=== PATIENT | female | born 1940 | race Caucasian/White ===

== ENCOUNTER 2024-10-26 11:05 | Inpatient (IN) | payer OTHER, MEDICAID ==
[~2024-10-26] VITALS: Ht 165.1 cm; Wt 63.5 kg
[~2024-10-26 11:05] MED LIST: ANAS1TAB7 PO; DEXA0.5E4 PO; HYDR500T13 PO; LETR2.5T PO; MORP1TAB14 PO; OMEP20CA74 PO
[2024-10-26 11:35] VITALS: PULSE 92; RESP 16; O2SAT 94
--- NOTE | 2024-10-26 11:37 | ED.PDOC ---
History of Present Illness HPI Comments 83 year old female presents to the ED via EMS with a chief complaint of generalized weakness onset 2 weeks. Patient states she has been experiencing generalized weakness for the past 2 weeks. She usually is ambulate on her own, lives on her own, states she does not have a plaster lather. Yesterday, patient went to the restroom, lost her balance, fell, landed on her back/LT side, hit towel rack. Patient states she is currently experiencing LT chest wall, LT sided back pain. She states she was on the floor all day yesterday, was not able to get up due to weakness. PMHx metastatic breast cancer. Denies LOC, head injury, neck pain, shortness of breath, dizziness. No other symptoms or modifying factors present at this time. Chief Complaint: General Weakness Time Seen by MD: 11:25 Primary Care Provider: UNKNOWN Reviewed Notes: Medications, Allergies Allergies: Coded Allergies: Penicillins (Unverified Allergy, Unknown, 05/02/14) Home Meds Reported Medications Hydrocodone-Acetaminophen (Acetaminophen/Hydrocodone) 1 Tab Tab, 10 MG PO Q4HPRN PRN for BREAKTHROUGH PAIN, TAB 05/02/14 Letrozole (Femara) 2.5 Mg Tab, 2.5 MG PO DAILY, TAB 05/02/14 Omeprazole (PRILOSEC) 20 Mg Cap, 20 MG PO DAILY, CAP 05/02/14 Dexamethasone (Dexamethasone) 0.5 Mg/5 Ml Elx, 4 MG PO Q8HR, ELX 05/02/14 Anastrozole (Anastrozole) 1 Mg Tab, 1 MG PO DAILY, TAB 05/02/14 Morphine Sulfate (Morphine Sulfate Er) 60 Mg Tab, 30 MG PO Q8HR PRN for BREAKTHROUGH PAIN, TAB 05/02/14 Information Source: Patient, Emergency Med Personnel Mode of Arrival: EMS Severity: Moderate Timing: Days Duration: Since onset Prehospital treatment: None Past Medical History PAST MEDICAL HISTORY: Cancer Surgical History: Hysterectomy Surgical History (Other): RT mastectomy PULPWOOD DEALER 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 History Family History Family History: No family hx of Cancer Family History (Other): mother bladder, father prostate, sister breast, cousins breasts cancers Social History Smoker: Non-Smoker, Other Alcohol: Denies ETOH Use Drugs: Denies Drug Use Lives In: Home Constitutional: reports: weakness; denies: chills, diaphoresis, fatigue, fever, malaise, sweats, others EENTM: denies: blurred vision, double vision, ear bleeding, ear discharge, ear drainage, ear pain, ear ringing, eye pain, eye redness, hearing loss, mouth pain, mouth swelling, nasal discharge, nose bleeding, nose congestion, nose pain, photophobia, tearing, throat pain, throat swelling, voice changes, others Respiratory: denies: cough, hemoptysis, orthopnea, SOB at rest, shortness of breath, SOB with excertion, stridor, wheezing, others Cardiovascular: denies: chest pain, dizzy spells, diaphoresis, Dyspnea on exertion, edema, irregular heart beat, left arm pain, lightheadedness, palpitations, PND, syncope, others Gastrointestinal: denies: abdomen distended, abdominal pain, blood streaked bowels, constipated, diarrhea, dysphagia, difficulty swallowing, hematemesis, melena, nausea, poor appetite, poor fluid intake, rectal bleeding, rectal pain, vomiting, others Genitourinary: denies: abnormal vagina bleeding, burning, dyspareunia, dysuria, flank pain, frequency, hematuria, incontinence, pain, , vagina discharge, urgency, others Neurological: reports: weakness; denies: dizziness, fainting, headache, left sided numbness, left sided weakness, numbness, paresthesia, pre-existing deficit, right sided numbness, right sided weakness, seizure, speech problems, tingling, tremors, others Musculoskeletal: reports: others (LT chest wall, LT back pain); denies: back pain, gout, joint pain, joint swelling, muscle pain, muscle stiffness, neck pain Integumetry: denies: bruises, change in color, change in hair/nails, dryness, laceration, lesions, lumps, rash, wounds, others Allergic/Immunocompromised: denies: Difficulty Healing, Frequent Infections, Hives, Itching, others Hematologic/Lymphatic: denies: anemia, blood clots, easy bleeding, easy bruising, swollen glands, others Endocrine: denies: excessive hunger, excessive sweating, excessive thirst, excessive urination, flushing, intolerance to cold, intolerance to heat, unexplained weight gain, unexplained weight loss, others Psychiatric: denies: anxiety, bipolar disorder, depression, hopeless, panic disorder, schizophrenia, sleepless, suicidal, others All Other Systems: Reviewed and Negative Physical Exam General Appearance: No Apparent Distress, Normal HEENT: Normal ENT Inspection, Pharynx Normal, TMs Normal Neck: Full Range of Motion, Non-Tender, Normal, Normal Inspection Respiratory: Chest Non-Tender, Lungs Clear, No Accessory Muscle Use, No Respiratory Distress, Normal Breath Sounds Cardiovascular: No Edema, No JVD, No Murmur, No Gallop, Normal Peripheral Pulses, Regular Rate/Rhythm Breast Exam: Deferred Gastrointestinal: No Organomegaly, Non Tender, No Pulsatile Mass, Normal Bowel Sounds, Soft Genitalia: Deferred Pelvic: Deferred Rectal: Deferred Extremities: No calf tenderness, Normal capillary refill, Normal inspection, Normal range of motion, Non-tender, No pedal edema Musculoskeletal : Location: Left Extremity Location: Chest (LT chest wall tenderness) Apperance: Normal Neurologic: Alert, six pack loader operator II-XII nml as Tested, No Motor Deficits, Normal Affect, Normal Mood, No Sensory Deficits Cerebellar Function: Normal Reflexes: Normal Skin: Dry, Normal Color, Warm Lymphatic: No Adenopathy Was a procedure done? Was a procedure done?: No Differential Dx Considerations may include: hypoglycemia, dehydration, electrolyte disorders, metastatic disease, failure to thrive. pneumonia, uti X-Ray, Labs, Meds, VS Vital Signs Date Time Temp Pulse Resp B/P (MAP) Pulse Ox O2 Delivery O2 Flow Rate FiO2 10/26/24 14:00 90 16 106/72 (83) 94 10/26/24 12:18 110/74 10/26/24 12:00 91 10/26/24 11:35 98.0 98 16 111/70 (84) 94 98.0 10/26/24 11:35 92 16 94 Nasal Cannula* 3 32 10/26/24 11:19 91 10/26/24 11:09 96 10/26/24 11:05 97.2 74 18 124/78 (93) 95 97.2 Lab Test 10/26/24 11:43 10/26/24 11:35 Range/Units White Blood Count 9.4 4.4-10.8 10^3/uL Red Blood Count 5.29 H 4.0-5.20 10^6/uL Hemoglobin 17.2 H 12.2-16.2 g/dL Hematocrit 51.2 H 36.0-46.0 % Mean Corpuscular Volume 96.8 80.0-100.0 fL Mean Corpuscular Hemoglobin 32.5 H 28.0-32.0 pg Mean Corpuscular Hemoglobin Concent 33.6 32.0-36.0 g/dL Red Cell Distribution Width 18.9 H 11.8-14.3 % Platelet Count 171 140-450 10^3/uL Mean Platelet Volume 10.3 6.9-10.8 fL Neutrophils (%) (Auto) 77.9 37.0-80.0 % Lymphocytes (%) (Auto) 9.1 L 10.0-50.0 % Monocytes (%) (Auto) 12.0 0.0-12.0 % Eosinophils (%) (Auto) 0.4 0.0-7.0 % Basophils (%) (Auto) 0.6 0.0-2.0 % Neutrophils # (Auto) 7.4 1.6-8.6 10 ^3/uL Lymphocytes # (Auto) 0.9 0.4-5.4 10 ^3/uL Monocytes # (Auto) 1.1 0-1.3 10 ^3/uL Eosinophils # (Auto) 0 0-0.8 10 ^3/uL Basophils # (Auto) 0.1 0-0.2 10 ^3/uL Nucleated Red Blood Cells 0.1 % Sodium Level 137 136-145 mmol/L Potassium Level 4.2 3.5-5.1 mmol/L Chloride Level 105 98-107 mmol/L Carbon Dioxide Level 22 20-31 mmol/L Anion Gap 10 5-15 Blood Urea Nitrogen 12 9-23 mg/dL Creatinine 0.74 0.550-1.02 mg/dL Glomerular Filtration Rate Calc 80 >90 mL/min BUN/Creatinine Ratio 16.2 10.0-20.0 Serum Glucose 70 L 74-106 mg/dL Calcium Level 12.6 H 8.7-10.4 mg/dL Creatine Kinase 167 H 34-145 U/L Vitamin B12 Level Pending Parathyroid Hormone (Intact) Pending Urine Color Pending Urine Clarity Pending Urine pH Pending Urine Specific [place] Pending Urine Protein Pending Urine Ketones Pending Urine Blood Pending Urine Nitrite Pending Urine Bilirubin Pending Urine Urobilinogen Pending Urine Leukocyte Esterase Pending Urine RBC Pending Urine Microscopic WBC Pending Urine Squamous Epithelial Cells Pending Urine Bacteria Pending Urine Glucose Pending Current Medications Medications (Trade) Dose Ordered Sig/Shellie Route Start Time Stop Time Status Last Admin Fentanyl Citrate 12.5 mcg ONCE ONCE IV 10/26/24 11:30 10/26/24 12:07 DC 10/26/24 12:18 Sodium Chloride 1,000 ml @ 125 mls/hr Q8H ONCE IV 10/26/24 11:30 10/26/24 19:29 10/26/24 12:18 Ceftriaxone Sodium 50 ml @ 100 mls/hr ONCE ONCE IV 10/26/24 15:00 10/26/24 15:29 DC 10/26/24 15:22 [place] [address] Ph: [phone] DIAGNOSTIC IMAGING Diagnostic Imaging Report : [id number] Signed PATIENT: DARWIN MARTINEZ ACCT: [id number] UNIT: [id number] : 1940 LOC: ER ROOM / BED: / AGE / SEX: 83 / F ADM STATUS: REG ER SERVICE 1127 ORDERING PHYSICIAN: ANJU SANTAMARIA MD PROCEDURE(s): ABPL - CT AB PEL WO CON-NO ORAL OR IV REASON: pain ORDER NUMBER(s): [id number], ACCESSION NUMBER(s): [id number] Indication: pain Technique: CT axial images of the abdomen and pelvis are obtained without contrast. Coronal and sagittal reformats were obtained. Radiation Dose Information: CTDI volume is 19.21 mGy. Dose-length product is 1121.19 mGy*cm Comparison: None FINDINGS: There is limited interpretation of the abdomen and pelvis without administration of intravenous contrast. Lung bases demonstrate atelectasis. Cardiomegaly. Aortic atherosclerotic disease. Left adrenal nodule measuring 2.1 cm. Pancreas unremarkable in shape. Liver capsule nodular morphology. Innumerable hepatic hypodense lesions throughout the hepatic parenchyma replacing more than 50% of the hepatic parenchyma. No CT evidence for cholelithiasis. Pericholecystic edema. Small amount of perihepatic, perisplenic ascites fluid. The bilateral kidneys demonstrate no hydronephrosis / nephrolithiasis. Nonobst ructing left renal calculus measuring 2 mm. Stomach is partially distended. Small bowel loops are normal in caliber. Colonic diverticular disease. Moderate volume stool in the colon. No secondary signs for appendicitis. Abdominal aortic atherosclerotic disease. Mesenteric edema. Small amount of free pelvic fluid. Bladder distended. No inguinal lymphadenopathy. Diffuse axial, appendicular skeleton osteoblastic metastatic disease with involvement of the thoracic, lumbar spine, sacrum, bilateral iliac bones. There is also a left iliac lytic destructive lesion measuring 3.1 cm.. Vertebroplasty changes at L2, L3, T8. T10 compression deformity with 50% loss height. T11 compression deformity with 25% loss height. L1 compression deformity with 30% loss height. Omental caking most pronounced in the upper abdomen. IMPRESSION: 1. Innumerable hepatic hypodense lesions replacing more than 50% of the hepatic parenchyma consistent with primary malignancy/ metastatic disease. Correlate with oncology history. 2. Diffuse axial, appendicular skeleton osteoblastic metastatic disease 3. Left iliac lytic / destructive lesion measuring 3.1 cm. 4. Small amount of ascites fluid extending to the pelvis. 5. Omental caking most pronounced within the upper abdomen.Left adrenal 6. Nodule measuring 2.1 cm, likely metastatic lesion. 7. Atherosclerotic disease. 8. Colonic diverticular disease. 9. Liver capsule nodular morphology which can be secondary to underlying cirrhosis, hepatic metastatic disease. ATED BY: GAL KNIGHT MD DICTATED DATE/TIME: 10/26/24 1231 SIGNED BY: GAL KNIGHT MD SIGNED DATE/TIME: 10/26/24 1231 CC: [place] [address] Ph: [phone] DIAGNOSTIC IMAGING Diagnostic Imaging Report : [id number] Signed PATIENT: DARWIN MARTINEZ ACCT: [id number] UNIT: [id number] : 1940 LOC: ER ROOM / BED: / AGE / SEX: 83 / F ADM STATUS: REG ER SERVICE 112 ORDERING PHYSICIAN: ANJU SANTAMARIA MD PROCEDURE(s): CXRP - CHEST PORTABLE REASON: falling ORDER NUMBER(s): [id number], ACCESSION NUMBER(s): [id number] CHEST RADIOGRAPH Indication: falling Technique: Single frontal view of the chest was obtained Comparison: FINDINGS: The cardiac silhouette is unremarkable. The lungs demonstrate right perihilar, right lower lobe airspace opacities. Elevation right hemidiaphragm.. The pulmonary vasculature is unremarkable. There is no pleural effusion.. There is no pneumothorax. Postsurgical changes of the right lateral chest wall / axillary region. IMPRESSION: 1. As above << >> ATED BY: GAL KNIGHT MD DICTATED DATE/TIME: 10/26/24 1237 SIGNED BY: GAL KNIGHT MD SIGNED DATE/TIME: 10/26/24 1237 CC: Time of 1ST Reevaluation: 11:55 Reevaluation 1ST: Unchanged Time of 2ND Reevaluation: 14:56 Reevaluation 2ND: Unchanged Patient Education/Counseling: Diagnosis, Treatment, Prognosis, Need For Follow Up Family Education/Counseling: No Family Present Additional Information The following tests were ordered, and results were reviewed by me: CBC, BMP, CREATINE KINASE, UA, XY CHEST, CT AB PEL WO CON Additional Information was gathered from interviewing the following independent historians: EMS I reviewed and agreed with the following test results read by other providers: XY CHEST, CT AB PEL WO CON I discussed treatment and results with medical personnel and: patient Comprehensive systems review obtained and negative except for what is stated in the HPI. pt has metastatic disease. she is on hospice, palliative care, and would like to return home to continue the comfort care. however, she lives alone and is at a weakened state that she is no longer safe to return home alone. she has agreed to be admitted or placed until a safe option can be found to go home. there is a right lung infiltrate. wether this is metastatic related is unknown. i will cover her with antibiotic for now Departure 1 Departure Time of Disposition: 16:10 Impression: Primary Impression: Failure to thrive Qualified Codes: R62.7 - Adult failure to thrive Additional Impressions: Generalized weakness Metastatic cancer Qualified Codes: C79.9 - Secondary malignant neoplasm of unspecified site Hospice care patient Pneumonia Disposition: 09 ADMITTED INPATIENT Admit to: Med Surg Condition: Serious Discharged With: Self Critical Care Note Critical Care Time?: Yes (55 min-critical care time only) Critical care comment: due to concerns for patient's condition deteriorating, the care required my highest level of attention and readiness to intervene. i assessed the patient's condition, ordered the proper tests and treatments, reassessed for response and reviewed the results. i communicated with medical personnel and formulated a plan of care. total critical care time does not include any procedures Stability Stability form required: No I personally scribed for ANJU SANTAMARIA MD ([facility] on 10/26/24 at 11:37. Electronically submitted by Sully Pfeiffer ([email or web address]). I personally scribed for ANJU SANTAMARIA MD ([email or web address]) on 10/26/24 at 11:41. Electronically submitted by Sully Pfeiffer ([email or web address]). I personally scribed for ANJU SANTAMARIA MD ([email or web address]) on 10/26/24 at 12:46. Electronically submitted by Sully Pfeiffer ([email or web address]). ANJU SANTAMARIA MD October 26, 2024 11:37
[2024-10-26 12:00] LABS: Basophils # (auto) 0.1 10 ^3/uL (0-0.2); Basophils % (auto) 0.6 % (0.0-2.0); Eosinophils # (auto) 0 10 ^3/uL (0-0.8); Eosinophils % (auto) 0.4 % (0.0-7.0); Hematocrit 51.2 % (36.0-46.0); Hemoglobin 17.2 g/dL (12.2-16.2); Lymphocytes # (auto) 0.9 10 ^3/uL (0.4-5.4); Lymphocytes % (auto) 9.1 % (10.0-50.0); Mean Corpuscular Hemoglobin 32.5 pg (28.0-32.0); Mean Corpuscular Hgb Conc. 33.6 g/dL (32.0-36.0); Mean Corpuscular Volume 96.8 fL (80.0-100.0); Monocytes # (auto) 1.1 10 ^3/uL (0-1.3); Neutrophils # (auto) 7.4 10 ^3/uL (1.6-8.6); Neutrophils % (auto) 77.9 % (37.0-80.0); Nucleated Red Blood Cells % 0.1 %; Platelet Count (auto) 171 10^3/uL (140-450); Red Blood Cells 5.29 10^6/uL (4.0-5.20); Red Cell Distribution Width 18.9 % (11.8-14.3); White Blood Cell 9.4 10^3/uL (4.4-10.8)
[2024-10-26 12:05] LABS: Chloride 105 mmol/L (98-107); Potassium 4.2 mmol/L (3.5-5.1); Sodium 137 mmol/L (136-145)
[2024-10-26 12:06] LABS: Anion Gap 10 (5-15); Carbon Dioxide 22 mmol/L (20-31)
[2024-10-26 12:11] LABS: BUN/Creatinine Ratio 16.2 (10.0-20.0); Blood Urea Nitrogen 12 mg/dL (9-23)
[2024-10-26 12:12] LABS: Calcium 12.6 mg/dL (8.7-10.4); Glucose 70 mg/dL (74-106)
[2024-10-26 12:13] LABS: Creatine Kinase IFCC 167 U/L (34-145)
[2024-10-26] MEDS: fentaNYL CITRATE 100 MCG/2 ML VL IV ONE (12:18)
[2024-10-26] MEDS: SODIUM CHLORIDE 0.9% 1,000 ML IV ONE (12:18)
--- NOTE | 2024-10-26 12:34 | DVH ---
Indication: pain Technique: CT axial images of the abdomen and pelvis are obtained without contrast. Coronal and sagit bassem reformats were obtained. Radiation Dose Information: CTDI volume is 19.21 mGy. Dose-length product is 1121.19 mGy*cm Comparison: None FINDINGS: There is limited interpretation of the abdomen and pelvis without administration of intravenous contr ast. Lung bases demonstrate atelectasis. Cardiomegaly. Aortic atherosclerotic disease. Left adrenal nodule measuring 2.1 cm. Pancreas unremarkable in shape. Liver capsule nodular morphology. Innumerable hepatic hypodense lesions throughout the hepatic paren chyma replacing more than 50% of the hepatic parenchyma. No CT evidence for cholelithiasis. Pericholecystic edema. Small amount of perihepatic, perisplenic ascites fluid. The bilateral kidneys demonstrate no hydronephrosis / nephrolithiasis. Nonobstructing left renal calc ulus measuring 2 mm. Stomach is partially distended. Small bowel loops are normal in caliber. Colonic diverticular disease. Moderate volume stool in the colon. No secondary signs for appendicitis . Abdominal aortic atherosclerotic disease. Mesenteric edema. Small amount of free pelvic fluid. Blad jade distended. No inguinal lymphadenopathy. Diffuse axial, appendicular skeleton osteoblastic metastatic disease with involvement of the thoracic , lumbar spine, sacrum, bilateral iliac bones. There is also a left iliac lytic destructive lesion me asuring 3.1 cm.. Vertebroplasty changes at L2, L3, T8. T10 compression deformity with 50% loss height . T11 compression deformity with 25% loss height. L1 compression deformity with 30% loss height. Omental caking most pronounced in the upper abdomen. IMPRESSION: 1. Innumerable hepatic hypodense lesions replacing more than 50% of the hepatic parenchyma consistent with primary malignancy/ metastatic disease. Correlate with oncology history. 2. Diffuse axial, appendicular skeleton osteoblastic metastatic disease 3. Left iliac lytic / destructive lesion measuring 3.1 cm. 4. Small amount of ascites fluid extending to the pelvis. 5. Omental caking most pronounced within the upper abdomen.Left adrenal 6. Nodule measuring 2.1 cm, likely metastatic lesion. 7. Atherosclerotic disease. 8. Colonic diverticular disease. 9. Liver capsule nodular morphology which can be secondary to underlying cirrhosis, hepatic metastati c disease.
--- NOTE | 2024-10-26 12:40 | DVH ---
CHEST RADIOGRAPH Indication: falling Technique: Single frontal view of the chest was obtained Comparison: FINDINGS: The cardiac silhouette is unremarkable. The lungs demonstrate right perihilar, right lower lobe airsp edson opacities. Elevation right hemidiaphragm.. The pulmonary vasculature is unremarkable. There is n o pleural effusion.. There is no pneumothorax. Postsurgical changes of the right lateral chest wall / axillary region. IMPRESSION: 1. As above << >>
--- NOTE | 2024-10-26 12:54 | ECG ---
[facility] Test Date: 2024-10-26 Test Time: 11:09:29 Pat Name: DARWIN MARTINEZ Department: ED Room: Gender: F Delivery Driver Assistant: YOSSI : 1940 Requested By: ANJU SANTAMARIA Order Number: [id number] Reading MD: Earl Harmon Measurements Intervals [place] Rate: 96 P: 49 OR: 143 QRS: -77 QRSD: 76 T: 21 QT: 352 QTc: 445 Interpretive Statements Sinus rhythm Abnormal R-wave progression, late transition Inferior infarct, old Baseline wander in lead(s) V3,V4,V5 Electronically Signed On 10-26-2024 13:58:20 PDT by Earl Harmon Please click the below link to view image of tracing.
[2024-10-26] MEDS: cefTRIAXone 1GM/50ML D5W 50 ML IV ONE (15:22)
[2024-10-26] MEDS ORDERED: ONDANSETRON HCL 4 MG/2 ML VIAL IV PRN (16:00)
[2024-10-26] MEDS ORDERED: ACETAMINOPHEN 500 MG TAB or CAP PO PRN (16:00)
[2024-10-26] MEDS ORDERED: MORPHINE SULFATE INJ 2 MG/ml SYRG IV PRN (16:00)
--- NOTE | 2024-10-26 16:02 | DVHHP2 ---
History of Present Illness Reason for Visit: Generalized weakness, mechanical fall History of Present Illness The patient is an 83-year-old female transport to the emergency room by EMS after having mechanical fall as well as noticeable generalized weakness. The patient has a significant history of metastatic breast cancer, with mastectomy, radiation therapy, as well as chemotherapy. The patient had a mechanical fall yesterday for which she spent a prolonged time lying on the ground. At the time of assessment, the patient is unable to tell me who called the ambulance for transportation to the hospital given that it appears she lives by herself per emergency room physician notes. Heme/Onc: Cancer Past Surgical History: Mastectomy Smoke: No ALCOHOL: none Drugs: None Lives: Alone Review of Systems Constitutional: Yes: Weakness Eyes: No: Pain, Vision change, Conjunctivae inflammation, Eyelid inflammation, Other, Redness ENT: No: Ear pain, Ear discharge, Nose pain, Nose discharge, Nose congestion, Mouth pain, Mouth swelling, Throat pain, Throat swelling, Other Respiratory: Pleuritic Pain Gastrointestinal: No: Nausea, Vomiting, Abdominal Pain, Diarrhea, Constipation, Melena, Hematochezia, Other Genitourinary: No Dysuria, No Frequency, No Incontinence, No Hematuria, No Retention, No Other Musculoskeletal: No: other, neck pain, shoulder pain, arm pain, back pain, hand pain, leg pain, foot pain Skin: No: Rash, Lesions, Jaundice, Bruising, Other Neurological: Weakness Allergies: Coded Allergies: Penicillins (Unverified Allergy, Unknown, 05/02/14) Exam Vital Signs Vital Signs Date Time Temp Pulse Resp B/P (MAP) Pulse Ox O2 Delivery O2 Flow Rate FiO2 10/26/24 14:00 90 16 106/72 (83) 94 10/26/24 11:35 98.0 98.0 10/26/24 11:35 Nasal Cannula* 3 32 General Appearance: Alert, Oriented X3, Cooperative, mild distress HEENT: Atraumatic, PERRLA Respiratory: Clear to auscultation, Normal air movement Cardiovascular: Normal S1, Normal S2, Other (Sinus tachycardia) Abdominal: Normal bowel sounds, Soft, No tenderness Extremities: No clubbing, No cyanosis, No edema, Normal pulses Psych/Mental Status: Mental status NL, Mood NL Labs/Xrays Labs Test 10/26/24 11:43 10/26/24 11:35 Range/Units White Blood Count 9.4 4.4-10.8 10^3/uL Red Blood Count 5.29 H 4.0-5.20 10^6/uL Hemoglobin 17.2 H 12.2-16.2 g/dL Hematocrit 51.2 H 36.0-46.0 % Mean Corpuscular Volume 96.8 80.0-100.0 fL Mean Corpuscular Hemoglobin 32.5 H 28.0-32.0 pg Mean Corpuscular Hemoglobin Concent 33.6 32.0-36.0 g/dL Red Cell Distribution Width 18.9 H 11.8-14.3 % Platelet Count 171 140-450 10^3/uL Mean Platelet Volume 10.3 6.9-10.8 fL Neutrophils (%) (Auto) 77.9 37.0-80.0 % Lymphocytes (%) (Auto) 9.1 L 10.0-50.0 % Monocytes (%) (Auto) 12.0 0.0-12.0 % Eosinophils (%) (Auto) 0.4 0.0-7.0 % Basophils (%) (Auto) 0.6 0.0-2.0 % Neutrophils # (Auto) 7.4 1.6-8.6 10 ^3/uL Lymphocytes # (Auto) 0.9 0.4-5.4 10 ^3/uL Monocytes # (Auto) 1.1 0-1.3 10 ^3/uL Eosinophils # (Auto) 0 0-0.8 10 ^3/uL Basophils # (Auto) 0.1 0-0.2 10 ^3/uL Nucleated Red Blood Cells 0.1 % Sodium Level 137 136-145 mmol/L Potassium Level 4.2 3.5-5.1 mmol/L Chloride Level 105 98-107 mmol/L Carbon Dioxide Level 22 20-31 mmol/L Anion Gap 10 5-15 Blood Urea Nitrogen 12 9-23 mg/dL Creatinine 0.74 0.550-1.02 mg/dL Glomerular Filtration Rate Calc 80 >90 mL/min BUN/Creatinine Ratio 16.2 10.0-20.0 Serum Glucose 70 L 74-106 mg/dL Calcium Level 12.6 H 8.7-10.4 mg/dL Creatine Kinase 167 H 34-145 U/L Assessment/Plan Assessment/Plan Impression: -mechanical fall -acute hypoxic respiratory failure -rhabdomyolysis -metastatic breast cancer -hypercalcemia Plan: -admit to Medical/Surgical unit -IV hydration -check vitamin-D, B1, B12, PTH intact -pain management -physical therapy consultation -repeat labs in a.m. Total time spent with patient discussing and formulating plan of care: 35 minutes. This medical document was created using an electronic medical record system with [employer] dictation system. Although this document has been carefully reviewed, there may still be some phonetic and typographical errors. These areas are purely typographical due to imperfections of the software programs, and do not reflect any compromise in the patient's medical care. Plan discussed with: Patient, Other (RN) My Orders Orders - KINGSTON GARCIA NP Procedure Category Date Status Time Admit ADMIT 10/26/24 Verified 15:47 Oxygen By Nasal RT 10/26/24 Verified Cannula 15:47 D5w/Sod Chlo 0.9% Ns PHA 10/26/24 Verified 16:00 Parathyroid Hormone LAB 10/26/24 Verified Intact 15:47 Morphine Sulfate PHA 10/26/24 Verified Injection 16:00 Hydrocodone-Acet PHA 10/26/24 Verified 5/325mg Tab ([place] 16:00 Acetaminophen Tab Or PHA 10/26/24 Verified Cap (Tylenol Tablet 16:00 Ondansetron Hcl PHA 10/26/24 Verified (Zofran) 16:00 Regular Diet DIET 10/26/24 Verified Dinner Comprehensive LAB 10/27/24 Verified Metabolic Panel 04:00 Complete Blood Count LAB 10/27/24 Verified 04:00 Vitamin B1 (Thiamine) LAB 10/26/24 Verified 15:47 Vitamin B12 LAB 10/26/24 Verified 15:47 Vitamin D 25-Hydroxy LAB 10/26/24 Verified D2 + D3 15:47 Lactate Dehydrogenase LAB 10/27/24 Verified 04:00 Creatine Kinase LAB 10/27/24 Verified 04:00 Date of Service: October 26, 2024 Billing Provider: KINGSTON GARCIA NP Common Visit Codes: [id number] INP/OBS CARE (HIGH) KINGSTON GARCIA NP October 26, 2024 16:02
[2024-10-26] MEDS: D5W/SOD CHLO 0.9% 1,000 ML IV ONE (16:27)
[2024-10-26 21:27] VITALS: PULSE 91; RESP 16; O2SAT 97
[2024-10-26 22:22] LABS: Urine Blood Negative /uL (Negative); Urine Clarity Clear (Clear); Urine Color Dark-Yellow (Yellow); Urine Hyaline Cast FEW /lpf (0 - 2); Urine Mucus FEW (None Seen); Urine Protein, UAD Negative (Negative); Urine Squamous Epithelial Cell FEW /hpf (<5); Urine Urobilinogen 3 mg/dL (Negative); Urine WBC 6 /HPF (0-5)
[2024-10-26 22:51] LABS: Urine Bacteria FEW /hpf (None Seen)
[2024-10-26] MEDS ORDERED: MULT-1018 PO (23:42)
[2024-10-26] MEDS ORDERED: CALC1TAB92 PO (23:42)
[2024-10-27 01:00] VITALS: BP 117/60; PULSE 96; RESP 16; TEMP 97.9; O2SAT 93
[2024-10-27 05:00] VITALS: BP 121/73; PULSE 105; RESP 18; TEMP 97.8; O2SAT 96
[2024-10-27 07:11] LABS: Basophils # (auto) 0.1 10 ^3/uL (0-0.2); Eosinophils # (auto) 0 10 ^3/uL (0-0.8); Eosinophils % (auto) 0.5 % (0.0-7.0); Hematocrit 47.8 % (36.0-46.0); Hemoglobin 16.4 g/dL (12.2-16.2); Lymphocytes # (auto) 0.9 10 ^3/uL (0.4-5.4); Lymphocytes % (auto) 11.4 % (10.0-50.0); Mean Corpuscular Hemoglobin 33.2 pg (28.0-32.0); Mean Corpuscular Hgb Conc. 34.2 g/dL (32.0-36.0); Mean Corpuscular Volume 97.2 fL (80.0-100.0); Monocytes # (auto) 1.4 10 ^3/uL (0-1.3); Monocytes % (auto) 16.6 % (0.0-12.0); Neutrophils # (auto) 5.8 10 ^3/uL (1.6-8.6); Neutrophils % (auto) 70.5 % (37.0-80.0); Nucleated Red Blood Cells % 0.2 %; Platelet Count (auto) 149 10^3/uL (140-450); Red Blood Cells 4.92 10^6/uL (4.0-5.20); Red Cell Distribution Width 19.1 % (11.8-14.3); White Blood Cell 8.2 10^3/uL (4.4-10.8)
[2024-10-27 07:21] LABS: Anion Gap 8 (5-15); BUN/Creatinine Ratio 19.7 (10.0-20.0); Blood Urea Nitrogen 14 mg/dL (9-23); Carbon Dioxide 25 mmol/L (20-31); Chloride 105 mmol/L (98-107); Creatine Kinase IFCC 92 U/L (34-145); Sodium 138 mmol/L (136-145); Total Protein 5.9 g/dL (5.7-8.2)
[2024-10-27 07:23] LABS: Alanine Aminotransferase 105 U/L (7-40); Albumin 3.2 g/dL (3.2-4.8); Alkaline Phosphatase 590 U/L (46-116); Aspartate Aminotransferase 352 U/L (13-40); Bilirubin, Total 6.5 mg/dL (0.2-1.0); Calcium 10.7 mg/dL (8.7-10.4); Glucose 151 mg/dL (74-106)
[2024-10-27 13:00] VITALS: BP 115/64; PULSE 69; RESP 16; TEMP 98.3; O2SAT 96
--- NOTE | 2024-10-27 15:08 | DVHPN2 ---
Subjective Patient denies any symptoms. Reviewed: Care Plan, H&P, Labs, Medications Changes from previous H/P or p: No Changes General: Per HPI Eyes: No Pain, No Vision change, No Conjunctivae inflammation, No Eyelid inflammation, No Other, No Redness ENT: No Ear pain, No Ear discharge, No Nose pain, No Nose discharge, No Nose congestion, No Mouth pain, No Mouth swelling, No Throat pain, No Throat swelling, No Other Respiratory: Pleuritic Pain Gastrointestinal: No Nausea, No Vomiting, No Abdominal Pain, No Diarrhea, No Constipation, No Melena, No Hematochezia, No Other Genitourinary: No Dysuria, No Frequency, No Incontinence, No Hematuria, No Retention, No Other Musculoskeletal: No other, No neck pain, No shoulder pain, No arm pain, No back pain, No hand pain, No leg pain, No foot pain Skin: No Rash, No Lesions, No Jaundice, No Bruising, No Other Objective Vitals Vital Signs Date Time Temp Pulse Resp B/P (MAP) Pulse Ox O2 Delivery O2 Flow Rate FiO2 10/27/24 08:00 Nasal Cannula* 2 28 10/27/24 05:00 97.8 105 18 121/73 (89) 96 97.8 Intake/Output Intake and Output 10/27/24 07:00 Intake Total 955 ml Balance 955 ml Intake Oral 180 ml IV Total 775 ml # Voids 1 General Appearance: Alert, Oriented X3, Cooperative, No acute distress HEENT: Atraumatic, PERRLA Lungs: Clear to auscultation, Normal air movement Cardiovascular: Normal S1, Normal S2 Abdomen: Normal bowel sounds, Soft, No tenderness Musculoskeletal: Normal sensory function, Normal motor function Neuro: Normal speech Skin: Dry, Intact Psych/Mental Status: Mental status NL, Mood NL Medications Current Medications Medications Dose Ordered Sig/Shellie Route Start Time Stop Time Status Last Admin Dose Admin Morphine Sulfate 1 mg Q4HPRN PRN IV 10/26/24 16:00 Acetaminophen/ Hydrocodone Bitart 1 tab Q6HPRN PRN PO 10/26/24 16:00 Acetaminophen 500 mg Q8HP PRN PO 10/26/24 16:00 Ondansetron HCl 4 mg Q6HP PRN IV 10/26/24 16:00 Laboratory Results Laboratory Tests 10/27/24 05:54 Chemistry Test 10/27/24 05:54 Albumin 3.2 g/dL (3.2-4.8) Calcium Level 10.7 mg/dL (8.7-10.4) H Total Protein 5.9 g/dL (5.7-8.2) LFT Test 10/27/24 05:54 Alanine Aminotransferase (ALT) 105 U/L (7-40) H Alkaline Phosphatase 590 U/L (46-116) H Aspartate Amino Transferase (AST) 352 U/L (13-40) H Total Bilirubin 6.5 mg/dL (0.2-1.0) H Urinalysis Test 10/26/24 21:50 Urine Color Dark-yellow (Yellow) Urine Clarity Clear (Clear) Urine pH 6.0 (5.0-9.0) Urine Specific [place] 1.020 (1.001-1.035) Urine Protein Negative (Negative) Urine Ketones 1+ (Negative) H Urine Blood Negative /uL (Negative) Urine Nitrite Negative (Negative) Urine Bilirubin 1+ (Negative) H Urine Urobilinogen 3 mg/dL (Negative) H Urine Leukocyte Esterase Negative /uL (Negative) Urine RBC 1 /hpf (0 - 4) Urine Microscopic WBC 6 /HPF (0-5) H Urine Squamous Epithelial Cells Few /hpf (<5) Urine Bacteria Few /hpf (None Seen) H Urine Hyaline Casts Few /lpf (0 - 2) Urine Mucus Few (None Seen) Urine Glucose Normal mg/dL (Normal) Labs and/or images reviewed: Labs reviewed by me, Image(s) reviewed by me Assessment/Plan Assessment/Plan Impression: -mechanical fall -acute hypoxic respiratory failure -rhabdomyolysis -metastatic breast cancer -hypercalcemia Plan: -admit to Medical/Surgical unit -IV hydration -check vitamin-D, B1, B12, PTH intact -pain management -physical therapy consultation -repeat labs in a.m. Total time spent with patient discussing and formulating plan of care: 35 minutes. This medical document was created using an electronic medical record system with [employer] dictation system. Although this document has been carefully reviewed, there may still be some phonetic and typographical errors. These areas are purely typographical due to imperfections of the software programs, and do not reflect any compromise in the patient's medical care. Plan discussed with: Patient, Other (RN) My Orders Orders - SALBINO,ONOFRE SAMPLER FIRST Procedure Category Date Status Time Admit ADMIT 10/26/24 Transmitted 15:47 Oxygen By Nasal RT 10/26/24 Transmitted Cannula 15:47 Morphine Sulfate PHA 10/26/24 In Process Injection 16:00 Hydrocodone-Acet PHA 10/26/24 In Process 5/325mg Tab (Linneus 16:00 Acetaminophen Tab Or PHA 10/26/24 In Process Cap (Tylenol Tablet 16:00 Ondansetron Hcl PHA 10/26/24 In Process (Zofran) 16:00 Regular Diet DIET 10/26/24 Transmitted Dinner Pt Request For Service PT 10/26/24 Logged 15:55 * Personnel Scheduler CONS 10/26/24 Transmitted Consult 23:34 Pt Request For Service PT 10/27/24 Logged 14:20 * Personnel Scheduler CONS 10/27/24 Verified Consult Date of Service: October 27, 2024 Billing Provider: KINGSTON GARCIA NP Common Visit Codes: [id number] INP/OBS CARE(HIGH) KINGSTON GARCIA NP October 27, 2024 15:08
[2024-10-27 17:00] VITALS: BP 123/65; PULSE 91; RESP 16; TEMP 97.8; O2SAT 96
[2024-10-27 20:00] VITALS: PULSE 87; RESP 16; O2SAT 94
[2024-10-27 20:46] VITALS: BP 118/71; PULSE 87; RESP 16; TEMP 97.7; O2SAT 94
[2024-10-28] VITALS (7 sets, daily range): BP systolic 101–136; BP diastolic 62–80; PULSE 83–108; RESP 16–20; TEMP 97–98.7; O2SAT 92–96
[2024-10-28] MEDS: ACETAMINOPHEN 500 MG TAB or CAP PO PRN (01:38)
--- NOTE | 2024-10-28 12:24 | DVHPN2 ---
Subjective Patient denies any symptoms. Reviewed: Care Plan, H&P, Labs, Medications Changes from previous H/P or p: No Changes General: Per HPI Eyes: No Pain, No Vision change, No Conjunctivae inflammation, No Eyelid inflammation, No Other, No Redness ENT: No Ear pain, No Ear discharge, No Nose pain, No Nose discharge, No Nose congestion, No Mouth pain, No Mouth swelling, No Throat pain, No Throat swelling, No Other Respiratory: Pleuritic Pain Gastrointestinal: No Nausea, No Vomiting, No Abdominal Pain, No Diarrhea, No Constipation, No Melena, No Hematochezia, No Other Genitourinary: No Dysuria, No Frequency, No Incontinence, No Hematuria, No Retention, No Other Musculoskeletal: No other, No neck pain, No shoulder pain, No arm pain, No back pain, No hand pain, No leg pain, No foot pain Skin: No Rash, No Lesions, No Jaundice, No Bruising, No Other Objective Vitals Vital Signs Date Time Temp Pulse Resp B/P (MAP) Pulse Ox O2 Delivery O2 Flow Rate FiO2 10/28/24 09:00 98.7 91 16 121/73 (89) 95 98.7 10/28/24 08:00 Nasal Cannula* 2 28 Intake/Output Intake and Output 10/28/24 07:00 Intake Total 1775 ml Output Total 2 ml Balance 1773 ml Intake Oral 1775 ml Output Urine/Stool Mix 2 ml # Voids 3 General Appearance: Alert, Oriented X3, Cooperative, No acute distress HEENT: Atraumatic, PERRLA Lungs: Clear to auscultation, Normal air movement Cardiovascular: Normal S1, Normal S2 Abdomen: Normal bowel sounds, Soft, No tenderness Musculoskeletal: Normal sensory function, Normal motor function Neuro: Normal speech, Cranial nerves 3-12 NL Skin: Dry, Intact Psych/Mental Status: Mental status NL, Mood NL Medications Current Medications Medications Dose Ordered Sig/Shellie Route Start Time Stop Time Status Last Admin Dose Admin Morphine Sulfate 1 mg Q4HPRN PRN IV 10/26/24 16:00 Acetaminophen/ Hydrocodone Bitart 1 tab Q6HPRN PRN PO 10/26/24 16:00 Ondansetron HCl 4 mg Q6HP PRN IV 10/26/24 16:00 Acetaminophen 500 mg Q8HP PRN PO 10/28/24 01:45 10/28/24 01:38 500 MG Laboratory Results Laboratory Tests 10/27/24 05:54 Urinalysis Test 10/26/24 21:50 Urine Color Dark-yellow (Yellow) Urine Clarity Clear (Clear) Urine pH 6.0 (5.0-9.0) Urine Specific [place] 1.020 (1.001-1.035) Urine Protein Negative (Negative) Urine Ketones 1+ (Negative) H Urine Blood Negative /uL (Negative) Urine Nitrite Negative (Negative) Urine Bilirubin 1+ (Negative) H Urine Urobilinogen 3 mg/dL (Negative) H Urine Leukocyte Esterase Negative /uL (Negative) Urine RBC 1 /hpf (0 - 4) Urine Microscopic WBC 6 /HPF (0-5) H Urine Squamous Epithelial Cells Few /hpf (<5) Urine Bacteria Few /hpf (None Seen) H Urine Hyaline Casts Few /lpf (0 - 2) Urine Mucus Few (None Seen) Urine Glucose Normal mg/dL (Normal) Labs and/or images reviewed: Labs reviewed by me, Image(s) reviewed by me Assessment/Plan Assessment/Plan Impression: -mechanical fall -acute hypoxic respiratory failure -rhabdomyolysis -metastatic breast cancer -hypercalcemia Plan: -no events overnight. -social service consultation for discharge planning. Patient lives alone. Currently on hospice. Long discussion made with patient's neighbor who was listed on contacts. Apparently she has the patient's phone and purse, is willing to speak with the patient's daughter if we can obtain patient's daughter's name. Patient reports that her daughter's name this Jackie Hanson. -PUD, DVT prophylaxis -pain management -physical therapy consultation Total time spent with patient discussing and formulating plan of care: 35 minutes. This medical document was created using an electronic medical record system with [employer] dictation system. Although this document has been carefully reviewed, there may still be some phonetic and typographical errors. These areas are purely typographical due to imperfections of the software programs, and do not reflect any compromise in the patient's medical care. Plan discussed with: Patient, Other (RN) My Orders Orders - KINGSTON GARCIA CHAUFFEUR Procedure Category Date Status Time Pt Request For Service PT 10/27/24 Logged 14:20 * [employer] CONS 10/27/24 Transmitted Consult Acetaminophen Tab Or PHA 10/28/24 In Process Cap (Tylenol Tablet 01:45 Date of Service: October 28, 2024 Billing Provider: KINGSTON GARCIA NP Common Visit Codes: [id number] INP/OBS CARE(HIGH) KINGSTON GARCIA NP October 28, 2024 12:24
[2024-10-28] MEDS: PANTOPRAZOLE 40 MG TAB PO SCH (15:15)
[2024-10-28] MEDS: ENOXAPARIN SOD 40 MG/0.4 ML SYRINGE SC SCH (15:16)
[2024-10-29] VITALS (7 sets, daily range): BP systolic 105–119; BP diastolic 60–81; PULSE 95–108; RESP 16–20; TEMP 96.5–97.7; O2SAT 93–95
[2024-10-29 06:08] LABS: Basophils # (auto) 0.1 10 ^3/uL (0-0.2); Basophils % (auto) 0.8 % (0.0-2.0); Eosinophils # (auto) 0.1 10 ^3/uL (0-0.8); Eosinophils % (auto) 1.1 % (0.0-7.0); Hematocrit 45.5 % (36.0-46.0); Hemoglobin 15.7 g/dL (12.2-16.2); Lymphocytes # (auto) 1.1 10 ^3/uL (0.4-5.4); Lymphocytes % (auto) 13.3 % (10.0-50.0); Mean Corpuscular Hemoglobin 32.5 pg (28.0-32.0); Mean Corpuscular Hgb Conc. 34.5 g/dL (32.0-36.0); Mean Corpuscular Volume 94.1 fL (80.0-100.0); Monocytes # (auto) 1.2 10 ^3/uL (0-1.3); Monocytes % (auto) 14.9 % (0.0-12.0); Neutrophils # (auto) 5.8 10 ^3/uL (1.6-8.6); Neutrophils % (auto) 69.9 % (37.0-80.0); Nucleated Red Blood Cells % 0.1 %; Platelet Count (auto) 172 10^3/uL (140-450); Red Blood Cells 4.84 10^6/uL (4.0-5.20); Red Cell Distribution Width 18.9 % (11.8-14.3); White Blood Cell 8.3 10^3/uL (4.4-10.8)
[2024-10-29 07:32] LABS: Albumin 2.8 g/dL (3.2-4.8); Alkaline Phosphatase 607 U/L (46-116); Anion Gap 8 (5-15); BUN/Creatinine Ratio 21.9 (10.0-20.0); Blood Urea Nitrogen 16 mg/dL (9-23); Calcium 10.2 mg/dL (8.7-10.4); Carbon Dioxide 25 mmol/L (20-31); Chloride 104 mmol/L (98-107); Glucose 81 mg/dL (74-106); Potassium 4.6 mmol/L (3.5-5.1); Sodium 137 mmol/L (136-145); Total Protein 5.2 g/dL (5.7-8.2)
[2024-10-29 07:33] LABS: Bilirubin, Total 7.6 mg/dL (0.2-1.0)
[2024-10-29 10:27] LABS: Alanine Aminotransferase 110 U/L (7-40); Aspartate Aminotransferase 401 U/L (13-40)
--- NOTE | 2024-10-29 11:05 | DVHPN2 ---
Subjective Patient denies any symptoms. Reviewed: Care Plan, H&P, Labs, Medications Changes from previous H/P or p: No Changes General: Per HPI Eyes: No Pain, No Vision change, No Conjunctivae inflammation, No Eyelid inflammation, No Other, No Redness ENT: No Ear pain, No Ear discharge, No Nose pain, No Nose discharge, No Nose congestion, No Mouth pain, No Mouth swelling, No Throat pain, No Throat swelling, No Other Respiratory: Pleuritic Pain Gastrointestinal: No Nausea, No Vomiting, No Abdominal Pain, No Diarrhea, No Constipation, No Melena, No Hematochezia, No Other Genitourinary: No Dysuria, No Frequency, No Incontinence, No Hematuria, No Retention, No Other Musculoskeletal: No other, No neck pain, No shoulder pain, No arm pain, No back pain, No hand pain, No leg pain, No foot pain Skin: No Rash, No Lesions, No Jaundice, No Bruising, No Other Objective Vitals Vital Signs Date Time Temp Pulse Resp B/P (MAP) Pulse Ox O2 Delivery O2 Flow Rate FiO2 10/29/24 09:30 97.3 100 16 115/69 (84) 95 97.3 10/29/24 08:00 Nasal Cannula* 2 28 Intake/Output Intake and Output 10/29/24 07:00 Intake Total 740 ml Output Total 1 ml Balance 739 ml Intake Oral 740 ml Output Stool Total 1 ml # Voids 6 General Appearance: Alert, Oriented X3, Cooperative, No acute distress HEENT: Atraumatic, PERRLA Lungs: Clear to auscultation, Normal air movement Cardiovascular: Normal S1, Normal S2 Abdomen: Normal bowel sounds, Soft, No tenderness Musculoskeletal: Normal sensory function, Normal motor function Neuro: Normal speech, Cranial nerves 3-12 NL Skin: Dry, Intact Psych/Mental Status: Mental status NL, Mood NL Medications Current Medications Medications Dose Ordered Sig/Shellie Route Start Time Stop Time Status Last Admin Dose Admin Morphine Sulfate 1 mg Q4HPRN PRN IV 10/26/24 16:00 Acetaminophen/ Hydrocodone Bitart 1 tab Q6HPRN PRN PO 10/26/24 16:00 Ondansetron HCl 4 mg Q6HP PRN IV 10/26/24 16:00 Acetaminophen 500 mg Q8HP PRN PO 10/28/24 01:45 10/28/24 01:38 500 MG Enoxaparin Sodium 40 mg DAILY SC 10/28/24 12:30 10/29/24 10:11 40 MG Pantoprazole Sodium 40 mg DAILY@0600 PO 10/28/24 12:30 10/29/24 06:20 40 MG Laboratory Results Laboratory Tests 10/29/24 05:02 Chemistry Test 10/29/24 05:02 Albumin 2.8 g/dL (3.2-4.8) L Calcium Level 10.2 mg/dL (8.7-10.4) Total Protein 5.2 g/dL (5.7-8.2) L LFT Test 10/29/24 05:02 Alanine Aminotransferase (ALT) 110 U/L (7-40) H Alkaline Phosphatase 607 U/L (46-116) H Aspartate Amino Transferase (AST) 401 U/L (13-40) H Total Bilirubin 7.6 mg/dL (0.2-1.0) H Urinalysis Test 10/26/24 21:50 Urine Color Dark-yellow (Yellow) Urine Clarity Clear (Clear) Urine pH 6.0 (5.0-9.0) Urine Specific [place] 1.020 (1.001-1.035) Urine Protein Negative (Negative) Urine Ketones 1+ (Negative) H Urine Blood Negative /uL (Negative) Urine Nitrite Negative (Negative) Urine Bilirubin 1+ (Negative) H Urine Urobilinogen 3 mg/dL (Negative) H Urine Leukocyte Esterase Negative /uL (Negative) Urine RBC 1 /hpf (0 - 4) Urine Microscopic WBC 6 /HPF (0-5) H Urine Squamous Epithelial Cells Few /hpf (<5) Urine Bacteria Few /hpf (None Seen) H Urine Hyaline Casts Few /lpf (0 - 2) Urine Mucus Few (None Seen) Urine Glucose Normal mg/dL (Normal) Labs and/or images reviewed: Labs reviewed by me, Image(s) reviewed by me Assessment/Plan Assessment/Plan Impression: -mechanical fall -acute hypoxic respiratory failure -rhabdomyolysis -metastatic breast cancer -hypercalcemia Plan: -no events overnight. -discharge once a plan has been established for patient given that she lives alone, with severe debilitation and unable to perform all ADLs by herself. -PUD, DVT prophylaxis -pain management -physical therapy consultation Total time spent with patient discussing and formulating plan of care: 35 minutes. This medical document was created using an electronic medical record system with [employer] dictation system. Although this document has been carefully reviewed, there may still be some phonetic and typographical errors. These areas are purely typographical due to imperfections of the software programs, and do not reflect any compromise in the patient's medical care. Plan discussed with: Patient, Other (RN) My Orders Orders - KINGSTON GARCIA NP Procedure Category Date Status Time Enoxaparin Sodium PHA 10/28/24 In Process (Lovenox) 12:30 Pantoprazole Tablet PHA 10/28/24 In Process (Protonix Tablet) 12:30 Date of Service: October 29, 2024 Billing Provider: KINGSTON GARCIA NP Common Visit Codes: [id number] INP/OBS CARE(HIGH) KINGSTON GARCIA NP October 29, 2024 11:05
[2024-10-30 01:00] VITALS: BP 104/65; PULSE 94; RESP 18; TEMP 97.5; O2SAT 95
[2024-10-30 05:00] VITALS: BP 110/52; PULSE 104; RESP 18; TEMP 97.8; O2SAT 96
[2024-10-30 08:00] VITALS: PULSE 92; RESP 15; O2SAT 98
[2024-10-30 08:40] VITALS: BP 118/74; PULSE 92; RESP 15; TEMP 97.8; O2SAT 98
[2024-10-30] MEDS: HYDROcodone-ACET 5/325MG TAB PO PRN (09:41)
--- NOTE | 2024-10-30 12:21 | DVHDS2 ---
Discharge Summary Date of Admission October 26, 2024 at 15:47 Date of Discharge: October 30, 2024 Admitting Diagnosis Mechanical fall, rhabdomyolysis Labs/Diagnostic Data: Laboratory Results Test 10/29/24 05:02 10/27/24 05:54 10/26/24 21:50 10/26/24 11:43 White Blood Count 8.3 10^3/uL (4.4-10.8) Red Blood Count 4.84 10^6/uL (4.0-5.20) Hemoglobin 15.7 g/dL (12.2-16.2) Hematocrit 45.5 % (36.0-46.0) Mean Corpuscular Volume 94.1 fL (80.0-100.0) Mean Corpuscular Hemoglobin 32.5 pg (28.0-32.0) Mean Corpuscular Hemoglobin Concent 34.5 g/dL (32.0-36.0) Red Cell Distribution Width 18.9 % (11.8-14.3) Platelet Count 172 10^3/uL (140-450) Mean Platelet Volume 10.5 fL (6.9-10.8) Neutrophils (%) (Auto) 69.9 % (37.0-80.0) Lymphocytes (%) (Auto) 13.3 % (10.0-50.0) Monocytes (%) (Auto) 14.9 % (0.0-12.0) Eosinophils (%) (Auto) 1.1 % (0.0-7.0) Basophils (%) (Auto) 0.8 % (0.0-2.0) Neutrophils # (Auto) 5.8 10 ^3/uL (1.6-8.6) Lymphocytes # (Auto) 1.1 10 ^3/uL (0.4-5.4) Monocytes # (Auto) 1.2 10 ^3/uL (0-1.3) Eosinophils # (Auto) 0.1 10 ^3/uL (0-0.8) Basophils # (Auto) 0.1 10 ^3/uL (0-0.2) Nucleated Red Blood Cells 0.1 % Sodium Level 137 mmol/L (136-145) Potassium Level 4.6 mmol/L (3.5-5.1) Chloride Level 104 mmol/L (98-107) Carbon Dioxide Level 25 mmol/L (20-31) Anion Gap 8 (5-15) Blood Urea Nitrogen 16 mg/dL (9-23) Creatinine 0.73 mg/dL (0.550-1.02) Glomerular Filtration Rate Calc 82 mL/min (>90) BUN/Creatinine Ratio 21.9 (10.0-20.0) Serum Glucose 81 mg/dL (74-106) Calcium Level 10.2 mg/dL (8.7-10.4) Total Bilirubin 7.6 mg/dL (0.2-1.0) Aspartate Amino Transferase (AST) 401 U/L (13-40) Alanine Aminotransferase (ALT) 110 U/L (7-40) Alkaline Phosphatase 607 U/L (46-116) Total Protein 5.2 g/dL (5.7-8.2) Albumin 2.8 g/dL (3.2-4.8) Lactate Dehydrogenase 367 U/L (120-246) Creatine Kinase 92 U/L (34-145) Urine Color Dark-yellow (Yellow) Urine Clarity Clear (Clear) Urine pH 6.0 (5.0-9.0) Urine Specific [place] 1.020 (1.001-1.035) Urine Protein Negative (Negative) Urine Ketones 1+ (Negative) Urine Blood Negative /uL (Negative) Urine Nitrite Negative (Negative) Urine Bilirubin 1+ (Negative) Urine Urobilinogen 3 mg/dL (Negative) Urine Leukocyte Esterase Negative /uL (Negative) Urine RBC 1 /hpf (0 - 4) Urine Microscopic WBC 6 /HPF (0-5) Urine Squamous Epithelial Cells Few /hpf (<5) Urine Bacteria Few /hpf (None Seen) Urine Hyaline Casts Few /lpf (0 - 2) Urine Mucus Few (None Seen) Urine Glucose Normal mg/dL (Normal) Vitamin B12 Level 3199 pg/mL (211-911) Vitamin D 25-Hydroxy 137.2 ng/mL (30.0-100) Parathyroid Hormone (Intact) 4.7 pg/mL (18.4-80.1) Other Laboratory Tests 10/29/24 05:02 Brief Hx & Hospital Course: History of Present Illness The patient is an 83-year-old female transport to the emergency room by EMS after having mechanical fall as well as noticeable generalized weakness. The patient has a significant history of metastatic breast cancer, with mastectomy, radiation therapy, as well as chemotherapy. The patient had a mechanical fall yesterday for which she spent a prolonged time lying on the ground. At the time of assessment, the patient is unable to tell me who called the ambulance for transportation to the hospital given that it appears she lives by herself per emergency room physician notes. Course of hospitalization: Patient was given IV hydration, empiric antibiotic therapy, as well as pain management. Long discussion was made with the patient regarding her plan of care. Apparently, the patient was on hospice, in his currently estranged from her three children. Patient has advanced cancer with metastasis, noted a liver with significant elevation LFTs. Findings of the CT scan were discussed with the patient. At this time hospice is an appropriate discharge plan, but with long discussion with physical therapy and social workers, the patient should have closer monitoring if not 24 hour care by a caregiver. Patient will be discharged back to hospice with these recommendations. This was discussed with the patient. Family will be contacted by social workers if they are able to be contacted given the current relationship with the patient. Physical examination General: Alert and Oriented x3. No acute distress. Well-nourished. Eyes: EOMI. Anicteric. HENT: Moist mucous membranes. Lungs: Clear to auscultation bilaterally. No accessory muscle use. Cardiovascular: Regular rate and rhythm. No murmur. No JVD. Abdomen: Soft, non-tender and non-distended. No palpable masses. Extremities: No edema. Non-tender. Skin: No rashes or lesions. Warm. Neurologic: No focal neurological deficits. CN II-XII grossly intact, but not individually tested. Psychiatric: Cooperative. Appropriate mood and affect. Total time spent with patient discussing and formulating plan of care: 35 minutes. This medical document was created using an electronic medical record system with [employer] dictation system. Although this document has been carefully reviewed, there may still be some phonetic and typographical errors. These areas are purely typographical due to imperfections of the software programs, and do not reflect any compromise in the patient's medical care. Condition at Discharge: Poor Final Diagnosis/Problems List Metastic Cancer Secondary diagnosis: -mechanical fall -acute hypoxic respiratory failure -rhabdomyolysis -metastatic breast cancer -hypercalcemia Discharge Disposition: Hospice - Home Discharge Instruct/Medications Diet: Regular Activity: No Restrictions, As Tolerated Follow Up/Referral: Per hospice provider Medications: Per hospice provider 36 Discharge Statement: "Patient was advised to return to the ER or call 911 if any headaches, dizziness, shortness of breath, chest pain, abdominal pain, bleeding, fevers, or worsening of medical condition. Patient was counseled about treatment plan, medications, possible side effects, patientverbalized understanding. All questions were answered to the best of my ability. This discharge took greater then 30 minutes in planning, reviewing documentation, counseling the patient, and discussing with other team members." ASSESSMENT ASSESSMENT Assessment Metastic Cancer Date of Service: October 30, 2024 Billing Provider: KINGSTON GARCIA NP Common Visit Codes: [id number] DISCH DAY >30min KINGSTON GARCIA NP October 30, 2024 12:21
[2024-10-30 12:40] VITALS: BP 104/73; PULSE 94; RESP 15; TEMP 97.6; O2SAT 97
[2024-10-31] MEDS ORDERED: LINA145C OR (16:37)
[2024-10-31] MEDS ORDERED: LETR2.5T6 PO (17:28)
== END 2024-10-30 16:48 | disposition hospice, home (50) | DRG 435 ==
LOC: ER 11:05 → EDBD 11:05 → OVERFLOW 15:47 → ER 15:55 → EAST 21:25
PROVIDERS: ADMIT Nurse Practitioner Acute Care; ATTEND Nurse Practitioner Acute Care
DX: C78.7 Secondary malignant neoplasm of liver and intrahepatic bile duct (principal); J96.01 Acute respiratory failure with hypoxia; M62.82 Rhabdomyolysis; E83.52 Hypercalcemia; R62.7 Adult failure to thrive; Z85.3 Personal history of malignant neoplasm of breast; Z88.0 Allergy status to penicillin; Z51.5 Encounter for palliative care; Z79.899 Other long term (current) drug therapy; Z90.710 Acquired absence of both cervix and uterus; Z90.11 Acquired absence of right breast and nipple; Z68.22 Body mass index [BMI] 22.0-22.9, adult
CPT/HCPCS: 36415; 71045; 74176; 80048; 80053; 81001; 82306; 82550; 82607; 83615; 83970; 85025; 93005; 96361; 96374; 97110; 97116; 97163; 97530; 99291; G0378; J7042

== ENCOUNTER 2024-10-31 08:26 | Inpatient (IN) | payer OTHER, MEDICAID ==
[~2024-10-31] VITALS: Ht 165.1 cm; Wt 76.3 kg
[~2024-10-31 08:26] MED LIST changes: -ANAS1TAB7 PO; +CALC1TAB92 PO; -DEXA0.5E4 PO; -HYDR500T13 PO; -LETR2.5T PO; -MORP1TAB14 PO; +MULT-1018 PO; -OMEP20CA74 PO
--- NOTE | 2024-10-31 08:34 | ED.PDOC ---
History of Present Illness HPI Comments 83 year old female presents to the ED for the c/c of a Mechanical fall. Per EMS, pt was on her way to the restroom where she had an unwitnessed mechanical fall. Per EMS, pt did not experience any LOC, or head trauma. Pt states she is not experiencing any pain at this period in time. Pt Denies fever, chills, coughing, N/V/D, SOB, Chest pain, or other associated symptoms, modifiers, or recent injuries or sick contact that this time. Time Seen by MD: 08:29 Primary Care Provider: UNKNOWN Reviewed Notes: Nurses Notes, Circuit Breaker Supervisor Notes, Medications, Allergies Allergies: Coded Allergies: Penicillins (Unverified Allergy, Unknown, 05/02/14) Home Meds Reported Medications Multiple Vitamin (Multivitamins) Tab, 1 TAB PO DAILY, #90 TAB 3 Refills 10/26/24 Calcium Carbonate (Calcium) 600 Mg Tab, 600 MG PO, TAB 10/26/24 Information Source: Patient, Emergency Med Personnel Mode of Arrival: EMS Severity: Moderate Timing: Hours Duration: Since onset, Hours Prehospital treatment: None Past Medical History PAST MEDICAL HISTORY: Cancer Surgical History: Hysterectomy 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 History Family History Family History: No family hx of Cancer Family History (Other): mother bladder, father prostate, sister breast, cousins breasts cancers Social History Smoker: Non-Smoker, Other Alcohol: Denies ETOH Use Drugs: Denies Drug Use Lives In: Home Constitutional: denies: chills, diaphoresis, fatigue, fever, malaise, sweats, weakness, others EENTM: denies: blurred vision, double vision, ear bleeding, ear discharge, ear drainage, ear pain, ear ringing, eye pain, eye redness, hearing loss, mouth pain, mouth swelling, nasal discharge, nose bleeding, nose congestion, nose pain, photophobia, tearing, throat pain, throat swelling, voice changes, others Respiratory: denies: cough, hemoptysis, orthopnea, SOB at rest, shortness of breath, SOB with excertion, stridor, wheezing, others Cardiovascular: denies: chest pain, dizzy spells, diaphoresis, Dyspnea on exertion, edema, irregular heart beat, left arm pain, lightheadedness, palpitations, PND, syncope, others Gastrointestinal: denies: abdomen distended, abdominal pain, blood streaked bowels, constipated, diarrhea, dysphagia, difficulty swallowing, hematemesis, melena, nausea, poor appetite, poor fluid intake, rectal bleeding, rectal pain, vomiting, others Genitourinary: denies: abnormal vagina bleeding, burning, dyspareunia, dysuria, flank pain, frequency, hematuria, incontinence, pain, , vagina discharge, urgency, others Neurological: reports: others (mechanical fall); denies: dizziness, fainting, headache, left sided numbness, left sided weakness, numbness, paresthesia, pre- existing deficit, right sided numbness, right sided weakness, seizure, speech problems, tingling, tremors, weakness Musculoskeletal: denies: back pain, gout, joint pain, joint swelling, muscle pain, muscle stiffness, neck pain, others Integumetry: denies: bruises, change in color, change in hair/nails, dryness, laceration, lesions, lumps, rash, wounds, others Allergic/Immunocompromised: denies: Difficulty Healing, Frequent Infections, Hives, Itching, others Hematologic/Lymphatic: denies: anemia, blood clots, easy bleeding, easy bruising, swollen glands, others Endocrine: denies: excessive hunger, excessive sweating, excessive thirst, excessive urination, flushing, intolerance to cold, intolerance to heat, unexplained weight gain, unexplained weight loss, others Psychiatric: denies: anxiety, bipolar disorder, depression, hopeless, panic disorder, schizophrenia, sleepless, suicidal, others All Other Systems: Reviewed and Negative Physical Exam General Appearance: Mild Distress HEENT: Pharynx Normal Neck: Normal Inspection Respiratory: No Respiratory Distress Cardiovascular: No Edema Breast Exam: Deferred Gastrointestinal: Non Tender Genitalia: Deferred Pelvic: Deferred Rectal: Deferred Extremities: Normal range of motion Neurologic: No Motor Deficits Cerebellar Function: NOT DONE Reflexes: NOT DONE Skin: Normal Color Lymphatic: NOT DONE Was a procedure done? Was a procedure done?: No Differential Dx Considerations may include: ACS, CVA, cardiac arrhythmia, infectious etiology X-Ray, Labs, Meds, VS Vital Signs Date Time Temp Pulse Resp B/P (MAP) Pulse Ox O2 Delivery O2 Flow Rate FiO2 10/31/24 10:00 85 12 106/47 (66) 96 10/31/24 09:35 82 10/31/24 09:13 79 17 96 Nasal Cannula* 4 36 10/31/24 08:38 97.8 82 18 100/67 (78) 99 97.8 10/31/24 08:31 97.8 82 18 100/67 (78) 99 97.8 Lab Test 10/31/24 10:00 10/31/24 08:48 Range/Units Troponin I High Sensitivity Pending 13 </=34 ng/L White Blood Count 8.4 4.4-10.8 10^3/uL Red Blood Count 5.07 4.0-5.20 10^6/uL Hemoglobin 16.8 H 12.2-16.2 g/dL Hematocrit 48.5 H 36.0-46.0 % Mean Corpuscular Volume 95.7 80.0-100.0 fL Mean Corpuscular Hemoglobin 33.1 H 28.0-32.0 pg Mean Corpuscular Hemoglobin Concent 34.6 32.0-36.0 g/dL Red Cell Distribution Width 19.3 H 11.8-14.3 % Platelet Count 176 140-450 10^3/uL Mean Platelet Volume 9.7 6.9-10.8 fL Neutrophils (%) (Auto) 81.4 H 37.0-80.0 % Lymphocytes (%) (Auto) 8.1 L 10.0-50.0 % Monocytes (%) (Auto) 9.3 0.0-12.0 % Eosinophils (%) (Auto) 0.6 0.0-7.0 % Basophils (%) (Auto) 0.6 0.0-2.0 % Neutrophils # (Auto) 6.8 1.6-8.6 10 ^3/uL Lymphocytes # (Auto) 0.7 0.4-5.4 10 ^3/uL Monocytes # (Auto) 0.8 0-1.3 10 ^3/uL Eosinophils # (Auto) 0.1 0-0.8 10 ^3/uL Basophils # (Auto) 0.1 0-0.2 10 ^3/uL Nucleated Red Blood Cells 0.1 % Sodium Level 134 L 136-145 mmol/L Potassium Level 4.7 3.5-5.1 mmol/L Chloride Level 101 98-107 mmol/L Carbon Dioxide Level 27 20-31 mmol/L Anion Gap 6 5-15 Blood Urea Nitrogen 19 9-23 mg/dL Creatinine 0.74 0.550-1.02 mg/dL Glomerular Filtration Rate Calc 80 >90 mL/min BUN/Creatinine Ratio 25.7 H 10.0-20.0 Serum Glucose 69 L 74-106 mg/dL Calcium Level 11.3 H 8.7-10.4 mg/dL PATIENT: DARWIN MARTINEZ ACCT: [id number] UNIT: [id number] : 1940 LOC: ER ROOM / BED: / AGE / SEX: 83 / F ADM STATUS: REG ER SERVICE 8 ORDERING PHYSICIAN: ENEDINA ALVARADO MD PROCEDURE(s): HWOCT - HEAD WITHOUT CONTRAST REASON: fall ORDER NUMBER(s): [id number], ACCESSION NUMBER(s): [id number] EXAM: CT HEAD WITHOUT CONTRAST INDICATION: fall, trauma, pain TECHNIQUE: CT of the head without intravenous contrast. Radiation Dose : 1. Head: CT Dose: CTDI volume is 54.65 mGy. Dose-length product is 967.46 mGy*cm The dose indicators for CT are the volume Computed Tomography (CT) Dose Index (CTDIvol) and the Dose Length Product (DLP), and are measured in units of mGy and mGy-cm, respectively. These indicators are not patient dose, but values generated from the CT scanner acquisition factors. The report includes radiation exposure data for exposures received during this examination. COMPARISON: None FINDINGS: There is no evidence of acute intracranial hemorrhage, extra-axial collection, m ass effect, midline shift, herniation or hydrocephalus. The ventricles, sulci and cisterns are age appropriate. The dudley-white differentiation is intact. Patchy periventricular and subcortical white matter hypoattenuation is nonspecific but may be related to small vessel ischemic disease. The visualized paranasal sinuses and mastoid air cells are clear. The surrounding soft tissues and osseous structures are unremarkable. IMPRESSION: No acute intracranial abnormality. PATIENT: DARWIN MARTINEZ ACCT: [id number] UNIT: [id number] : 1940 LOC: ER ROOM / BED: / AGE / SEX: 83 / F ADM STATUS: REG ER SERVICE 8 ORDERING PHYSICIAN: ENEDINA ALVARADO MD PROCEDURE(s): CXRP - CHEST PORTABLE REASON: fall ORDER NUMBER(s): [id number], ACCESSION NUMBER(s): [id number] EXAM: XY CHEST PORTABLE Indication: Trauma Technique: Single frontal view of the chest was obtained Comparison: XY CHEST PORTABLE on DOS: 10/26/24 FINDINGS: Lines and Tubes: None Lungs: Linear atelectasis at the left lung base. Pleura: No effusion. No pneumothorax. Cardiomediastinal contours: Unremarkable Atherosclerotic vascular calcifications of the thoracic aorta are noted. Bones: No acute osseous abnormality. Surgical clips project over the right axill a. Status post kyphoplasty changes. IMPRESSION: No acute cardiopulmonary disease. Time of 1ST Reevaluation: 09:00 Reevaluation 1ST: Unchanged Patient Education/Counseling: Diagnosis, Treatment Family Education/Counseling: No Family Present Departure 1 Departure Time of Disposition: 10:33 (Patient presented with syncope today and should be admitted. Data: 1. I ordered and reviewed the result of at least 3 labs including a CBC, BMP, and troponin. 2. I independently interpreted the following tests: EKG which shows a normal sinus rhythm and a chest x-ray which shows benign chest and a CT head which shows benign brain.Risk:This patient has a high risk of morbidity due to further diagnostic testing or treatment and may suffer from an acute cardiac, neurologic, or infectious disorder. Rationale: Patient should be admitted to the hospital for further management.) Impression: Primary Impression: Syncope and collapse Additional Impression: Unable to ambulate Disposition: ADMITTED INPATIENT Admit to: Med Surg Condition: Serious Critical Care Note Critical Care Time?: Yes Critical care comment: Syncope and collapse Authorized and Performed by: Enedina Alvarado MD Total critical care time: Approximately 38 minutes Due to a high probability of clinically significant, life threatening deterioration, the patient required my highest level of preparedness to intervene emergently and I personally spent this critical care time directly and personally managing the patient. This critical care time included obtaining a history; examining the patient; pulse oximetry; ordering and review of studies; arranging urgent treatment with development of a management plan; evaluation of patient's response to treatment; frequent reassessment; and, discussions with other providers. This critical care time was performed to assess and manage the high probability of imminent, life-threatening deterioration that could result in multi-organ failure. It was exclusive of separately billable procedures and treating other patients and teaching time. Please see my other sections and the rest of the note for further information on patient assessment and treatment. Stability Stability form required: No I personally scribed for ENEDINA ALVARADO MD ([email or web address]) on 10/31/24 at 08:34. Electronically submitted by Rahat Ugalde ([email or web address]). I personally scribed for ENEDINA ALVARADO MD ([email or web address]) on 10/31/24 at 09:34. Electronically submitted by Rahat Ugalde ([email or web address]). I personally scribed for ENEDINA ALVARADO MD ([email or web address]) on 10/31/24 at 10:21. Electronically submitted by Owen Bang ([email or web address]). ENEDINA ALVARADO MD October 31, 2024 08:34
[2024-10-31 08:56] LABS: Basophils # (auto) 0.1 10 ^3/uL (0-0.2); Basophils % (auto) 0.6 % (0.0-2.0); Eosinophils # (auto) 0.1 10 ^3/uL (0-0.8); Eosinophils % (auto) 0.6 % (0.0-7.0); Hematocrit 48.5 % (36.0-46.0); Hemoglobin 16.8 g/dL (12.2-16.2); Lymphocytes # (auto) 0.7 10 ^3/uL (0.4-5.4); Lymphocytes % (auto) 8.1 % (10.0-50.0); Mean Corpuscular Hemoglobin 33.1 pg (28.0-32.0); Mean Corpuscular Hgb Conc. 34.6 g/dL (32.0-36.0); Mean Corpuscular Volume 95.7 fL (80.0-100.0); Monocytes # (auto) 0.8 10 ^3/uL (0-1.3); Monocytes % (auto) 9.3 % (0.0-12.0); Neutrophils # (auto) 6.8 10 ^3/uL (1.6-8.6); Neutrophils % (auto) 81.4 % (37.0-80.0); Nucleated Red Blood Cells % 0.1 %; Platelet Count (auto) 176 10^3/uL (140-450); Red Blood Cells 5.07 10^6/uL (4.0-5.20); Red Cell Distribution Width 19.3 % (11.8-14.3); White Blood Cell 8.4 10^3/uL (4.4-10.8)
[2024-10-31 09:02] LABS: Chloride 101 mmol/L (98-107); Potassium 4.7 mmol/L (3.5-5.1)
[2024-10-31 09:03] LABS: Anion Gap 6 (5-15); Carbon Dioxide 27 mmol/L (20-31)
[2024-10-31 09:05] LABS: Calcium 11.3 mg/dL (8.7-10.4); Sodium 134 mmol/L (136-145)
[2024-10-31 09:08] LABS: BUN/Creatinine Ratio 25.7 (10.0-20.0); Blood Urea Nitrogen 19 mg/dL (9-23)
--- NOTE | 2024-10-31 09:11 | DVH ---
EXAM: XY CHEST PORTABLE Indication: Trauma Technique: Single frontal view of the chest was obtained Comparison: XY CHEST PORTABLE on DOS: 10/26/24 FINDINGS: Lines and Tubes: None Lungs: Linear atelectasis at the left lung base. Pleura: No effusion. No pneumothorax. Cardiomediastinal contours: Unremarkable Atherosclerotic vascular calcifications of the thoracic aort a are noted. Bones: No acute osseous abnormality. Surgical clips project over the right axilla. Status post kypho plasty changes. IMPRESSION: No acute cardiopulmonary disease.
[2024-10-31 09:12] LABS: Glucose 69 mg/dL (74-106)
[2024-10-31 09:13] VITALS: PULSE 79; RESP 17; O2SAT 96
--- NOTE | 2024-10-31 09:17 | DVH ---
EXAM: CT HEAD WITHOUT CONTRAST INDICATION: fall, trauma, pain TECHNIQUE: CT of the head without intravenous contrast. Radiation Dose : 1. Head: CT Dose: CTDI volume is 54.65 mGy. Dose-length product is 967.46 mGy*cm The dose indicators for CT are the volume Computed Tomography (CT) Dose Index (CTDIvol) and the Dose Length Product (DLP), and are measured in units of mGy and mGy-cm, respectively. These indicators are not patient dose, but values generated from the CT scanner acquisition factors. The report includes radiation exposure data for exposures received during this examination. COMPARISON: None FINDINGS: There is no evidence of acute intracranial hemorrhage, extra-axial collection, mass effect, midline s hift, herniation or hydrocephalus. The ventricles, sulci and cisterns are age appropriate. The dudley-white differentiation is intact. Patchy periventricular and subcortical white matter hypoattenuation is nonspecific but may be related to small vessel ischemic disease. The visualized paranasal sinuses and mastoid air cells are clear. The surrounding soft tissues and osseous structures are unremarkable. IMPRESSION: No acute intracranial abnormality. Radiation optimization: All CT scans at this facility use at least one of these dose optimization sunni hniques: automated exposure control mA and/or kV adjustment per patient size (includes targeted exam s where dose is matched to clinical indication) or iterative reconstruction.
[2024-10-31] MEDS ORDERED: ONDANSETRON HCL 4 MG/2 ML VIAL IV PRN (11:45)
[2024-10-31] MEDS ORDERED: DOCUSATE SOD 100 MG CAP PO PRN (11:45)
--- NOTE | 2024-10-31 11:56 | DVHHP2 ---
History of Present Illness Reason for Visit: Fall History of Present Illness Jaylin Ellington is an 83-year-old female with past medical history of cancer, who came in S/P fall. Patient lives alone, is on hospice. Patient states she was trying to walk to the bathroom when she felt dizzy and fell. She states this happened around 1700 last night. EMS was called this morning by a neighbor who was concerned about the patient and called for a well check. Patient was found on the ground in her room. Patient was recently admitted to the hospital for a similar event. Heme/Onc: Cancer Past Surgical History: Hysterectomy, Other (Mastectomy) Smoke: No ALCOHOL: none Drugs: None Lives: Alone Domestic Violence: Neg Review of Systems Constitutional: No: Fever, Chills, Sweats, Weakness, Malaise, Other Eyes: No: Pain, Vision change, Conjunctivae inflammation, Eyelid inflammation, Other, Redness ENT: No: Ear pain, Ear discharge, Nose pain, Nose discharge, Nose congestion, Mouth pain, Mouth swelling, Throat pain, Throat swelling, Other Respiratory: No: Cough, Dry, Shortness of breath, SOB with excertion, Wheezing, Hemoptysis, Pleuritic Pain, Sputum, Wheezing, Other Cardiovascular: No: Chest Pain, Palpitations, Orthopnea, Paroxysmal Noc. Dyspnea, Edema, Lt Headedness, Other Gastrointestinal: No: Nausea, Vomiting, Abdominal Pain, Diarrhea, Constipation, Melena, Hematochezia, Other Genitourinary: No Dysuria, No Frequency, No Incontinence, No Hematuria, No Retention, No Other Musculoskeletal: No: other, neck pain, shoulder pain, arm pain, back pain, hand pain, leg pain, foot pain Skin: No: Rash, Lesions, Jaundice, Bruising, Other Neurological: Weakness, Incoordination, Confusion, Other (S/P fall); No: Numbness, Change in speech, Seizures Allergies: Coded Allergies: Penicillins (Unverified Allergy, Unknown, 05/02/14) Exam Vital Signs Vital Signs Date Time Temp Pulse Resp B/P (MAP) Pulse Ox O2 Delivery O2 Flow Rate FiO2 10/31/24 10:00 85 12 106/47 (66) 96 10/31/24 09:13 Nasal Cannula* 4 36 10/31/24 08:38 97.8 97.8 General Appearance: Alert, Oriented X3, Cooperative, mild distress HEENT: Atraumatic, PERRLA Respiratory: Clear to auscultation, Normal air movement Cardiovascular: Regular rate, Normal S1, Normal S2 Abdominal: Normal bowel sounds, Soft, No tenderness Extremities: No clubbing, No cyanosis, No edema, Normal pulses, No tenderness/swelling Skin: No rashes, No breakdown, No significant lesion Neuro: Normal speech Psych/Mental Status: Mental status NL, Mood NL Labs/Xrays Labs Test 10/31/24 10:00 10/31/24 08:48 Range/Units Troponin I High Sensitivity 11 </=34 ng/L White Blood Count 8.4 4.4-10.8 10^3/uL Red Blood Count 5.07 4.0-5.20 10^6/uL Hemoglobin 16.8 H 12.2-16.2 g/dL Hematocrit 48.5 H 36.0-46.0 % Mean Corpuscular Volume 95.7 80.0-100.0 fL Mean Corpuscular Hemoglobin 33.1 H 28.0-32.0 pg Mean Corpuscular Hemoglobin Concent 34.6 32.0-36.0 g/dL Red Cell Distribution Width 19.3 H 11.8-14.3 % Platelet Count 176 140-450 10^3/uL Mean Platelet Volume 9.7 6.9-10.8 fL Neutrophils (%) (Auto) 81.4 H 37.0-80.0 % Lymphocytes (%) (Auto) 8.1 L 10.0-50.0 % Monocytes (%) (Auto) 9.3 0.0-12.0 % Eosinophils (%) (Auto) 0.6 0.0-7.0 % Basophils (%) (Auto) 0.6 0.0-2.0 % Neutrophils # (Auto) 6.8 1.6-8.6 10 ^3/uL Lymphocytes # (Auto) 0.7 0.4-5.4 10 ^3/uL Monocytes # (Auto) 0.8 0-1.3 10 ^3/uL Eosinophils # (Auto) 0.1 0-0.8 10 ^3/uL Basophils # (Auto) 0.1 0-0.2 10 ^3/uL Nucleated Red Blood Cells 0.1 % Sodium Level 134 L 136-145 mmol/L Potassium Level 4.7 3.5-5.1 mmol/L Chloride Level 101 98-107 mmol/L Carbon Dioxide Level 27 20-31 mmol/L Anion Gap 6 5-15 Blood Urea Nitrogen 19 9-23 mg/dL Creatinine 0.74 0.550-1.02 mg/dL Glomerular Filtration Rate Calc 80 >90 mL/min BUN/Creatinine Ratio 25.7 H 10.0-20.0 Serum Glucose 69 L 74-106 mg/dL Calcium Level 11.3 H 8.7-10.4 mg/dL EXAM: XY CHEST PORTABLE Indication: Trauma Technique: Single frontal view of the chest was obtained Comparison: XY CHEST PORTABLE on DOS: 10/26/24 FINDINGS: Lines and Tubes: None Lungs: Linear atelectasis at the left lung base. Pleura: No effusion. No pneumothorax. Cardiomediastinal contours: Unremarkable Atherosclerotic vascular calcifications of the thoracic aorta are noted. Bones: No acute osseous abnormality. Surgical clips project over the right axilla. Status post kyphoplasty changes. IMPRESSION: No acute cardiopulmonary disease. Assessment/Plan Assessment/Plan Assessment: Syncope and collapse, Metastatic breast cancer, Possible rhabdomyolysis, Plan: Admit to Med-Surg, CPK, Physical therapy evaluation, Social service consult, IV hydration, Home medications reconciled, Plan discussed with: Patient My Orders Orders - LUIS VARGAS Procedure Category Date Status Time Admit ADMIT 10/31/24 Verified 11:43 Code Status CODE 10/31/24 Verified 11:43 2 Gm Sodium Diet DIET 10/31/24 Verified Lunch Hydrocodone-Acet PHA 10/31/24 Verified 5/325mg Tab ([place] 11:45 Ondansetron Hcl PHA 10/31/24 Verified (Zofran) 11:45 Docusate Sodium PHA 10/31/24 Verified Capsule ([place] 11:45 Date of Service: October 31, 2024 Billing Provider: LUIS VARGAS Common Visit Codes: [id number] INP/OBS CARE (MOD) LUIS VARGAS October 31, 2024 11:56
[2024-10-31 12:45] VITALS: BP 96/54; PULSE 90; RESP 20; TEMP 97.4; O2SAT 95
[2024-10-31 13:15] VITALS: BP 96/54; PULSE 90; RESP 20; TEMP 97.4; O2SAT 95
[2024-10-31] MEDS ORDERED: LINA145C OR (16:37)
[2024-10-31 17:00] VITALS: BP 114/65; PULSE 98; RESP 16; TEMP 98; O2SAT 95
[2024-10-31 17:17] LABS: Urine Bacteria FEW /hpf (None Seen); Urine Blood TRACE /uL (Negative); Urine Clarity Turbid (Clear); Urine Color Dark-Yellow (Yellow); Urine Hyaline Cast FEW /lpf (0 - 2); Urine Mucus FEW (None Seen); Urine Protein, UAD Negative (Negative); Urine Squamous Epithelial Cell FEW /hpf (<5); Urine Urobilinogen 4 mg/dL (Negative); Urine WBC 16 /HPF (0-5); Urine pH 5.5 (5.0-9.0)
[2024-10-31] MEDS ORDERED: LETR2.5T6 PO (17:28)
[2024-10-31] MEDS: SODIUM CHLORIDE 0.9% 1,000 ML IV SCH (17:45)
[2024-10-31] MEDS: SODIUM CHLORIDE 0.9% 1,000 ML IV ONE (17:45)
--- NOTE | 2024-10-31 19:02 | ECG ---
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
[2024-10-31 20:00] VITALS: PULSE 87; RESP 18
[2024-10-31 21:00] VITALS: BP 119/62; PULSE 87; RESP 18; TEMP 97.5; O2SAT 96
[2024-11-01] VITALS (8 sets, daily range): BP systolic 100–126; BP diastolic 52–61; PULSE 62–102; RESP 17–19; TEMP 97.5–98.3; O2SAT 93–98
[2024-11-01 07:34] LABS: Basophils # (auto) 0 10 ^3/uL (0-0.2); Basophils % (auto) 0.4 % (0.0-2.0); Eosinophils # (auto) 0 10 ^3/uL (0-0.8); Eosinophils % (auto) 0.5 % (0.0-7.0); Hematocrit 44.6 % (36.0-46.0); Hemoglobin 15.2 g/dL (12.2-16.2); Lymphocytes # (auto) 0.9 10 ^3/uL (0.4-5.4); Lymphocytes % (auto) 10.6 % (10.0-50.0); Mean Corpuscular Hemoglobin 32.6 pg (28.0-32.0); Mean Corpuscular Hgb Conc. 34.2 g/dL (32.0-36.0); Mean Corpuscular Volume 95.3 fL (80.0-100.0); Monocytes # (auto) 1.2 10 ^3/uL (0-1.3); Neutrophils # (auto) 6.8 10 ^3/uL (1.6-8.6); Neutrophils % (auto) 75.5 % (37.0-80.0); Nucleated Red Blood Cells % 0.2 %; Platelet Count (auto) 165 10^3/uL (140-450); Red Blood Cells 4.68 10^6/uL (4.0-5.20); Red Cell Distribution Width 19.6 % (11.8-14.3); White Blood Cell 8.9 10^3/uL (4.4-10.8)
[2024-11-01 07:37] LABS: Anion Gap 9 (5-15); BUN/Creatinine Ratio 30.8 (10.0-20.0); Blood Urea Nitrogen 20 mg/dL (9-23); Carbon Dioxide 24 mmol/L (20-31); Chloride 103 mmol/L (98-107)
[2024-11-01 07:40] LABS: Alanine Aminotransferase 96 U/L (7-40); Albumin 2.7 g/dL (3.2-4.8); Alkaline Phosphatase 500 U/L (46-116); Aspartate Aminotransferase 347 U/L (13-40); Bilirubin, Total 8.3 mg/dL (0.2-1.0); Calcium 10.5 mg/dL (8.7-10.4); Sodium 136 mmol/L (136-145); Total Protein 5.2 g/dL (5.7-8.2)
[2024-11-01 07:43] LABS: Glucose 46 mg/dL (74-106)
[2024-11-01] MEDS: DEXTROSE (50%) 50ML SYRG IV PRN (08:16)
[2024-11-01] MEDS: MULTIPLE VITAMIN TAB PO SCH (09:24)
[2024-11-01] MEDS: LETROZOLE 2.5 MG PO SCH (09:25)
[2024-11-01] MEDS: ACCU-CHEK COMFORT CURVE STRIP VI SCH (11:56)
[2024-11-01] MEDS ORDERED: ONDANSETRON HCL 4 MG/2 ML VIAL IV PRN (14:15)
--- NOTE | 2024-11-01 19:06 | DVHPN2 ---
Subjective Feels better Reviewed: Care Plan, H&P, Labs, Medications, Previous Orders, Radiology Changes from previous H/P or p: No Changes Objective Vitals Vital Signs Date Time Temp Pulse Resp B/P (MAP) Pulse Ox O2 Delivery O2 Flow Rate FiO2 11/01/24 17:24 98.2 69 17 103/56 (72) 96 98.2 11/01/24 08:00 Nasal Cannula* 3 32 Intake/Output Intake and Output 11/01/24 07:00 Intake Total 1250 ml Output Total 175 ml Balance 1075 ml Intake Oral 250 ml IV Total 1000 ml Output Urine Total 175 ml # Voids 1 General Appearance: Alert, Oriented X3, Cooperative, No acute distress HEENT: Atraumatic Lungs: Clear to auscultation Cardiovascular: Regular rate Abdomen: Normal bowel sounds, Soft, No tenderness Medications Current Medications Medications Dose Ordered Sig/Shellie Route Start Time Stop Time Status Last Admin Dose Admin Acetaminophen/ Hydrocodone Bitart 1 tab Q4HP PRN PO 10/31/24 11:45 Ondansetron HCl 4 mg Q4HP PRN IV 10/31/24 11:45 Docusate Sodium 100 mg BIDPRN PRN PO 10/31/24 11:45 Acetaminophen 650 mg Q6HP PRN PO 10/31/24 11:45 Multivitamins 1 tab DAILY PO 11/01/24 10:00 11/01/24 09:24 1 TAB Patient Own Medication 1 tab DAILY PO 11/01/24 10:00 Sodium Chloride 1,000 ml @ 100 mls/hr Q10H IV 10/31/24 17:45 11/01/24 12:43 100 MLS/HR Dextrose 50 ml PRN PRN IV 11/01/24 08:15 11/01/24 08:16 50 ML Diagnostic Test (Pha) 1 strip Q4HR 11/01/24 12:00 11/01/24 17:29 1 STRIP Ciprofloxacin 250 mg BID PO 11/01/24 22:00 Ondansetron HCl 4 mg Q4HPRN PRN IV 11/01/24 14:15 UNV Laboratory Results Laboratory Tests 11/01/24 06:17 Chemistry Test 11/01/24 06:17 Albumin 2.7 g/dL (3.2-4.8) L Calcium Level 10.5 mg/dL (8.7-10.4) H Total Protein 5.2 g/dL (5.7-8.2) L LFT Test 11/01/24 06:17 Alanine Aminotransferase (ALT) 96 U/L (7-40) H Alkaline Phosphatase 500 U/L (46-116) H Aspartate Amino Transferase (AST) 347 U/L (13-40) H Total Bilirubin 8.3 mg/dL (0.2-1.0) H Urinalysis Test 10/31/24 16:09 Urine Color Dark-yellow (Yellow) Urine Clarity Turbid (Clear) H Urine pH 5.5 (5.0-9.0) Urine Specific [place] 1.020 (1.001-1.035) Urine Protein Negative (Negative) Urine Ketones 1+ (Negative) H Urine Blood Trace /uL (Negative) H Urine Nitrite Negative (Negative) Urine Bilirubin 1+ (Negative) H Urine Urobilinogen 4 mg/dL (Negative) H Urine Leukocyte Esterase 1+ /uL (Negative) Urine RBC 2 /hpf (0 - 4) Urine Microscopic WBC 16 /HPF (0-5) H Urine Squamous Epithelial Cells Few /hpf (<5) Urine Calcium Oxalate Crystals Few (None Seen) Urine Bacteria Few /hpf (None Seen) H Urine Hyaline Casts Few /lpf (0 - 2) Urine Mucus Few (None Seen) Urine Glucose Normal mg/dL (Normal) Assessment/Plan Assessment/Plan Status post fall/questionable syncope Breast cancer with liver metastasis and bone metastasis Diverticulosis UTI Elevated liver function tests Plan: IV fluids. Antibiotics. Further plan per orders Plan discussed with: Patient, Other (Nursing) My Orders Orders - VANI FALK MD Procedure Category Date Status Time Ciprofloxacin Tablet PHA 11/01/24 In Process (Cipro Tablet) 22:00 Date of Service: November 01, 2024 Billing Provider: VANI FALK MD Common Visit Codes: [id number] INP/OBS CARE(HIGH) VANI FALK MD November 01, 2024 19:06
[2024-11-02] VITALS (40 sets, daily range): BP systolic 78–130; BP diastolic 46–81; PULSE 11–100; RESP 12–19; TEMP 97.7–98.3; O2SAT 90–100
[2024-11-02] MEDS: CIPROFLOXACIN HYDROCHLORIDE 250 MG TAB PO SCH (00:04)
[2024-11-02] MEDS: ACETAMINOPHEN 325 MG TAB PO PRN (03:46)
[2024-11-02] MEDS: HYDROcodone-ACET 5/325MG TAB PO PRN (04:40)
[2024-11-02 07:43] LABS: Anion Gap 8 (5-15); BUN/Creatinine Ratio 28.1 (10.0-20.0); Blood Urea Nitrogen 18 mg/dL (9-23); Calcium 9.6 mg/dL (8.7-10.4); Carbon Dioxide 23 mmol/L (20-31); Chloride 103 mmol/L (98-107); Glucose 100 mg/dL (74-106); Potassium 5.1 mmol/L (3.5-5.1)
[2024-11-02 07:48] LABS: Alanine Aminotransferase 101 U/L (7-40); Albumin 2.6 g/dL (3.2-4.8); Alkaline Phosphatase 451 U/L (46-116); Aspartate Aminotransferase 453 U/L (13-40); Bilirubin, Total 8.6 mg/dL (0.2-1.0); Sodium 134 mmol/L (136-145); Total Protein 5.1 g/dL (5.7-8.2)
[2024-11-02] MEDS: MORPHINE SULFATE INJ 2 MG/ml SYRG IV PRN (08:35)
--- NOTE | 2024-11-02 09:43 | DVH ---
CT CT AB PEL WO CON-NO ORAL OR IV INDICATION: Abdominal pain EXAM DATE: 11/02/2024 08:41 AM COMPARISON: CT CT AB PEL WO CON-NO ORAL OR IV on DOS: 10/26/24 RADIATION DOSE: CTDIvol: 14.17 mGy, DLP: 804.19 mGy*cm PROCEDURE: Helical CT images were obtained of the abdomen and pelvis without IV contrast Sagittal an d coronal reconstructions are provided. ORAL CONTRAST: None. ADDITIONAL IMAGES / REFORMATS: None All CT scans at this medical facility are performed using dose modulation techniques as appropriate to a performed exam including the following: Automated exposure control was utilized; adjustment of the MA and/or KV according to patient size; and use of iterative reconstruction technique. FINDINGS: LUNG BASE: There is bibasilar atelactasis. LIVER: Similar liver Cirrhosis with numerous liver masses which could be seen with metastatic disease . GALLBLADDER AND BILIARY TREE: No calcified gallstones. Normal caliber wall. No intra- or extrahepatic biliary ductal dilation. PANCREAS: Normal. SPLEEN: Normal. BOWEL: Moderate colonic diverticulosis. The appendix is not visualized. ADRENALS: There is a 1.6 cm left adrenal nodule, stable Compared to prior. KIDNEYS AND URETER: Normal. BLADDER: Normal. REPRODUCTIVE ORGANS: Absent. LYMPH NODES:No lymphadenopathy. PERITONEUM: Interval development of pneumoperitoneum, which could be secondary to bowel perforation. Possible omentum caking vs omental edema. VESSELS: Scattered atherosclerotic calcifications are noted. RETROPERITONEUM: Normal. ABDOMINAL WALL: There is trace ascites. The abdominal wall is edematous. BONES: Scattered osseous degenerative changes are noted. Similar lytic lesions are seen in the pelvic bone and vertebral bodies. Cement material is visualized from prior vertebroplasty. Similar compress ion deformities of multiple thoracic vertebral bodies. IMPRESSION: Interval development of pneumoperitoneum which is new compared to 10/26/24, which could be secondary t o bowel perforation. Trace ascites. Similar liver Cirrhosis with numerous liver masses which could be seen with metastatic disease. Similar lytic lesions are seen in the pelvic bone and vertebral bodies could be metastatic disease. Critical Result: Pneumoperitoneum (free air) Findings discussed with pb sanchez at 11/02/2024 09:29 AM and acknowledged receipt and understand ing of the findings.
[2024-11-02] MEDS: levoFLOXacin 500MG 100 ML IV ONE (10:53)
[2024-11-02] MEDS: metroNIDAZOLE 500MG/100ML 100 ML IV ONE (12:00)
[2024-11-02 12:44] LABS: INR 1.8 (0.9-1.15)
[2024-11-02] MEDS: ACETAMINOPHEN IV 1000 MG/100ML (10MG/ML) IV ONE (13:30)
[2024-11-02] MEDS: CELECOXIB 100 MG CAP ONE (13:30)
[2024-11-02] MEDS: CELECOXIB 100 MG CAP PO ONE (13:30)
[2024-11-02] MEDS: ACETAMINOPHEN IV 100 ML IV ONE (13:30)
[2024-11-02] MEDS: GABAPENTIN 100 MG CAP ONE (13:30)
[2024-11-02] MEDS: GABAPENTIN 100 MG CAP PO ONE (13:30)
[2024-11-02] MEDS ORDERED: fentaNYL CITRATE 100 MCG/2 ML VL ONE (13:36)
[2024-11-02] MEDS ORDERED: PROPOFOL 10 MG/ML 20 ML IV ONE (13:36)
[2024-11-02] MEDS ORDERED: ONDANSETRON HCL 4 MG/2 ML VIAL ONE (13:36)
[2024-11-02] MEDS ORDERED: KETOROLAC TROMETH 30 MG/ML 1ML VIAL ONE (13:36)
[2024-11-02] MEDS ORDERED: ROCURONIUM 10MG/ML 10ML VIAL IV ONE (13:36)
[2024-11-02] MEDS ORDERED: GLYCOPYRROLATE 0.2 MG/ML 1ML VIAL ONE (13:36)
[2024-11-02] MEDS ORDERED: LIDOCAINE 2% (LOCAL ANESTH.) PF 5ml SDV ONE (13:36)
[2024-11-02] MEDS ORDERED: KETAMINE 50mg/ML 1ml syringe ONE (13:36)
[2024-11-02] MEDS ORDERED: SUGAMMADEX 200mg/2ml Vial (100MG/ML) IV ONE (13:36)
[2024-11-02] MEDS ORDERED: DexAMETHasone SOD PHOS 10MG/1ML VIAL INJ ONE (13:36)
[2024-11-02] MEDS: PROPOFOL 100 ML IV ONE (13:52)
--- NOTE | 2024-11-02 13:53 | DVHINCON2 ---
Date of service: November 02, [address] Murcia Reason for Consultation abd pain History of Present Illness History Source: Patient, RN Notes, MD Notes, Old Records Exam Limitations: Clinical condition HPI 83F w multiple comorbidities currently metastatic breast cancer with liver and bone mets, cirrhosis, age related fragility on out-pt hospice with pre-existing DNR/DNI code status who was admitted after a syncopal fall. Earlier this morning she developed severe abd pain and abd distention. CT was completed demonstrating pneumoperitoneum. Home Meds Reported Medications Letrozole (LETROZOLE) 2.5 Mg Tab, 1 TAB PO DAILY 10/31/24 Linaclotide Base (LINZESS) 145 Mcg Cap, 145 MCG OR, CAP 10/31/24 Multiple Vitamin (Multivitamins) Tab, 1 TAB PO DAILY, #90 TAB 3 Refills 10/26/24 Calcium Carbonate (Calcium) 600 Mg Tab, 600 MG PO, TAB 10/26/24 Past Medical History Cardiac: No pertinent Hx Pulmonary: No pertinent Hx Central Nervous System: No pertinent Hx Hemotology/Oncology: Cancer, Hypercoagulable state Hepatobiliary: Cirrhosis Psychiatric: No pertinent Hx Musculoskeletal: No pertinent Hx Rheumotologic: No pertinent Hx Infectious Disease: No peritnent Hx ENT: No pertinent Hx Renal/: No pertinent Hx Endocrine: No pertinent Hx Dermatology: No pertinent Hx Patient Family History: Alcoholism FATHER Cancer FATHER MOTHETR Family history: Arthritis FATHER Prostate cancer FATHER Review of Systems Constitutional: Chills Ears, Nose, & Throat: No symptom reported Eyes: No symptom reported Pulmonary/Respiratory: No symptom reported Cardiovascular: No symptom reported Gastrointestinal: Nausea, Abdominal Pain, Abnormal Appetite Genitourinary: No symptom reported Musculoskeletal: No symptom reported Skin: No symptom reported Psychiatric: No symptom reported Endocrine: No symptom reported Hemotologic/Lymphatic: No symptom reported H&P Exam Vital Signs Vital Signs Date Time Temp Pulse Resp B/P (MAP) Pulse Ox O2 Delivery O2 Flow Rate FiO2 11/02/24 12:44 98.1 100 19 99/62 (74) 90 98.1 11/02/24 08:00 Nasal Cannula* 3 32 General Appeara: Well developed, Well nourished, Normal Appearance, Mild distress, Thin Head Exam: Normal inspection Neck Exam: Normal inspection Eye Exam: bilateral eye Normal inspection, bilateral eye PERRL, bilateral eye EOMI Pulmonary/Respiratory: Normal inspection, Normal breath sounds, Chest non- tender Cardiovascular/Chest: Tachycardia Abdominal Exam: Other (distended, typmanic, +rebound, +guarding) Abdominal Pain Onset Location: RUQ, LUQ, RLQ, LLQ Rectal Exam: Deferred Appearance: Appropriate appearance, Appropriate insight, Memory impairment Skin Exam: Normal inspection, Normal color Labs/Xrays Labs Test 11/02/24 12:17 11/02/24 10:18 11/02/24 06:23 11/01/24 06:17 Range/Units Prothrombin Time 18.0 H 9.3-11.8 sec Prothrombin Time INR 1.80 H 0.9-1.15 POC Glucose 90 70-106 mg/dl Sodium Level 134 L 136-145 mmol/L Potassium Level 5.1 3.5-5.1 mmol/L Chloride Level 103 98-107 mmol/L Carbon Dioxide Level 23 20-31 mmol/L Anion Gap 8 5-15 Blood Urea Nitrogen 18 9-23 mg/dL Creatinine 0.64 0.550-1.02 mg/dL Glomerular Filtration Rate Calc 88 >90 mL/min BUN/Creatinine Ratio 28.1 H 10.0-20.0 Serum Glucose 100 74-106 mg/dL Calcium Level 9.6 8.7-10.4 mg/dL Total Bilirubin 8.6 H 0.2-1.0 mg/dL Aspartate Amino Transferase (AST) 453 H 13-40 U/L Alanine Aminotransferase (ALT) 101 H 7-40 U/L Alkaline Phosphatase 451 H 46-116 U/L Total Protein 5.1 L 5.7-8.2 g/dL Albumin 2.6 L 3.2-4.8 g/dL White Blood Count 8.9 4.4-10.8 10^3/uL Red Blood Count 4.68 4.0-5.20 10^6/uL Hemoglobin 15.2 12.2-16.2 g/dL Hematocrit 44.6 36.0-46.0 % Mean Corpuscular Volume 95.3 80.0-100.0 fL Mean Corpuscular Hemoglobin 32.6 H 28.0-32.0 pg Mean Corpuscular Hemoglobin Concent 34.2 32.0-36.0 g/dL Red Cell Distribution Width 19.6 H 11.8-14.3 % Platelet Count 165 140-450 10^3/uL Mean Platelet Volume 9.8 6.9-10.8 fL Neutrophils (%) (Auto) 75.5 37.0-80.0 % Lymphocytes (%) (Auto) 10.6 10.0-50.0 % Monocytes (%) (Auto) 13.0 H 0.0-12.0 % Eosinophils (%) (Auto) 0.5 0.0-7.0 % Basophils (%) (Auto) 0.4 0.0-2.0 % Neutrophils # (Auto) 6.8 1.6-8.6 10 ^3/uL Lymphocytes # (Auto) 0.9 0.4-5.4 10 ^3/uL Monocytes # (Auto) 1.2 0-1.3 10 ^3/uL Eosinophils # (Auto) 0 0-0.8 10 ^3/uL Basophils # (Auto) 0 0-0.2 10 ^3/uL Nucleated Red Blood Cells 0.2 % Test 10/31/24 16:09 10/31/24 11:45 10/31/24 08:49 Range/Units Urine Color Dark-yellow Yellow Urine Clarity Turbid H Clear Urine pH 5.5 5.0-9.0 Urine Specific [place] 1.020 1.001-1.035 Urine Protein Negative Negative Urine Ketones 1+ H Negative Urine Blood Trace H Negative /uL Urine Nitrite Negative Negative Urine Bilirubin 1+ H Negative Urine Urobilinogen 4 H Negative mg/dL Urine Leukocyte Esterase 1+ Negative /uL Urine RBC 2 0 - 4 /hpf Urine Microscopic WBC 16 H 0-5 /HPF Urine Squamous Epithelial Cells Few <5 /hpf Urine Calcium Oxalate Crystals Few None Seen Urine Bacteria Few H None Seen /hpf Urine Hyaline Casts Few 0 - 2 /lpf Urine Mucus Few None Seen Urine Glucose Normal Normal mg/dL Troponin I High Sensitivity 12 </=34 ng/L Creatine Kinase 71 34-145 U/L Assessment/Plan Problem List: (1) Coagulopathy (2) Cirrhosis (3) Breast cancer, BRCA2 positive (4) Metastatic cancer to spine (5) Metastatic cancer Primary Diagnosis pneumoperitoneum Admitting Diagnosis: fall 2' Diagnosis/Co-morbidities cirrhosis coagulopathy peritonitis pneumoperitoneum age related fragility metastatic breast cancer with liver and ashok mets Plan 83F w multiple comorbidities currently metastatic breast cancer with liver and bone mets, cirrhosis, age related fragility on out-pt hospice with pre-existing DNR/DNI code status who was admitted after a syncopal fall. Earlier this morning she developed severe abd pain and abd distention. CT was completed demonstrating pneumoperitoneum. abd distended, + peritoneal signs CT reviewed, pneumoperitoneum of unclear origin overall challenging situation as pt is very high risk surgical patient and currently under hospice status and without surgery would likely continue to rapidly decompensate and discussed in depth with patient, explained treatment options and risks and benefits of each, along with admitting physician and bedside nurse and patient elected to proceed w surgery and temporary lift her hospice status and DNR/DNI pt understands she has an overall poor prognosis and high risk for perioperative complications, including but not limited to prolonged intubation, need for more procedures, OR for exlap overall poor prognosis with high risk for ongoing decompensation Plan discussed with: Patient Visit Coding Surgery Date of Service if different f: November 02, 2024 Billing Provider: PRETTY FIELDS MD Surgery Visit Codes: [id number] - INP CONSULT <110 MIN PRETTY FIELDS MD November 02, 2024 13:53
[2024-11-02] MEDS ORDERED: PHENYLEPHRINE HCL 10 MG/ML VL ONE ×2 (14:10)
[2024-11-02] MEDS ORDERED: SODIUM CHLORIDE LOCK 10 ML ONE (14:10)
[2024-11-02] MEDS ORDERED: ceFAZolin 1GM VL ONE (14:16)
[2024-11-02] MEDS ORDERED: HYDROmorphone HCL 2 MG/ML VL/or syr IV PRN (14:45)
[2024-11-02] MEDS ORDERED: D5W/SOD CHL 0.45%/KCL 20MEQ 1,000 ML IV SCH (14:45)
[2024-11-02] MEDS: MIDAZOLAM DRIP 50 mg/50mL 50 ML IV SCH (14:45)
[2024-11-02] MEDS ORDERED: ONDANSETRON HCL 4 MG/2 ML VIAL IV PRN (14:45)
[2024-11-02] MEDS: PANTOPRAZOLE 40mg/50ML NS AE 50 ML IV SCH (14:45)
--- NOTE | 2024-11-02 15:14 | DVHOP2 ---
Operative Report - 2 Report Details Date: 11/02/24 Preop Diagnosis: pneumoperitoneum peritonitis sepsis Postop Diagnosis: peritonitis perforated gastric ulcer Surgeon: Edgar Fields MD Home Comfort Advisor: Maria Eugenia Kim Anesthesiologist: - Anesthesia: General Drains: ferdinand ALCALA Consent: The patient was informed of the risks and benefits of the procedure. These include but are not limited to complications of anesthesia, postoperative infection, incomplete relief of symptoms, recurrence of symptoms, damage to blood vessels, nerves and tendons, deep venous thrombosis, pulmonary embolism and possible need for repeat surgery in the future. Estimated Blood Loss: 30cc Fluids: crystalloid, see anesthesia records for complete details Findings: 4 quadrant peritonitis star colored-bilious ascites, culture sent small <1cm anterior gastric antrum perforation Name of Procedure Performed exploratory laparotomy evacuation of intra-abdominal abscess grahm patch repair of gastric perforation application of incisional negative pressure dressing, <50sq cm Procedure Details Procedure Details: After informed consent was obtained, the patient was brought to the operating room and placed supine on the table. General endotracheal anesthesia was administered. The abdomen was prepped and draped in the usual sterile fashion. A surgical time out was completed. Two grams of Ancef were administered prior to procedure start. A cosby was placed by the HEALTH AND SAFETY REPRESENTATIVE with return of dark yellow fluid. A 10cm midline laparotomy incision was sharply made and carried down to the peritoneal cavity. Upon entering the peritoneum, a large amount of star-colored bilious fluid was encountered and suctioned. The peritoneal fluid was sent for cultures. The small bowel was eviscerated and run from the ligament of Treitz to the ileocecal valve. Next the colon was inspected. Both small and large bowel were atraumatic without any abnormal pathology. The bowel was returned, and next attention was turned to the stomach. There was some purulent exudate noted between the liver and stomach. The liver showed diffuse advanced signs of cirrhotic disease and several lesions were encountered, which was consistent with known metastatic liver cancer. The anterior wall of the antrum of the stomach had a small <1cm hole that we identified. No biopsy was taken of the tissue at the base of the hole to avoid trauma to the gastric tissue and widen the hole as the patient was already at higher risk for leak due to her cirrhotic disease with ascites. The perforation was repaired using a omental eddie patch. This was completed by using a free omental flap and placing it directly over the perforation. The omentum was secured over the ulcer using 2 interrupted 3-0 prolene sutures placed through the edges of the ulcer and the omental patch (Eddie patch). Prior to completing the patch, NGT placement was manually checked and the NG tube was advanced into the stomach as it appeared to be coiled into the esophagus. Next the perioteum was copiously irrigated using warm saline and all quadrants and gutters was suctioned and irrigated until return of clear fluid. A FREDRICK drain was inserted through a RUQ puncture hole and placed overlying the surface of the repair. The drain was secured using Nylon suture. Hemostasis was confirmed prior to closure. The midline fascia was closed with a single loop PDS. The subcutaneous tissues were irrigated and cleaned, and skin was reapproximated with fish. A prevena negative pressure dressing was placed over the incision and good incisional seal was noted. All needle, instrument and sponge counts correct x2. Patient remained intubated with plans to transfer to the ICU postoperatively. No intra-operative complications were noted. The patient was transferred to recovery in critical but stable condition. Throughout the course of the procedure the patient required phenylephrine for HD support. Of note, due to her advanced liver disease and related coagulopathy, 1 bag of FFP was administered at the start of the procedure. She required no other blood products. Specimen: peritoneal fluid/ascites Condition Guarded Disposition Acute Care Facility EDGAR FIELDS MD November 02, 2024 15:14
[2024-11-02] MEDS: LACTATED RINGER'S 1,000 ML IV SCH (15:30)
[2024-11-02] MEDS ORDERED: PROPOFOL 100 ML IV SCH (15:30)
[2024-11-02] MEDS: PHENYLEPHRINE IV 250 ML IV SCH (15:30)
--- NOTE | 2024-11-02 16:02 | DVHPN2 ---
Subjective Severe abdominal pain with distention Reviewed: Care Plan, H&P, Labs, Medications, Previous Orders, Radiology Changes from previous H/P or p: No Changes Objective Vitals Vital Signs Date Time Temp Pulse Resp B/P (MAP) Pulse Ox O2 Delivery O2 Flow Rate FiO2 11/02/24 12:44 98.1 100 19 99/62 (74) 90 98.1 11/02/24 08:00 Nasal Cannula* 3 32 Intake/Output Intake and Output 11/02/24 07:00 Intake Total 1900 ml Balance 1900 ml Intake Oral 900 ml IV Total 1000 ml # Voids 5 # Bowel Movements 3 General Appearance: Alert, Oriented X3, Cooperative, Other (Some distress with the abdominal pain) HEENT: Atraumatic Lungs: Clear to auscultation Cardiovascular: Regular rate Abdomen: Other (Tenderness with firm abdomen) Medications Current Medications Medications Dose Ordered Sig/Shellie Route Start Time Stop Time Status Last Admin Dose Admin Acetaminophen/ Hydrocodone Bitart 1 tab Q4HP PRN PO 10/31/24 11:45 11/02/24 04:40 1 TAB Docusate Sodium 100 mg BIDPRN PRN PO 10/31/24 11:45 Acetaminophen 650 mg Q6HP PRN PO 10/31/24 11:45 11/02/24 03:46 650 MG Multivitamins 1 tab DAILY PO 11/01/24 10:00 11/02/24 10:15 1 TAB Patient Own Medication 1 tab DAILY PO 11/01/24 10:00 Sodium Chloride 1,000 ml @ 100 mls/hr Q10H IV 10/31/24 17:45 11/02/24 10:00 100 MLS/HR Dextrose 50 ml PRN PRN IV 11/01/24 08:15 11/01/24 08:16 50 ML Diagnostic Test (Pha) 1 strip Q4HR 11/01/24 12:00 11/02/24 10:15 1 STRIP Ondansetron HCl 4 mg Q4HPRN PRN IV 11/01/24 14:15 UNV Morphine Sulfate 2 mg Q4HPRN PRN IV 11/02/24 08:30 11/02/24 08:35 2 MG Levofloxacin 50 ml @ 50 mls/hr DAILY IV 11/03/24 10:00 Metronidazole 100 ml @ 100 mls/hr Q8HR IV 11/02/24 22:00 Potassium Chloride/Dextrose/ Sod Cl 1,000 ml @ 120 mls/hr Q8H20M IV 11/02/24 14:45 UNV Hydromorphone HCl 1 mg Q2HPRN PRN IV 11/02/24 14:45 Ondansetron HCl 4 mg Q4HPRN PRN IV 11/02/24 14:45 Pantoprazole Sodium 50 ml @ 10 mls/hr Q5H IV 11/02/24 14:45 UNV Midazolam HCl 50 ml @ 1 mls/hr Q24H IV 11/02/24 14:45 UNV Phenylephrine HCl 250 ml @ 30 mls/hr Q8H20M IV 11/02/24 15:30 UNV Propofol 100 ml @ 2.079 mls/ hr Q24H IV 11/02/24 15:30 UNV Lactated Ringer's 1,000 ml @ 110 mls/hr Q9H6M IV 11/02/24 15:30 Laboratory Results Laboratory Tests 11/01/24 06:17 11/02/24 06:23 Chemistry Test 11/02/24 06:23 Albumin 2.6 g/dL (3.2-4.8) L Calcium Level 9.6 mg/dL (8.7-10.4) Total Protein 5.1 g/dL (5.7-8.2) L Coagulation Test 11/02/24 12:17 Prothrombin Time 18.0 sec (9.3-11.8) H Prothrombin Time INR 1.80 (0.9-1.15) H LFT Test 11/02/24 06:23 Alanine Aminotransferase (ALT) 101 U/L (7-40) H Alkaline Phosphatase 451 U/L (46-116) H Aspartate Amino Transferase (AST) 453 U/L (13-40) H Total Bilirubin 8.6 mg/dL (0.2-1.0) H Urinalysis Test 10/31/24 16:09 Urine Color Dark-yellow (Yellow) Urine Clarity Turbid (Clear) H Urine pH 5.5 (5.0-9.0) Urine Specific [place] 1.020 (1.001-1.035) Urine Protein Negative (Negative) Urine Ketones 1+ (Negative) H Urine Blood Trace /uL (Negative) H Urine Nitrite Negative (Negative) Urine Bilirubin 1+ (Negative) H Urine Urobilinogen 4 mg/dL (Negative) H Urine Leukocyte Esterase 1+ /uL (Negative) Urine RBC 2 /hpf (0 - 4) Urine Microscopic WBC 16 /HPF (0-5) H Urine Squamous Epithelial Cells Few /hpf (<5) Urine Calcium Oxalate Crystals Few (None Seen) Urine Bacteria Few /hpf (None Seen) H Urine Hyaline Casts Few /lpf (0 - 2) Urine Mucus Few (None Seen) Urine Glucose Normal mg/dL (Normal) Assessment/Plan Assessment/Plan Perforated viscus with worsening abdominal pain Status post fall/questionable syncope Breast cancer with liver metastasis and bone metastasis Diverticulosis UTI Elevated liver function tests Plan: Stat surgical consult obtained. Patient agreed with surgical operation to alleviate her pains. She is okay with intubation but no CPR Plan discussed with: Patient, Other (Nursing and surgery) My Orders Orders - VANI FALK MD Procedure Category Date Status Time Ct Ab Pel Wo Con-No CT 11/02/24 Resulted Oral Or Iv 08:17 Morphine Sulfate PHA 11/02/24 In Process Injection 08:30 Levofloxacin 250mg PHA 11/03/24 In Process (Levaquin 250mg) 10:00 Metronidazole PHA 11/02/24 In Process 500mg/100ml (Flagyl 22:00 * Surgical Consult CONS 11/02/24 Transmitted 10:50 Date of Service: November 02, 2024 Billing Provider: VANI FALK MD Common Visit Codes: [id number] INP/OBS CARE(HIGH) VANI FALK MD November 02, 2024 16:02
[2024-11-02 16:48] LABS: Base Excess -5.1 mmol/L (-2.0-3.0)
[2024-11-02] MEDS: PROPOFOL 100 ML IV SCH (17:15)
--- NOTE | 2024-11-02 17:49 | DVH ---
CHEST RADIOGRAPH Indication: SP INBTUBATION Technique: Single frontal view of the chest was obtained Comparison: XY CHEST PORTABLE on DOS: 10/31/24, XY CHEST PORTABLE on DOS: 10/26/24 FINDINGS: Lines and Tubes: Endotracheal and enteric tubes in satisfactory position. Lungs: No focal consolidation. Bronchovascular crowding due to low lung volumes. Pleura: No effusion. No pneumothorax. Cardiomediastinal contours: Unremarkable Bones: No acute osseous abnormality. Surgical clips are noted over the right axillary region. IMPRESSION: No acute cardiopulmonary disease. Endotracheal and enteric tubes are in satisfactory position.
[2024-11-02] MEDS: metroNIDAZOLE 500MG/100ML 100 ML IV SCH (21:12)
--- NOTE | 2024-11-02 21:28 | DVH ---
CHEST RADIOGRAPH Indication: ET TUBE ADVANCEMENT Technique: Single frontal view of the chest was obtained Comparison: XY CHEST PORTABLE on DOS: 11/02/24, XY CHEST PORTABLE on DOS: 10/31/24, XY CHEST PORTABLE o n DOS: 10/26/24 FINDINGS: Lines and Tubes: Endotracheal tube 4.4 cm above the jose. Lungs: Or inspiratory effort Pleura: No effusion. No pneumothorax. Cardiomediastinal contours: Unremarkable Bones: No acute osseous abnormality. IMPRESSION: 1. Or inspiratory effort. 2. Endotracheal tube 4.4 cm above the jose. HS:Y
[2024-11-03] VITALS (109 sets, daily range): BP systolic 79–127; BP diastolic 38–71; PULSE 56–79; RESP 12–71; TEMP 97.7–98.4; O2SAT 86–100
[2024-11-03 03:34] LABS: Basophils # (auto) 0 10 ^3/uL (0-0.2); Basophils % (auto) 0.3 % (0.0-2.0); Eosinophils # (auto) 0 10 ^3/uL (0-0.8); Eosinophils % (auto) 0.1 % (0.0-7.0); Hemoglobin 17.8 g/dL (12.2-16.2); Lymphocytes # (auto) 0.4 10 ^3/uL (0.4-5.4); Lymphocytes % (auto) 3.5 % (10.0-50.0); Mean Corpuscular Hemoglobin 33.2 pg (28.0-32.0); Mean Corpuscular Hgb Conc. 34.9 g/dL (32.0-36.0); Mean Corpuscular Volume 95.2 fL (80.0-100.0); Monocytes # (auto) 0.5 10 ^3/uL (0-1.3); Monocytes % (auto) 3.7 % (0.0-12.0); Neutrophils # (auto) 11.2 10 ^3/uL (1.6-8.6); Neutrophils % (auto) 92.4 % (37.0-80.0); Nucleated Red Blood Cells % 0.2 %; Platelet Count (auto) 174 10^3/uL (140-450); Red Blood Cells 5.36 10^6/uL (4.0-5.20); Red Cell Distribution Width 20.2 % (11.8-14.3); White Blood Cell 12.1 10^3/uL (4.4-10.8)
[2024-11-03 03:58] LABS: Large Platelets FEW; Platelet Estimate Adequate
[2024-11-03 04:08] LABS: INR 2.23 (0.9-1.15); Prothrombin Time 21.8 sec (9.3-11.8)
[2024-11-03 04:40] LABS: Anion Gap 8 (5-15); Blood Urea Nitrogen 21 mg/dL (9-23); Calcium 10.3 mg/dL (8.7-10.4); Carbon Dioxide 22 mmol/L (20-31); Chloride 105 mmol/L (98-107); Glucose 83 mg/dL (74-106)
[2024-11-03 04:43] LABS: Sodium 135 mmol/L (136-145)
[2024-11-03 04:44] LABS: Alanine Aminotransferase 118 U/L (7-40); Albumin 2.9 g/dL (3.2-4.8); Alkaline Phosphatase 498 U/L (46-116); Aspartate Aminotransferase 596 U/L (13-40); Bilirubin, Total 8.7 mg/dL (0.2-1.0); Total Protein 5.6 g/dL (5.7-8.2)
[2024-11-03 04:45] LABS: Potassium 5.6 mmol/L (3.5-5.1)
[2024-11-03] MEDS: SODIUM ZIRCONIUM CYCL 10 GM PAK PO ONE (05:25)
--- NOTE | 2024-11-03 06:09 | DVH ---
INDICATION: fu TECHNIQUE: Single frontal view of the chest was obtained COMPARISON: XY CHEST PORTABLE on DOS: 11/02/24, XY CHEST PORTABLE on DOS: 11/02/24, XY CHEST PORTABLE o n DOS: 10/31/24, XY CHEST PORTABLE on DOS: 10/26/24, XY CHEST PORTABLE on DOS: 11/02/24 FINDINGS: Lines and Tubes: Endotracheal and enteric tubes in satisfactory position. Lungs: No focal consolidation. Bronchovascular crowding due to low lung volumes. Pleura: No effusion. No pneumothorax. Cardiomediastinal contours: Unremarkable Bones: No acute osseous abnormality. Surgical clips are noted over the right axillary region. IMPRESSION: Stable pulmonary edema. Endotracheal and enteric tubes are in satisfactory position.
[2024-11-03 08:23] LABS: Base Excess -4.6 mmol/L (-2.0-3.0)
[2024-11-03] MEDS ORDERED: levoFLOXacin 500MG 100 ML IV SCH (10:00)
[2024-11-03] MEDS: levoFLOXacin 250MG 50 ML IV SCH (10:08)
--- NOTE | 2024-11-03 11:14 | DVHPN2 ---
Subjective Patient chemically sedated Reviewed: Care Plan, H&P, Labs, Medications, Previous Orders, Radiology Changes from previous H/P or p: No Changes General: Per HPI Objective Vitals Vital Signs Date Time Temp Pulse Resp B/P (MAP) Pulse Ox O2 Delivery O2 Flow Rate FiO2 11/03/24 10:09 97/56 11/03/24 09:25 66 12 100 35 11/03/24 08:00 98.4 98.4 11/03/24 08:00 Mechanical Ventilator+ 11/02/24 08:00 3 Intake/Output Intake and Output 11/03/24 07:00 Intake Total 4951.308 ml Output Total 1765 ml Balance 3186.308 ml Intake Oral 30 ml IV Total 4921.308 ml Output Urine Total 580 ml Gastric Drainage Total 150 ml Drainage Total 1035 ml General Appearance: Alert, Oriented X3, Cooperative, Other (Some distress with the abdominal pain) HEENT: Atraumatic Lungs: Clear to auscultation Cardiovascular: Regular rate, Normal S1, Normal S2 Abdomen: Other (Hypoactive bowel sounds. Dressing dry and intact.) Neuro: Other (Unable to assess) Skin: Dry, Intact, Wounds (See nurse notes and pictures) Psych/Mental Status: Other (Unable to assess) Medications Current Medications Medications Dose Ordered Sig/Shellie Route Start Time Stop Time Status Last Admin Dose Admin Acetaminophen/ Hydrocodone Bitart 1 tab Q4HP PRN PO 10/31/24 11:45 11/02/24 04:40 1 TAB Docusate Sodium 100 mg BIDPRN PRN PO 10/31/24 11:45 Acetaminophen 650 mg Q6HP PRN PO 10/31/24 11:45 11/02/24 03:46 650 MG Multivitamins 1 tab DAILY PO 11/01/24 10:00 11/03/24 10:08 1 TAB Patient Own Medication 1 tab DAILY PO 11/01/24 10:00 Dextrose 50 ml PRN PRN IV 11/01/24 08:15 11/01/24 08:16 50 ML Diagnostic Test (Pha) 1 strip Q4HR 11/01/24 12:00 11/03/24 10:08 1 STRIP Ondansetron HCl 4 mg Q4HPRN PRN IV 11/01/24 14:15 UNV Morphine Sulfate 2 mg Q4HPRN PRN IV 11/02/24 08:30 11/02/24 08:35 2 MG Levofloxacin 50 ml @ 50 mls/hr DAILY IV 11/03/24 10:00 11/03/24 10:08 50 MLS/HR Metronidazole 100 ml @ 100 mls/hr Q8HR IV 11/02/24 22:00 11/03/24 05:24 100 MLS/HR Hydromorphone HCl 1 mg Q2HPRN PRN IV 11/02/24 14:45 Ondansetron HCl 4 mg Q4HPRN PRN IV 11/02/24 14:45 Pantoprazole Sodium 50 ml @ 10 mls/hr Q5H IV 11/02/24 14:45 11/03/24 05:25 10 MLS/HR Midazolam HCl 50 ml @ 1 mls/hr Q24H IV 11/02/24 14:45 Phenylephrine HCl 250 ml @ 30 mls/hr Q8H20M IV 11/02/24 15:30 11/03/24 10:09 123.75 MLS/HR Propofol 100 ml @ 2.079 mls/ hr Q24H IV 11/02/24 15:30 Cancel Lactated Ringer's 1,000 ml @ 110 mls/hr Q9H6M IV 11/02/24 15:30 11/03/24 10:58 110 MLS/HR Propofol 100 ml @ 2.079 mls/ hr Q24H IV 11/02/24 17:15 11/02/24 23:04 8.316 MLS/HR Sodium Bicarbonate 50 ml/ Sodium Chloride 1,050 ml @ 100 mls/hr [id number] IV 11/03/24 11:00 UNV Laboratory Results Laboratory Tests 11/03/24 03:00 11/03/24 04:08 Chemistry Test 11/03/24 04:08 Albumin 2.9 g/dL (3.2-4.8) L Calcium Level 10.3 mg/dL (8.7-10.4) Total Protein 5.6 g/dL (5.7-8.2) L Coagulation Test 11/02/24 12:17 11/03/24 03:00 Prothrombin Time 18.0 sec (9.3-11.8) H 21.8 sec (9.3-11.8) H Prothrombin Time INR 1.80 (0.9-1.15) H 2.23 (0.9-1.15) H LFT Test 11/03/24 04:08 Alanine Aminotransferase (ALT) 118 U/L (7-40) H Alkaline Phosphatase 498 U/L (46-116) H Aspartate Amino Transferase (AST) 596 U/L (13-40) H Total Bilirubin 8.7 mg/dL (0.2-1.0) H Urinalysis Test 10/31/24 16:09 Urine Color Dark-yellow (Yellow) Urine Clarity Turbid (Clear) H Urine pH 5.5 (5.0-9.0) Urine Specific [place] 1.020 (1.001-1.035) Urine Protein Negative (Negative) Urine Ketones 1+ (Negative) H Urine Blood Trace /uL (Negative) H Urine Nitrite Negative (Negative) Urine Bilirubin 1+ (Negative) H Urine Urobilinogen 4 mg/dL (Negative) H Urine Leukocyte Esterase 1+ /uL (Negative) Urine RBC 2 /hpf (0 - 4) Urine Microscopic WBC 16 /HPF (0-5) H Urine Squamous Epithelial Cells Few /hpf (<5) Urine Calcium Oxalate Crystals Few (None Seen) Urine Bacteria Few /hpf (None Seen) H Urine Hyaline Casts Few /lpf (0 - 2) Urine Mucus Few (None Seen) Urine Glucose Normal mg/dL (Normal) Blood Gas Results Test 11/02/24 16:40 11/03/24 07:27 Arterial Blood pH 7.337 (7.350-7.450) 7.387 (7.350-7.450) FiO2 % 50.0 40.0 Microbiology Microbiology Date/Time Source Procedure Growth Status 11/02/24 15:27 Sputum Gram Stain Pending Resulted 11/02/24 15:27 Sputum Respiratory Culture - Preliminary Resulted 11/02/24 14:49 Peritoneal Fluid Gram Stain Pending Resulted 11/02/24 14:49 Peritoneal Fluid Anaerobic Culture Pending Resulted 11/02/24 14:49 Peritoneal Fluid Aerobic Culture - Preliminary Resulted Labs and/or images reviewed: Labs reviewed by me, Image(s) reviewed by me Assessment/Plan Assessment/Plan Impression: -syncope with collapse -perforated gastric ulcer -acute hypoxic respiratory failure -hyperkalemia -metastatic breast cancer -sirs secondary to gastric ulcer -shock, etiology probably secondary to hypovolemia as well as continue sedation Plan: -continue antibiotic therapy with Levaquin and Flagyl -continue Protonix drip -start TPN -start sodium bicarbonate drip -continue current ventilator settings -repeat labs, chest x-ray, ABG in a.m. -PICC line placement Critical care time spent with patient discussing and formulating plan of care: 40 minutes. This does not include time spent performing procedures. This medical document was created using an electronic medical record system with [employer] dictation system. Although this document has been carefully reviewed, there may still be some phonetic and typographical errors. These areas are purely typographical due to imperfections of the software programs, and do not reflect any compromise in the patient's medical care. Plan discussed with: Patient, Other (RN) My Orders Orders - KINGSTON GARCIA NP Procedure Category Date Status Time Sod Chl 0.45% PHA 11/03/24 Logged (Sodi... W/Sodium 11:00 Date of Service: November 03, 2024 Billing Provider: KINGSTON GARCIA NP Common Visit Codes: [id number] CARE 30-74 MIN KNIGSTON GARCIA NP November 03, 2024 11:14
[2024-11-03] MEDS: SODIUM BICARB 50mEq/50ml Vial 50 ML in SOD CHL 0.45% 1,000 ML IV SCH (13:00)
[2024-11-03] MEDS: PHENYLEPHRINE INJ 80 MG in SODIUM CHL 0.9% 242 ML IV SCH (13:30)
[2024-11-03] MEDS: SODIUM CHLORIDE 0.9% 2,000 ML IV ONE (14:00)
--- NOTE | 2024-11-03 15:30 | DVHNC2 ---
Central Line Recorder of insertion practice: Button Sewer Occupation of calender let off helper: Other (Kd Garcia NP) Indication: Hypotension, CVP monitoring, Volume resuscitation Room prepared for procedure: Yes Button Sewer performed hand hygien: Yes Maximal sterile barrier precau: Mask/Eye shield, Sterile gown, Cap, Sterlie gloves, Large sterlie drape Skin Preparation: Chlorhexidine gluconate Skin preparation completely dr: Yes Insertion site: Right, Internal jugular Central line catheter type: [id number] dialysis Number of lumens: 3 Central line exchanged over a: No Antiseptic ointment applied to: No Post Assessment: Chest X-Ray, Proper placement, No Pneumothorax Informed consent obtained: Yes Risks/benefits/alt described: Yes Notes US guidance CPT code: 76771 Date of Service: November 03, 2024 Billing Provider: KINGSTON GARCIA NP Common Visit Codes: PROCEDURE ONLY Procedure Codes: [id number] NON-TUNNEL CV CATH KINGSTON GARCIA NP November 03, 2024 15:30
--- NOTE | 2024-11-03 15:50 | DVH ---
INDICATION: CENTRAL LINE PLACEMENT TECHNIQUE: Frontal view of the chest. COMPARISON: XY CHEST PORTABLE on DOS: 11/03/24, XY CHEST PORTABLE on DOS: 11/02/24, XY CHEST PORTABLE o n DOS: 11/02/24, XY CHEST PORTABLE on DOS: 10/31/24, XY CHEST PORTABLE on DOS: 10/26/24 FINDINGS: Findings. The heart and mediastinal contours are grossly unremarkable. There is no evidence of pleur al disease. The lungs are clear. The support lines including endotracheal tube nasogastric tube and r ight-sided CVP catheter to be in satisfactory position. The bony structures of the chest are intac t without fracture. Mild osteopenia of the bony thorax. There are multiple surgical clips in the rig ht axillary region. There is oral contrast seen in the stomach from recent contrast study IMPRESSION: 1. No evidence of acute disease. 2. Support lines are in satisfactory position.
--- NOTE | 2024-11-03 15:51 | DVHINCON2 ---
Date of service: November 02, [address] Valdez Reason for Consultation Acute respiratory failure History of Present Illness History Source: Patient, RN Notes, MD Notes Exam Limitations: Clinical condition HPI Patient is an 83-year old lady with a history metastatic breast cancer with bony mets previously on hospice who presented s/p mechanical fall at home. Was seen in the emergency room where CT of the brain was negative for acute abnormalities and the patient was admitted for further workup. CT of the abdomen revealed pneumoperitoneum concerning for perforation and she was subsequently taken to the OR for repair. After the procedure, there were difficulties weaning patient from ventilator and she remained on mechanical ventilation. Pulmonology was consulted to assist in management. Home Meds Reported Medications Letrozole (LETROZOLE) 2.5 Mg Tab, 1 TAB PO DAILY 10/31/24 Linaclotide Base (LINZESS) 145 Mcg Cap, 145 MCG OR, CAP 10/31/24 Multiple Vitamin (Multivitamins) Tab, 1 TAB PO DAILY, #90 TAB 3 Refills 10/26/24 Calcium Carbonate (Calcium) 600 Mg Tab, 600 MG PO, TAB 10/26/24 Past Medical History Cardiac: No pertinent Hx Pulmonary: No pertinent Hx Central Nervous System: No pertinent Hx GI: No pertinent Hx Hemotology/Oncology: Cancer Hepatobiliary: No pertinent Hx Psychiatric: No pertinent Hx Musculoskeletal: No pertinent Hx Rheumotologic: No pertinent Hx Infectious Disease: No peritnent Hx ENT: No pertinent Hx Renal/: No pertinent Hx Endocrine: No pertinent Hx Dermatology: No pertinent Hx Past Surgical History: No pertinent Hx Family History: Cancer Patient Family History: Alcoholism FATHER Cancer FATHER MOTHETR Family history: Arthritis FATHER Prostate cancer FATHER Smoker: No Hx (Negative) Alocohol: None Drugs: None Lives with: With family Domestic Violence: Neg Review of Systems Comments Unable to be performed due to patient being intubated and sedated H&P Exam Vital Signs Vital Signs Date Time Temp Pulse Resp B/P (MAP) Pulse Ox O2 Delivery O2 Flow Rate FiO2 11/03/24 13:44 72 12 80/52 (61) 99 35 11/03/24 12:00 98.2 98.2 11/03/24 08:00 Mechanical Ventilator+ 11/02/24 08:00 3 General Appeara: Well developed, Well nourished, Normal Appearance Head Exam: Normal inspection Neck Exam: Normal inspection, Non-tender, Normal alignment Eye Exam: bilateral eye Normal inspection, bilateral eye PERRL, bilateral eye EOMI Ear Exam: bilateral ear Auricle normal, bilateral ear Canal normal, bilateral ear TM normal Nasal Exam: Normal inspection Mouth: Normal Inspection Pulmonary/Respiratory: Decreased breath sounds Cardiovascular/Chest: Normal inspection Peripheral Pulses: 4+ Radial (R), 4+ Radial (L), 4+ Brachial (R), 4+ Brachial (L) Abdominal Exam: Normal bowel sounds Labs/Xrays Labs Test 11/03/24 09:49 11/03/24 07:27 11/03/24 04:08 11/03/24 03:00 Range/Units POC Glucose 72 70-106 mg/dl Blood Gas Specimen Type Arterial Blood Gas Sample Site Arterial line Blood Gas Patient Temperature 37.0 Arterial Blood Date Drawn [id number] Arterial Blood pH 7.387 7.350-7.450 Arterial Blood Partial Pressure CO2 32.7 32.0-45.0 mmHg Arterial Blood Partial Pressure O2 91.9 83.0-108.0 mmHg Arterial Blood HCO3 19.2 L 21.0-28.0 mmol/L Arterial Blood Oxygen Saturation 97.3 94.0-98.0 % Arterial Blood Base Excess -4.6 L -2.0-3.0 mmol/L Arterial Blood Oxyhemoglobin 96.1 94.0-98.0 % Arterial Blood Carboxyhemoglobin 1.0 0.5-1.5 % Arterial Blood Methemoglobin 0.2 0.0-1.5 % Eric Test N/a Blood Gas Total Hemoglobin 16.60 H 12.0-16.0 g/dL Blood Gas Set Respiration Rate 12.0 Blood Gas Modality Vent - ac FiO2 % 40.0 Blood Gas Tidal Volume 500.0 Blood Gas PEEP or CPAP 5.0 Sodium Level 135 L 136-145 mmol/L Potassium Level 5.6 *H 3.5-5.1 mmol/L Chloride Level 105 98-107 mmol/L Carbon Dioxide Level 22 20-31 mmol/L Anion Gap 8 5-15 Blood Urea Nitrogen 21 9-23 mg/dL Creatinine 0.84 # 0.550-1.02 mg/dL Glomerular Filtration Rate Calc 69 >90 mL/min BUN/Creatinine Ratio 25.0 H 10.0-20.0 Serum Glucose 83 74-106 mg/dL Calcium Level 10.3 8.7-10.4 mg/dL Total Bilirubin 8.7 H 0.2-1.0 mg/dL Aspartate Amino Transferase (AST) 596 H 13-40 U/L Alanine Aminotransferase (ALT) 118 H 7-40 U/L Alkaline Phosphatase 498 H 46-116 U/L Total Protein 5.6 L 5.7-8.2 g/dL Albumin 2.9 L 3.2-4.8 g/dL White Blood Count 12.1 #H 4.4-10.8 10^3/uL Red Blood Count 5.36 H 4.0-5.20 10^6/uL Hemoglobin 17.8 #H 12.2-16.2 g/dL Hematocrit 51.0 #H 36.0-46.0 % Mean Corpuscular Volume 95.2 80.0-100.0 fL Mean Corpuscular Hemoglobin 33.2 H 28.0-32.0 pg Mean Corpuscular Hemoglobin Concent 34.9 32.0-36.0 g/dL Red Cell Distribution Width 20.2 H 11.8-14.3 % Platelet Count 174 140-450 10^3/uL Mean Platelet Volume 9.9 6.9-10.8 fL Neutrophils (%) (Auto) 92.4 H 37.0-80.0 % Lymphocytes (%) (Auto) 3.5 L 10.0-50.0 % Monocytes (%) (Auto) 3.7 0.0-12.0 % Eosinophils (%) (Auto) 0.1 0.0-7.0 % Basophils (%) (Auto) 0.3 0.0-2.0 % Neutrophils # (Auto) 11.2 H 1.6-8.6 10 ^3/uL Lymphocytes # (Auto) 0.4 0.4-5.4 10 ^3/uL Monocytes # (Auto) 0.5 0-1.3 10 ^3/uL Eosinophils # (Auto) 0 0-0.8 10 ^3/uL Basophils # (Auto) 0 0-0.2 10 ^3/uL Nucleated Red Blood Cells 0.2 % Platelet Estimate Adequate Large Platelets Few Prothrombin Time 21.8 H 9.3-11.8 sec Prothrombin Time INR 2.23 H 0.9-1.15 Test 11/02/24 16:40 10/31/24 16:09 10/31/24 11:45 10/31/24 08:49 Range/Units Blood Gas Spontaneous Rate 12 Urine Color Dark-yellow Yellow Urine Clarity Turbid H Clear Urine pH 5.5 5.0-9.0 Urine Specific [place] 1.020 1.001-1.035 Urine Protein Negative Negative Urine Ketones 1+ H Negative Urine Blood Trace H Negative /uL Urine Nitrite Negative Negative Urine Bilirubin 1+ H Negative Urine Urobilinogen 4 H Negative mg/dL Urine Leukocyte Esterase 1+ Negative /uL Urine RBC 2 0 - 4 /hpf Urine Microscopic WBC 16 H 0-5 /HPF Urine Squamous Epithelial Cells Few <5 /hpf Urine Calcium Oxalate Crystals Few None Seen Urine Bacteria Few H None Seen /hpf Urine Hyaline Casts Few 0 - 2 /lpf Urine Mucus Few None Seen Urine Glucose Normal Normal mg/dL Troponin I High Sensitivity 12 </=34 ng/L Creatine Kinase 71 34-145 U/L Microbiology Date/Time Source Procedure Growth Status 11/02/24 15:27 Sputum Gram Stain Pending Resulted 11/02/24 15:27 Sputum Respiratory Culture - Preliminary Resulted 11/02/24 14:49 Peritoneal Fluid Gram Stain Pending Resulted 11/02/24 14:49 Peritoneal Fluid Anaerobic Culture - Preliminary Resulted 11/02/24 14:49 Peritoneal Fluid Aerobic Culture - Preliminary Resulted Assessment/Plan Plan Impression Acute hypoxemic respiratory failure Perforated gastric ulcer Breast cancer with mets Fall Patient seen and examined in ICU Events On mechanical ventilation S/p intubation PEEP 5, FiO2 50% S/p perforated gastric ulcer repair Labs and imaging reviewed CT of the abdomen Interval development of pneumoperitoneum which is new compared to 10/26/24 Similar liver Cirrhosis with numerous liver masses which could be seen with metastatic disease. Similar lytic lesions are seen in the pelvic bone and vertebral bodies could be metastatic disease. ABG reviewed pH 7.33. pCO2 38, pO2 95 Management Vent support Titrate to maintain sats 90% or above Sedation for vent synchrony Antibiotics Bronchodilators Monitor renal function Monitor electrolytes Supplement as needed Pressors as needed for hemodynamic support To maintain a mean arterial pressure of 65 mmHg F/u general surgery DVT prophylaxis Critical care time 35 minutes Plan discussed with: Other (Rn) TRISTIN STOUT MD November 03, 2024 15:51
--- NOTE | 2024-11-03 15:54 | DVHPN2 ---
Progress Note - Dictate Date Seen: November 03, 2024 Medical Necessity Reason Pt with a Central, PICC or Fol: No vital signs Vital Sign Date Time Temp Pulse Resp B/P (MAP) Pulse Ox O2 Delivery O2 Flow Rate FiO2 11/03/24 13:44 72 12 80/52 (61) 99 35 11/03/24 12:00 98.2 98.2 11/03/24 08:00 Mechanical Ventilator+ 11/02/24 08:00 3 Total Intake and Output 11/02/24 11/02/24 11/03/24 15:00 23:00 07:00 Intake Total 1500 ml 1429.462 ml 2021.846 ml Output Total 570 ml 1195 ml Balance 1500 ml 859.462 ml 826.846 ml medications Current Medications Medications Dose Ordered Sig/Shellie Route Start Time Stop Time Status Last Admin Dose Admin Acetaminophen/ Hydrocodone Bitart 1 tab Q4HP PRN PO 10/31/24 11:45 11/02/24 04:40 1 TAB Docusate Sodium 100 mg BIDPRN PRN PO 10/31/24 11:45 Acetaminophen 650 mg Q6HP PRN PO 10/31/24 11:45 11/02/24 03:46 650 MG Multivitamins 1 tab DAILY PO 11/01/24 10:00 11/03/24 10:08 1 TAB Patient Own Medication 1 tab DAILY PO 11/01/24 10:00 Dextrose 50 ml PRN PRN IV 11/01/24 08:15 11/01/24 08:16 50 ML Diagnostic Test (Pha) 1 strip Q4HR 11/01/24 12:00 11/03/24 10:08 1 STRIP Ondansetron HCl 4 mg Q4HPRN PRN IV 11/01/24 14:15 UNV Morphine Sulfate 2 mg Q4HPRN PRN IV 11/02/24 08:30 11/02/24 08:35 2 MG Levofloxacin 50 ml @ 50 mls/hr DAILY IV 11/03/24 10:00 11/03/24 10:08 50 MLS/HR Metronidazole 100 ml @ 100 mls/hr Q8HR IV 11/02/24 22:00 11/03/24 05:24 100 MLS/HR Hydromorphone HCl 1 mg Q2HPRN PRN IV 11/02/24 14:45 Ondansetron HCl 4 mg Q4HPRN PRN IV 11/02/24 14:45 Pantoprazole Sodium 50 ml @ 10 mls/hr Q5H IV 11/02/24 14:45 11/03/24 11:20 10 MLS/HR Midazolam HCl 50 ml @ 1 mls/hr Q24H IV 11/02/24 14:45 Propofol 100 ml @ 2.079 mls/ hr Q24H IV 11/02/24 15:30 Cancel Lactated Ringer's 1,000 ml @ 110 mls/hr Q9H6M IV 11/02/24 15:30 11/03/24 10:58 110 MLS/HR Propofol 100 ml @ 2.079 mls/ hr Q24H IV 11/02/24 17:15 11/02/24 23:04 8.316 MLS/HR Sodium Bicarbonate 50 ml/ Sodium Chloride 1,050 ml @ 100 mls/hr [id number] IV 11/03/24 11:00 Phenylephrine HCl 80 mg/Sodium Chloride 250 ml @ 7.5 mls/hr Q24H IV 11/03/24 11:30 laboratory and microbiology Laboratory Tests 11/03/24 04:08 11/03/24 03:00 Test 11/03/24 04:08 Range/Units Serum Glucose 83 74-106 mg/dL Assessment/Plan Impression Acute hypoxemic respiratory failure Perforated gastric ulcer Breast cancer with mets Fall Patient seen and examined in ICU Events On mechanical ventilation S/p intubation PEEP 5, FiO2 40% S/p perforated gastric ulcer repair Labs and imaging reviewed CT of the abdomen Interval development of pneumoperitoneum which is new compared to 10/26/24 Similar liver Cirrhosis with numerous liver masses which could be seen with metastatic disease. Similar lytic lesions are seen in the pelvic bone and vertebral bodies could be metastatic disease. ABG reviewed pH 7.38. pCO2 32, pO2 91 Management Vent support Titrate to maintain sats 90% or above Sedation for vent synchrony Continue antibiotics F/u cultures Bronchodilators Monitor renal function Monitor electrolytes Supplement as needed Pressors as needed for hemodynamic support To maintain a mean arterial pressure of 65 mmHg F/u general surgery Prognosis very poor DVT prophylaxis Critical care time 35 minutes Plan discussed with: Other (Rn) TRISTIN STOUT MD November 03, 2024 15:54
[2024-11-03] MEDS ORDERED: TPN PER PHARMACY 0 ML IV SCH (16:15)
[2024-11-03] MEDS ORDERED: SODIUM BICARB IV SCH (17:15)
[2024-11-03] MEDS ORDERED: SOD CHL IV SCH (17:15)
[2024-11-03] MEDS ORDERED: D5 IV SCH (17:15)
[2024-11-03] MEDS: SODIUM BICARB 50mEq/50ml Vial 50 ML in D5W/SOD CHL 0.45% 1,000 ML IV SCH (17:54)
[2024-11-03] MEDS: ACCU-CHEK COMFORT CURVE STRIP VI SCH (17:54)
[2024-11-03] MEDS: InsuLIN REG 1unit/0.01ml Soln (100units/ml) SC SCH (18:00)
[2024-11-03] MEDS: DEXTROSE (50%) 50ML SYRG IV SCH (18:02)
[2024-11-03] MEDS: SODIUM CHLORIDE 0.9% 900 ML IV ONE (19:21)
[2024-11-03] MEDS: AMINO ACID INFUSION IN D10W 1,000 ML IV SCH (21:58)
[2024-11-04] VITALS (106 sets, daily range): BP systolic 89–125; BP diastolic 44–76; PULSE 63–113; RESP 11–18; TEMP 97.2–98.9; O2SAT 91–99
[2024-11-04 04:07] LABS: Basophils # (auto) 0 10 ^3/uL (0-0.2); Basophils % (auto) 0.3 % (0.0-2.0); Eosinophils # (auto) 0 10 ^3/uL (0-0.8); Eosinophils % (auto) 0.1 % (0.0-7.0); Hematocrit 45.9 % (36.0-46.0); Hemoglobin 15.3 g/dL (12.2-16.2); Lymphocytes # (auto) 0.5 10 ^3/uL (0.4-5.4); Lymphocytes % (auto) 3.8 % (10.0-50.0); Mean Corpuscular Hemoglobin 32.6 pg (28.0-32.0); Mean Corpuscular Hgb Conc. 33.3 g/dL (32.0-36.0); Mean Corpuscular Volume 97.7 fL (80.0-100.0); Monocytes # (auto) 1.3 10 ^3/uL (0-1.3); Monocytes % (auto) 10.6 % (0.0-12.0); Neutrophils # (auto) 10.6 10 ^3/uL (1.6-8.6); Neutrophils % (auto) 85.2 % (37.0-80.0); Nucleated Red Blood Cells % 0.2 %; Platelet Count (auto) 201 10^3/uL (140-450); Red Blood Cells 4.69 10^6/uL (4.0-5.20); Red Cell Distribution Width 21.1 % (11.8-14.3); White Blood Cell 12.4 10^3/uL (4.4-10.8)
[2024-11-04] MEDS: SODIUM BICARB 8.4% 50Meq/50ml SYR INJ ONE (04:08)
[2024-11-04 04:18] LABS: Anion Gap 7 (5-15); Magnesium 1.8 mg/dL (1.6-2.6)
--- NOTE | 2024-11-04 04:22 | DVH ---
INDICATION: device placement TECHNIQUE: Frontal view of the chest. COMPARISON: XY CHEST PORTABLE on DOS: 11/03/24, XY CHEST PORTABLE on DOS: 11/03/24, XY CHEST PORTABLE o n DOS: 11/02/24, XY CHEST PORTABLE on DOS: 11/02/24, XY CHEST PORTABLE on DOS: 10/31/24, XY CHEST PORTAB LE on DOS: 11/03/24 FINDINGS: Findings. The heart and mediastinal contours are grossly unremarkable. There is no evidence of pleur al disease. The lungs are clear. The support lines including endotracheal tube nasogastric tube and r ight-sided CVP catheter to be in satisfactory position. The bony structures of the chest are intac t without fracture. Mild osteopenia of the bony thorax. There are multiple surgical clips in the rig ht axillary region. There is oral contrast seen in the stomach from recent contrast study IMPRESSION: 1. No evidence of acute disease. 2. Support lines are in satisfactory position.
[2024-11-04 04:46] LABS: Alanine Aminotransferase 125 U/L (7-40); Alkaline Phosphatase 322 U/L (46-116); Aspartate Aminotransferase 749 U/L (13-40); BUN/Creatinine Ratio 23.2 (10.0-20.0); Bilirubin, Total 6.4 mg/dL (0.2-1.0); Blood Urea Nitrogen 26 mg/dL (9-23); Calcium 7.5 mg/dL (8.7-10.4); Carbon Dioxide 17 mmol/L (20-31); Chloride 109 mmol/L (98-107); Glucose 206 mg/dL (74-106); Phosphorus 2.3 mg/dL (2.4-5.1); Potassium 5.4 mmol/L (3.5-5.1); Sodium 133 mmol/L (136-145); Total Protein 4.2 g/dL (5.7-8.2)
[2024-11-04 07:51] LABS: Base Excess -8.8 mmol/L (-2.0-3.0)
[2024-11-04] MEDS: SODIUM CHLORIDE 0.9% IV ONE (08:00)
--- NOTE | 2024-11-04 08:24 | DVHPN2 ---
Subjective Date Seen: November 03, 2024 Post op day Post op day: 1 Patient reports: Other (POD 1, REMAINS INTUBATED/SEDATED, VSS ON PRESSOR WEAN) Objective Vitals Vital Sign Date Time Temp Pulse Resp B/P (MAP) Pulse Ox O2 Delivery O2 Flow Rate FiO2 11/04/24 07:30 72 14 113/57 (75) 92 35 11/04/24 04:00 98.3 98.3 11/03/24 20:00 Mechanical Ventilator+ 11/02/24 08:00 3 Total Intake and Output 11/03/24 11/03/24 11/04/24 15:00 23:00 07:00 Intake Total 2055.10 ml 1885.348 ml 2622.356 ml Output Total 1100 ml 950 ml Balance 2055.10 ml 785.348 ml 1672.356 ml Medications Current Medications Medications Dose Ordered Sig/Shellie Route Start Time Stop Time Status Last Admin Dose Admin Acetaminophen/ Hydrocodone Bitart 1 tab Q4HP PRN PO 10/31/24 11:45 11/02/24 04:40 1 TAB Docusate Sodium 100 mg BIDPRN PRN PO 10/31/24 11:45 Acetaminophen 650 mg Q6HP PRN PO 10/31/24 11:45 11/02/24 03:46 650 MG Multivitamins 1 tab DAILY PO 11/01/24 10:00 11/03/24 10:08 1 TAB Patient Own Medication 1 tab DAILY PO 11/01/24 10:00 Ondansetron HCl 4 mg Q4HPRN PRN IV 11/01/24 14:15 UNV Morphine Sulfate 2 mg Q4HPRN PRN IV 11/02/24 08:30 11/02/24 08:35 2 MG Levofloxacin 50 ml @ 50 mls/hr DAILY IV 11/03/24 10:00 11/03/24 10:08 50 MLS/HR Metronidazole 100 ml @ 100 mls/hr Q8HR IV 11/02/24 22:00 11/04/24 06:04 100 MLS/HR Hydromorphone HCl 1 mg Q2HPRN PRN IV 11/02/24 14:45 Ondansetron HCl 4 mg Q4HPRN PRN IV 11/02/24 14:45 Pantoprazole Sodium 50 ml @ 10 mls/hr Q5H IV 11/02/24 14:45 11/04/24 03:14 10 MLS/HR Midazolam HCl 50 ml @ 1 mls/hr Q24H IV 11/02/24 14:45 Propofol 100 ml @ 2.079 mls/ hr Q24H IV 11/02/24 15:30 Cancel Propofol 100 ml @ 2.079 mls/ hr Q24H IV 11/02/24 17:15 11/04/24 01:59 4.158 MLS/HR Phenylephrine HCl 80 mg/Sodium Chloride 250 ml @ 7.5 mls/hr Q24H IV 11/03/24 11:30 11/04/24 03:15 33.75 MLS/HR Amino Acids 0 ml @ 0 mls/hr PER PHARMACY IV 11/03/24 16:15 Sodium Bicarbonate 50 ml/ Dextrose/Sodium Chloride 1,050 ml @ 100 mls/hr Q10H IV 11/03/24 18:00 11/04/24 04:20 100 MLS/HR Diagnostic Test (Pha) 1 strip Q6HR 11/03/24 18:00 11/04/24 06:04 1 STRIP Insulin Human Regular FOLLOW SLIDING SCALE Q6HR SC 11/03/24 18:00 11/04/24 06:19 4 UNITS Dextrose 50 ml UD IV 11/03/24 18:00 11/03/24 18:02 50 ML Amino Acids/ Electrolytes/ Dextrose 1,000 ml @ 41 mls/hr DAILY@2200 IV 11/03/24 22:00 11/04/24 21:59 11/03/24 21:58 41 MLS/HR General: Other (INTUBATED/SEDATED) Head/Eyes: Normal, Atraumatic Lungs: Other (INTUBATED, B/L BS ) Cardiovascular: Regular rate and rhythm, BP/pulses equal bilat. Abdominal: Soft, Other (SOFT, NONDISTENDED, INCISION C/D/I W PREVENA, FREDRICK W S/S, MCADAMS) Extremities: Normal, No clubbing, No cyanosis, No edema Skin: Normal, Normal color Labs and Microbiology Laboratory Tests 11/04/24 03:45 Test 11/04/24 03:45 Range/Units Serum Glucose 206 H 74-106 mg/dL Ass/Plan Labs and/or images reviewed: Labs reviewed by me, Image(s) reviewed by me Assessment/Plan 83F w metastatic breast ca w liver and ashok mets who developed abd pain found to have pneumoperitoneum on CT s/p ex-lap, josiah patch repair of gastric perforation HD stable, almost off pressors remains intubated/sedated, ABG w good gas exchange inc c/d/i w prevena FREDRICK w S/S output NGT w gastrobilious output wean vent as able strict NPO NGT should not be manipulated or removed until cleared by surgery UGI on POD 4 PPI will need H Pylori testing as no gross specimen sent for H Pylori testing leave prevena wound vac until battery dies monitor UOP, avoid fluid overload, may need gentle lasix diuresis drain care, strip FREDRICK qShift TPN DVT ppx, lovenox guarded prognosis with significant risk for ongoing decompensation 2/2 significant comorbidities Plan discussed with rn Visit Coding Surgery Date of Service if different f: November 03, 2024 Billing Provider: PRETTY FIELDS MD Surgery Visit Codes: [id number] INP/OBS CARE(HIGH) PRETTY FIELDS MD November 04, 2024 08:24
[2024-11-04] MEDS: SODIUM CHLORIDE 0.9% 500 ML IV ONE (08:30)
--- NOTE | 2024-11-04 08:32 | DVHPN2 ---
Progress Note - Surgical Date Seen: November 04, 2024 Post op day Post op day: 2 Subjective Patient reports: Other (intubated/sedated, VSS) Review of Systems: Deferred Objective Vital signs Vital Sign Date Time Temp Pulse Resp B/P (MAP) Pulse Ox O2 Delivery O2 Flow Rate FiO2 11/04/24 07:30 72 14 113/57 (75) 92 35 11/04/24 04:00 98.3 98.3 11/03/24 20:00 Mechanical Ventilator+ 11/02/24 08:00 3 Total Intake and Output 11/03/24 11/03/24 11/04/24 15:00 23:00 07:00 Intake Total 2055.10 ml 1885.348 ml 2622.356 ml Output Total 1100 ml 950 ml Balance 2055.10 ml 785.348 ml 1672.356 ml Medications Current Medications Medications Dose Ordered Sig/Shellie Route Start Time Stop Time Status Last Admin Dose Admin Acetaminophen/ Hydrocodone Bitart 1 tab Q4HP PRN PO 10/31/24 11:45 11/02/24 04:40 1 TAB Docusate Sodium 100 mg BIDPRN PRN PO 10/31/24 11:45 Acetaminophen 650 mg Q6HP PRN PO 10/31/24 11:45 11/02/24 03:46 650 MG Multivitamins 1 tab DAILY PO 11/01/24 10:00 11/03/24 10:08 1 TAB Patient Own Medication 1 tab DAILY PO 11/01/24 10:00 Ondansetron HCl 4 mg Q4HPRN PRN IV 11/01/24 14:15 UNV Morphine Sulfate 2 mg Q4HPRN PRN IV 11/02/24 08:30 11/02/24 08:35 2 MG Levofloxacin 50 ml @ 50 mls/hr DAILY IV 11/03/24 10:00 11/03/24 10:08 50 MLS/HR Metronidazole 100 ml @ 100 mls/hr Q8HR IV 11/02/24 22:00 11/04/24 06:04 100 MLS/HR Hydromorphone HCl 1 mg Q2HPRN PRN IV 11/02/24 14:45 Ondansetron HCl 4 mg Q4HPRN PRN IV 11/02/24 14:45 Pantoprazole Sodium 50 ml @ 10 mls/hr Q5H IV 11/02/24 14:45 11/04/24 03:14 10 MLS/HR Midazolam HCl 50 ml @ 1 mls/hr Q24H IV 11/02/24 14:45 Propofol 100 ml @ 2.079 mls/ hr Q24H IV 11/02/24 15:30 Cancel Propofol 100 ml @ 2.079 mls/ hr Q24H IV 11/02/24 17:15 11/04/24 01:59 4.158 MLS/HR Phenylephrine HCl 80 mg/Sodium Chloride 250 ml @ 7.5 mls/hr Q24H IV 11/03/24 11:30 11/04/24 03:15 33.75 MLS/HR Amino Acids 0 ml @ 0 mls/hr PER PHARMACY IV 11/03/24 16:15 Sodium Bicarbonate 50 ml/ Dextrose/Sodium Chloride 1,050 ml @ 100 mls/hr Q10H IV 11/03/24 18:00 11/04/24 04:20 100 MLS/HR Diagnostic Test (Pha) 1 strip Q6HR 11/03/24 18:00 11/04/24 06:04 1 STRIP Insulin Human Regular FOLLOW SLIDING SCALE Q6HR SC 11/03/24 18:00 11/04/24 06:19 4 UNITS Dextrose 50 ml UD IV 11/03/24 18:00 11/03/24 18:02 50 ML Amino Acids/ Electrolytes/ Dextrose 1,000 ml @ 41 mls/hr DAILY@2200 IV 11/03/24 22:00 11/04/24 21:59 11/03/24 21:58 41 MLS/HR Laboratory Laboratory Tests 11/04/24 03:45 Test 11/04/24 03:45 Range/Units Serum Glucose 206 H 74-106 mg/dL Microbiology Date/Time Source Procedure Growth Status 11/02/24 15:27 Sputum Gram Stain - Final Resulted 11/02/24 15:27 Sputum Respiratory Culture - Preliminary Resulted 11/02/24 14:49 Peritoneal Fluid Gram Stain - Final Resulted 11/02/24 14:49 Peritoneal Fluid Anaerobic Culture - Preliminary Resulted 11/02/24 14:49 Peritoneal Fluid Aerobic Culture - Preliminary Resulted Examination: GENERAL:Abnormal (intubated/sedated), HEENT:Normal, NECK:Normal, LUNGS:Abnormal (intubated, b/l BS, ), ABDOMEN:Abnormal (soft, inc c/d/i w prevena, FREDRICK w s/s, NGT w gastrobilious), MSK:Normal, SKIN:Normal, :Abnormal (cosby) Labs and/or images reviewed: Labs reviewed by me, Image(s) reviewed by me Problem List/Assessment/Plan Assessment and Plan 83F w metastatic breast ca w liver and ashok mets who developed abd pain found to have pneumoperitoneum on CT s/p ex-lap, josiah patch repair of gastric perforation POD 2 HD stable, almost off pressors remains intubated/sedated, ABG w good gas exchange inc c/d/i w prevena FREDRICK w S/S output NGT w gastrobilious output wean vent as able strict NPO NGT should not be manipulated or removed until cleared by surgery UGI on POD 4 PPI will need H Pylori testing as no gross specimen sent for H Pylori testing leave prevena wound vac until battery dies monitor UOP, avoid fluid overload, may need gentle lasix diuresis FREDRICK output noted, expected output given pts underlying advanced cirrhosis w ascites, replace q1cc FREDRICK output w 1cc NS drain care, strip FREDRICK qShift TPN DVT ppx, lovenox guarded prognosis with significant risk for ongoing decompensation 2/2 significant comorbidities Plan discussed with Plan discussed with: Other (rn) Visit Coding Surgery Date of Service if different f: November 04, 2024 Billing Provider: PRETTY FIELDS MD Surgery Visit Codes: [id number] INP/OBS CARE(HIGH) PRETTY FIELDS MD November 04, 2024 08:32
[2024-11-04] MEDS: ALBUTEROL SULF 2.5 MG/0.5ML(0.5%) NEB SOLN NEB ONE (08:46)
--- NOTE | 2024-11-04 09:48 | DVHPN2 ---
Subjective Patient chemically sedated Reviewed: Care Plan, H&P, Labs, Medications, Previous Orders, Radiology Changes from previous H/P or p: No Changes General: Per HPI Objective Vitals Vital Signs Date Time Temp Pulse Resp B/P (MAP) Pulse Ox O2 Delivery O2 Flow Rate FiO2 11/04/24 09:00 68 13 99/49 (66) 94 35 11/04/24 08:00 Mechanical Ventilator+ 11/04/24 04:00 98.3 98.3 11/02/24 08:00 3 Intake/Output Intake and Output 11/04/24 07:00 Intake Total 6851.712 ml Output Total 2050 ml Balance 4801.712 ml Intake Oral 10 ml IV Total 6841.712 ml Output Urine Total 350 ml Gastric Drainage Total 225 ml Drainage Total 1475 ml General Appearance: moderate distress, Other (Some distress with the abdominal pain) HEENT: Atraumatic, PERRLA, Mucous membr. moist/pink Lungs: Clear to auscultation Cardiovascular: Regular rate, Normal S1, Normal S2 Abdomen: Normal bowel sounds, Soft, No tenderness, Other (Hypoactive bowel sounds. Dressing dry and intact.) Neuro: Other (Unable to assess) Skin: Dry, Intact, Wounds (See nurse notes and pictures) Psych/Mental Status: Other (Unable to assess) Medications Current Medications Medications Dose Ordered Sig/Shellie Route Start Time Stop Time Status Last Admin Dose Admin Acetaminophen/ Hydrocodone Bitart 1 tab Q4HP PRN PO 10/31/24 11:45 11/02/24 04:40 1 TAB Docusate Sodium 100 mg BIDPRN PRN PO 10/31/24 11:45 Acetaminophen 650 mg Q6HP PRN PO 10/31/24 11:45 11/02/24 03:46 650 MG Multivitamins 1 tab DAILY PO 11/01/24 10:00 11/03/24 10:08 1 TAB Patient Own Medication 1 tab DAILY PO 11/01/24 10:00 Ondansetron HCl 4 mg Q4HPRN PRN IV 11/01/24 14:15 UNV Morphine Sulfate 2 mg Q4HPRN PRN IV 11/02/24 08:30 11/02/24 08:35 2 MG Levofloxacin 50 ml @ 50 mls/hr DAILY IV 11/03/24 10:00 11/03/24 10:08 50 MLS/HR Metronidazole 100 ml @ 100 mls/hr Q8HR IV 11/02/24 22:00 11/04/24 06:04 100 MLS/HR Hydromorphone HCl 1 mg Q2HPRN PRN IV 11/02/24 14:45 Ondansetron HCl 4 mg Q4HPRN PRN IV 11/02/24 14:45 Pantoprazole Sodium 50 ml @ 10 mls/hr Q5H IV 11/02/24 14:45 11/04/24 08:31 10 MLS/HR Midazolam HCl 50 ml @ 1 mls/hr Q24H IV 11/02/24 14:45 Propofol 100 ml @ 2.079 mls/ hr Q24H IV 11/02/24 15:30 Cancel Propofol 100 ml @ 2.079 mls/ hr Q24H IV 11/02/24 17:15 11/04/24 01:59 4.158 MLS/HR Phenylephrine HCl 80 mg/Sodium Chloride 250 ml @ 7.5 mls/hr Q24H IV 11/03/24 11:30 11/04/24 03:15 33.75 MLS/HR Amino Acids 0 ml @ 0 mls/hr PER PHARMACY IV 11/03/24 16:15 Sodium Bicarbonate 50 ml/ Dextrose/Sodium Chloride 1,050 ml @ 100 mls/hr Q10H IV 11/03/24 18:00 11/04/24 04:20 100 MLS/HR Diagnostic Test (Pha) 1 strip Q6HR 11/03/24 18:00 11/04/24 06:04 1 STRIP Insulin Human Regular FOLLOW SLIDING SCALE Q6HR SC 11/03/24 18:00 11/04/24 06:19 4 UNITS Dextrose 50 ml UD IV 11/03/24 18:00 11/03/24 18:02 50 ML Amino Acids/ Electrolytes/ Dextrose 1,000 ml @ 41 mls/hr DAILY@2200 IV 11/03/24 22:00 11/04/24 21:59 11/03/24 21:58 41 MLS/HR Laboratory Results Laboratory Tests 11/04/24 03:45 Chemistry Test 11/04/24 03:45 Albumin 2.0 g/dL (3.2-4.8) L Calcium Level 7.5 mg/dL (8.7-10.4) L Magnesium Level 1.8 mg/dL (1.6-2.6) Phosphorus Level 2.3 mg/dL (2.4-5.1) L Total Protein 4.2 g/dL (5.7-8.2) L Lipid panel Test 11/04/24 03:45 Triglycerides Level 150 mg/dL (< 150) H LFT Test 11/04/24 03:45 Alanine Aminotransferase (ALT) 125 U/L (7-40) H Alkaline Phosphatase 322 U/L (46-116) H Aspartate Amino Transferase (AST) 749 U/L (13-40) H Total Bilirubin 6.4 mg/dL (0.2-1.0) H Urinalysis Test 10/31/24 16:09 Urine Color Dark-yellow (Yellow) Urine Clarity Turbid (Clear) H Urine pH 5.5 (5.0-9.0) Urine Specific [place] 1.020 (1.001-1.035) Urine Protein Negative (Negative) Urine Ketones 1+ (Negative) H Urine Blood Trace /uL (Negative) H Urine Nitrite Negative (Negative) Urine Bilirubin 1+ (Negative) H Urine Urobilinogen 4 mg/dL (Negative) H Urine Leukocyte Esterase 1+ /uL (Negative) Urine RBC 2 /hpf (0 - 4) Urine Microscopic WBC 16 /HPF (0-5) H Urine Squamous Epithelial Cells Few /hpf (<5) Urine Calcium Oxalate Crystals Few (None Seen) Urine Bacteria Few /hpf (None Seen) H Urine Hyaline Casts Few /lpf (0 - 2) Urine Mucus Few (None Seen) Urine Glucose Normal mg/dL (Normal) Blood Gas Results Test 11/04/24 07:46 Arterial Blood pH 7.305 (7.350-7.450) FiO2 % 35.0 Microbiology Microbiology Date/Time Source Procedure Growth Status 11/02/24 15:27 Sputum Gram Stain - Final Resulted 11/02/24 15:27 Sputum Respiratory Culture - Preliminary Resulted 11/02/24 14:49 Peritoneal Fluid Gram Stain - Final Resulted 11/02/24 14:49 Peritoneal Fluid Anaerobic Culture - Preliminary Resulted 11/02/24 14:49 Peritoneal Fluid Aerobic Culture - Preliminary Resulted Labs and/or images reviewed: Labs reviewed by me, Image(s) reviewed by me Assessment/Plan Assessment/Plan Impression: -syncope with collapse -perforated gastric ulcer -acute hypoxic respiratory failure -hyperkalemia -metastatic breast cancer -sirs secondary to gastric ulcer -Septic Shock -Hypoglycemia -ALEXIA, VMN, ATN Plan: Events: Continues to be on Phenylephrine gtt. Worsening renal function. -IV bolus -CVP reading -continue antibiotic therapy with Levaquin and Flagyl -Stop protonix gtt -Potassium lowering agents -Continue sodium bicarbonate drip -continue current ventilator settings -repeat labs, chest x-ray, ABG in a.m. Critical care time spent with patient discussing and formulating plan of care: 40 minutes. This does not include time spent performing procedures. This medical document was created using an electronic medical record system with [employer] dictation system. Although this document has been carefully reviewed, there may still be some phonetic and typographical errors. These areas are purely typographical due to imperfections of the software programs, and do not reflect any compromise in the patient's medical care. Plan discussed with: Patient, Other (RN) My Orders Orders - KINGSTON GARCIA BRUSH OR BROOM CUTTER Procedure Category Date Status Time Tpn Per Pharmacy [facility] 11/03/24 In Process 11:12 Abg W/ Co-Ox RT 11/04/24 Logged 04:00 Chest Portable XY 11/04/24 Resulted 04:00 * Picc Line Consult CONS 11/03/24 Transmitted 11:16 Sodium Chl 0.9% PHA 11/03/24 In Process (Ns... 11:30 Chest Portable XY 11/03/24 Resulted 15:16 Tpn Per Pharmacy PHA 11/03/24 In Process 16:15 D5w/Sod Chl 0.45% PHA 11/03/24 In Process (... W/Sodium Bicarb 5 18:00 Glucose Blood PHA 11/03/24 In Process (Accu-Chek Comfort 18:00 Insulin R (Human) PHA 11/03/24 In Process (Insulin R) 18:00 Dextrose 50% Syringe PHA 11/03/24 In Process 18:00 Amino Acid Infusion PHA 11/03/24 In Process In D10w (Clinimix 4. 22:00 Tpn Per Pharmacy [facility] 11/03/24 In Process 22:00 Npo (Nothing By DIET 11/04/24 Transmitted Mouth) Diet Breakfast Comprehensive LAB 11/05/24 Verified Metabolic Panel 05:00 Comprehensive LAB 11/06/24 Verified Metabolic Panel 05:00 Comprehensive LAB 11/07/24 Verified Metabolic Panel 05:00 Complete Blood Count LAB 11/05/24 Verified 05:00 Complete Blood Count LAB 11/06/24 Verified 05:00 Complete Blood Count LAB 11/07/24 Verified 05:00 Albuterol Medneb PHA 11/04/24 Transmitted (Ventolin Medneb) 12:00 Ipratropium Medneb PHA 11/04/24 Transmitted (Atrovent Medneb) 12:00 Pantoprazole PHA 11/04/24 Transmitted (Protonix) 10:00 Date of Service: November 04, 2024 Billing Provider: KINGSTON GARCIA NP Common Visit Codes: [id number] CARE 30-74 MIN KINGSTON GARCIA NP November 04, 2024 09:47
[2024-11-04] MEDS: PANTOPRAZOLE 40 MG/10 ML VIAL INJ IV SCH (10:31)
[2024-11-04] MEDS: PROPOFOL 100 ML IV ONE (10:32)
[2024-11-04] MEDS: IPRATROPIUM BROM 0.5 MG/2.5ML INH SOL NEB SCH (11:12)
[2024-11-04] MEDS: ALBUTEROL SULF 2.5 MG/0.5ML(0.5%) NEB SOLN NEB SCH (11:12)
[2024-11-04] MEDS: SODIUM PHOSPHATES 20 MEQ in SODIUM CHL 0.9% 100 ML IV ONE (14:36)
[2024-11-04] MEDS: ALBUMIN 25% 50 ML IV SCH (16:36)
--- NOTE | 2024-11-04 20:14 | DVHPN2 ---
Progress Note - Dictate Date Seen: November 04, 2024 Medical Necessity Reason Pt with a Central, PICC or Fol: No vital signs Vital Sign Date Time Temp Pulse Resp B/P (MAP) Pulse Ox O2 Delivery O2 Flow Rate FiO2 11/04/24 18:18 79 13 110/65 (80) 93 35 11/04/24 13:30 97.2 97.2 11/04/24 08:00 Mechanical Ventilator+ 11/02/24 08:00 3 Total Intake and Output 11/03/24 11/03/24 11/04/24 15:00 23:00 07:00 Intake Total 2055.10 ml 1885.348 ml 2911.264 ml Output Total 1100 ml 950 ml Balance 2055.10 ml 785.348 ml 1961.264 ml medications Current Medications Medications Dose Ordered Sig/Shellie Route Start Time Stop Time Status Last Admin Dose Admin Acetaminophen/ Hydrocodone Bitart 1 tab Q4HP PRN PO 10/31/24 11:45 11/02/24 04:40 1 TAB Acetaminophen 650 mg Q6HP PRN PO 10/31/24 11:45 11/02/24 03:46 650 MG Ondansetron HCl 4 mg Q4HPRN PRN IV 11/01/24 14:15 UNV Morphine Sulfate 2 mg Q4HPRN PRN IV 11/02/24 08:30 11/02/24 08:35 2 MG Levofloxacin 50 ml @ 50 mls/hr DAILY IV 11/03/24 10:00 11/04/24 10:31 50 MLS/HR Metronidazole 100 ml @ 100 mls/hr Q8HR IV 11/02/24 22:00 11/04/24 14:05 100 MLS/HR Hydromorphone HCl 1 mg Q2HPRN PRN IV 11/02/24 14:45 Ondansetron HCl 4 mg Q4HPRN PRN IV 11/02/24 14:45 Midazolam HCl 50 ml @ 1 mls/hr Q24H IV 11/02/24 14:45 Propofol 100 ml @ 2.079 mls/ hr Q24H IV 11/02/24 15:30 Cancel Propofol 100 ml @ 2.079 mls/ hr Q24H IV 11/02/24 17:15 11/04/24 12:10 8.316 MLS/HR Phenylephrine HCl 80 mg/Sodium Chloride 250 ml @ 7.5 mls/hr Q24H IV 11/03/24 11:30 11/04/24 20:07 24.375 MLS/HR Amino Acids 0 ml @ 0 mls/hr PER PHARMACY IV 11/03/24 16:15 Sodium Bicarbonate 50 ml/ Dextrose/Sodium Chloride 1,050 ml @ 100 mls/hr Q10H IV 11/03/24 18:00 11/04/24 14:06 100 MLS/HR Diagnostic Test (Pha) 1 strip Q6HR 11/03/24 18:00 11/04/24 19:39 1 STRIP Insulin Human Regular FOLLOW SLIDING SCALE Q6HR SC 11/03/24 18:00 11/04/24 19:41 4 UNITS Dextrose 50 ml UD IV 11/03/24 18:00 11/03/24 18:02 50 ML Amino Acids/ Electrolytes/ Dextrose 1,000 ml @ 41 mls/hr DAILY@2200 IV 11/03/24 22:00 11/04/24 21:59 11/03/24 21:58 41 MLS/HR Albuterol 2.5 mg Q6HR NEB 11/04/24 12:00 11/04/24 18:13 2.5 MG Ipratropium [place] 0.5 mg Q6HR NEB 11/04/24 12:00 11/04/24 18:13 0.5 MG Pantoprazole Sodium 40 mg BID IV 11/04/24 10:00 11/04/24 10:31 40 MG Sodium Acetate 20 meq/Sodium Phosphate 20 meq/ Calcium Gluconate 2.3 meq/Magnesium Sulfate 8 meq/ Multivitamins 10 ml/Insulin Human Regular 7 units/ Amino Acids/ Dextrose/Purified Water 1,032.0162 ml @ 43 mls/hr Q24H1M IV 11/04/24 22:00 11/05/24 21:59 Albumin Human 50 ml @ 100 mls/hr Q8H IV 11/04/24 14:00 11/05/24 06:29 11/04/24 16:36 100 MLS/HR laboratory and microbiology Laboratory Tests 11/04/24 03:45 Test 11/04/24 03:45 Range/Units Serum Glucose 206 H 74-106 mg/dL Assessment/Plan Impression Acute hypoxemic respiratory failure Perforated gastric ulcer Breast cancer with mets Fall Patient seen and examined in ICU Events On mechanical ventilation S/p intubation PEEP 5, FiO2 40% On Neosynephrine for hemodynamic support S/p perforated gastric ulcer repair Significant output noted from FREDRICK drains Labs and imaging reviewed ABG reviewed- compensated Management Vent support Titrate to maintain sats 90% or above Sedation holiday daily If patient follows commands, proceed to weaning trial Pressure support 12/13, extubate when ready Continue antibiotics F/u cultures Bronchodilators Monitor renal function Monitor electrolytes Supplement as needed Pressors as needed for hemodynamic support To maintain a mean arterial pressure of 65 mmHg F/u general surgery DVT prophylaxis Critical care time 35 minutes Dietary Evaluation Review Comments: 1. TPN to meet at least 75% estimated needs 2. Monitor CMP and triglycerides, TPN tolerance, wt trend, I/O Expected Outcomes/Goals: To meet >75% estimated needs within 7 days Fu 2-3 days Plan discussed with: Other (Rn) TRISTIN STOUT MD November 04, 2024 20:14
[2024-11-04] MEDS: TPN PER PHARMACY IV NR (22:40)
[2024-11-05] VITALS (110 sets, daily range): BP systolic 84–124; BP diastolic 51–72; PULSE 86–123; RESP 11–26; TEMP 97.6–97.9; O2SAT 91–95
[2024-11-05 04:10] LABS: Hematocrit 46.6 % (36.0-46.0); Hemoglobin 15.9 g/dL (12.2-16.2); Mean Corpuscular Hemoglobin 32.9 pg (28.0-32.0); Mean Corpuscular Volume 96.6 fL (80.0-100.0); Platelet Count (auto) 146 10^3/uL (140-450); Red Blood Cells 4.82 10^6/uL (4.0-5.20); Red Cell Distribution Width 21.3 % (11.8-14.3); White Blood Cell 13.4 10^3/uL (4.4-10.8)
[2024-11-05 04:18] LABS: Basophils % (manual) 0 (0.0-2.0); Blast Cells 0; Eosinophils % (manual) 0 (0-7); Promyelocytes % 0; Reactive Lymphocytes 0
[2024-11-05 04:25] LABS: Anion Gap 8 (5-15); BUN/Creatinine Ratio 27.6 (10.0-20.0); Chloride 107 mmol/L (98-107); Potassium 3.7 mmol/L (3.5-5.1)
[2024-11-05 04:30] LABS: Alanine Aminotransferase 141 U/L (7-40); Albumin 2.6 g/dL (3.2-4.8); Alkaline Phosphatase 329 U/L (46-116); Aspartate Aminotransferase 976 U/L (13-40); Bilirubin, Total 8.5 mg/dL (0.2-1.0); Blood Urea Nitrogen 34 mg/dL (9-23); Calcium 7.2 mg/dL (8.7-10.4); Carbon Dioxide 19 mmol/L (20-31); Magnesium 1.5 mg/dL (1.6-2.6); Phosphorus 2.3 mg/dL (2.4-5.1); Sodium 134 mmol/L (136-145); Total Protein 4.6 g/dL (5.7-8.2)
[2024-11-05 04:53] LABS: Glucose 276 mg/dL (74-106)
--- NOTE | 2024-11-05 05:05 | DVH ---
CHEST RADIOGRAPH Indication: intubated Technique: Single frontal view of the chest was obtained Comparison: XY CHEST PORTABLE on DOS: 11/04/24, XY CHEST PORTABLE on DOS: 11/03/24, XY CHEST PORTABLE o n DOS: 11/03/24 FINDINGS: Lines and Tubes: The endotracheal tube terminates above the jose. The enteric tube terminates in th e stomach. Lungs: No focal consolidation. Pleura: No effusion. No pneumothorax. Cardiomediastinal contours: Unremarkable Bones: No acute osseous abnormality. IMPRESSION: 1. No acute cardiopulmonary disease.
[2024-11-05 05:28] LABS: Anisocytosis Slight; Band Neutrophils % (manual) 2; Large Platelets FEW; Lymphocytes % (manual) 6 (10.0-50.0); Metamyelocytes % 3; Monocytes % (manual) 4 (0-12); Myelocytes % 1; Platelet Estimate Adequate
[2024-11-05 05:48] LABS: Base Excess -8.3 mmol/L (-2.0-3.0)
[2024-11-05] MEDS: MAGNESIUM SULFATE 1GM/100ML 100 ML IV SCH (06:05)
--- NOTE | 2024-11-05 10:01 | DVHPN2 ---
Subjective Patient chemically sedated Reviewed: Care Plan, H&P, Labs, Medications, Previous Orders, Radiology Changes from previous H/P or p: No Changes General: Per HPI Objective Vitals Vital Signs Date Time Temp Pulse Resp B/P (MAP) Pulse Ox O2 Delivery O2 Flow Rate FiO2 11/05/24 09:55 107/64 11/05/24 09:45 113 16 95 11/05/24 09:39 35 11/05/24 08:31 Mechanical Ventilator+ 11/05/24 04:00 97.6 97.6 Intake/Output Intake and Output 11/05/24 07:00 Intake Total 7747.033 ml Output Total 3515 ml Balance 4232.033 ml Intake Oral 0 ml IV Total 6412.033 ml Other 1335 ml Output Urine Total 500 ml Gastric Drainage Total 0 ml Drainage Total 3015 ml General Appearance: mild distress, Other (Some distress with the abdominal pain) HEENT: Atraumatic, PERRLA, Mucous membr. moist/pink Lungs: Clear to auscultation Cardiovascular: Regular rate, Normal S1, Normal S2 Abdomen: Normal bowel sounds, Soft, No tenderness, Other (Hypoactive bowel sounds. Dressing dry and intact.) Neuro: Other (Unable to assess) Skin: Dry, Intact, Wounds (See nurse notes and pictures) Psych/Mental Status: Other (Unable to assess) Medications Current Medications Medications Dose Ordered Sig/Shellie Route Start Time Stop Time Status Last Admin Dose Admin Acetaminophen/ Hydrocodone Bitart 1 tab Q4HP PRN PO 10/31/24 11:45 11/02/24 04:40 1 TAB Acetaminophen 650 mg Q6HP PRN PO 10/31/24 11:45 11/02/24 03:46 650 MG Ondansetron HCl 4 mg Q4HPRN PRN IV 11/01/24 14:15 UNV Morphine Sulfate 2 mg Q4HPRN PRN IV 11/02/24 08:30 11/02/24 08:35 2 MG Levofloxacin 50 ml @ 50 mls/hr DAILY IV 11/03/24 10:00 11/05/24 09:36 50 MLS/HR Metronidazole 100 ml @ 100 mls/hr Q8HR IV 11/02/24 22:00 11/05/24 06:08 100 MLS/HR Hydromorphone HCl 1 mg Q2HPRN PRN IV 11/02/24 14:45 Ondansetron HCl 4 mg Q4HPRN PRN IV 11/02/24 14:45 Midazolam HCl 50 ml @ 1 mls/hr Q24H IV 11/02/24 14:45 Propofol 100 ml @ 2.079 mls/ hr Q24H IV 11/02/24 15:30 Cancel Propofol 100 ml @ 2.079 mls/ hr Q24H IV 11/02/24 17:15 11/05/24 09:55 4.158 MLS/HR Phenylephrine HCl 80 mg/Sodium Chloride 250 ml @ 7.5 mls/hr Q24H IV 11/03/24 11:30 11/04/24 20:07 24.375 MLS/HR Amino Acids 0 ml @ 0 mls/hr PER PHARMACY IV 11/03/24 16:15 Sodium Bicarbonate 50 ml/ Dextrose/Sodium Chloride 1,050 ml @ 100 mls/hr Q10H IV 11/03/24 18:00 11/05/24 00:31 100 MLS/HR Diagnostic Test (Pha) 1 strip Q6HR 11/03/24 18:00 11/05/24 06:09 1 STRIP Insulin Human Regular FOLLOW SLIDING SCALE Q6HR SC 11/03/24 18:00 11/05/24 06:11 8 UNITS Dextrose 50 ml UD IV 11/03/24 18:00 11/03/24 18:02 50 ML Albuterol 2.5 mg Q6HR NEB 11/04/24 12:00 11/05/24 05:30 2.5 MG Ipratropium [place] 0.5 mg Q6HR NEB 11/04/24 12:00 11/05/24 05:30 0.5 MG Pantoprazole Sodium 40 mg BID IV 11/04/24 10:00 11/05/24 09:36 40 MG Sodium Acetate 20 meq/Sodium Phosphate 20 meq/ Calcium Gluconate 2.3 meq/Magnesium Sulfate 8 meq/ Multivitamins 10 ml/Insulin Human Regular 7 units/ Amino Acids/ Dextrose/Purified Water 1,032.0162 ml @ 43 mls/hr Q24H1M IV 11/04/24 22:00 11/05/24 21:59 11/04/24 22:40 43 MLS/HR Laboratory Results Laboratory Tests 11/05/24 03:36 Chemistry Test 11/05/24 03:36 Albumin 2.6 g/dL (3.2-4.8) L Calcium Level 7.2 mg/dL (8.7-10.4) L Magnesium Level 1.5 mg/dL (1.6-2.6) L Phosphorus Level 2.3 mg/dL (2.4-5.1) L Total Protein 4.6 g/dL (5.7-8.2) L LFT Test 11/05/24 03:36 Alanine Aminotransferase (ALT) 141 U/L (7-40) H Alkaline Phosphatase 329 U/L (46-116) H Aspartate Amino Transferase (AST) 976 U/L (13-40) H Total Bilirubin 8.5 mg/dL (0.2-1.0) H Urinalysis Test 10/31/24 16:09 Urine Color Dark-yellow (Yellow) Urine Clarity Turbid (Clear) H Urine pH 5.5 (5.0-9.0) Urine Specific [place] 1.020 (1.001-1.035) Urine Protein Negative (Negative) Urine Ketones 1+ (Negative) H Urine Blood Trace /uL (Negative) H Urine Nitrite Negative (Negative) Urine Bilirubin 1+ (Negative) H Urine Urobilinogen 4 mg/dL (Negative) H Urine Leukocyte Esterase 1+ /uL (Negative) Urine RBC 2 /hpf (0 - 4) Urine Microscopic WBC 16 /HPF (0-5) H Urine Squamous Epithelial Cells Few /hpf (<5) Urine Calcium Oxalate Crystals Few (None Seen) Urine Bacteria Few /hpf (None Seen) H Urine Hyaline Casts Few /lpf (0 - 2) Urine Mucus Few (None Seen) Urine Glucose Normal mg/dL (Normal) Blood Gas Results Test 11/05/24 05:44 Arterial Blood pH 7.313 (7.350-7.450) FiO2 % 35.0 Microbiology Microbiology Date/Time Source Procedure Growth Status 11/02/24 15:27 Sputum Gram Stain - Final Resulted 11/02/24 15:27 Sputum Respiratory Culture - Preliminary Resulted 11/02/24 14:49 Peritoneal Fluid Gram Stain - Final Resulted 11/02/24 14:49 Peritoneal Fluid Anaerobic Culture - Preliminary Resulted 11/02/24 14:49 Peritoneal Fluid Aerobic Culture - Preliminary Resulted Labs and/or images reviewed: Labs reviewed by me, Image(s) reviewed by me Assessment/Plan Assessment/Plan Impression: -syncope with collapse -perforated gastric ulcer -acute hypoxic respiratory failure -hyperkalemia -metastatic breast cancer -sirs secondary to gastric ulcer -Septic Shock -Hypoglycemia -ALEXIA, VMN, ATN Plan: Events: Attempted sedation vacation today with the patient becoming tachycardic. Continues to be on Jeremy-Synephrine drip. No change in renal function. -continue PPI -continue antibiotic therapy with Levaquin and Flagyl -potassium magnesium replacement -decrease sodium bicarbonate drip to 75 mL/hour -further recommendations per General surgery -continue current ventilator settings , CPAP per data manager. -repeat labs, chest x-ray, ABG in a.m. Critical care time spent with patient discussing and formulating plan of care: 40 minutes. This does not include time spent performing procedures. This medical document was created using an electronic medical record system with [employer] system. Although this document has been carefully reviewed, there may still be some phonetic and typographical errors. These areas are purely typographical due to imperfections of the software programs, and do not reflect any compromise in the patient's medical care. Plan discussed with: Patient, Other (RN) My Orders Orders - KINGSTON GARCIA NP Procedure Category Date Status Time * Dietary Consult CONS 11/04/24 Transmitted 12:20 Amino Acid PHA 11/04/24 In Process Infusion... W/Sodium 22:00 Tpn Per Pharmacy [facility] 11/04/24 In Process 22:00 Apply Barrier Cream [facility]ANI 11/04/24 In Process 10:00 Abg W/ Co-Ox RT 11/05/24 Logged 05:21 Date of Service: November 05, 2024 Billing Provider: KINGSTON GARCIA NP Common Visit Codes: [id number] CARE 30-74 MIN KINGSTON GARCIA NP November 05, 2024 10:01
[2024-11-05] MEDS: CALCIUM GLUC 1,000mg/50ml-NS 50 ML IV ONE (13:06)
[2024-11-05] MEDS: SODIUM BICARB 50mEq/50ml Vial 50 ML in D5W/SOD CHL 0.45% 1,000 ML IV SCH (13:06)
[2024-11-05] MEDS: fentaNYL Drip 2500mCg/250mlNS 250 ML IV ONE (13:41)
--- NOTE | 2024-11-05 14:03 | DVHPN2 ---
Progress Note - Dictate Date Seen: November 05, 2024 Medical Necessity Reason Pt with a Central, PICC or Fol: No vital signs Vital Sign Date Time Temp Pulse Resp B/P (MAP) Pulse Ox O2 Delivery O2 Flow Rate FiO2 11/05/24 13:09 116 15 100/59 (73) 92 35 11/05/24 08:31 Mechanical Ventilator+ 11/05/24 04:00 97.6 97.6 Total Intake and Output 11/04/24 11/04/24 11/05/24 15:00 23:00 07:00 Intake Total 3007.027 ml 2145.282 ml 2594.724 ml Output Total 1930 ml 1585 ml Balance 3007.027 ml 215.282 ml 1009.724 ml medications Current Medications Medications Dose Ordered Sig/Shellie Route Start Time Stop Time Status Last Admin Dose Admin Acetaminophen/ Hydrocodone Bitart 1 tab Q4HP PRN PO 10/31/24 11:45 11/02/24 04:40 1 TAB Acetaminophen 650 mg Q6HP PRN PO 10/31/24 11:45 11/02/24 03:46 650 MG Ondansetron HCl 4 mg Q4HPRN PRN IV 11/01/24 14:15 UNV Morphine Sulfate 2 mg Q4HPRN PRN IV 11/02/24 08:30 11/02/24 08:35 2 MG Levofloxacin 50 ml @ 50 mls/hr DAILY IV 11/03/24 10:00 11/05/24 09:36 50 MLS/HR Metronidazole 100 ml @ 100 mls/hr Q8HR IV 11/02/24 22:00 11/05/24 13:09 100 MLS/HR Hydromorphone HCl 1 mg Q2HPRN PRN IV 11/02/24 14:45 Ondansetron HCl 4 mg Q4HPRN PRN IV 11/02/24 14:45 Midazolam HCl 50 ml @ 1 mls/hr Q24H IV 11/02/24 14:45 Propofol 100 ml @ 2.079 mls/ hr Q24H IV 11/02/24 15:30 Cancel Propofol 100 ml @ 2.079 mls/ hr Q24H IV 11/02/24 17:15 11/05/24 09:55 4.158 MLS/HR Phenylephrine HCl 80 mg/Sodium Chloride 250 ml @ 7.5 mls/hr Q24H IV 11/03/24 11:30 11/04/24 20:07 24.375 MLS/HR Amino Acids 0 ml @ 0 mls/hr PER PHARMACY IV 11/03/24 16:15 Diagnostic Test (Pha) 1 strip Q6HR 11/03/24 18:00 11/05/24 13:17 1 STRIP Insulin Human Regular FOLLOW SLIDING SCALE Q6HR SC 11/03/24 18:00 11/05/24 13:24 8 UNITS Dextrose 50 ml UD IV 11/03/24 18:00 11/03/24 18:02 50 ML Albuterol 2.5 mg Q6HR NEB 11/04/24 12:00 11/05/24 10:35 2.5 MG Ipratropium [place] 0.5 mg Q6HR NEB 11/04/24 12:00 11/05/24 10:35 0.5 MG Pantoprazole Sodium 40 mg BID IV 11/04/24 10:00 11/05/24 09:36 40 MG Sodium Acetate 20 meq/Sodium Phosphate 20 meq/ Calcium Gluconate 2.3 meq/Magnesium Sulfate 8 meq/ Multivitamins 10 ml/Insulin Human Regular 7 units/ Amino Acids/ Dextrose/Purified Water 1,032.0162 ml @ 43 mls/hr Q24H1M IV 11/04/24 22:00 11/05/24 21:59 11/04/24 22:40 43 MLS/HR Sodium Bicarbonate 50 ml/ Dextrose/Sodium Chloride 1,050 ml @ 75 mls/hr Q14H IV 11/05/24 10:00 11/05/24 13:06 75 MLS/HR Sodium Acetate 20 meq/Potassium Phosphate 20 meq/ Calcium Gluconate 4.65 meq/ Magnesium Sulfate 12 meq/ Multivitamins 10 ml/Insulin Human Regular 10 units/ Amino Acids/ Dextrose/Purified Water 1,187.6455 ml @ 50 mls/hr [id number] IV 11/05/24 22:00 11/06/24 21:59 laboratory and microbiology Laboratory Tests 11/05/24 03:36 Test 11/05/24 03:36 Range/Units Serum Glucose 276 H 74-106 mg/dL Assessment/Plan Impression Acute hypoxemic respiratory failure Perforated gastric ulcer Breast cancer with mets Fall Patient seen and examined in ICU Events On mechanical ventilation S/p intubation PEEP 5, FiO2 40% On Neosynephrine for hemodynamic support levophed several boluses of NS given S/p perforated gastric ulcer repair Significant output noted from FREDRICK drains Labs and imaging reviewed ABG reviewed- compensated Management plan Vent support Titrate to maintain sats 90% or above Sedation holiday daily If patient follows commands, proceed to weaning trial Pressure support 12/13, extubate when ready Continue antibiotics F/u cultures Bronchodilators Monitor renal function Monitor electrolytes Supplement as needed Pressors as needed for hemodynamic support To maintain a mean arterial pressure of 65 mmHg F/u general surgery DVT prophylaxis Critical care time 35 minutes Dietary Evaluation Review Comments: 1. TPN to meet at least 75% estimated needs 2. Monitor CMP and triglycerides, TPN tolerance, wt trend, I/O Expected Outcomes/Goals: To meet >75% estimated needs within 7 days Fu 2-3 days Plan discussed with: Other (rn) TRISTIN STOUT MD November 05, 2024 14:03
--- NOTE | 2024-11-05 14:06 | DVHPN2 ---
Progress Note Date Seen: November 05, 2024 Medical Necessity Reason Pt with a Central, PICC or Fol: No Objective vital signs Vital Sign Date Time Temp Pulse Resp B/P (MAP) Pulse Ox O2 Delivery O2 Flow Rate FiO2 11/05/24 13:09 116 15 100/59 (73) 92 35 11/05/24 08:31 Mechanical Ventilator+ 11/05/24 04:00 97.6 97.6 Total Intake and Output 11/04/24 11/04/24 11/05/24 14:59 22:59 06:59 Intake Total 2904.556 ml 2160.970 ml 2827.415 ml Output Total 1930 ml 1585 ml Balance 2904.556 ml 230.970 ml 1242.415 ml medications Current Medications Medications Dose Ordered Sig/Shellie Route Start Time Stop Time Status Last Admin Dose Admin Acetaminophen/ Hydrocodone Bitart 1 tab Q4HP PRN PO 10/31/24 11:45 11/02/24 04:40 1 TAB Acetaminophen 650 mg Q6HP PRN PO 10/31/24 11:45 11/02/24 03:46 650 MG Ondansetron HCl 4 mg Q4HPRN PRN IV 11/01/24 14:15 UNV Morphine Sulfate 2 mg Q4HPRN PRN IV 11/02/24 08:30 11/02/24 08:35 2 MG Levofloxacin 50 ml @ 50 mls/hr DAILY IV 11/03/24 10:00 11/05/24 09:36 50 MLS/HR Metronidazole 100 ml @ 100 mls/hr Q8HR IV 11/02/24 22:00 11/05/24 13:09 100 MLS/HR Hydromorphone HCl 1 mg Q2HPRN PRN IV 11/02/24 14:45 Ondansetron HCl 4 mg Q4HPRN PRN IV 11/02/24 14:45 Midazolam HCl 50 ml @ 1 mls/hr Q24H IV 11/02/24 14:45 Propofol 100 ml @ 2.079 mls/ hr Q24H IV 11/02/24 15:30 Cancel Propofol 100 ml @ 2.079 mls/ hr Q24H IV 11/02/24 17:15 11/05/24 09:55 4.158 MLS/HR Phenylephrine HCl 80 mg/Sodium Chloride 250 ml @ 7.5 mls/hr Q24H IV 11/03/24 11:30 11/04/24 20:07 24.375 MLS/HR Amino Acids 0 ml @ 0 mls/hr PER PHARMACY IV 11/03/24 16:15 Diagnostic Test (Pha) 1 strip Q6HR 11/03/24 18:00 11/05/24 13:17 1 STRIP Insulin Human Regular FOLLOW SLIDING SCALE Q6HR SC 11/03/24 18:00 11/05/24 13:24 8 UNITS Dextrose 50 ml UD IV 11/03/24 18:00 11/03/24 18:02 50 ML Albuterol 2.5 mg Q6HR NEB 11/04/24 12:00 11/05/24 10:35 2.5 MG Ipratropium [place] 0.5 mg Q6HR NEB 11/04/24 12:00 11/05/24 10:35 0.5 MG Pantoprazole Sodium 40 mg BID IV 11/04/24 10:00 11/05/24 09:36 40 MG Sodium Acetate 20 meq/Sodium Phosphate 20 meq/ Calcium Gluconate 2.3 meq/Magnesium Sulfate 8 meq/ Multivitamins 10 ml/Insulin Human Regular 7 units/ Amino Acids/ Dextrose/Purified Water 1,032.0162 ml @ 43 mls/hr Q24H1M IV 11/04/24 22:00 11/05/24 21:59 11/04/24 22:40 43 MLS/HR Sodium Bicarbonate 50 ml/ Dextrose/Sodium Chloride 1,050 ml @ 75 mls/hr Q14H IV 11/05/24 10:00 11/05/24 13:06 75 MLS/HR Sodium Acetate 20 meq/Potassium Phosphate 20 meq/ Calcium Gluconate 4.65 meq/ Magnesium Sulfate 12 meq/ Multivitamins 10 ml/Insulin Human Regular 10 units/ Amino Acids/ Dextrose/Purified Water 1,187.6455 ml @ 50 mls/hr [id number] IV 11/05/24 22:00 11/06/24 21:59 laboratory and microbiology Laboratory Tests 11/05/24 03:36 Test 11/05/24 03:36 Range/Units Serum Glucose 276 H 74-106 mg/dL Problem List/Assessment/Plan Problem List/Assessment/Plan 11/05/24 essentially unchanged, wound clean and well approximated, voluminous ascitic drainage, ( serous,clear), abdomen non distended. Plan discussed with: Patient Dietary Evaluation Review Comments: 1. TPN to meet at least 75% estimated needs 2. Monitor CMP and triglycerides, TPN tolerance, wt trend, I/O Expected Outcomes/Goals: To meet >75% estimated needs within 7 days Fu 2-3 days STEPAN SAENZ MD November 05, 2024 14:06
[2024-11-05] MEDS: VASOPRESSIN 20 UNIT/ML ONE (15:09)
[2024-11-05] MEDS: VASOPRESSIN 20 UNITS in SODIUM CHL 0.9% 99 ML IV SCH (16:09)
[2024-11-05] MEDS: SODIUM PHOSPHATES 20 MEQ in SODIUM CHL 0.9% 100 ML IV ONE (16:11)
[2024-11-05] MEDS: SODIUM CHLORIDE 0.9% 2,000 ML IV ONE (16:12)
[2024-11-05] MEDS: fentaNYL Drip 2500mCg/250mlNS 250 ML IV SCH (17:01)
[2024-11-05] MEDS: TPN PER PHARMACY IV NR (22:44)
[2024-11-06] VITALS (105 sets, daily range): BP systolic 67–166; BP diastolic 39–83; PULSE 80–182; RESP 12–27; TEMP 95.7–98.2; O2SAT 91–99
[2024-11-06 04:09] LABS: Basophils # (auto) 0 10 ^3/uL (0-0.2); Basophils % (auto) 0.4 % (0.0-2.0); Eosinophils # (auto) 0 10 ^3/uL (0-0.8); Eosinophils % (auto) 0.1 % (0.0-7.0); Hematocrit 45.7 % (36.0-46.0); Hemoglobin 15.3 g/dL (12.2-16.2); Lymphocytes # (auto) 0.4 10 ^3/uL (0.4-5.4); Lymphocytes % (auto) 3.1 % (10.0-50.0); Mean Corpuscular Hemoglobin 32.2 pg (28.0-32.0); Mean Corpuscular Hgb Conc. 33.4 g/dL (32.0-36.0); Mean Corpuscular Volume 96.5 fL (80.0-100.0); Monocytes # (auto) 1.3 10 ^3/uL (0-1.3); Monocytes % (auto) 9.5 % (0.0-12.0); Neutrophils # (auto) 11.5 10 ^3/uL (1.6-8.6); Neutrophils % (auto) 86.9 % (37.0-80.0); Nucleated Red Blood Cells % 1.2 %; Platelet Count (auto) 112 10^3/uL (140-450); Red Blood Cells 4.74 10^6/uL (4.0-5.20); Red Cell Distribution Width 21.7 % (11.8-14.3); White Blood Cell 13.2 10^3/uL (4.4-10.8)
[2024-11-06 04:30] LABS: Anion Gap 10 (5-15); Potassium 3.9 mmol/L (3.5-5.1)
[2024-11-06 04:36] LABS: BUN/Creatinine Ratio 30.3 (10.0-20.0)
[2024-11-06 04:40] LABS: Alanine Aminotransferase 156 U/L (7-40); Albumin 2.3 g/dL (3.2-4.8); Alkaline Phosphatase 342 U/L (46-116); Bilirubin, Total 10.3 mg/dL (0.2-1.0); Blood Urea Nitrogen 37 mg/dL (9-23); Calcium 6.8 mg/dL (8.7-10.4); Carbon Dioxide 18 mmol/L (20-31); Chloride 107 mmol/L (98-107); Glucose 254 mg/dL (74-106); Sodium 135 mmol/L (136-145); Total Protein 4.1 g/dL (5.7-8.2)
[2024-11-06 05:19] LABS: Anisocytosis Slight
--- NOTE | 2024-11-06 05:19 | DVH ---
EXAM: XR Chest, 1 View CLINICAL INDICATION: intubated TECHNIQUE: Frontal view of the chest. COMPARISON: XY CHEST PORTABLE on DOS: 11/05/24, XY CHEST PORTABLE on DOS: 11/04/24, XY CHEST PORTABLE on DOS: 11/03/24, XY CHEST PORTABLE on DOS: 11/03/24, XY CHEST PORTABLE on DOS: 11/02/24 FINDINGS: LUNGS AND PLEURAL SPACES: Pulmonary congestion and edema. Pneumonia cannot be excluded. No pneumot horax. HEART: Unremarkable. No cardiomegaly. MEDIASTINUM: Unremarkable. Normal mediastinal contour. BONES/JOINTS: Unremarkable. No acute fracture. TUBES, LINES AND DEVICES: Tracheostomy tube in satisfactory position. Right internal jugular centr al venous catheter tip in the superior vena cava. OTHER FINDINGS: . . . IMPRESSION: Pulmonary congestion and edema. Pneumonia cannot be excluded.
[2024-11-06 05:20] LABS: Large Platelets FEW; Platelet Estimate Decreased
[2024-11-06 06:17] LABS: Base Excess -12.8 mmol/L (-2.0-3.0)
[2024-11-06 08:02] LABS: Base Excess -11.3 mmol/L (-2.0-3.0)
[2024-11-06] MEDS: NOREPINEPHRINE BITARTRATE 32 MG in SODIUM CHL 0.9% 218 ML IV SCH (08:30)
[2024-11-06] MEDS: PHENYLEPHRINE INJ 80 MG in SODIUM CHL 0.9% 242 ML IV SCH (08:30)
--- NOTE | 2024-11-06 08:37 | DVHPN2 ---
Subjective Patient chemically sedated Reviewed: Care Plan, H&P, Labs, Medications, Previous Orders, Radiology Changes from previous H/P or p: No Changes General: Per HPI Objective Vitals Vital Signs Date Time Temp Pulse Resp B/P (MAP) Pulse Ox O2 Delivery O2 Flow Rate FiO2 11/06/24 07:15 97 20 101/68 (79) 92 122/65 (84) 11/06/24 06:51 40 11/06/24 04:00 97.7 97.7 11/05/24 20:00 Mechanical Ventilator+ Intake/Output Intake and Output 11/06/24 07:00 Intake Total 3982.866 ml Output Total 3775 ml Balance 207.866 ml IV Total 3042.866 ml Other 940 ml Output Urine Total 525 ml Drainage Total 3250 ml General Appearance: mild distress, Other (Some distress with the abdominal pain) HEENT: Atraumatic, PERRLA, Mucous membr. moist/pink Lungs: Clear to auscultation Cardiovascular: Regular rate, Normal S1, Normal S2 Abdomen: Normal bowel sounds, Soft, No tenderness, Other (Hypoactive bowel sounds. Dressing dry and intact.) Neuro: Other (Unable to assess) Skin: Dry, Intact, Wounds (See nurse notes and pictures) Psych/Mental Status: Other (Unable to assess) Medications Current Medications Medications Dose Ordered Sig/Shellie Route Start Time Stop Time Status Last Admin Dose Admin Acetaminophen/ Hydrocodone Bitart 1 tab Q4HP PRN PO 10/31/24 11:45 11/02/24 04:40 1 TAB Acetaminophen 650 mg Q6HP PRN PO 10/31/24 11:45 11/02/24 03:46 650 MG Ondansetron HCl 4 mg Q4HPRN PRN IV 11/01/24 14:15 UNV Morphine Sulfate 2 mg Q4HPRN PRN IV 11/02/24 08:30 11/02/24 08:35 2 MG Levofloxacin 50 ml @ 50 mls/hr DAILY IV 11/03/24 10:00 11/05/24 09:36 50 MLS/HR Metronidazole 100 ml @ 100 mls/hr Q8HR IV 11/02/24 22:00 11/06/24 06:16 100 MLS/HR Hydromorphone HCl 1 mg Q2HPRN PRN IV 11/02/24 14:45 Ondansetron HCl 4 mg Q4HPRN PRN IV 11/02/24 14:45 Midazolam HCl 50 ml @ 1 mls/hr Q24H IV 11/02/24 14:45 Propofol 100 ml @ 2.079 mls/ hr Q24H IV 11/02/24 15:30 Cancel Propofol 100 ml @ 2.079 mls/ hr Q24H IV 11/02/24 17:15 11/05/24 09:55 4.158 MLS/HR Phenylephrine HCl 80 mg/Sodium Chloride 250 ml @ 7.5 mls/hr Q24H IV 11/03/24 11:30 11/06/24 05:32 19.688 MLS/HR Amino Acids 0 ml @ 0 mls/hr PER PHARMACY IV 11/03/24 16:15 Diagnostic Test (Pha) 1 strip Q6HR 11/03/24 18:00 11/06/24 06:16 1 STRIP Insulin Human Regular FOLLOW SLIDING SCALE Q6HR SC 11/03/24 18:00 11/06/24 06:22 8 UNITS Dextrose 50 ml UD IV 11/03/24 18:00 11/03/24 18:02 50 ML Albuterol 2.5 mg Q6HR NEB 11/04/24 12:00 11/06/24 05:53 2.5 MG Ipratropium [place] 0.5 mg Q6HR NEB 11/04/24 12:00 11/06/24 05:52 0.5 MG Pantoprazole Sodium 40 mg BID IV 11/04/24 10:00 11/05/24 22:36 40 MG Sodium Bicarbonate 50 ml/ Dextrose/Sodium Chloride 1,050 ml @ 75 mls/hr Q14H IV 11/05/24 10:00 11/06/24 00:46 75 MLS/HR Sodium Acetate 20 meq/Potassium Phosphate 20 meq/ Calcium Gluconate 4.65 meq/ Magnesium Sulfate 12 meq/ Multivitamins 10 ml/Insulin Human Regular 10 units/ Amino Acids/ Dextrose/Purified Water 1,187.6455 ml @ 50 mls/hr [id number] IV 11/05/24 22:00 11/06/24 21:59 11/05/24 22:44 50 MLS/HR Fentanyl Citrate 250 ml @ 0 mls/hr Q0M IV 11/05/24 15:00 11/05/24 17:01 2.5 MLS/HR Vasopressin 20 units/Sodium Chloride 100 ml @ 9 mls/hr Q11H7M IV 11/05/24 15:00 11/05/24 23:18 9 MLS/HR Laboratory Results Laboratory Tests 11/06/24 03:05 Chemistry Test 11/06/24 03:05 Albumin 2.3 g/dL (3.2-4.8) L Calcium Level 6.8 mg/dL (8.7-10.4) L Magnesium Level 2.0 mg/dL (1.6-2.6) Phosphorus Level 3.0 mg/dL (2.4-5.1) Total Protein 4.1 g/dL (5.7-8.2) L LFT Test 11/06/24 03:05 Alanine Aminotransferase (ALT) 156 U/L (7-40) H Alkaline Phosphatase 342 U/L (46-116) H Aspartate Amino Transferase (AST) U/L (13-40) Total Bilirubin 10.3 mg/dL (0.2-1.0) H Urinalysis Test 10/31/24 16:09 Urine Color Dark-yellow (Yellow) Urine Clarity Turbid (Clear) H Urine pH 5.5 (5.0-9.0) Urine Specific [place] 1.020 (1.001-1.035) Urine Protein Negative (Negative) Urine Ketones 1+ (Negative) H Urine Blood Trace /uL (Negative) H Urine Nitrite Negative (Negative) Urine Bilirubin 1+ (Negative) H Urine Urobilinogen 4 mg/dL (Negative) H Urine Leukocyte Esterase 1+ /uL (Negative) Urine RBC 2 /hpf (0 - 4) Urine Microscopic WBC 16 /HPF (0-5) H Urine Squamous Epithelial Cells Few /hpf (<5) Urine Calcium Oxalate Crystals Few (None Seen) Urine Bacteria Few /hpf (None Seen) H Urine Hyaline Casts Few /lpf (0 - 2) Urine Mucus Few (None Seen) Urine Glucose Normal mg/dL (Normal) Blood Gas Results Test 11/06/24 06:08 11/06/24 07:58 Arterial Blood pH 7.126 (7.350-7.450) 7.248 (7.350-7.450) FiO2 % 45.0 40.0 Microbiology Microbiology Date/Time Source Procedure Growth Status 11/02/24 15:27 Sputum Gram Stain - Final Complete 11/02/24 15:27 Sputum Respiratory Culture - Final Complete 11/02/24 14:49 Peritoneal Fluid Gram Stain - Final Resulted 11/02/24 14:49 Peritoneal Fluid Anaerobic Culture - Preliminary Resulted 11/02/24 14:49 Peritoneal Fluid Aerobic Culture - Preliminary Resulted Labs and/or images reviewed: Labs reviewed by me, Image(s) reviewed by me Assessment/Plan Assessment/Plan Impression: -syncope with collapse -perforated gastric ulcer -acute hypoxic respiratory failure -hyperkalemia -metastatic breast cancer -sirs secondary to gastric ulcer -Septic Shock -Hypoglycemia -ALEXIA, VMN, ATN Plan: Events: Worsening shock. Third spacing with increased FREDRICK drainage. Not tolerating sedation vacation. Worsening acidosis -Albumin with Lasix -Sodium bicarbonate -continue PPI -continue antibiotic therapy with Levaquin and Flagyl -potassium magnesium replacement -decrease sodium bicarbonate drip to 75 mL/hour -further recommendations per General surgery -continue current ventilator settings , CPAP per customs entry clerk. -repeat labs, chest x-ray, ABG in a.m. Critical care time spent with patient discussing and formulating plan of care: 40 minutes. This does not include time spent performing procedures. This medical document was created using an electronic medical record system with [employer] dictation system. Although this document has been carefully reviewed, there may still be some phonetic and typographical errors. These areas are purely typographical due to imperfections of the software programs, and do not reflect any compromise in the patient's medical care. Plan discussed with: Patient, Other (RN) My Orders Orders - KINGSTON GARCIA NP Procedure Category Date Status Time D5w/Sod Chl 0.45% PHA 11/05/24 In Process (... W/Sodium Bicarb 5 10:00 Amino Acid PHA 11/05/24 In Process Infusion... W/Sodium 22:00 Tpn Per Pharmacy [facility] 11/05/24 In Process 22:00 Chest Portable XY 11/06/24 Resulted 04:00 Abg W/ Co-Ox RT 11/06/24 Logged 05:20 Albumin 25% (Albutein) PHA 11/06/24 Logged 08:30 Furosemide Injection PHA 11/06/24 Logged (Lasix Injection) 08:30 Sodium Bicarb PHA 5/29/25 Logged 50meq/50ml Vial 08:30 Date of Service: November 06, 2024 Billing Provider: KINGSTON GARCIA NP Common Visit Codes: [id number] CARE 30-74 MIN KINGSTON GARCIA NP November 06, 2024 08:37
[2024-11-06] MEDS: NOREPINEPHRINE 8 MG/250ML KIT 0 ML IV ONE (08:59)
[2024-11-06] MEDS: LINEZOLID 600MG/300ML 300 ML IV SCH (09:09)
[2024-11-06] MEDS: SODIUM BICARB 8.4% 50Meq/50ml SYR Vial IV ONE (09:10)
[2024-11-06] MEDS: ALBUMIN 25% 100 ML IV ONE (09:11)
[2024-11-06] MEDS: FUROSEMIDE 20 MG/2 ML VIAL IV ONE (09:12)
[2024-11-06] MEDS ORDERED: MEROPENEM 500MG IVPB 50 ML IV SCH (10:00)
[2024-11-06] MEDS: MEROPENEM 1GM IVPB 50 ML IV ONE (10:10)
--- NOTE | 2024-11-06 10:39 | DVHPN2 ---
Progress Note Date Seen: November 06, 2024 Medical Necessity Reason Pt with a Central, PICC or Fol: No Objective vital signs Vital Sign Date Time Temp Pulse Resp B/P (MAP) Pulse Ox O2 Delivery O2 Flow Rate FiO2 11/06/24 10:30 94 20 140/74 (96) 94 166/83 (110) 11/06/24 08:53 40 11/06/24 04:00 97.7 97.7 11/05/24 20:00 Mechanical Ventilator+ Total Intake and Output 11/05/24 11/05/24 11/06/24 15:00 23:00 07:00 Intake Total 876.452 ml 1058.380 ml 2048.034 ml Output Total 2400 ml 1375 ml Balance 876.452 ml -1341.620 ml 673.034 ml medications Current Medications Medications Dose Ordered Sig/Shellie Route Start Time Stop Time Status Last Admin Dose Admin Acetaminophen/ Hydrocodone Bitart 1 tab Q4HP PRN PO 10/31/24 11:45 11/02/24 04:40 1 TAB Acetaminophen 650 mg Q6HP PRN PO 10/31/24 11:45 11/02/24 03:46 650 MG Ondansetron HCl 4 mg Q4HPRN PRN IV 11/01/24 14:15 UNV Morphine Sulfate 2 mg Q4HPRN PRN IV 11/02/24 08:30 11/02/24 08:35 2 MG Hydromorphone HCl 1 mg Q2HPRN PRN IV 11/02/24 14:45 Ondansetron HCl 4 mg Q4HPRN PRN IV 11/02/24 14:45 Midazolam HCl 50 ml @ 1 mls/hr Q24H IV 11/02/24 14:45 Propofol 100 ml @ 2.079 mls/ hr Q24H IV 11/02/24 15:30 Cancel Propofol 100 ml @ 2.079 mls/ hr Q24H IV 11/02/24 17:15 11/05/24 09:55 4.158 MLS/HR Phenylephrine HCl 80 mg/Sodium Chloride 250 ml @ 7.5 mls/hr Q24H IV 11/03/24 11:30 11/06/24 05:32 19.688 MLS/HR Amino Acids 0 ml @ 0 mls/hr PER PHARMACY IV 11/03/24 16:15 Diagnostic Test (Pha) 1 strip Q6HR 11/03/24 18:00 11/06/24 06:16 1 STRIP Insulin Human Regular FOLLOW SLIDING SCALE Q6HR SC 11/03/24 18:00 11/06/24 06:22 8 UNITS Dextrose 50 ml UD IV 11/03/24 18:00 11/03/24 18:02 50 ML Albuterol 2.5 mg Q6HR NEB 11/04/24 12:00 11/06/24 05:53 2.5 MG Ipratropium [place] 0.5 mg Q6HR NEB 11/04/24 12:00 11/06/24 05:52 0.5 MG Pantoprazole Sodium 40 mg BID IV 11/04/24 10:00 11/06/24 09:12 40 MG Sodium Bicarbonate 50 ml/ Dextrose/Sodium Chloride 1,050 ml @ 75 mls/hr Q14H IV 11/05/24 10:00 11/06/24 00:46 75 MLS/HR Sodium Acetate 20 meq/Potassium Phosphate 20 meq/ Calcium Gluconate 4.65 meq/ Magnesium Sulfate 12 meq/ Multivitamins 10 ml/Insulin Human Regular 10 units/ Amino Acids/ Dextrose/Purified Water 1,187.6455 ml @ 50 mls/hr [id number] IV 11/05/24 22:00 11/06/24 21:59 11/05/24 22:44 50 MLS/HR Fentanyl Citrate 250 ml @ 0 mls/hr Q0M IV 11/05/24 15:00 11/05/24 17:01 2.5 MLS/HR Vasopressin 20 units/Sodium Chloride 100 ml @ 9 mls/hr Q11H7M IV 11/05/24 15:00 11/05/24 23:18 9 MLS/HR Phenylephrine HCl 80 mg/Sodium Chloride 250 ml @ 7.5 mls/hr Q24H IV 11/06/24 08:30 Norepinephrine Bitartrate 32 mg/ Sodium Chloride 250 ml @ 0.938 mls/ hr Q24H IV 11/06/24 08:30 Linezolid 300 ml @ 150 mls/hr Q12HR IV 11/06/24 10:00 11/06/24 09:09 150 MLS/HR Meropenem 50 ml @ 17 mls/hr Q12H IV 11/06/24 18:00 laboratory and microbiology Laboratory Tests 11/06/24 03:05 Test 11/06/24 03:05 Range/Units Serum Glucose 254 H 74-106 mg/dL Problem List/Assessment/Plan Problem List/Assessment/Plan 11/05/24 essentially unchanged, wound clean and well approximated, voluminous ascitic drainage, ( serous,clear), abdomen non distended. 11/06/24 REMAINS INTUBATED AND SEDARED, HEMODYNAMICALLY STABLE, ABDOMEN NON DISTENDED, DRAINAGE CLEAR, ASCITES Plan discussed with: Other Dietary Evaluation Review Comments: 1. TPN to meet at least 75% estimated needs 2. Monitor CMP and triglycerides, TPN tolerance, wt trend, I/O Expected Outcomes/Goals: To meet >75% estimated needs within 7 days Fu 2-3 days STEPAN SAENZ MD November 06, 2024 10:39
[2024-11-06] MEDS: ADENOSINE 6 MG/2 ML INJ IV ONE ×2 (11:27→11:51)
[2024-11-06] MEDS: AMIODARONE BOLUS KIT 100 ML IV ONE ×2 (11:41→11:51)
[2024-11-06] MEDS: AMIODARONE 360mg/200mL PREMIX 200 ML IV ONE ×2 (11:53→12:01)
[2024-11-06] MEDS: CALCIUM GLUC 1,000mg/50ml-NS 50 ML IV ONE (12:11)
--- NOTE | 2024-11-06 12:15 | DVHPN2 ---
Progress Note - Dictate Date Seen: November 06, 2024 Medical Necessity Reason Pt with a Central, PICC or Fol: No vital signs Vital Sign Date Time Temp Pulse Resp B/P (MAP) Pulse Ox O2 Delivery O2 Flow Rate FiO2 11/06/24 10:57 89 20 129/67 (87) 94 35 11/06/24 08:00 Mechanical Ventilator+ 11/06/24 04:00 97.7 97.7 Total Intake and Output 11/05/24 11/05/24 11/06/24 15:00 23:00 07:00 Intake Total 876.452 ml 1058.380 ml 2048.034 ml Output Total 2400 ml 1375 ml Balance 876.452 ml -1341.620 ml 673.034 ml medications Current Medications Medications Dose Ordered Sig/Shellie Route Start Time Stop Time Status Last Admin Dose Admin Acetaminophen/ Hydrocodone Bitart 1 tab Q4HP PRN PO 10/31/24 11:45 11/02/24 04:40 1 TAB Acetaminophen 650 mg Q6HP PRN PO 10/31/24 11:45 11/02/24 03:46 650 MG Ondansetron HCl 4 mg Q4HPRN PRN IV 11/01/24 14:15 UNV Morphine Sulfate 2 mg Q4HPRN PRN IV 11/02/24 08:30 11/02/24 08:35 2 MG Hydromorphone HCl 1 mg Q2HPRN PRN IV 11/02/24 14:45 Ondansetron HCl 4 mg Q4HPRN PRN IV 11/02/24 14:45 Midazolam HCl 50 ml @ 1 mls/hr Q24H IV 11/02/24 14:45 Propofol 100 ml @ 2.079 mls/ hr Q24H IV 11/02/24 15:30 Cancel Propofol 100 ml @ 2.079 mls/ hr Q24H IV 11/02/24 17:15 11/05/24 09:55 4.158 MLS/HR Amino Acids 0 ml @ 0 mls/hr PER PHARMACY IV 11/03/24 16:15 Diagnostic Test (Pha) 1 strip Q6HR 11/03/24 18:00 11/06/24 11:53 1 STRIP Insulin Human Regular FOLLOW SLIDING SCALE Q6HR SC 11/03/24 18:00 11/06/24 11:57 8 UNITS Dextrose 50 ml UD IV 11/03/24 18:00 11/03/24 18:02 50 ML Albuterol 2.5 mg Q6HR NEB 11/04/24 12:00 11/06/24 10:57 2.5 MG Ipratropium [place] 0.5 mg Q6HR NEB 11/04/24 12:00 11/06/24 10:57 0.5 MG Pantoprazole Sodium 40 mg BID IV 11/04/24 10:00 11/06/24 09:12 40 MG Sodium Bicarbonate 50 ml/ Dextrose/Sodium Chloride 1,050 ml @ 75 mls/hr Q14H IV 11/05/24 10:00 11/06/24 00:46 75 MLS/HR Sodium Acetate 20 meq/Potassium Phosphate 20 meq/ Calcium Gluconate 4.65 meq/ Magnesium Sulfate 12 meq/ Multivitamins 10 ml/Insulin Human Regular 10 units/ Amino Acids/ Dextrose/Purified Water 1,187.6455 ml @ 50 mls/hr [id number] IV 11/05/24 22:00 11/06/24 21:59 11/05/24 22:44 50 MLS/HR Fentanyl Citrate 250 ml @ 0 mls/hr Q0M IV 11/05/24 15:00 11/05/24 17:01 2.5 MLS/HR Vasopressin 20 units/Sodium Chloride 100 ml @ 9 mls/hr Q11H7M IV 11/05/24 15:00 11/05/24 23:18 9 MLS/HR Phenylephrine HCl 80 mg/Sodium Chloride 250 ml @ 7.5 mls/hr Q24H IV 11/06/24 08:30 Norepinephrine Bitartrate 32 mg/ Sodium Chloride 250 ml @ 0.938 mls/ hr Q24H IV 11/06/24 08:30 Linezolid 300 ml @ 150 mls/hr Q12HR IV 11/06/24 10:00 11/06/24 09:09 150 MLS/HR Meropenem 50 ml @ 17 mls/hr Q12H IV 11/06/24 18:00 Sodium Acetate 40 meq/Potassium Phosphate 20 meq/ Calcium Gluconate 4.65 meq/ Magnesium Sulfate 14 meq/ Multivitamins 10 ml/Insulin Human Regular 18 units/ Amino Acids/ Dextrose/Purified Water 1,048.2255 ml @ 44 mls/hr [id number] IV 11/06/24 22:00 11/07/24 21:59 laboratory and microbiology Laboratory Tests 11/06/24 03:05 Test 11/06/24 03:05 Range/Units Serum Glucose 254 H 74-106 mg/dL Assessment/Plan Impression Acute hypoxemic respiratory failure Perforated gastric ulcer Breast cancer with mets Fall Patient seen and examined in ICU Events On mechanical ventilation S/p intubation PEEP 5, FiO2 40% pt had an episode of SVT terminated with adenosine 6 mcg iv once started on amiodarone drip on 2 pressors Labs and imaging reviewed ABG reviewed- compensated Management plan Vent support Titrate to maintain sats 90% or above Sedation holiday daily If patient follows commands, proceed to weaning trial Pressure support 12/13, extubate when ready Continue antibiotics F/u cultures Bronchodilators Monitor renal function Monitor electrolytes Supplement as needed Pressors as needed for hemodynamic support To maintain a mean arterial pressure of 65 mmHg F/u general surgery DVT prophylaxis Critical care time 35 minutes Dietary Evaluation Review Comments: 1. TPN to meet at least 75% estimated needs 2. Monitor CMP and triglycerides, TPN tolerance, wt trend, I/O Expected Outcomes/Goals: To meet >75% estimated needs within 7 days Fu 2-3 days Protein Calorie Malnutrition: Severe Plan discussed with: Other (rn) TRISTIN STOUT MD November 06, 2024 12:15
[2024-11-06] MEDS: AMIODARONE 360mg/200mL PREMIX 200 ML IV SCH (17:41)
[2024-11-06] MEDS: MEROPENEM 1GM IVPB 50 ML IV SCH (17:43)
[2024-11-06] MEDS: TPN PER PHARMACY IV NR (21:41)
[2024-11-07] VITALS (107 sets, daily range): BP systolic 84–175; BP diastolic 34–72; PULSE 89–107; RESP 17–23; TEMP 97.2–100; O2SAT 90–98
[2024-11-07 03:53] LABS: Basophils # (auto) 0.2 10 ^3/uL (0-0.2); Basophils % (auto) 1.1 % (0.0-2.0); Eosinophils # (auto) 0.1 10 ^3/uL (0-0.8); Eosinophils % (auto) 0.6 % (0.0-7.0); Hemoglobin 15.5 g/dL (12.2-16.2); Lymphocytes # (auto) 0.4 10 ^3/uL (0.4-5.4); Lymphocytes % (auto) 2.1 % (10.0-50.0); Mean Corpuscular Hemoglobin 32.4 pg (28.0-32.0); Mean Corpuscular Hgb Conc. 33.8 g/dL (32.0-36.0); Mean Corpuscular Volume 95.9 fL (80.0-100.0); Monocytes # (auto) 1.9 10 ^3/uL (0-1.3); Monocytes % (auto) 9.3 % (0.0-12.0); Neutrophils # (auto) 17.9 10 ^3/uL (1.6-8.6); Neutrophils % (auto) 86.9 % (37.0-80.0); Nucleated Red Blood Cells % 3.7 %; Platelet Count (auto) 140 10^3/uL (140-450); White Blood Cell 20.6 10^3/uL (4.4-10.8)
[2024-11-07 03:59] LABS: Anion Gap 9 (5-15); Chloride 104 mmol/L (98-107); Magnesium 2.1 mg/dL (1.6-2.6)
[2024-11-07 04:00] LABS: Phosphorus 3.8 mg/dL (2.4-5.1)
[2024-11-07 04:18] LABS: BUN/Creatinine Ratio 24.7 (10.0-20.0)
[2024-11-07 04:20] LABS: Alanine Aminotransferase 520 U/L (7-40); Albumin 2.7 g/dL (3.2-4.8); Alkaline Phosphatase 588 U/L (46-116); Bilirubin, Total 13.3 mg/dL (0.2-1.0); Calcium 6.9 mg/dL (8.7-10.4); Carbon Dioxide 18 mmol/L (20-31); Glucose 213 mg/dL (74-106); Potassium 5.3 mmol/L (3.5-5.1); Sodium 131 mmol/L (136-145); Total Protein 4.3 g/dL (5.7-8.2)
[2024-11-07 04:21] LABS: Blood Urea Nitrogen 44 mg/dL (9-23)
[2024-11-07 05:07] LABS: Anisocytosis Slight
[2024-11-07 05:08] LABS: Large Platelets FEW; Platelet Estimate Adequa
[2024-11-07] MEDS: DEXTROSE (50%) 50ML SYRG IV ONE (05:15)
[2024-11-07] MEDS: SODIUM ZIRCONIUM CYCL 10 GM PAK PO ONE (05:15)
[2024-11-07] MEDS: SODIUM BICARB 8.4% 50Meq/50ml SYR INJ IV ONE (05:15)
[2024-11-07] MEDS: CALCIUM GLUC 1,000mg/50ml-NS 50 ML IV ONE ×2 (05:15→18:27)
[2024-11-07] MEDS: InsuLIN REG 1unit/0.01ml Soln (100units/ml) IV ONE (05:20)
--- NOTE | 2024-11-07 05:36 | DVH ---
EXAM: XR Chest, 1 View CLINICAL INDICATION: PATIENT INTUBATED TECHNIQUE: Frontal view of the chest. COMPARISON: XY CHEST PORTABLE on DOS: 11/06/24, XY CHEST PORTABLE on DOS: 11/05/24, XY CHEST PORTABLE on DOS: 11/04/24, XY CHEST PORTABLE on DOS: 11/03/24, XY CHEST PORTABLE on DOS: 11/03/24 FINDINGS: LUNGS AND PLEURAL SPACES: See below. HEART: Cardiomegaly with mild congestion. MEDIASTINUM: Unremarkable. Normal mediastinal contour. BONES/JOINTS: Unremarkable. No acute fracture. TUBES, LINES AND DEVICES: The endotracheal tube (ETT) is in satisfactory position. Right internal jugular central venous catheter tip in the superior vena cava. Enteric tube tip in the stomach. OTHER FINDINGS: . . . IMPRESSION: Cardiomegaly with mild congestion.
[2024-11-07 07:20] LABS: Base Excess -10.2 mmol/L (-2.0-3.0)
--- NOTE | 2024-11-07 07:54 | DVHPN2 ---
Subjective Patient chemically sedated Reviewed: Care Plan, H&P, Labs, Medications, Previous Orders, Radiology Changes from previous H/P or p: No Changes General: Per HPI Objective Vitals Vital Signs Date Time Temp Pulse Resp B/P (MAP) Pulse Ox O2 Delivery O2 Flow Rate FiO2 11/07/24 06:45 98.6 103 20 102/61 (75) 95 209.5 145/54 (84) 11/07/24 06:00 35 11/06/24 20:00 Mechanical Ventilator+ Intake/Output Intake and Output 11/07/24 07:00 Intake Total 4880.798 ml Output Total 2050 ml Balance 2830.798 ml Intake Oral 130 ml IV Total 4750.798 ml Output Urine Total 325 ml Drainage Total 1725 ml General Appearance: mild distress, Other (Some distress with the abdominal pain) HEENT: Atraumatic, PERRLA, Mucous membr. moist/pink Lungs: Clear to auscultation Cardiovascular: Regular rate, Normal S1, Normal S2 Abdomen: Normal bowel sounds, Soft, No tenderness, Other (Hypoactive bowel sounds. Dressing dry and intact.) Neuro: Other (Unable to assess) Skin: Dry, Intact, Wounds (See nurse notes and pictures) Psych/Mental Status: Other (Unable to assess) Medications Current Medications Medications Dose Ordered Sig/Shellie Route Start Time Stop Time Status Last Admin Dose Admin Acetaminophen/ Hydrocodone Bitart 1 tab Q4HP PRN PO 10/31/24 11:45 11/02/24 04:40 1 TAB Acetaminophen 650 mg Q6HP PRN PO 10/31/24 11:45 11/02/24 03:46 650 MG Ondansetron HCl 4 mg Q4HPRN PRN IV 11/01/24 14:15 UNV Morphine Sulfate 2 mg Q4HPRN PRN IV 11/02/24 08:30 11/02/24 08:35 2 MG Hydromorphone HCl 1 mg Q2HPRN PRN IV 11/02/24 14:45 Ondansetron HCl 4 mg Q4HPRN PRN IV 11/02/24 14:45 Midazolam HCl 50 ml @ 1 mls/hr Q24H IV 11/02/24 14:45 Propofol 100 ml @ 2.079 mls/ hr Q24H IV 11/02/24 15:30 Cancel Propofol 100 ml @ 2.079 mls/ hr Q24H IV 11/02/24 17:15 11/07/24 05:21 4.158 MLS/HR Amino Acids 0 ml @ 0 mls/hr PER PHARMACY IV 11/03/24 16:15 Diagnostic Test (Pha) 1 strip Q6HR 11/03/24 18:00 11/07/24 05:20 1 STRIP Insulin Human Regular FOLLOW SLIDING SCALE Q6HR SC 11/03/24 18:00 11/07/24 05:21 4 UNITS Dextrose 50 ml UD IV 11/03/24 18:00 11/03/24 18:02 50 ML Albuterol 2.5 mg Q6HR NEB 11/04/24 12:00 11/07/24 05:50 2.5 MG Ipratropium [place] 0.5 mg Q6HR NEB 11/04/24 12:00 11/07/24 05:50 0.5 MG Pantoprazole Sodium 40 mg BID IV 11/04/24 10:00 11/06/24 21:38 40 MG Sodium Bicarbonate 50 ml/ Dextrose/Sodium Chloride 1,050 ml @ 75 mls/hr Q14H IV 11/05/24 10:00 11/06/24 19:24 75 MLS/HR Fentanyl Citrate 250 ml @ 0 mls/hr Q0M IV 11/05/24 15:00 11/05/24 17:01 2.5 MLS/HR Vasopressin 20 units/Sodium Chloride 100 ml @ 9 mls/hr Q11H7M IV 11/05/24 15:00 11/06/24 22:20 9 MLS/HR Phenylephrine HCl 80 mg/Sodium Chloride 250 ml @ 7.5 mls/hr Q24H IV 11/06/24 08:30 11/07/24 02:01 33.75 MLS/HR Norepinephrine Bitartrate 32 mg/ Sodium Chloride 250 ml @ 0.938 mls/ hr Q24H IV 11/06/24 08:30 Linezolid 300 ml @ 150 mls/hr Q12HR IV 11/06/24 10:00 11/06/24 21:39 150 MLS/HR Meropenem 50 ml @ 17 mls/hr Q12H IV 11/06/24 18:00 11/07/24 05:14 17 MLS/HR Sodium Acetate 40 meq/Potassium Phosphate 20 meq/ Calcium Gluconate 4.65 meq/ Magnesium Sulfate 14 meq/ Multivitamins 10 ml/Insulin Human Regular 18 units/ Amino Acids/ Dextrose/Purified Water 1,048.2255 ml @ 44 mls/hr [id number] IV 11/06/24 22:00 11/07/24 21:59 11/06/24 21:41 44 MLS/HR Laboratory Results Laboratory Tests 11/07/24 03:12 Chemistry Test 11/07/24 03:12 Albumin 2.7 g/dL (3.2-4.8) L Calcium Level 6.9 mg/dL (8.7-10.4) L Magnesium Level 2.1 mg/dL (1.6-2.6) Phosphorus Level 3.8 mg/dL (2.4-5.1) Total Protein 4.3 g/dL (5.7-8.2) L LFT Test 11/07/24 03:12 Alanine Aminotransferase (ALT) 520 U/L (7-40) H Alkaline Phosphatase 588 U/L (46-116) H Aspartate Amino Transferase (AST) U/L (13-40) Total Bilirubin 13.3 mg/dL (0.2-1.0) H Urinalysis Test 10/31/24 16:09 Urine Color Dark-yellow (Yellow) Urine Clarity Turbid (Clear) H Urine pH 5.5 (5.0-9.0) Urine Specific [place] 1.020 (1.001-1.035) Urine Protein Negative (Negative) Urine Ketones 1+ (Negative) H Urine Blood Trace /uL (Negative) H Urine Nitrite Negative (Negative) Urine Bilirubin 1+ (Negative) H Urine Urobilinogen 4 mg/dL (Negative) H Urine Leukocyte Esterase 1+ /uL (Negative) Urine RBC 2 /hpf (0 - 4) Urine Microscopic WBC 16 /HPF (0-5) H Urine Squamous Epithelial Cells Few /hpf (<5) Urine Calcium Oxalate Crystals Few (None Seen) Urine Bacteria Few /hpf (None Seen) H Urine Hyaline Casts Few /lpf (0 - 2) Urine Mucus Few (None Seen) Urine Glucose Normal mg/dL (Normal) Blood Gas Results Test 11/06/24 07:58 11/07/24 07:03 Arterial Blood pH 7.248 (7.350-7.450) 7.257 (7.350-7.450) FiO2 % 40.0 35.0 Microbiology Microbiology Date/Time Source Procedure Growth Status 11/02/24 15:27 Sputum Gram Stain - Final Complete 11/02/24 15:27 Sputum Respiratory Culture - Final Complete 11/02/24 14:49 Peritoneal Fluid Gram Stain - Final Resulted 11/02/24 14:49 Peritoneal Fluid Anaerobic Culture - Preliminary Resulted 11/02/24 14:49 Peritoneal Fluid Aerobic Culture - Preliminary Resulted Assessment/Plan Assessment/Plan Impression: -syncope with collapse -perforated gastric ulcer -acute hypoxic respiratory failure -hyperkalemia -metastatic breast cancer -sirs secondary to gastric ulcer -Septic Shock -Hypoglycemia -ALEXIA, VMN, ATN -SVT Plan: Events: Patient now on vasopressors x3. Continues to have high amount of FREDRICK drainage, serous. Patient also went into SVT yesterday during sedation vacation. Patient was given IV adenosine, as well as amiodarone drip. Worsening renal function. -upper GI series if okay with surgery -nephrology consultation -IV Bumex -continue PPI -continue antibiotic therapy with Levaquin and Flagyl -potassium magnesium replacement -decrease sodium bicarbonate drip to 75 mL/hour -further recommendations per General surgery -continue current ventilator settings , CPAP per meat manager. -repeat labs, chest x-ray, ABG in a.m. -overall poor prognosis given patient has metastatic cancer prior to acute/emergent abdominal surgery. Critical care time spent with patient discussing and formulating plan of care: 90 minutes. This does not include time spent performing procedures. This medical document was created using an electronic medical record system with [employer] dictation system. Although this document has been carefully reviewed, there may still be some phonetic and typographical errors. These areas are purely typographical due to imperfections of the software programs, and do not reflect any compromise in the patient's medical care. Plan discussed with: Patient, Other (RN) My Orders Orders - KINGSTON GARCIA [employer]ING [employer] HELPER Procedure Category Date Status Time Sodium Chl 0.9% PHA 11/06/24 In Process (Ns... 08:30 Sodium Chl 0.9% PHA 11/06/24 In Process (Ns... 08:30 Linezolid 600mg/300ml PHA 11/06/24 In Process (Zyvox) 10:00 Meropenem 1gm Ivpb PHA 11/06/24 In Process (Merrem 1gm/ Ns) 18:00 Amino Acid PHA 11/06/24 In Process Infusion... W/Sodium 22:00 Tpn Per Pharmacy LEILANI 11/06/24 In Process 22:00 Electrocardigram EKG 11/06/24 Logged 11:41 Electrocardigram EKG 11/06/24 Logged 12:41 Amiodarone PHA 11/06/24 In Process 360mg/200ml Premix 18:00 Code Status CODE 11/06/24 Transmitted 16:34 Chest Portable XY 11/07/24 Resulted 04:00 Abg W/ Co-Ox RT 11/07/24 Logged 04:00 Date of Service: November 07, 2024 Billing Provider: KINGSTON GARCIA NP Common Visit Codes: 58039-TMAXGOYL CARE 30-74 MIN, 38167-QSGEUMCL CARE-EACH +30MIN KINGSTON GARCIA NP November 07, 2024 07:54
--- NOTE | 2024-11-07 08:55 | DVH ---
Limited Abdominal Ultrasound - Ascites Evaluation Clinical History: assess for ascites Comparison: None Technique/Findings/Impression: Limited sonographic evaluation of the abdomen was performed to assess for ascites. There is no appreciable ascites detected.
[2024-11-07] MEDS: BUMETANIDE 2.5mg/10ml (0.25 mg/ml) INJ IV ONE (08:59)
[2024-11-07] MEDS: SODIUM BICARB 8.4% 50Meq/50ml SYR Vial IV ONE ×2 (08:59→11:36)
[2024-11-07] MEDS ORDERED: CALCIUM GLUC 1,000mg/50ml-NS 50 ML IV ONE (09:45)
--- NOTE | 2024-11-07 11:21 | DVHINCON2 ---
Date of service: November 07, 2024 Reason for Consultation Acute kidney injury History of Present Illness 83-year-old female past medical history of metastatic cancer previously on hospice presents to the hospital with abdominal pain and found to have pneumoperitoneum status post exploratory surgery currently has FREDRICK drain. Nephrology consulted due to gradual progressive worsening renal function. Patient is seen in the ICU intubated, on pressors, with high FREDRICK output from the drain and minimal urinary output. Patient appears to be severely anasarca. Patient was on sodium bicarbonate drip for the last several days however noted worsening in serum bicarb as well Allergies: Coded Allergies: Penicillins (Unverified Allergy, Unknown, 05/02/14) Home Meds Reported Medications Letrozole (LETROZOLE) 2.5 Mg Tab, 1 TAB PO DAILY 10/31/24 Linaclotide Base (LINZESS) 145 Mcg Cap, 145 MCG OR, CAP 10/31/24 Multiple Vitamin (Multivitamins) Tab, 1 TAB PO DAILY, #90 TAB 3 Refills 10/26/24 Calcium Carbonate (Calcium) 600 Mg Tab, 600 MG PO, TAB 10/26/24 Current Medications Current Medications Medications (Trade) Dose Ordered Sig/Shellie Route PRN Reason Start Time Stop Time Status Last Admin Meropenem 50 ml @ 17 mls/hr Q12H IV 11/06/24 18:00 11/07/24 05:14 Sodium Acetate 40 meq/Potassium Phosphate 20 meq/ Calcium Gluconate 4.65 meq/ Magnesium Sulfate 14 meq/ Multivitamins 10 ml/Insulin Human Regular 18 units/ Amino Acids/ Dextrose/Purified Water 1,048.2255 ml @ 44 mls/hr [id number] IV 11/06/24 22:00 11/07/24 21:59 11/06/24 21:41 Sodium Acetate 60 meq/Calcium Gluconate 6.95 meq/Magnesium Sulfate 12 meq/ Multivitamins 10 ml/Insulin Human Regular 20 units/ Amino Acids/ Dextrose/Purified Water 1,108.1462 ml @ 46 mls/hr [id number] IV 11/07/24 22:00 11/08/24 21:59 Albumin Human 100 ml @ 100 mls/hr Q4HR IV 11/07/24 14:00 Family History: Alcoholism FATHER Cancer FATHER MOTHETR Family history: Arthritis FATHER Prostate cancer FATHER Review of Systems Can not obtain due to critical illness H&P Exam Vital Signs/I&O Vital Sign Date Time Temp Pulse Resp B/P (MAP) Pulse Ox O2 Delivery O2 Flow Rate FiO2 11/07/24 09:52 110/63 11/07/24 09:50 93 20 91 45 11/07/24 06:45 98.6 209.5 11/06/24 20:00 Mechanical Ventilator+ Intake and Output 11/06/24 11/07/24 19:00 07:00 Intake Total 2423.616 ml 2457.182 ml Output Total 975 ml 1075 ml Balance 1448.616 ml 1382.182 ml Intake Oral 130 ml IV Total 2423.616 ml 2327.182 ml Output Urine Total 200 ml 125 ml Drainage Total 775 ml 950 ml Physical Exam Elderly ill-appearing white female Intubated ; rales Sedated On pressors Severe anasarca with diffuse peripheral pitting edema FREDRICK drain with high serosanguineous output Rivers catheter with no urinary output Tachycardia Labs/Diagnostic Data Labs/Diagnostic Data Laboratory Tests Test 11/07/24 07:03 11/07/24 05:19 11/07/24 03:12 11/06/24 23:36 Range/Units Blood Gas Specimen Type Arterial Blood Gas Sample Site Arterial line Blood Gas Patient Temperature 37.0 Arterial Blood Date Drawn [id number] Arterial Blood pH 7.257 L 7.350-7.450 Arterial Blood Partial Pressure CO2 36.8 32.0-45.0 mmHg Arterial Blood Partial Pressure O2 68.9 L 83.0-108.0 mmHg Arterial Blood HCO3 16.0 L 21.0-28.0 mmol/L Arterial Blood Oxygen Saturation 91.9 L 94.0-98.0 % Arterial Blood Base Excess -10.2 L -2.0-3.0 mmol/L Arterial Blood Oxyhemoglobin 90.3 L 94.0-98.0 % Arterial Blood Carboxyhemoglobin 1.1 0.5-1.5 % Arterial Blood Methemoglobin 0.6 0.0-1.5 % Eric Test N/a Blood Gas Total Hemoglobin 15.80 12.0-16.0 g/dL Blood Gas Set Respiration Rate 20.0 Blood Gas Modality Vent - ac FiO2 % 35.0 Blood Gas Tidal Volume 500.0 Blood Gas PEEP or CPAP 5.0 POC Glucose 196 H 259 H 70-106 mg/dl White Blood Count 20.6 #H 4.4-10.8 10^3/uL Red Blood Count 4.80 4.0-5.20 10^6/uL Hemoglobin 15.5 12.2-16.2 g/dL Hematocrit 46.0 36.0-46.0 % Mean Corpuscular Volume 95.9 80.0-100.0 fL Mean Corpuscular Hemoglobin 32.4 H 28.0-32.0 pg Mean Corpuscular Hemoglobin Concent 33.8 32.0-36.0 g/dL Red Cell Distribution Width 22.0 H 11.8-14.3 % Platelet Count 140 140-450 10^3/uL Mean Platelet Volume 10.4 6.9-10.8 fL Neutrophils (%) (Auto) 86.9 H 37.0-80.0 % Lymphocytes (%) (Auto) 2.1 L 10.0-50.0 % Monocytes (%) (Auto) 9.3 0.0-12.0 % Eosinophils (%) (Auto) 0.6 0.0-7.0 % Basophils (%) (Auto) 1.1 0.0-2.0 % Neutrophils # (Auto) 17.9 H 1.6-8.6 10 ^3/uL Lymphocytes # (Auto) 0.4 0.4-5.4 10 ^3/uL Monocytes # (Auto) 1.9 H 0-1.3 10 ^3/uL Eosinophils # (Auto) 0.1 0-0.8 10 ^3/uL Basophils # (Auto) 0.2 0-0.2 10 ^3/uL Nucleated Red Blood Cells 3.7 % Platelet Estimate [place] Large Platelets Few Anisocytosis (manual) Slight Sodium Level 131 L 136-145 mmol/L Potassium Level 5.3 H 3.5-5.1 mmol/L Chloride Level 104 98-107 mmol/L Carbon Dioxide Level 18 L 20-31 mmol/L Anion Gap 9 5-15 Blood Urea Nitrogen 44 H 9-23 mg/dL Creatinine 1.78 #H 0.550-1.02 mg/dL Glomerular Filtration Rate Calc 28 >90 mL/min BUN/Creatinine Ratio 24.7 H 10.0-20.0 Serum Glucose 213 H 74-106 mg/dL Calcium Level 6.9 L 8.7-10.4 mg/dL Phosphorus Level 3.8 2.4-5.1 mg/dL Magnesium Level 2.1 1.6-2.6 mg/dL Total Bilirubin 13.3 H 0.2-1.0 mg/dL Aspartate Amino Transferase (AST) 13-40 U/L Alanine Aminotransferase (ALT) 520 H 7-40 U/L Alkaline Phosphatase 588 H 46-116 U/L Total Protein 4.3 L 5.7-8.2 g/dL Albumin 2.7 L 3.2-4.8 g/dL Test 11/06/24 17:40 11/06/24 11:52 11/06/24 07:58 11/06/24 06:18 Range/Units POC Glucose 214 H 234 H 213 H 70-106 mg/dl Blood Gas Specimen Type Arterial Blood Gas Sample Site Arterial line Blood Gas Patient Temperature 37.0 Arterial Blood Date Drawn [id number] Arterial Blood pH 7.248 *L 7.350-7.450 Arterial Blood Partial Pressure CO2 34.8 32.0-45.0 mmHg Arterial Blood Partial Pressure O2 77.0 L 83.0-108.0 mmHg Arterial Blood HCO3 14.8 L 21.0-28.0 mmol/L Arterial Blood Oxygen Saturation 95.0 94.0-98.0 % Arterial Blood Base Excess -11.3 L -2.0-3.0 mmol/L Arterial Blood Oxyhemoglobin 94.0 94.0-98.0 % Arterial Blood Carboxyhemoglobin 0.5 0.5-1.5 % Arterial Blood Methemoglobin 0.6 0.0-1.5 % Eric Test N/a Blood Gas Total Hemoglobin 16.70 H 12.0-16.0 g/dL Blood Gas Set Respiration Rate 20.0 Blood Gas Modality Vent - ac FiO2 % 40.0 Blood Gas Tidal Volume 500.0 Blood Gas PEEP or CPAP 5.0 Blood Gas Critical Value Read Back yes Blood Gas Notified Whom anish wiley Blood Gas Notified Time [id number] Blood Gas Notified By elvin bright Test 11/06/24 06:08 11/06/24 03:05 11/06/24 00:28 11/05/24 18:16 Range/Units Blood Gas Specimen Type Arterial Blood Gas Sample Site Arterial line Blood Gas Patient Temperature 37.0 Arterial Blood Date Drawn [id number] Arterial Blood pH 7.126 *L 7.350-7.450 Arterial Blood Partial Pressure CO2 51.9 H 32.0-45.0 mmHg Arterial Blood Partial Pressure O2 91.3 83.0-108.0 mmHg Arterial Blood HCO3 16.7 L 21.0-28.0 mmol/L Arterial Blood Oxygen Saturation 95.5 94.0-98.0 % Arterial Blood Base Excess -12.8 L -2.0-3.0 mmol/L Arterial Blood Oxyhemoglobin 94.1 94.0-98.0 % Arterial Blood Carboxyhemoglobin 1.1 0.5-1.5 % Arterial Blood Methemoglobin 0.4 0.0-1.5 % Eric Test N/a Blood Gas Total Hemoglobin 15.80 12.0-16.0 g/dL Blood Gas Set Respiration Rate 12.0 Blood Gas Modality Vent - ac FiO2 % 45.0 Blood Gas Tidal Volume 500.0 Blood Gas PEEP or CPAP 5.0 Blood Gas Critical Value Read Back yes Blood Gas Notified Whom anish hutchins Blood Gas Notified Time [id number] Blood Gas Notified By posting clerk kaila White Blood Count 13.2 H 4.4-10.8 10^3/uL Red Blood Count 4.74 4.0-5.20 10^6/uL Hemoglobin 15.3 12.2-16.2 g/dL Hematocrit 45.7 36.0-46.0 % Mean Corpuscular Volume 96.5 80.0-100.0 fL Mean Corpuscular Hemoglobin 32.2 H 28.0-32.0 pg Mean Corpuscular Hemoglobin Concent 33.4 32.0-36.0 g/dL Red Cell Distribution Width 21.7 H 11.8-14.3 % Platelet Count 112 L 140-450 10^3/uL Mean Platelet Volume 9.2 6.9-10.8 fL Neutrophils (%) (Auto) 86.9 H 37.0-80.0 % Lymphocytes (%) (Auto) 3.1 L 10.0-50.0 % Monocytes (%) (Auto) 9.5 0.0-12.0 % Eosinophils (%) (Auto) 0.1 0.0-7.0 % Basophils (%) (Auto) 0.4 0.0-2.0 % Neutrophils # (Auto) 11.5 H 1.6-8.6 10 ^3/uL Lymphocytes # (Auto) 0.4 0.4-5.4 10 ^3/uL Monocytes # (Auto) 1.3 0-1.3 10 ^3/uL Eosinophils # (Auto) 0 0-0.8 10 ^3/uL Basophils # (Auto) 0 0-0.2 10 ^3/uL Nucleated Red Blood Cells 1.2 % Platelet Estimate Decreased Large Platelets Few Anisocytosis (manual) Slight Sodium Level 135 L 136-145 mmol/L Potassium Level 3.9 3.5-5.1 mmol/L Chloride Level 107 98-107 mmol/L Carbon Dioxide Level 18 L 20-31 mmol/L Anion Gap 10 5-15 Blood Urea Nitrogen 37 H 9-23 mg/dL Creatinine 1.22 H 0.550-1.02 mg/dL Glomerular Filtration Rate Calc 44 >90 mL/min BUN/Creatinine Ratio 30.3 H 10.0-20.0 Serum Glucose 254 H 74-106 mg/dL Calcium Level 6.8 L 8.7-10.4 mg/dL Phosphorus Level 3.0 2.4-5.1 mg/dL Magnesium Level 2.0 1.6-2.6 mg/dL Total Bilirubin 10.3 H 0.2-1.0 mg/dL Aspartate Amino Transferase (AST) 13-40 U/L Alanine Aminotransferase (ALT) 156 H 7-40 U/L Alkaline Phosphatase 342 H 46-116 U/L Total Protein 4.1 L 5.7-8.2 g/dL Albumin 2.3 L 3.2-4.8 g/dL POC Glucose 231 H 222 H 70-106 mg/dl Test 11/05/24 13:19 11/05/24 05:52 11/05/24 05:44 11/05/24 03:36 Range/Units POC Glucose 213 H 232 H 70-106 mg/dl Blood Gas Specimen Type Arterial Blood Gas Sample Site Arterial line Blood Gas Patient Temperature 37.0 Arterial Blood Date Drawn [id number] Arterial Blood pH 7.313 L 7.350-7.450 Arterial Blood Partial Pressure CO2 33.8 32.0-45.0 mmHg Arterial Blood Partial Pressure O2 75.1 L 83.0-108.0 mmHg Arterial Blood HCO3 16.8 L 21.0-28.0 mmol/L Arterial Blood Oxygen Saturation 94.9 94.0-98.0 % Arterial Blood Base Excess -8.3 L -2.0-3.0 mmol/L Arterial Blood Oxyhemoglobin 93.9 L 94.0-98.0 % Arterial Blood Carboxyhemoglobin 0.7 0.5-1.5 % Arterial Blood Methemoglobin 0.4 0.0-1.5 % Eric Test N/a Blood Gas Total Hemoglobin 16.10 H 12.0-16.0 g/dL Blood Gas Set Respiration Rate 12.0 Blood Gas Modality Vent - ac FiO2 % 35.0 Blood Gas Tidal Volume 500.0 Blood Gas PEEP or CPAP 5.0 White Blood Count 13.4 H 4.4-10.8 10^3/uL Red Blood Count 4.82 4.0-5.20 10^6/uL Hemoglobin 15.9 12.2-16.2 g/dL Hematocrit 46.6 H 36.0-46.0 % Mean Corpuscular Volume 96.6 80.0-100.0 fL Mean Corpuscular Hemoglobin 32.9 H 28.0-32.0 pg Mean Corpuscular Hemoglobin Concent 34.0 32.0-36.0 g/dL Red Cell Distribution Width 21.3 H 11.8-14.3 % Platelet Count 146 140-450 10^3/uL Mean Platelet Volume 9.1 6.9-10.8 fL Neutrophils (%) (Auto) 37.0-80.0 % Lymphocytes (%) (Auto) 10.0-50.0 % Monocytes (%) (Auto) 0.0-12.0 % Basophils (%) (Auto) 0.0-2.0 % Neutrophils # (Auto) 1.6-8.6 10 ^3/uL Lymphocytes # (Auto) 0.4-5.4 10 ^3/uL Monocytes # (Auto) 0-1.3 10 ^3/uL Differential Total Cells Counted 100.0 100 Neutrophils % (Manual) 84 H 37.0-80.0 Band Neutrophils % (Manual) 2 Lymphocytes % (Manual) 6 L 10.0-50.0 Monocytes % (Manual) 4 0-12 Eosinophils % (Manual) 0 0-7 Basophils % (Manual) 0 0.0-2.0 Metamyelocytes % (manual) 3 Myelocytes % (Manual) 1 Promyelocytes % (Manual) 0 Blast Cells % (Manual) 0 Reactive Lymphocytes 0 Platelet Estimate Adequate Large Platelets Few Anisocytosis (manual) Slight Sodium Level 134 L 136-145 mmol/L Potassium Level 3.7 3.5-5.1 mmol/L Chloride Level 107 98-107 mmol/L Carbon Dioxide Level 19 L 20-31 mmol/L Anion Gap 8 5-15 Blood Urea Nitrogen 34 H 9-23 mg/dL Creatinine 1.23 H 0.550-1.02 mg/dL Glomerular Filtration Rate Calc 44 >90 mL/min BUN/Creatinine Ratio 27.6 H 10.0-20.0 Serum Glucose 276 H 74-106 mg/dL Calcium Level 7.2 L 8.7-10.4 mg/dL Phosphorus Level 2.3 L 2.4-5.1 mg/dL Magnesium Level 1.5 L 1.6-2.6 mg/dL Total Bilirubin 8.5 H 0.2-1.0 mg/dL Aspartate Amino Transferase (AST) 976 H 13-40 U/L Alanine Aminotransferase (ALT) 141 H 7-40 U/L Alkaline Phosphatase 329 H 46-116 U/L Total Protein 4.6 L 5.7-8.2 g/dL Albumin 2.6 L 3.2-4.8 g/dL Test 11/05/24 00:08 11/04/24 22:39 11/04/24 19:34 11/04/24 11:57 Range/Units POC Glucose 233 H 187 H 175 H 237 H 70-106 mg/dl Test 11/04/24 07:46 11/04/24 06:14 11/04/24 03:45 11/03/24 23:54 Range/Units Blood Gas Specimen Type Arterial Blood Gas Sample Site Arterial line Blood Gas Patient Temperature 37.0 Arterial Blood Date Drawn [id number] Arterial Blood pH 7.305 L 7.350-7.450 Arterial Blood Partial Pressure CO2 33.5 32.0-45.0 mmHg Arterial Blood Partial Pressure O2 85.0 83.0-108.0 mmHg Arterial Blood HCO3 16.3 L 21.0-28.0 mmol/L Arterial Blood Oxygen Saturation 95.6 94.0-98.0 % Arterial Blood Base Excess -8.8 L -2.0-3.0 mmol/L Arterial Blood Oxyhemoglobin 94.6 94.0-98.0 % Arterial Blood Carboxyhemoglobin 0.7 0.5-1.5 % Arterial Blood Methemoglobin 0.3 0.0-1.5 % Eric Test N/a Blood Gas Total Hemoglobin 16.30 H 12.0-16.0 g/dL Blood Gas Set Respiration Rate 12.0 Blood Gas Modality Vent - ac FiO2 % 35.0 Blood Gas Tidal Volume 500.0 Blood Gas PEEP or CPAP 5.0 POC Glucose 171 H 146 H 70-106 mg/dl White Blood Count 12.4 H 4.4-10.8 10^3/uL Red Blood Count 4.69 4.0-5.20 10^6/uL Hemoglobin 15.3 12.2-16.2 g/dL Hematocrit 45.9 36.0-46.0 % Mean Corpuscular Volume 97.7 80.0-100.0 fL Mean Corpuscular Hemoglobin 32.6 H 28.0-32.0 pg Mean Corpuscular Hemoglobin Concent 33.3 32.0-36.0 g/dL Red Cell Distribution Width 21.1 H 11.8-14.3 % Platelet Count 201 140-450 10^3/uL Mean Platelet Volume 9.5 6.9-10.8 fL Neutrophils (%) (Auto) 85.2 H 37.0-80.0 % Lymphocytes (%) (Auto) 3.8 L 10.0-50.0 % Monocytes (%) (Auto) 10.6 0.0-12.0 % Eosinophils (%) (Auto) 0.1 0.0-7.0 % Basophils (%) (Auto) 0.3 0.0-2.0 % Neutrophils # (Auto) 10.6 H 1.6-8.6 10 ^3/uL Lymphocytes # (Auto) 0.5 0.4-5.4 10 ^3/uL Monocytes # (Auto) 1.3 0-1.3 10 ^3/uL Eosinophils # (Auto) 0 0-0.8 10 ^3/uL Basophils # (Auto) 0 0-0.2 10 ^3/uL Nucleated Red Blood Cells 0.2 % Sodium Level 133 L 136-145 mmol/L Potassium Level 5.4 H 3.5-5.1 mmol/L Chloride Level 109 H 98-107 mmol/L Carbon Dioxide Level 17 L 20-31 mmol/L Anion Gap 7 5-15 Blood Urea Nitrogen 26 H 9-23 mg/dL Creatinine 1.12 #H 0.550-1.02 mg/dL Glomerular Filtration Rate Calc 49 >90 mL/min BUN/Creatinine Ratio 23.2 H 10.0-20.0 Serum Glucose 206 H 74-106 mg/dL Calcium Level 7.5 L 8.7-10.4 mg/dL Phosphorus Level 2.3 L 2.4-5.1 mg/dL Magnesium Level 1.8 1.6-2.6 mg/dL Total Bilirubin 6.4 H 0.2-1.0 mg/dL Aspartate Amino Transferase (AST) 749 H 13-40 U/L Alanine Aminotransferase (ALT) 125 H 7-40 U/L Alkaline Phosphatase 322 H 46-116 U/L Total Protein 4.2 L 5.7-8.2 g/dL Albumin 2.0 L 3.2-4.8 g/dL Triglycerides Level 150 H < 150 mg/dL Test 11/03/24 17:57 11/03/24 16:44 11/03/24 09:49 11/03/24 07:27 Range/Units POC Glucose 55 L 46 *L 72 70-106 mg/dl Blood Gas Specimen Type Arterial Blood Gas Sample Site Arterial line Blood Gas Patient Temperature 37.0 Arterial Blood Date Drawn [id number] Arterial Blood pH 7.387 7.350-7.450 Arterial Blood Partial Pressure CO2 32.7 32.0-45.0 mmHg Arterial Blood Partial Pressure O2 91.9 83.0-108.0 mmHg Arterial Blood HCO3 19.2 L 21.0-28.0 mmol/L Arterial Blood Oxygen Saturation 97.3 94.0-98.0 % Arterial Blood Base Excess -4.6 L -2.0-3.0 mmol/L Arterial Blood Oxyhemoglobin 96.1 94.0-98.0 % Arterial Blood Carboxyhemoglobin 1.0 0.5-1.5 % Arterial Blood Methemoglobin 0.2 0.0-1.5 % Eric Test N/a Blood Gas Total Hemoglobin 16.60 H 12.0-16.0 g/dL Blood Gas Set Respiration Rate 12.0 Blood Gas Modality Vent - ac FiO2 % 40.0 Blood Gas Tidal Volume 500.0 Blood Gas PEEP or CPAP 5.0 Test 11/03/24 05:55 11/03/24 04:08 11/03/24 03:00 11/03/24 02:51 Range/Units POC Glucose 77 74 70-106 mg/dl Sodium Level 135 L 136-145 mmol/L Potassium Level 5.6 *H 3.5-5.1 mmol/L Chloride Level 105 98-107 mmol/L Carbon Dioxide Level 22 20-31 mmol/L Anion Gap 8 5-15 Blood Urea Nitrogen 21 9-23 mg/dL Creatinine 0.84 # 0.550-1.02 mg/dL Glomerular Filtration Rate Calc 69 >90 mL/min BUN/Creatinine Ratio 25.0 H 10.0-20.0 Serum Glucose 83 74-106 mg/dL Calcium Level 10.3 8.7-10.4 mg/dL Total Bilirubin 8.7 H 0.2-1.0 mg/dL Aspartate Amino Transferase (AST) 596 H 13-40 U/L Alanine Aminotransferase (ALT) 118 H 7-40 U/L Alkaline Phosphatase 498 H 46-116 U/L Total Protein 5.6 L 5.7-8.2 g/dL Albumin 2.9 L 3.2-4.8 g/dL White Blood Count 12.1 #H 4.4-10.8 10^3/uL Red Blood Count 5.36 H 4.0-5.20 10^6/uL Hemoglobin 17.8 #H 12.2-16.2 g/dL Hematocrit 51.0 #H 36.0-46.0 % Mean Corpuscular Volume 95.2 80.0-100.0 fL Mean Corpuscular Hemoglobin 33.2 H 28.0-32.0 pg Mean Corpuscular Hemoglobin Concent 34.9 32.0-36.0 g/dL Red Cell Distribution Width 20.2 H 11.8-14.3 % Platelet Count 174 140-450 10^3/uL Mean Platelet Volume 9.9 6.9-10.8 fL Neutrophils (%) (Auto) 92.4 H 37.0-80.0 % Lymphocytes (%) (Auto) 3.5 L 10.0-50.0 % Monocytes (%) (Auto) 3.7 0.0-12.0 % Eosinophils (%) (Auto) 0.1 0.0-7.0 % Basophils (%) (Auto) 0.3 0.0-2.0 % Neutrophils # (Auto) 11.2 H 1.6-8.6 10 ^3/uL Lymphocytes # (Auto) 0.4 0.4-5.4 10 ^3/uL Monocytes # (Auto) 0.5 0-1.3 10 ^3/uL Eosinophils # (Auto) 0 0-0.8 10 ^3/uL Basophils # (Auto) 0 0-0.2 10 ^3/uL Nucleated Red Blood Cells 0.2 % Platelet Estimate Adequate Large Platelets Few Prothrombin Time 21.8 H 9.3-11.8 sec Prothrombin Time INR 2.23 H 0.9-1.15 Test 11/02/24 21:33 11/02/24 16:40 11/02/24 12:17 11/02/24 10:18 Range/Units POC Glucose 81 90 70-106 mg/dl Blood Gas Specimen Type Arterial Blood Gas Sample Site Arterial line Blood Gas Patient Temperature 37.0 Arterial Blood Date Drawn [id number] Arterial Blood pH 7.337 L 7.350-7.450 Arterial Blood Partial Pressure CO2 38.4 32.0-45.0 mmHg Arterial Blood Partial Pressure O2 95.7 83.0-108.0 mmHg Arterial Blood HCO3 20.1 L 21.0-28.0 mmol/L Arterial Blood Oxygen Saturation 97.0 94.0-98.0 % Arterial Blood Base Excess -5.1 L -2.0-3.0 mmol/L Arterial Blood Oxyhemoglobin 95.4 94.0-98.0 % Arterial Blood Carboxyhemoglobin 1.4 0.5-1.5 % Arterial Blood Methemoglobin 0.2 0.0-1.5 % Eric Test N/a Blood Gas Total Hemoglobin 15.90 12.0-16.0 g/dL Blood Gas Set Respiration Rate 12.0 Blood Gas Modality Vent - ac Blood Gas Spontaneous Rate 12 FiO2 % 50.0 Blood Gas Tidal Volume 500.0 Blood Gas PEEP or CPAP 5.0 Prothrombin Time 18.0 H 9.3-11.8 sec Prothrombin Time INR 1.80 H 0.9-1.15 Test 11/02/24 06:40 11/02/24 06:23 11/02/24 02:46 11/01/24 23:18 Range/Units POC Glucose 89 89 83 70-106 mg/dl Sodium Level 134 L 136-145 mmol/L Potassium Level 5.1 3.5-5.1 mmol/L Chloride Level 103 98-107 mmol/L Carbon Dioxide Level 23 20-31 mmol/L Anion Gap 8 5-15 Blood Urea Nitrogen 18 9-23 mg/dL Creatinine 0.64 0.550-1.02 mg/dL Glomerular Filtration Rate Calc 88 >90 mL/min BUN/Creatinine Ratio 28.1 H 10.0-20.0 Serum Glucose 100 74-106 mg/dL Calcium Level 9.6 8.7-10.4 mg/dL Total Bilirubin 8.6 H 0.2-1.0 mg/dL Aspartate Amino Transferase (AST) 453 H 13-40 U/L Alanine Aminotransferase (ALT) 101 H 7-40 U/L Alkaline Phosphatase 451 H 46-116 U/L Total Protein 5.1 L 5.7-8.2 g/dL Albumin 2.6 L 3.2-4.8 g/dL Test 11/01/24 17:16 11/01/24 13:50 11/01/24 11:55 11/01/24 09:02 Range/Units POC Glucose 117 H 153 H 165 H 151 H 70-106 mg/dl Test 11/01/24 07:54 11/01/24 06:17 10/31/24 16:09 10/31/24 11:45 Range/Units POC Glucose 44 *L 70-106 mg/dl White Blood Count 8.9 4.4-10.8 10^3/uL Red Blood Count 4.68 4.0-5.20 10^6/uL Hemoglobin 15.2 12.2-16.2 g/dL Hematocrit 44.6 36.0-46.0 % Mean Corpuscular Volume 95.3 80.0-100.0 fL Mean Corpuscular Hemoglobin 32.6 H 28.0-32.0 pg Mean Corpuscular Hemoglobin Concent 34.2 32.0-36.0 g/dL Red Cell Distribution Width 19.6 H 11.8-14.3 % Platelet Count 165 140-450 10^3/uL Mean Platelet Volume 9.8 6.9-10.8 fL Neutrophils (%) (Auto) 75.5 37.0-80.0 % Lymphocytes (%) (Auto) 10.6 10.0-50.0 % Monocytes (%) (Auto) 13.0 H 0.0-12.0 % Eosinophils (%) (Auto) 0.5 0.0-7.0 % Basophils (%) (Auto) 0.4 0.0-2.0 % Neutrophils # (Auto) 6.8 1.6-8.6 10 ^3/uL Lymphocytes # (Auto) 0.9 0.4-5.4 10 ^3/uL Monocytes # (Auto) 1.2 0-1.3 10 ^3/uL Eosinophils # (Auto) 0 0-0.8 10 ^3/uL Basophils # (Auto) 0 0-0.2 10 ^3/uL Nucleated Red Blood Cells 0.2 % Sodium Level 136 136-145 mmol/L Potassium Level 5.0 3.5-5.1 mmol/L Chloride Level 103 98-107 mmol/L Carbon Dioxide Level 24 20-31 mmol/L Anion Gap 9 5-15 Blood Urea Nitrogen 20 9-23 mg/dL Creatinine 0.65 0.550-1.02 mg/dL Glomerular Filtration Rate Calc 87 >90 mL/min BUN/Creatinine Ratio 30.8 H 10.0-20.0 Serum Glucose 46 *L 74-106 mg/dL Calcium Level 10.5 H 8.7-10.4 mg/dL Total Bilirubin 8.3 H 0.2-1.0 mg/dL Aspartate Amino Transferase (AST) 347 H 13-40 U/L Alanine Aminotransferase (ALT) 96 H 7-40 U/L Alkaline Phosphatase 500 H 46-116 U/L Total Protein 5.2 L 5.7-8.2 g/dL Albumin 2.7 L 3.2-4.8 g/dL Urine Color Dark-yellow Yellow Urine Clarity Turbid H Clear Urine pH 5.5 5.0-9.0 Urine Specific [place] 1.020 1.001-1.035 Urine Protein Negative Negative Urine Ketones 1+ H Negative Urine Blood Trace H Negative /uL Urine Nitrite Negative Negative Urine Bilirubin 1+ H Negative Urine Urobilinogen 4 H Negative mg/dL Urine Leukocyte Esterase 1+ Negative /uL Urine RBC 2 0 - 4 /hpf Urine Microscopic WBC 16 H 0-5 /HPF Urine Squamous Epithelial Cells Few <5 /hpf Urine Calcium Oxalate Crystals Few None Seen Urine Bacteria Few H None Seen /hpf Urine Hyaline Casts Few 0 - 2 /lpf Urine Mucus Few None Seen Urine Glucose Normal Normal mg/dL Troponin I High Sensitivity 12 </=34 ng/L Test 10/31/24 10:00 10/31/24 08:49 10/31/24 08:48 Range/Units Troponin I High Sensitivity 11 13 </=34 ng/L Creatine Kinase 71 34-145 U/L White Blood Count 8.4 4.4-10.8 10^3/uL Red Blood Count 5.07 4.0-5.20 10^6/uL Hemoglobin 16.8 H 12.2-16.2 g/dL Hematocrit 48.5 H 36.0-46.0 % Mean Corpuscular Volume 95.7 80.0-100.0 fL Mean Corpuscular Hemoglobin 33.1 H 28.0-32.0 pg Mean Corpuscular Hemoglobin Concent 34.6 32.0-36.0 g/dL Red Cell Distribution Width 19.3 H 11.8-14.3 % Platelet Count 176 140-450 10^3/uL Mean Platelet Volume 9.7 6.9-10.8 fL Neutrophils (%) (Auto) 81.4 H 37.0-80.0 % Lymphocytes (%) (Auto) 8.1 L 10.0-50.0 % Monocytes (%) (Auto) 9.3 0.0-12.0 % Eosinophils (%) (Auto) 0.6 0.0-7.0 % Basophils (%) (Auto) 0.6 0.0-2.0 % Neutrophils # (Auto) 6.8 1.6-8.6 10 ^3/uL Lymphocytes # (Auto) 0.7 0.4-5.4 10 ^3/uL Monocytes # (Auto) 0.8 0-1.3 10 ^3/uL Eosinophils # (Auto) 0.1 0-0.8 10 ^3/uL Basophils # (Auto) 0.1 0-0.2 10 ^3/uL Nucleated Red Blood Cells 0.1 % Sodium Level 134 L 136-145 mmol/L Potassium Level 4.7 3.5-5.1 mmol/L Chloride Level 101 98-107 mmol/L Carbon Dioxide Level 27 20-31 mmol/L Anion Gap 6 5-15 Blood Urea Nitrogen 19 9-23 mg/dL Creatinine 0.74 0.550-1.02 mg/dL Glomerular Filtration Rate Calc 80 >90 mL/min BUN/Creatinine Ratio 25.7 H 10.0-20.0 Serum Glucose 69 L 74-106 mg/dL Calcium Level 11.3 H 8.7-10.4 mg/dL Microbiology Date/Time Source Procedure Growth Status 11/02/24 15:27 Sputum Gram Stain - Final Complete 11/02/24 15:27 Sputum Respiratory Culture - Final Complete Assessment Acute kidney injury likely prerenal in the setting of significant volume loss , hemodynamics and third-spacing No previous history of kidney disease Metastatic cancer Acute pneumoperitoneum status post surgery Acute respiratory failure Severe hypoalbuminemia Hyperkalemia Metabolic acidosis Shock on pressors septic Patient has significant 3rd spacing and still has high FREDRICK drain output Recommend starting IV albumin Monitor patient's input and output from all drains pressors and drips Sodium bicarbonate IV push today Monitoring urinary output Maintain mean arterial pressure greater than 65 Critically ill we will require close monitoring very poor prognosis given patient's terminal cancer condition Critical care time spent 35 minutes Plan discussed with: Other ROBERTO CARLOS EMMANUEL MD November 07, 2024 11:21
[2024-11-07 12:40] LABS: Sodium 138 mmol/L (136-145)
[2024-11-07 12:41] LABS: Anion Gap 7 (5-15); Carbon Dioxide 22 mmol/L (20-31)
[2024-11-07 12:46] LABS: BUN/Creatinine Ratio 29.5 (10.0-20.0)
[2024-11-07 12:48] LABS: Blood Urea Nitrogen 41 mg/dL (9-23); Chloride 109 mmol/L (98-107); Glucose 239 mg/dL (74-106)
[2024-11-07 12:51] LABS: Calcium 5.7 mg/dL (8.7-10.4)
[2024-11-07] MEDS: ALBUMIN 25% 100 ML IV SCH (13:08)
--- NOTE | 2024-11-07 13:47 | DVHPN2 ---
Subjective Date Seen: November 07, 2024 Post op day Post op day: 3 Patient reports: Other (intubated/sedated, VSS) Objective Vitals Vital Sign Date Time Temp Pulse Resp B/P (MAP) Pulse Ox O2 Delivery O2 Flow Rate FiO2 11/07/24 11:50 90 23 125/68 (87) 97 45 11/07/24 06:45 98.6 209.5 11/06/24 20:00 Mechanical Ventilator+ Total Intake and Output 11/06/24 11/06/24 11/07/24 15:00 23:00 07:00 Intake Total 1656.016 ml 1627.251 ml 1597.531 ml Output Total 975 ml 1075 ml Balance 1656.016 ml 652.251 ml 522.531 ml Medications Current Medications Medications Dose Ordered Sig/Shellie Route Start Time Stop Time Status Last Admin Dose Admin Acetaminophen/ Hydrocodone Bitart 1 tab Q4HP PRN PO 10/31/24 11:45 11/02/24 04:40 1 TAB Acetaminophen 650 mg Q6HP PRN PO 10/31/24 11:45 11/02/24 03:46 650 MG Ondansetron HCl 4 mg Q4HPRN PRN IV 11/01/24 14:15 UNV Morphine Sulfate 2 mg Q4HPRN PRN IV 11/02/24 08:30 11/02/24 08:35 2 MG Hydromorphone HCl 1 mg Q2HPRN PRN IV 11/02/24 14:45 Ondansetron HCl 4 mg Q4HPRN PRN IV 11/02/24 14:45 Midazolam HCl 50 ml @ 1 mls/hr Q24H IV 11/02/24 14:45 Propofol 100 ml @ 2.079 mls/ hr Q24H IV 11/02/24 15:30 Cancel Propofol 100 ml @ 2.079 mls/ hr Q24H IV 11/02/24 17:15 11/07/24 05:21 4.158 MLS/HR Amino Acids 0 ml @ 0 mls/hr PER PHARMACY IV 11/03/24 16:15 Diagnostic Test (Pha) 1 strip Q6HR 11/03/24 18:00 11/07/24 12:00 1 STRIP Insulin Human Regular FOLLOW SLIDING SCALE Q6HR SC 11/03/24 18:00 11/07/24 12:00 8 UNITS Dextrose 50 ml UD IV 11/03/24 18:00 11/03/24 18:02 50 ML Albuterol 2.5 mg Q6HR NEB 11/04/24 12:00 11/07/24 11:50 2.5 MG Ipratropium [place] 0.5 mg Q6HR NEB 11/04/24 12:00 11/07/24 11:50 0.5 MG Pantoprazole Sodium 40 mg BID IV 11/04/24 10:00 11/07/24 08:59 40 MG Fentanyl Citrate 250 ml @ 0 mls/hr Q0M IV 11/05/24 15:00 11/05/24 17:01 2.5 MLS/HR Vasopressin 20 units/Sodium Chloride 100 ml @ 9 mls/hr Q11H7M IV 11/05/24 15:00 11/07/24 09:52 9 MLS/HR Phenylephrine HCl 80 mg/Sodium Chloride 250 ml @ 7.5 mls/hr Q24H IV 11/06/24 08:30 11/07/24 08:46 33.75 MLS/HR Norepinephrine Bitartrate 32 mg/ Sodium Chloride 250 ml @ 0.938 mls/ hr Q24H IV 11/06/24 08:30 Linezolid 300 ml @ 150 mls/hr Q12HR IV 11/06/24 10:00 11/07/24 09:52 150 MLS/HR Sodium Acetate 40 meq/Potassium Phosphate 20 meq/ Calcium Gluconate 4.65 meq/ Magnesium Sulfate 14 meq/ Multivitamins 10 ml/Insulin Human Regular 18 units/ Amino Acids/ Dextrose/Purified Water 1,048.2255 ml @ 44 mls/hr [id number] IV 11/06/24 22:00 11/07/24 21:59 11/06/24 21:41 44 MLS/HR Sodium Acetate 60 meq/Calcium Gluconate 6.95 meq/Magnesium Sulfate 12 meq/ Multivitamins 10 ml/Insulin Human Regular 20 units/ Amino Acids/ Dextrose/Purified Water 1,108.1462 ml @ 46 mls/hr Q24H6M IV 11/07/24 22:00 11/08/24 21:59 Albumin Human 100 ml @ 100 mls/hr Q4HR IV 11/07/24 14:00 11/07/24 13:08 100 MLS/HR General: Other (INTUBATED/SEDATED) Head/Eyes: Normal, Atraumatic Lungs: Other (INTUBATED, B/L BS ) Cardiovascular: Regular rate and rhythm, BP/pulses equal bilat. Abdominal: Soft, Other (SOFT, NONDISTENDED, INCISION C/D/I W PREVENA, FREDRICK W S/S, MCADAMS) Extremities: Normal, No clubbing, No cyanosis, No edema Skin: Normal, Normal color Labs and Microbiology Laboratory Tests 11/07/24 11:57 11/07/24 03:12 Test 11/07/24 11:57 Range/Units Serum Glucose 239 H 74-106 mg/dL Ass/Plan Labs and/or images reviewed: Labs reviewed by me, Image(s) reviewed by me Problem List 11/05/24 essentially unchanged, wound clean and well approximated, voluminous ascitic drainage, ( serous,clear), abdomen non distended. 11/06/24 REMAINS INTUBATED AND SEDARED, HEMODYNAMICALLY STABLE, ABDOMEN NON DISTENDED, DRAINAGE CLEAR, ASCITES Assessment/Plan s/p josiah patch repair of gastric perforation no changes to plan discussed with Dr. Kim continue current treatment Prognosis: Poor Plan discussed with Dr. Kim Visit Coding Surgery Date of Service if different f: November 07, 2024 Billing Provider: STEPAN KIM MD Surgery Visit Codes: [id number] INP/OBS CARE(HIGH) PING PETERS NP November 07, 2024 13:47
--- NOTE | 2024-11-07 15:06 | DVHPN2 ---
Progress Note - Dictate Date Seen: November 07, 2024 Medical Necessity Reason Pt with a Central, PICC or Fol: No vital signs Vital Sign Date Time Temp Pulse Resp B/P (MAP) Pulse Ox O2 Delivery O2 Flow Rate FiO2 11/07/24 14:42 91 20 119/64 (82) 94 45 11/07/24 06:45 98.6 209.5 11/06/24 20:00 Mechanical Ventilator+ Total Intake and Output 11/06/24 11/06/24 11/07/24 13:00 21:00 05:00 Intake Total 1604.357 ml 1497.712 ml 1905.793 ml Output Total 975 ml 1075 ml Balance 1604.357 ml 522.712 ml 830.793 ml medications Current Medications Medications Dose Ordered Sig/Shellie Route Start Time Stop Time Status Last Admin Dose Admin Acetaminophen/ Hydrocodone Bitart 1 tab Q4HP PRN PO 10/31/24 11:45 11/02/24 04:40 1 TAB Acetaminophen 650 mg Q6HP PRN PO 10/31/24 11:45 11/02/24 03:46 650 MG Ondansetron HCl 4 mg Q4HPRN PRN IV 11/01/24 14:15 UNV Morphine Sulfate 2 mg Q4HPRN PRN IV 11/02/24 08:30 11/02/24 08:35 2 MG Hydromorphone HCl 1 mg Q2HPRN PRN IV 11/02/24 14:45 Ondansetron HCl 4 mg Q4HPRN PRN IV 11/02/24 14:45 Midazolam HCl 50 ml @ 1 mls/hr Q24H IV 11/02/24 14:45 Propofol 100 ml @ 2.079 mls/ hr Q24H IV 11/02/24 15:30 Cancel Propofol 100 ml @ 2.079 mls/ hr Q24H IV 11/02/24 17:15 11/07/24 05:21 4.158 MLS/HR Amino Acids 0 ml @ 0 mls/hr PER PHARMACY IV 11/03/24 16:15 Diagnostic Test (Pha) 1 strip Q6HR 11/03/24 18:00 11/07/24 12:00 1 STRIP Insulin Human Regular FOLLOW SLIDING SCALE Q6HR SC 11/03/24 18:00 11/07/24 12:00 8 UNITS Dextrose 50 ml UD IV 11/03/24 18:00 11/03/24 18:02 50 ML Albuterol 2.5 mg Q6HR NEB 11/04/24 12:00 11/07/24 11:50 2.5 MG Ipratropium [place] 0.5 mg Q6HR NEB 11/04/24 12:00 11/07/24 11:50 0.5 MG Pantoprazole Sodium 40 mg BID IV 11/04/24 10:00 11/07/24 08:59 40 MG Fentanyl Citrate 250 ml @ 0 mls/hr Q0M IV 11/05/24 15:00 11/05/24 17:01 2.5 MLS/HR Vasopressin 20 units/Sodium Chloride 100 ml @ 9 mls/hr Q11H7M IV 11/05/24 15:00 11/07/24 09:52 9 MLS/HR Phenylephrine HCl 80 mg/Sodium Chloride 250 ml @ 7.5 mls/hr Q24H IV 11/06/24 08:30 11/07/24 08:46 33.75 MLS/HR Norepinephrine Bitartrate 32 mg/ Sodium Chloride 250 ml @ 0.938 mls/ hr Q24H IV 11/06/24 08:30 Linezolid 300 ml @ 150 mls/hr Q12HR IV 11/06/24 10:00 11/07/24 09:52 150 MLS/HR Sodium Acetate 40 meq/Potassium Phosphate 20 meq/ Calcium Gluconate 4.65 meq/ Magnesium Sulfate 14 meq/ Multivitamins 10 ml/Insulin Human Regular 18 units/ Amino Acids/ Dextrose/Purified Water 1,048.2255 ml @ 44 mls/hr [id number] IV 11/06/24 22:00 11/07/24 21:59 11/06/24 21:41 44 MLS/HR Sodium Acetate 60 meq/Calcium Gluconate 6.95 meq/Magnesium Sulfate 12 meq/ Multivitamins 10 ml/Insulin Human Regular 20 units/ Amino Acids/ Dextrose/Purified Water 1,108.1462 ml @ 46 mls/hr Q24H6M IV 11/07/24 22:00 11/08/24 21:59 Albumin Human 100 ml @ 100 mls/hr Q4HR IV 11/07/24 14:00 11/07/24 13:08 100 MLS/HR laboratory and microbiology Laboratory Tests 11/07/24 11:57 11/07/24 03:12 Test 11/07/24 11:57 Range/Units Serum Glucose 239 H 74-106 mg/dL Assessment/Plan Impression Acute hypoxemic respiratory failure Perforated gastric ulcer Breast cancer with mets Septic shock Fall Patient seen and examined in ICU Events On mechanical ventilation S/p intubation PEEP 5, FiO2 45% On 2 pressors for hemodynamics S/p gastric ulcer repair Labs and imaging reviewed ABG reviewed Consistent with acidosis Management plan Vent support Titrate to maintain sats 90% or above Sedation holiday daily If patient follows commands, proceed to weaning trial Pressure support 12/13, extubate when ready Continue antibiotics F/u cultures Bronchodilators Monitor renal function Monitor electrolytes Supplement as needed Pressors as needed for hemodynamic support To maintain a mean arterial pressure of 65 mmHg F/u general surgery DVT prophylaxis Critical care time 35 minutes Dietary Evaluation Review Comments: 1. TPN to meet at least 75% estimated needs 2. Monitor CMP and triglycerides, TPN tolerance, wt trend, I/O Expected Outcomes/Goals: To meet >75% estimated needs within 7 days Fu 2-3 days Protein Calorie Malnutrition: Severe Plan discussed with: Other (Rn) TRISTIN STOUT MD November 07, 2024 15:06
--- NOTE | 2024-11-07 17:56 | DVHSR ---
APPROVED REPORT EXAM: LIMITED Two-dimensional and M-mode echocardiogram with Doppler and color Doppler. Blood Pressure: 110/63 mmHg INDICATION SVT, shock RISK FACTORS Height: 65, Weight: 167 DIMENSIONS LVDd4.3 (3.8-5.7cm)LA (2D)3.9 (1.9-4.0cm)Aortic Root3.7 (2.0-3.7cm) LVDs3.1 (2.5-4.0cm)LA (MM) (1.9-4.0cm)Aortic Cusp Exc1.8 (1.5-2.0cm) EF (%) 56.0 (55-70%)Rt. Atrium (1.9-4.0cm)Asc. Aorta3.5 cm Mitral Valve MitralMitral Stenosis E/A ratio0.02D MVAcm2 Aortic Valve Aortic ValveAortic Stenosis LVOT Diameter2.0 (1.8-2.4cm)Doppler AVAcm2 Other Information Technically limited study due to body habitus, patient position, and on a vent. Limited views due to patient had on an abdominal binder. Conclusion lvef 55% moderate LVH RV enlarged not well seen very limted study trace to mild pericardial effusion noted posterior, no HD compromise no severe valve abnormalities noted
[2024-11-07] MEDS: MEROPENEM 500MG PREMIX 50 ML IV SCH (20:02)
[2024-11-07] MEDS: TPN PER PHARMACY IV NR (21:37)
[2024-11-08] VITALS (105 sets, daily range): BP systolic 91–141; BP diastolic 34–60; PULSE 93–114; RESP 20–24; TEMP 97.7–99.3; O2SAT 90–97
[2024-11-08 04:09] LABS: Albumin 3.6 g/dL (3.2-4.8); Anion Gap 12 (5-15); Chloride 104 mmol/L (98-107); Magnesium 2.1 mg/dL (1.6-2.6); Potassium 4.5 mmol/L (3.5-5.1)
[2024-11-08 04:11] LABS: BUN/Creatinine Ratio 22.6 (10.0-20.0)
[2024-11-08 04:39] LABS: Alanine Aminotransferase 497 U/L (7-40); Alkaline Phosphatase 735 U/L (46-116); Aspartate Aminotransferase > 1000 U/L (13-40); Bilirubin, Total 16.8 mg/dL (0.2-1.0); Blood Urea Nitrogen 48 mg/dL (9-23); Calcium 7.8 mg/dL (8.7-10.4); Carbon Dioxide 19 mmol/L (20-31); Glucose 184 mg/dL (74-106); Phosphorus 5.2 mg/dL (2.4-5.1); Sodium 135 mmol/L (136-145); Total Protein 4.6 g/dL (5.7-8.2)
--- NOTE | 2024-11-08 05:57 | DVH ---
CHEST RADIOGRAPH Indication: PATIENT INTUBATED Technique: Single frontal view of the chest was obtained Comparison: XY CHEST PORTABLE on DOS: 11/07/24, XY CHEST PORTABLE on DOS: 11/06/24, XY CHEST PORTABLE o n DOS: 11/05/24 IMPRESSION: There are low lung volumes. Endotracheal tube and enteric tube appear unchanged in satisfactory in p osition. Right IJ catheter tip is likely at the cavoatrial junction/ right atrium. Moderate pulmonar y vascular congestion. Postsurgical changes right sophia thorax. No significant interval change.
[2024-11-08 06:18] LABS: Hematocrit 34.5 % (36.0-46.0); Platelet Count (auto) 56 10^3/uL (140-450)
[2024-11-08 06:19] LABS: Hemoglobin 11.9 g/dL (12.2-16.2); Mean Corpuscular Hemoglobin 32.8 pg (28.0-32.0); Mean Corpuscular Hgb Conc. 34.3 g/dL (32.0-36.0); Mean Corpuscular Volume 95.5 fL (80.0-100.0); Red Blood Cells 3.62 10^6/uL (4.0-5.20); Red Cell Distribution Width 22.3 % (11.8-14.3); White Blood Cell 20.1 10^3/uL (4.4-10.8)
[2024-11-08 06:47] LABS: Basophils % (manual) 0 (0.0-2.0); Blast Cells 0; Metamyelocytes % 0; Myelocytes % 0; Promyelocytes % 0; Reactive Lymphocytes 0
[2024-11-08 06:50] LABS: Anisocytosis Slight; Band Neutrophils % (manual) 3; Eosinophils % (manual) 1 (0-7); Giant Platelets Few; Large Platelets FEW; Lymphocytes % (manual) 9 (10.0-50.0); Monocytes % (manual) 17 (0-12); Platelet Estimate Decrea; Target Cell FEW
[2024-11-08 07:39] LABS: Base Excess -9.4 mmol/L (-2.0-3.0)
--- NOTE | 2024-11-08 07:44 | DVHPN2 ---
Subjective Patient chemically sedated Reviewed: Care Plan, H&P, Labs, Medications, Previous Orders, Radiology Changes from previous H/P or p: No Changes General: Per HPI Objective Vitals Vital Signs Date Time Temp Pulse Resp B/P (MAP) Pulse Ox O2 Delivery O2 Flow Rate FiO2 11/08/24 06:45 99.0 106 20 107/50 (69) 92 210.2 11/08/24 06:00 45 11/07/24 20:00 Mechanical Ventilator+ Intake/Output Intake and Output 11/08/24 07:00 Intake Total 2644.659 ml Output Total 3570 ml Balance -925.341 ml IV Total 2644.659 ml Output Urine Total 70 ml Drainage Total 3500 ml General Appearance: moderate distress, Other (Some distress with the abdominal pain) HEENT: Atraumatic, PERRLA, Mucous membr. moist/pink Lungs: Clear to auscultation Cardiovascular: Regular rate, Normal S1, Normal S2 Abdomen: Normal bowel sounds, Soft, No tenderness, Other (Hypoactive bowel sounds. Dressing dry and intact.) Neuro: Other (Unable to assess) Skin: Dry, Intact, Wounds (See nurse notes and pictures) Psych/Mental Status: Other (Unable to assess) Medications Current Medications Medications Dose Ordered Sig/Shellie Route Start Time Stop Time Status Last Admin Dose Admin Acetaminophen/ Hydrocodone Bitart 1 tab Q4HP PRN PO 10/31/24 11:45 11/02/24 04:40 1 TAB Acetaminophen 650 mg Q6HP PRN PO 10/31/24 11:45 11/02/24 03:46 650 MG Ondansetron HCl 4 mg Q4HPRN PRN IV 11/01/24 14:15 UNV Morphine Sulfate 2 mg Q4HPRN PRN IV 11/02/24 08:30 11/02/24 08:35 2 MG Hydromorphone HCl 1 mg Q2HPRN PRN IV 11/02/24 14:45 Ondansetron HCl 4 mg Q4HPRN PRN IV 11/02/24 14:45 Midazolam HCl 50 ml @ 1 mls/hr Q24H IV 11/02/24 14:45 Propofol 100 ml @ 2.079 mls/ hr Q24H IV 11/02/24 15:30 Cancel Propofol 100 ml @ 2.079 mls/ hr Q24H IV 11/02/24 17:15 11/07/24 21:55 4.158 MLS/HR Amino Acids 0 ml @ 0 mls/hr PER PHARMACY IV 11/03/24 16:15 Diagnostic Test (Pha) 1 strip Q6HR 11/03/24 18:00 11/08/24 05:15 1 STRIP Insulin Human Regular FOLLOW SLIDING SCALE Q6HR SC 11/03/24 18:00 11/08/24 05:17 4 UNITS Dextrose 50 ml UD IV 11/03/24 18:00 11/03/24 18:02 50 ML Albuterol 2.5 mg Q6HR NEB 11/04/24 12:00 11/08/24 06:00 2.5 MG Ipratropium [place] 0.5 mg Q6HR NEB 11/04/24 12:00 11/08/24 06:00 0.5 MG Pantoprazole Sodium 40 mg BID IV 11/04/24 10:00 11/07/24 21:32 40 MG Fentanyl Citrate 250 ml @ 0 mls/hr Q0M IV 11/05/24 15:00 11/05/24 17:01 2.5 MLS/HR Vasopressin 20 units/Sodium Chloride 100 ml @ 9 mls/hr Q11H7M IV 11/05/24 15:00 11/07/24 20:02 9 MLS/HR Phenylephrine HCl 80 mg/Sodium Chloride 250 ml @ 7.5 mls/hr Q24H IV 11/06/24 08:30 11/08/24 05:18 33.75 MLS/HR Norepinephrine Bitartrate 32 mg/ Sodium Chloride 250 ml @ 0.938 mls/ hr Q24H IV 11/06/24 08:30 Linezolid 300 ml @ 150 mls/hr Q12HR IV 11/06/24 10:00 11/07/24 23:30 150 MLS/HR Sodium Acetate 60 meq/Calcium Gluconate 6.95 meq/Magnesium Sulfate 12 meq/ Multivitamins 10 ml/Insulin Human Regular 20 units/ Amino Acids/ Dextrose/Purified Water 1,108.1462 ml @ 46 mls/hr Q24H6M IV 11/07/24 22:00 11/08/24 21:59 11/07/24 21:37 46 MLS/HR Albumin Human 100 ml @ 100 mls/hr Q4HR IV 11/07/24 14:00 11/08/24 05:14 100 MLS/HR Laboratory Results Laboratory Tests 11/08/24 03:06 11/08/24 05:52 Chemistry Test 11/07/24 11:57 11/08/24 03:06 Calcium Level 5.7 mg/dL (8.7-10.4) *L 7.8 mg/dL (8.7-10.4) L Albumin 3.6 g/dL (3.2-4.8) Magnesium Level 2.1 mg/dL (1.6-2.6) Phosphorus Level 5.2 mg/dL (2.4-5.1) H Total Protein 4.6 g/dL (5.7-8.2) L LFT Test 11/08/24 03:06 Alanine Aminotransferase (ALT) 497 U/L (7-40) H Alkaline Phosphatase 735 U/L (46-116) H Aspartate Amino Transferase (AST) > 1000 U/L (13-40) H Total Bilirubin 16.8 mg/dL (0.2-1.0) H Urinalysis Test 10/31/24 16:09 Urine Color Dark-yellow (Yellow) Urine Clarity Turbid (Clear) H Urine pH 5.5 (5.0-9.0) Urine Specific [place] 1.020 (1.001-1.035) Urine Protein Negative (Negative) Urine Ketones 1+ (Negative) H Urine Blood Trace /uL (Negative) H Urine Nitrite Negative (Negative) Urine Bilirubin 1+ (Negative) H Urine Urobilinogen 4 mg/dL (Negative) H Urine Leukocyte Esterase 1+ /uL (Negative) Urine RBC 2 /hpf (0 - 4) Urine Microscopic WBC 16 /HPF (0-5) H Urine Squamous Epithelial Cells Few /hpf (<5) Urine Calcium Oxalate Crystals Few (None Seen) Urine Bacteria Few /hpf (None Seen) H Urine Hyaline Casts Few /lpf (0 - 2) Urine Mucus Few (None Seen) Urine Glucose Normal mg/dL (Normal) Blood Gas Results Test 11/08/24 07:02 Arterial Blood pH 7.274 (7.350-7.450) FiO2 % 45.0 Microbiology Microbiology Date/Time Source Procedure Growth Status 11/02/24 15:27 Sputum Gram Stain - Final Complete 11/02/24 15:27 Sputum Respiratory Culture - Final Complete 11/02/24 14:49 Peritoneal Fluid Gram Stain - Final Resulted 11/02/24 14:49 Peritoneal Fluid Anaerobic Culture - Final Resulted 11/02/24 14:49 Peritoneal Fluid Aerobic Culture - Preliminary Resulted Labs and/or images reviewed: Labs reviewed by me, Image(s) reviewed by me Assessment/Plan Assessment/Plan Impression: -syncope with collapse -perforated gastric ulcer -acute hypoxic respiratory failure -hyperkalemia -metastatic breast cancer -sirs secondary to gastric ulcer -Septic Shock -Hypoglycemia -ALEXIA, VMN, ATN -SVT Plan: Events: Continues to have copious amount of FREDRICK drainage, serous in nature. Urine output decreased to 20 mL yesterday evening. Long discussion made with the patient's daughter regarding poor prognosis. Continues to want to continue full code status. -upper GI series if okay with surgery -nephrology consultation -continue PPI -continue antibiotic therapy with Merrem and Zyvox and micafungin -potassium magnesium replacement -decrease sodium bicarbonate drip to 75 mL/hour -further recommendations per General surgery -continue current ventilator settings , CPAP per tyre fitter. -repeat labs, chest x-ray, ABG in a.m. -overall poor prognosis given patient has metastatic cancer prior to acute/emergent abdominal surgery. Critical care time spent with patient discussing and formulating plan of care: 90 minutes. This does not include time spent performing procedures. This medical document was created using an electronic medical record system with [employer] dictation system. Although this document has been carefully reviewed, there may still be some phonetic and typographical errors. These areas are purely typographical due to imperfections of the software programs, and do not reflect any compromise in the patient's medical care. Plan discussed with: Patient, Other (Daughter, RN) My Orders Orders - KINGSTON GARCIA NP Procedure Category Date Status Time *Dr. [facility] CONS 11/07/24 Transmitted -[place] 07:39 Abdomen Limited US 11/07/24 Resulted 07:47 Complete Blood Count LAB 11/09/24 Verified 05:00 Complete Blood Count LAB 11/10/24 Verified 05:00 Complete Blood Count LAB 11/11/24 Verified 05:00 Echo 2d Mode Cardiac US 11/07/24 Resulted DOP 08:53 Amino Acid PHA 11/07/24 In Process Infusion... W/Sodium 22:00 Tpn Per Pharmacy [facility] 11/07/24 In Process 22:00 Meropenem 500mg PHA 11/07/24 In Process [facility] (Merrem 18:00 Chest Portable XY 11/08/24 Resulted 04:00 Abg W/ Co-Ox RT 11/08/24 Logged 04:00 Date of Service: November 08, 2024 Billing Provider: KINGSTON GARCIA NP Common Visit Codes: [id number] CARE 30-74 MIN KINGSTON GARCIA NP November 08, 2024 07:44
--- NOTE | 2024-11-08 07:46 | DVHPN2 ---
Subjective Date Seen: November 08, 2024 Post op day Post op day: 6 Patient reports: Other (intubated/sedated, VSS) Objective Vitals Vital Sign Date Time Temp Pulse Resp B/P (MAP) Pulse Ox O2 Delivery O2 Flow Rate FiO2 11/08/24 06:45 99.0 106 20 107/50 (69) 92 210.2 11/08/24 06:00 45 11/07/24 20:00 Mechanical Ventilator+ Total Intake and Output 11/07/24 11/07/24 11/08/24 15:00 23:00 07:00 Intake Total 921.510 ml 865.234 ml 857.915 ml Output Total 1900 ml 1670 ml Balance 921.510 ml -1034.766 ml -812.085 ml Medications Current Medications Medications Dose Ordered Sig/Shellie Route Start Time Stop Time Status Last Admin Dose Admin Acetaminophen/ Hydrocodone Bitart 1 tab Q4HP PRN PO 10/31/24 11:45 11/02/24 04:40 1 TAB Acetaminophen 650 mg Q6HP PRN PO 10/31/24 11:45 11/02/24 03:46 650 MG Ondansetron HCl 4 mg Q4HPRN PRN IV 11/01/24 14:15 UNV Morphine Sulfate 2 mg Q4HPRN PRN IV 11/02/24 08:30 11/02/24 08:35 2 MG Hydromorphone HCl 1 mg Q2HPRN PRN IV 11/02/24 14:45 Ondansetron HCl 4 mg Q4HPRN PRN IV 11/02/24 14:45 Midazolam HCl 50 ml @ 1 mls/hr Q24H IV 11/02/24 14:45 Propofol 100 ml @ 2.079 mls/ hr Q24H IV 11/02/24 15:30 Cancel Propofol 100 ml @ 2.079 mls/ hr Q24H IV 11/02/24 17:15 11/07/24 21:55 4.158 MLS/HR Amino Acids 0 ml @ 0 mls/hr PER PHARMACY IV 11/03/24 16:15 Diagnostic Test (Pha) 1 strip Q6HR 11/03/24 18:00 11/08/24 05:15 1 STRIP Insulin Human Regular FOLLOW SLIDING SCALE Q6HR SC 11/03/24 18:00 11/08/24 05:17 4 UNITS Dextrose 50 ml UD IV 11/03/24 18:00 11/03/24 18:02 50 ML Albuterol 2.5 mg Q6HR NEB 11/04/24 12:00 11/08/24 06:00 2.5 MG Ipratropium [place] 0.5 mg Q6HR NEB 11/04/24 12:00 11/08/24 06:00 0.5 MG Pantoprazole Sodium 40 mg BID IV 11/04/24 10:00 11/07/24 21:32 40 MG Fentanyl Citrate 250 ml @ 0 mls/hr Q0M IV 11/05/24 15:00 11/05/24 17:01 2.5 MLS/HR Vasopressin 20 units/Sodium Chloride 100 ml @ 9 mls/hr Q11H7M IV 11/05/24 15:00 11/07/24 20:02 9 MLS/HR Phenylephrine HCl 80 mg/Sodium Chloride 250 ml @ 7.5 mls/hr Q24H IV 11/06/24 08:30 11/08/24 05:18 33.75 MLS/HR Norepinephrine Bitartrate 32 mg/ Sodium Chloride 250 ml @ 0.938 mls/ hr Q24H IV 11/06/24 08:30 Linezolid 300 ml @ 150 mls/hr Q12HR IV 11/06/24 10:00 11/07/24 23:30 150 MLS/HR Sodium Acetate 60 meq/Calcium Gluconate 6.95 meq/Magnesium Sulfate 12 meq/ Multivitamins 10 ml/Insulin Human Regular 20 units/ Amino Acids/ Dextrose/Purified Water 1,108.1462 ml @ 46 mls/hr Q24H6M IV 11/07/24 22:00 11/08/24 21:59 11/07/24 21:37 46 MLS/HR Albumin Human 100 ml @ 100 mls/hr Q4HR IV 11/07/24 14:00 11/08/24 05:14 100 MLS/HR General: Other (INTUBATED/SEDATED) Head/Eyes: Normal, Atraumatic Lungs: Other (INTUBATED, B/L BS ) Cardiovascular: Regular rate and rhythm, BP/pulses equal bilat. Abdominal: Soft, Other (SOFT, NONDISTENDED, INCISION C/D/I W PREVENA, FREDRICK W S/S, MCADAMS) Extremities: Normal, No clubbing, No cyanosis, No edema Skin: Normal, Normal color Labs and Microbiology Laboratory Tests 11/08/24 05:52 11/08/24 03:06 Test 11/08/24 03:06 Range/Units Serum Glucose 184 H 74-106 mg/dL Ass/Plan Labs and/or images reviewed: Labs reviewed by me, Image(s) reviewed by me Problem List 11/05/24 essentially unchanged, wound clean and well approximated, voluminous ascitic drainage, ( serous,clear), abdomen non distended. 11/06/24 REMAINS INTUBATED AND SEDARED, HEMODYNAMICALLY STABLE, ABDOMEN NON DISTENDED, DRAINAGE CLEAR, ASCITES Assessment/Plan s/p josiah patch repair of gastric perforation no changes to plan discussed with Dr. Kim continue current treatment 11/08/24 s/p josiah patch repair of gastric perforation POD#6 remains intubated, drainage clear ascites abdomen slightly distended Plan: Continue current treatment Prognosis: Poor Plan discussed with Dr. Kim Visit Coding Surgery Date of Service if different f: November 08, 2024 Billing Provider: STEPAN KIM MD Surgery Visit Codes: [id number] INP/OBS CARE(HIGH) PING PETERS RN ELIGIBILITY November 08, 2024 07:46
--- NOTE | 2024-11-08 08:22 | DVHPN2 ---
Progress Note - Dictate Date Seen: November 08, 2024 Medical Necessity Reason Pt with a Central, PICC or Fol: No vital signs Vital Sign Date Time Temp Pulse Resp B/P (MAP) Pulse Ox O2 Delivery O2 Flow Rate FiO2 11/08/24 08:10 105 24 103/48 (66) 92 45 11/08/24 07:45 98.8 209.8 11/07/24 20:00 Mechanical Ventilator+ Total Intake and Output 11/07/24 11/07/24 11/08/24 15:00 23:00 07:00 Intake Total 921.510 ml 865.234 ml 857.915 ml Output Total 1900 ml 1670 ml Balance 921.510 ml -1034.766 ml -812.085 ml medications Current Medications Medications Dose Ordered Sig/Shellie Route Start Time Stop Time Status Last Admin Dose Admin Acetaminophen/ Hydrocodone Bitart 1 tab Q4HP PRN PO 10/31/24 11:45 11/02/24 04:40 1 TAB Acetaminophen 650 mg Q6HP PRN PO 10/31/24 11:45 11/02/24 03:46 650 MG Ondansetron HCl 4 mg Q4HPRN PRN IV 11/01/24 14:15 UNV Morphine Sulfate 2 mg Q4HPRN PRN IV 11/02/24 08:30 11/02/24 08:35 2 MG Hydromorphone HCl 1 mg Q2HPRN PRN IV 11/02/24 14:45 Ondansetron HCl 4 mg Q4HPRN PRN IV 11/02/24 14:45 Midazolam HCl 50 ml @ 1 mls/hr Q24H IV 11/02/24 14:45 Propofol 100 ml @ 2.079 mls/ hr Q24H IV 11/02/24 15:30 Cancel Propofol 100 ml @ 2.079 mls/ hr Q24H IV 11/02/24 17:15 11/07/24 21:55 4.158 MLS/HR Amino Acids 0 ml @ 0 mls/hr PER PHARMACY IV 11/03/24 16:15 Diagnostic Test (Pha) 1 strip Q6HR 11/03/24 18:00 11/08/24 05:15 1 STRIP Insulin Human Regular FOLLOW SLIDING SCALE Q6HR SC 11/03/24 18:00 11/08/24 05:17 4 UNITS Dextrose 50 ml UD IV 11/03/24 18:00 11/03/24 18:02 50 ML Albuterol 2.5 mg Q6HR NEB 11/04/24 12:00 11/08/24 06:00 2.5 MG Ipratropium [place] 0.5 mg Q6HR NEB 11/04/24 12:00 11/08/24 06:00 0.5 MG Pantoprazole Sodium 40 mg BID IV 11/04/24 10:00 11/07/24 21:32 40 MG Fentanyl Citrate 250 ml @ 0 mls/hr Q0M IV 11/05/24 15:00 11/05/24 17:01 2.5 MLS/HR Vasopressin 20 units/Sodium Chloride 100 ml @ 9 mls/hr Q11H7M IV 11/05/24 15:00 11/07/24 20:02 9 MLS/HR Phenylephrine HCl 80 mg/Sodium Chloride 250 ml @ 7.5 mls/hr Q24H IV 11/06/24 08:30 11/08/24 05:18 33.75 MLS/HR Norepinephrine Bitartrate 32 mg/ Sodium Chloride 250 ml @ 0.938 mls/ hr Q24H IV 11/06/24 08:30 Linezolid 300 ml @ 150 mls/hr Q12HR IV 11/06/24 10:00 11/07/24 23:30 150 MLS/HR Sodium Acetate 60 meq/Calcium Gluconate 6.95 meq/Magnesium Sulfate 12 meq/ Multivitamins 10 ml/Insulin Human Regular 20 units/ Amino Acids/ Dextrose/Purified Water 1,108.1462 ml @ 46 mls/hr Q24H6M IV 11/07/24 22:00 11/08/24 21:59 11/07/24 21:37 46 MLS/HR Albumin Human 100 ml @ 100 mls/hr Q4HR IV 11/07/24 14:00 11/08/24 05:14 100 MLS/HR Micafungin Sodium 100 mg/Sodium Chloride 100 ml @ 100 mls/hr DAILY IV 11/08/24 10:00 laboratory and microbiology Laboratory Tests 11/08/24 05:52 11/08/24 03:06 Test 11/08/24 03:06 Range/Units Serum Glucose 184 H 74-106 mg/dL Assessment/Plan Impression Acute hypoxemic respiratory failure Perforated gastric ulcer Breast cancer with mets Septic shock Fall S/p gastric ulcer repair Patient seen and examined in ICU Events On mechanical ventilation S/p intubation PEEP 5, FiO2 45% On 3 pressors for hemodynamics worsening metabolic acidosis ALEXIA started on bicarb drip Labs and imaging reviewed ABG reviewed Consistent with acidosis Management plan Vent support Titrate to maintain sats 90% or above hemodynamically worse Continue antibiotics F/u cultures Bronchodilators Monitor renal function Monitor electrolytes Supplement as needed Pressors as needed for hemodynamic support To maintain a mean arterial pressure of 65 mmHg F/u general surgery DVT prophylaxis prognosis v poor Critical care time 35 minutes Dietary Evaluation Review Comments: 1. TPN to meet at least 75% estimated needs 2. Monitor CMP and triglycerides, TPN tolerance, wt trend, I/O Expected Outcomes/Goals: To meet >75% estimated needs within 7 days Fu 2-3 days Protein Calorie Malnutrition: Severe Plan discussed with: Other (rn) TRISTIN STOUT MD November 08, 2024 08:22
--- NOTE | 2024-11-08 09:48 | DVHPN2 ---
Progress Note Date Seen: November 08, 2024 Medical Necessity Reason Pt with a Central, PICC or Fol: Yes The following are medically ne: Central Line, Rivers Catheter Subjective Patient reports: Other Review of Systems: Deferred Objective vital signs Vital Sign Date Time Temp Pulse Resp B/P (MAP) Pulse Ox O2 Delivery O2 Flow Rate FiO2 11/08/24 08:10 105 24 103/48 (66) 92 45 11/08/24 08:00 Mechanical Ventilator+ 11/08/24 07:45 98.8 209.8 Total Intake and Output 11/07/24 11/07/24 11/08/24 15:00 23:00 07:00 Intake Total 921.510 ml 865.234 ml 1130.915 ml Output Total 1900 ml 1670 ml Balance 921.510 ml -1034.766 ml -539.085 ml medications Current Medications Medications Dose Ordered Sig/Shellie Route Start Time Stop Time Status Last Admin Dose Admin Acetaminophen/ Hydrocodone Bitart 1 tab Q4HP PRN PO 10/31/24 11:45 11/02/24 04:40 1 TAB Acetaminophen 650 mg Q6HP PRN PO 10/31/24 11:45 11/02/24 03:46 650 MG Ondansetron HCl 4 mg Q4HPRN PRN IV 11/01/24 14:15 UNV Morphine Sulfate 2 mg Q4HPRN PRN IV 11/02/24 08:30 11/02/24 08:35 2 MG Hydromorphone HCl 1 mg Q2HPRN PRN IV 11/02/24 14:45 Ondansetron HCl 4 mg Q4HPRN PRN IV 11/02/24 14:45 Midazolam HCl 50 ml @ 1 mls/hr Q24H IV 11/02/24 14:45 Propofol 100 ml @ 2.079 mls/ hr Q24H IV 11/02/24 15:30 Cancel Propofol 100 ml @ 2.079 mls/ hr Q24H IV 11/02/24 17:15 11/07/24 21:55 4.158 MLS/HR Amino Acids 0 ml @ 0 mls/hr PER PHARMACY IV 11/03/24 16:15 Diagnostic Test (Pha) 1 strip Q6HR 11/03/24 18:00 11/08/24 05:15 1 STRIP Insulin Human Regular FOLLOW SLIDING SCALE Q6HR SC 11/03/24 18:00 11/08/24 05:17 4 UNITS Dextrose 50 ml UD IV 11/03/24 18:00 11/03/24 18:02 50 ML Albuterol 2.5 mg Q6HR NEB 11/04/24 12:00 11/08/24 06:00 2.5 MG Ipratropium [place] 0.5 mg Q6HR NEB 11/04/24 12:00 11/08/24 06:00 0.5 MG Pantoprazole Sodium 40 mg BID IV 11/04/24 10:00 11/08/24 09:08 40 MG Fentanyl Citrate 250 ml @ 0 mls/hr Q0M IV 11/05/24 15:00 11/05/24 17:01 2.5 MLS/HR Vasopressin 20 units/Sodium Chloride 100 ml @ 9 mls/hr Q11H7M IV 11/05/24 15:00 11/07/24 20:02 9 MLS/HR Phenylephrine HCl 80 mg/Sodium Chloride 250 ml @ 7.5 mls/hr Q24H IV 11/06/24 08:30 11/08/24 05:18 33.75 MLS/HR Norepinephrine Bitartrate 32 mg/ Sodium Chloride 250 ml @ 0.938 mls/ hr Q24H IV 11/06/24 08:30 Linezolid 300 ml @ 150 mls/hr Q12HR IV 11/06/24 10:00 11/08/24 09:08 150 MLS/HR Sodium Acetate 60 meq/Calcium Gluconate 6.95 meq/Magnesium Sulfate 12 meq/ Multivitamins 10 ml/Insulin Human Regular 20 units/ Amino Acids/ Dextrose/Purified Water 1,108.1462 ml @ 46 mls/hr Q24H6M IV 11/07/24 22:00 11/08/24 21:59 11/07/24 21:37 46 MLS/HR Albumin Human 100 ml @ 100 mls/hr Q4HR IV 11/07/24 14:00 11/08/24 09:07 100 MLS/HR Micafungin Sodium 100 mg/Sodium Chloride 100 ml @ 100 mls/hr DAILY IV 11/08/24 10:00 Examination: GENERAL:Abnormal, LUNGS:Abnormal, CVS:Abnormal, ABDOMEN:Abnormal, SKIN:Abnormal laboratory and microbiology Laboratory Tests 11/08/24 05:52 11/08/24 03:06 Test 11/08/24 03:06 Range/Units Serum Glucose 184 H 74-106 mg/dL Microbiology Date/Time Source Procedure Growth Status 11/02/24 15:27 Sputum Gram Stain - Final Complete 11/02/24 15:27 Sputum Respiratory Culture - Final Complete 11/02/24 14:49 Peritoneal Fluid Gram Stain - Final Resulted 11/02/24 14:49 Peritoneal Fluid Anaerobic Culture - Final Resulted 11/02/24 14:49 Peritoneal Fluid Aerobic Culture - Preliminary Resulted Problem List/Assessment/Plan Problem List/Assessment/Plan 83-year-old female with history of metastatic cancer presents to the hospital with abdominal pain was diagnosed with pneumoperitoneum is now postop ex lap for gastric ulcer repair Acute kidney injury likely prerenal in the setting of significant volume loss , hemodynamics and third-spacing No previous history of kidney disease Metastatic cancer Acute pneumoperitoneum status post surgery Acute respiratory failure Severe hypoalbuminemia Hyperkalemia Metabolic acidosis Shock on pressors septic Patient is still has significant serosanguineous ascites drainage from FREDRICK drain Continue with IV albumin Monitor patient's input and output from all drains pressors and drips Sodium bicarbonate IV push today Monitoring urinary output Maintain mean arterial pressure greater than 65 Patient is not long-term candidate for hemodialysis due to chronic medical conditions however this time she does not require emergent acute hemodialysis however her function is declining notably declining Critically ill we will require close monitoring very poor prognosis given patient's terminal cancer condition Critical care time spent 35 minutes Plan discussed with: Other My Orders My Orders Orders - ROBERTO CARLOS EMMANUEL MD Procedure Category Date Status Time Albumin 25% (Albutein) PHA 11/07/24 In Process 14:00 Basic Metabolic Panel LAB 11/09/24 Verified 04:00 Sodium Bicarb PHA 11/08/24 Verified 50meq/50ml Vial 09:45 Dietary Evaluation Review Comments: 1. TPN to meet at least 75% estimated needs 2. Monitor CMP and triglycerides, TPN tolerance, wt trend, I/O Expected Outcomes/Goals: To meet >75% estimated needs within 7 days Fu 2-3 days Protein Calorie Malnutrition: Severe Critical Care Time (mins): 36 ROBERTO CARLOS EMMANUEL MD November 08, 2024 09:48
[2024-11-08] MEDS: SODIUM BICARB 8.4% 50Meq/50ml SYR Vial IV ONE ×3 (10:26→17:08)
[2024-11-08] MEDS: MICAFUNGIN SODIUM 100 MG in SODIUM CHL 0.9% 100 ML IV SCH (10:29)
--- NOTE | 2024-11-08 10:48 | ECG ---
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
--- NOTE | 2024-11-08 10:49 | ECG ---
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
[2024-11-08] MEDS: CALCIUM GLUC 1,000mg/50ml-NS 50 ML IV ONE (13:09)
[2024-11-08] MEDS: TPN PER PHARMACY IV NR (21:06)
[2024-11-08 23:15] LABS: Base Excess -5.6 mmol/L (-2.0-3.0)
[2024-11-09] VITALS (108 sets, daily range): BP systolic 43–179; BP diastolic 23–62; PULSE 66–156; RESP 12–23; TEMP 96.8–99.5; O2SAT 74–97
[2024-11-09] MEDS: DOPamine 1600MCG/ML D5W 250 ML IV ONE (00:40)
[2024-11-09 01:26] LABS: Mean Corpuscular Hgb Conc. 34.3 g/dL (32.0-36.0)
[2024-11-09] MEDS: SODIUM BICARB 8.4% 50Meq/50ml SYR Vial IV ONE (01:26)
[2024-11-09 01:28] LABS: Hematocrit 29.1 % (36.0-46.0); Mean Corpuscular Hemoglobin 32.8 pg (28.0-32.0); Mean Corpuscular Volume 95.5 fL (80.0-100.0); Platelet Count (auto) 47 10^3/uL (140-450); Red Blood Cells 3.04 10^6/uL (4.0-5.20); Red Cell Distribution Width 23.6 % (11.8-14.3); White Blood Cell 17.1 10^3/uL (4.4-10.8)
[2024-11-09 01:30] LABS: Basophils % (manual) 0 (0.0-2.0); Blast Cells 0; Metamyelocytes % 0; Myelocytes % 0; Promyelocytes % 0; Reactive Lymphocytes 0
[2024-11-09 01:39] LABS: Albumin 3.9 g/dL (3.2-4.8); Anion Gap 15 (5-15); Carbon Dioxide 22 mmol/L (20-31); Chloride 102 mmol/L (98-107); Magnesium 2.3 mg/dL (1.6-2.6); Potassium 3.9 mmol/L (3.5-5.1); Sodium 139 mmol/L (136-145)
[2024-11-09 01:46] LABS: BUN/Creatinine Ratio 20.2 (10.0-20.0)
[2024-11-09 01:48] LABS: Alanine Aminotransferase 237 U/L (7-40); Alkaline Phosphatase 407 U/L (46-116); Bilirubin, Total 15.1 mg/dL (0.2-1.0); Blood Urea Nitrogen 49 mg/dL (9-23); Calcium 7.3 mg/dL (8.7-10.4); Glucose 133 mg/dL (74-106); Phosphorus 5.3 mg/dL (2.4-5.1); Total Protein 4.4 g/dL (5.7-8.2)
[2024-11-09 02:04] LABS: Aspartate Aminotransferase 2022 U/L (13-40)
[2024-11-09 02:39] LABS: Anisocytosis Slight; Band Neutrophils % (manual) 11; Eosinophils % (manual) 3 (0-7); Hypochromia Slight; Lymphocytes % (manual) 3 (10.0-50.0); Monocytes % (manual) 12 (0-12); Target Cell FEW
[2024-11-09 02:40] LABS: Large Platelets FEW; Platelet Estimate Decreased
[2024-11-09] MEDS: EPINEPHrine HCL 250 ML IV SCH (03:18)
[2024-11-09] MEDS: DOPamine 1600MCG/ML D5W 250 ML IV SCH (03:18)
--- NOTE | 2024-11-09 03:31 | DVH ---
CHEST RADIOGRAPH Indication: PATIENT INTUBATED Technique: Single frontal view of the chest was obtained COMPARISON: XY CHEST PORTABLE on DOS: 11/08/24, XY CHEST PORTABLE on DOS: 11/07/24, XY CHEST PORTABLE o n DOS: 11/06/24, XY CHEST PORTABLE on DOS: 11/05/24, XY CHEST PORTABLE on DOS: 11/04/24 FINDINGS: Lines and Tubes: Unchanged. Lungs: There are diminished lung volumes with resultant exaggeration of the pulmonary vasculature. No evidence of focal consolidation. Pleura: No effusion. No pneumothorax. Cardiomediastinal contours: Unremarkable Bones: Unremarkable IMPRESSION: 1. No acute disease. 2. Lines and tubes unchanged.
[2024-11-09 07:38] LABS: Base Excess -8.3 mmol/L (-2.0-3.0)
--- NOTE | 2024-11-09 09:30 | DVHPN2 ---
Subjective Patient chemically sedated Reviewed: Care Plan, H&P, Labs, Medications, Previous Orders, Radiology Changes from previous H/P or p: No Changes General: Per HPI Objective Vitals Vital Signs Date Time Temp Pulse Resp B/P (MAP) Pulse Ox O2 Delivery O2 Flow Rate FiO2 11/09/24 09:17 109/52 11/09/24 08:15 99.0 136 20 77 210.2 11/09/24 08:00 100 11/09/24 08:00 Mechanical Ventilator+ Intake/Output Intake and Output 11/09/24 07:00 Intake Total 4854.222 ml Output Total 3315 ml Balance 1539.222 ml Intake Oral 0 ml IV Total 4854.222 ml Tube Feeding 0 ml Output Urine Total 65 ml Stool Total 0 ml Gastric Drainage Total 1100 ml Drainage Total 2150 ml General Appearance: severe distress, Other (Some distress with the abdominal pain) HEENT: Atraumatic, PERRLA, Mucous membr. moist/pink Lungs: Clear to auscultation Cardiovascular: Regular rate, Normal S1, Normal S2 Abdomen: Normal bowel sounds, Soft, No tenderness, Other (Hypoactive bowel sounds. Dressing dry and intact.) Neuro: Other (Unable to assess) Skin: Dry, Intact, Wounds (See nurse notes and pictures) Psych/Mental Status: Other (Unable to assess) Medications Current Medications Medications Dose Ordered Sig/Shellie Route Start Time Stop Time Status Last Admin Dose Admin Acetaminophen/ Hydrocodone Bitart 1 tab Q4HP PRN PO 10/31/24 11:45 11/02/24 04:40 1 TAB Acetaminophen 650 mg Q6HP PRN PO 10/31/24 11:45 11/02/24 03:46 650 MG Ondansetron HCl 4 mg Q4HPRN PRN IV 11/01/24 14:15 UNV Morphine Sulfate 2 mg Q4HPRN PRN IV 11/02/24 08:30 11/02/24 08:35 2 MG Hydromorphone HCl 1 mg Q2HPRN PRN IV 11/02/24 14:45 Ondansetron HCl 4 mg Q4HPRN PRN IV 11/02/24 14:45 Midazolam HCl 50 ml @ 1 mls/hr Q24H IV 11/02/24 14:45 Propofol 100 ml @ 2.079 mls/ hr Q24H IV 11/02/24 15:30 Cancel Propofol 100 ml @ 2.079 mls/ hr Q24H IV 11/02/24 17:15 11/08/24 14:24 4.158 MLS/HR Amino Acids 0 ml @ 0 mls/hr PER PHARMACY IV 11/03/24 16:15 Diagnostic Test (Pha) 1 strip Q6HR 11/03/24 18:00 11/09/24 05:37 1 STRIP Insulin Human Regular FOLLOW SLIDING SCALE Q6HR SC 11/03/24 18:00 11/09/24 05:38 2 UNITS Dextrose 50 ml UD IV 11/03/24 18:00 11/03/24 18:02 50 ML Albuterol 2.5 mg Q6HR NEB 11/04/24 12:00 11/09/24 05:53 2.5 MG Ipratropium [place] 0.5 mg Q6HR NEB 11/04/24 12:00 11/09/24 05:53 0.5 MG Pantoprazole Sodium 40 mg BID IV 11/04/24 10:00 11/08/24 21:05 40 MG Fentanyl Citrate 250 ml @ 0 mls/hr Q0M IV 11/05/24 15:00 11/05/24 17:01 2.5 MLS/HR Vasopressin 20 units/Sodium Chloride 100 ml @ 9 mls/hr Q11H7M IV 11/05/24 15:00 11/09/24 09:17 9 MLS/HR Phenylephrine HCl 80 mg/Sodium Chloride 250 ml @ 7.5 mls/hr Q24H IV 11/06/24 08:30 11/09/24 09:18 33.75 MLS/HR Norepinephrine Bitartrate 32 mg/ Sodium Chloride 250 ml @ 0.938 mls/ hr Q24H IV 11/06/24 08:30 11/09/24 09:17 14.063 MLS/HR Linezolid 300 ml @ 150 mls/hr Q12HR IV 11/06/24 10:00 11/08/24 21:05 150 MLS/HR Albumin Human 100 ml @ 100 mls/hr Q4HR IV 11/07/24 14:00 11/09/24 05:37 100 MLS/HR Micafungin Sodium 100 mg/Sodium Chloride 100 ml @ 100 mls/hr DAILY IV 11/08/24 10:00 11/08/24 10:29 100 MLS/HR Sodium Acetate 60 meq/Calcium Gluconate 9.3 meq/ Magnesium Sulfate 12 meq/ Multivitamins 10 ml/Insulin Human Regular 22 units/ Amino Acids/ Dextrose/Purified Water 1,263.22 ml @ 53 mls/hr [id number] IV 11/08/24 22:00 11/09/24 21:59 11/08/24 21:06 53 MLS/HR Epinephrine HCl 250 ml @ 7.5 mls/hr Q24H IV 11/08/24 22:45 11/09/24 03:18 37.5 MLS/HR Dopamine HCl/ Dextrose 250 ml @ 14.831 mls/ hr [id number] IV 11/09/24 01:15 11/09/24 06:47 59.325 MLS/HR Laboratory Results Laboratory Tests 11/09/24 01:10 Chemistry Test 11/09/24 01:10 Albumin 3.9 g/dL (3.2-4.8) Calcium Level 7.3 mg/dL (8.7-10.4) L Magnesium Level 2.3 mg/dL (1.6-2.6) Phosphorus Level 5.3 mg/dL (2.4-5.1) H Total Protein 4.4 g/dL (5.7-8.2) L LFT Test 11/09/24 01:10 Alanine Aminotransferase (ALT) 237 U/L (7-40) H Alkaline Phosphatase 407 U/L (46-116) H Aspartate Amino Transferase (AST) 2022 U/L (13-40) H Total Bilirubin 15.1 mg/dL (0.2-1.0) H Urinalysis Test 10/31/24 16:09 Urine Color Dark-yellow (Yellow) Urine Clarity Turbid (Clear) H Urine pH 5.5 (5.0-9.0) Urine Specific [place] 1.020 (1.001-1.035) Urine Protein Negative (Negative) Urine Ketones 1+ (Negative) H Urine Blood Trace /uL (Negative) H Urine Nitrite Negative (Negative) Urine Bilirubin 1+ (Negative) H Urine Urobilinogen 4 mg/dL (Negative) H Urine Leukocyte Esterase 1+ /uL (Negative) Urine RBC 2 /hpf (0 - 4) Urine Microscopic WBC 16 /HPF (0-5) H Urine Squamous Epithelial Cells Few /hpf (<5) Urine Calcium Oxalate Crystals Few (None Seen) Urine Bacteria Few /hpf (None Seen) H Urine Hyaline Casts Few /lpf (0 - 2) Urine Mucus Few (None Seen) Urine Glucose Normal mg/dL (Normal) Blood Gas Results Test 11/08/24 23:07 11/09/24 07:00 Arterial Blood pH 7.309 (7.350-7.450) 7.256 (7.350-7.450) FiO2 % 50.0 100.0 Microbiology Microbiology Date/Time Source Procedure Growth Status 11/02/24 15:27 Sputum Gram Stain - Final Complete 11/02/24 15:27 Sputum Respiratory Culture - Final Complete 11/02/24 14:49 Peritoneal Fluid Gram Stain - Final Resulted 11/02/24 14:49 Peritoneal Fluid Anaerobic Culture - Final Resulted 11/02/24 14:49 Peritoneal Fluid Aerobic Culture - Preliminary Resulted Labs and/or images reviewed: Labs reviewed by me, Image(s) reviewed by me Assessment/Plan Assessment/Plan Impression: -syncope with collapse -perforated gastric ulcer -acute hypoxic respiratory failure -hyperkalemia -metastatic breast cancer -sirs secondary to gastric ulcer -Septic Shock -Hypoglycemia -ALEXIA, VMN, ATN -SVT Plan: Events: Worsening shock with max dose of 5 vasopressors. ? DIC, shock liver, ARF/ALEXIA. Discussed with Daughter. Patient now DNR. -upper GI series if okay with surgery -nephrology consultation -continue PPI -continue antibiotic therapy with Merrem and Zyvox and micafungin -further recommendations per General surgery -continue current ventilator settings , CPAP per high school counselor. -repeat labs, chest x-ray, ABG in a.m. -overall poor prognosis given patient has metastatic cancer prior to acute/emergent abdominal surgery. Critical care time spent with patient discussing and formulating plan of care: 90 minutes. This does not include time spent performing procedures. This medical document was created using an electronic medical record system with [employer] system. Although this document has been carefully reviewed, there may still be some phonetic and typographical errors. These areas are purely typographical due to imperfections of the software programs, and do not reflect any compromise in the patient's medical care. Plan discussed with: Patient, Other (RN, Daughter) My Orders Orders - KINGSTON GARCIA NP Procedure Category Date Status Time Amino Acid PHA 11/08/24 In Process Infusion... W/Sodium 22:00 Tpn Per Pharmacy LEILANI 11/08/24 In Process 22:00 Chest Portable XY 11/09/24 Resulted 04:00 Abg W/ Co-Ox RT 11/09/24 Logged 04:00 Date of Service: Nov 09, 2024 Billing Provider: KINGSTON GARCIA NP Common Visit Codes: 89333-RYGKUQCG CARE 30-74 MIN, 31075-TKSMBRSJ CARE-EACH +30MIN KINGSTON GARCIA NP Nov 09, 2024 09:30
--- NOTE | 2024-11-09 10:38 | DVHPN2 ---
Progress Note Date Seen: Nov 09, 2024 Medical Necessity Reason Pt with a Central, PICC or Fol: Yes The following are medically ne: Central Line, Cosby Catheter Reason for cosby catheter: Strict I&O Subjective Review of Systems: Deferred Objective vital signs Vital Sign Date Time Temp Pulse Resp B/P (MAP) Pulse Ox O2 Delivery O2 Flow Rate FiO2 11/09/24 10:15 99.5 130 20 110/53 (72) 81 211.1 11/09/24 09:14 100 11/09/24 08:00 Mechanical Ventilator+ Total Intake and Output 11/08/24 11/08/24 11/09/24 15:00 23:00 07:00 Intake Total 1634 ml 1268.854 ml 1951.368 ml Output Total 2115 ml 1200 ml Balance 1634 ml -846.146 ml 751.368 ml medications Current Medications Medications Dose Ordered Sig/Shellie Route Start Time Stop Time Status Last Admin Dose Admin Acetaminophen/ Hydrocodone Bitart 1 tab Q4HP PRN PO 10/31/24 11:45 11/02/24 04:40 1 TAB Acetaminophen 650 mg Q6HP PRN PO 10/31/24 11:45 11/02/24 03:46 650 MG Ondansetron HCl 4 mg Q4HPRN PRN IV 11/01/24 14:15 UNV Morphine Sulfate 2 mg Q4HPRN PRN IV 11/02/24 08:30 11/02/24 08:35 2 MG Hydromorphone HCl 1 mg Q2HPRN PRN IV 11/02/24 14:45 Ondansetron HCl 4 mg Q4HPRN PRN IV 11/02/24 14:45 Midazolam HCl 50 ml @ 1 mls/hr Q24H IV 11/02/24 14:45 Propofol 100 ml @ 2.079 mls/ hr Q24H IV 11/02/24 15:30 Cancel Propofol 100 ml @ 2.079 mls/ hr Q24H IV 11/02/24 17:15 11/08/24 14:24 4.158 MLS/HR Amino Acids 0 ml @ 0 mls/hr PER PHARMACY IV 11/03/24 16:15 Diagnostic Test (Pha) 1 strip Q6HR 11/03/24 18:00 11/09/24 05:37 1 STRIP Insulin Human Regular FOLLOW SLIDING SCALE Q6HR SC 11/03/24 18:00 11/09/24 05:38 2 UNITS Dextrose 50 ml UD IV 11/03/24 18:00 11/03/24 18:02 50 ML Albuterol 2.5 mg Q6HR NEB 11/04/24 12:00 11/09/24 05:53 2.5 MG Ipratropium [place] 0.5 mg Q6HR NEB 11/04/24 12:00 11/09/24 05:53 0.5 MG Pantoprazole Sodium 40 mg BID IV 11/04/24 10:00 11/09/24 09:25 40 MG Fentanyl Citrate 250 ml @ 0 mls/hr Q0M IV 11/05/24 15:00 11/05/24 17:01 2.5 MLS/HR Vasopressin 20 units/Sodium Chloride 100 ml @ 9 mls/hr Q11H7M IV 11/05/24 15:00 11/09/24 09:17 9 MLS/HR Phenylephrine HCl 80 mg/Sodium Chloride 250 ml @ 7.5 mls/hr Q24H IV 11/06/24 08:30 11/09/24 09:18 33.75 MLS/HR Norepinephrine Bitartrate 32 mg/ Sodium Chloride 250 ml @ 0.938 mls/ hr Q24H IV 11/06/24 08:30 11/09/24 09:17 14.063 MLS/HR Linezolid 300 ml @ 150 mls/hr Q12HR IV 11/06/24 10:00 11/09/24 10:29 150 MLS/HR Albumin Human 100 ml @ 100 mls/hr Q4HR IV 11/07/24 14:00 11/09/24 05:37 100 MLS/HR Micafungin Sodium 100 mg/Sodium Chloride 100 ml @ 100 mls/hr DAILY IV 11/08/24 10:00 11/09/24 09:26 100 MLS/HR Sodium Acetate 60 meq/Calcium Gluconate 9.3 meq/ Magnesium Sulfate 12 meq/ Multivitamins 10 ml/Insulin Human Regular 22 units/ Amino Acids/ Dextrose/Purified Water 1,263.22 ml @ 53 mls/hr [id number] IV 11/08/24 22:00 11/09/24 21:59 11/08/24 21:06 53 MLS/HR Epinephrine HCl 250 ml @ 7.5 mls/hr Q24H IV 11/08/24 22:45 11/09/24 03:18 37.5 MLS/HR Dopamine HCl/ Dextrose 250 ml @ 14.831 mls/ hr [id number] IV 11/09/24 01:15 11/09/24 09:31 59.325 MLS/HR Examination: GENERAL:Abnormal, LUNGS:Abnormal, ABDOMEN:Abnormal, SKIN:Abnormal, NEURO:Abnormal laboratory and microbiology Laboratory Tests 11/09/24 01:10 Test 11/09/24 01:10 Range/Units Serum Glucose 133 H 74-106 mg/dL Microbiology Date/Time Source Procedure Growth Status 11/02/24 15:27 Sputum Gram Stain - Final Complete 11/02/24 15:27 Sputum Respiratory Culture - Final Complete 11/02/24 14:49 Peritoneal Fluid Gram Stain - Final Complete 11/02/24 14:49 Peritoneal Fluid Anaerobic Culture - Final Complete 11/02/24 14:49 Aerobic Culture - Final Streptococcus anginosus Complete Problem List/Assessment/Plan Problem List/Assessment/Plan 83-year-old female with history of metastatic cancer presents to the hospital with abdominal pain was diagnosed with pneumoperitoneum is now postop ex lap for gastric ulcer repair Acute kidney injury likely prerenal in the setting of significant volume loss , hemodynamics and third-spacing No previous history of kidney disease Metastatic cancer Acute pneumoperitoneum status post surgery Acute respiratory failure Severe hypoalbuminemia , severe anasarca Hyperkalemia Metabolic acidosis Shock on pressors septic Patient is still has significant serosanguineous ascites drainage from multiple drains , recorded 3.5L approx drained in last 24hrs she is currently on 4 pressors max Continue with IV albumin Monitor patient's input and output from all drains pressors and drips Sodium bicarbonate IV push today Monitoring urinary output Maintain mean arterial pressure greater than 65 From medical standpoint patient prognosis is grim , she cannot tolerate HD due to instability. Per primary team now DNR. She is not a dialysis candidate, rest of care per primary team Critical care time spent 35 minutes Plan discussed with: Other Dietary Evaluation Review Comments: 1. TPN to meet at least 75% estimated needs 2. Monitor CMP and triglycerides, TPN tolerance, wt trend, I/O Expected Outcomes/Goals: To meet >75% estimated needs within 7 days Fu 2-3 days Protein Calorie Malnutrition: Severe ROBERTO CARLOS EMMANUEL MD Nov 09, 2024 10:38
[2024-11-09] MEDS: CALCIUM GLUC 1,000mg/50ml-NS 50 ML IV SCH (11:29)
--- NOTE | 2024-11-09 11:59 | DVHPN2 ---
Progress Note - Dictate Date Seen: Nov 09, 2024 Medical Necessity Reason Pt with a Central, PICC or Fol: Yes The following are medically ne: Central Line, Cosby Catheter Reason for cosby catheter: Strict I&O vital signs Vital Sign Date Time Temp Pulse Resp B/P (MAP) Pulse Ox O2 Delivery O2 Flow Rate FiO2 11/09/24 11:24 125 20 154/55 (88) 100 11/09/24 10:15 99.5 81 211.1 11/09/24 08:00 Mechanical Ventilator+ Total Intake and Output 11/08/24 11/08/24 11/09/24 15:00 23:00 07:00 Intake Total 1634 ml 1268.854 ml 1951.368 ml Output Total 2115 ml 1200 ml Balance 1634 ml -846.146 ml 751.368 ml medications Current Medications Medications Dose Ordered Sig/Shellie Route Start Time Stop Time Status Last Admin Dose Admin Acetaminophen/ Hydrocodone Bitart 1 tab Q4HP PRN PO 10/31/24 11:45 11/02/24 04:40 1 TAB Acetaminophen 650 mg Q6HP PRN PO 10/31/24 11:45 11/02/24 03:46 650 MG Ondansetron HCl 4 mg Q4HPRN PRN IV 11/01/24 14:15 UNV Morphine Sulfate 2 mg Q4HPRN PRN IV 11/02/24 08:30 11/02/24 08:35 2 MG Hydromorphone HCl 1 mg Q2HPRN PRN IV 11/02/24 14:45 Ondansetron HCl 4 mg Q4HPRN PRN IV 11/02/24 14:45 Midazolam HCl 50 ml @ 1 mls/hr Q24H IV 11/02/24 14:45 Propofol 100 ml @ 2.079 mls/ hr Q24H IV 11/02/24 15:30 Cancel Propofol 100 ml @ 2.079 mls/ hr Q24H IV 11/02/24 17:15 11/08/24 14:24 4.158 MLS/HR Diagnostic Test (Pha) 1 strip Q6HR 11/03/24 18:00 11/09/24 11:35 1 STRIP Insulin Human Regular FOLLOW SLIDING SCALE Q6HR SC 11/03/24 18:00 11/09/24 05:38 2 UNITS Dextrose 50 ml UD IV 11/03/24 18:00 11/03/24 18:02 50 ML Albuterol 2.5 mg Q6HR NEB 11/04/24 12:00 11/09/24 11:23 2.5 MG Ipratropium [place] 0.5 mg Q6HR NEB 11/04/24 12:00 11/09/24 11:23 0.5 MG Pantoprazole Sodium 40 mg BID IV 11/04/24 10:00 11/09/24 09:25 40 MG Fentanyl Citrate 250 ml @ 0 mls/hr Q0M IV 11/05/24 15:00 11/05/24 17:01 2.5 MLS/HR Vasopressin 20 units/Sodium Chloride 100 ml @ 9 mls/hr Q11H7M IV 11/05/24 15:00 11/09/24 09:17 9 MLS/HR Phenylephrine HCl 80 mg/Sodium Chloride 250 ml @ 7.5 mls/hr Q24H IV 11/06/24 08:30 11/09/24 09:18 33.75 MLS/HR Norepinephrine Bitartrate 32 mg/ Sodium Chloride 250 ml @ 0.938 mls/ hr Q24H IV 11/06/24 08:30 11/09/24 09:17 14.063 MLS/HR Linezolid 300 ml @ 150 mls/hr Q12HR IV 11/06/24 10:00 11/09/24 10:29 150 MLS/HR Albumin Human 100 ml @ 100 mls/hr Q4HR IV 11/07/24 14:00 11/09/24 11:09 100 MLS/HR Micafungin Sodium 100 mg/Sodium Chloride 100 ml @ 100 mls/hr DAILY IV 11/08/24 10:00 11/09/24 09:26 100 MLS/HR Sodium Acetate 60 meq/Calcium Gluconate 9.3 meq/ Magnesium Sulfate 12 meq/ Multivitamins 10 ml/Insulin Human Regular 22 units/ Amino Acids/ Dextrose/Purified Water 1,263.22 ml @ 53 mls/hr [id number] IV 11/08/24 22:00 11/09/24 21:59 11/08/24 21:06 53 MLS/HR Epinephrine HCl 250 ml @ 7.5 mls/hr Q24H IV 11/08/24 22:45 11/09/24 03:18 37.5 MLS/HR Dopamine HCl/ Dextrose 250 ml @ 14.831 mls/ hr [id number] IV 11/09/24 01:15 11/09/24 09:31 59.325 MLS/HR Fat Emulsion Intravenous 100 ml/Sodium Chloride 40 meq/ Calcium Gluconate 9.3 meq/Magnesium Sulfate 6 meq/ Multivitamins 10 ml/Chromium/ Copper/Manganese/ Zinc 1 ml/Insulin Human Regular 22 units/Amino Acids/ Dextrose/Purified Water 1,292.72 ml @ 54 mls/hr [id number] IV 11/09/24 22:00 11/10/24 21:59 Amino Acids 0 ml @ 0 mls/hr PER PHARMACY IV 11/09/24 12:00 UNV laboratory and microbiology Laboratory Tests 11/09/24 01:10 Test 11/09/24 01:10 Range/Units Serum Glucose 133 H 74-106 mg/dL Assessment/Plan Impression Acute hypoxemic respiratory failure Perforated gastric ulcer Breast cancer with mets Septic shock Fall S/p gastric ulcer repair Patient seen and examined in ICU Events pt declining On mechanical ventilation S/p intubation PEEP 5, FiO2 45% On 5 pressors for hemodynamics worsening metabolic acidosis ALEXIA labs multi-organ failure DIC Management plan Vent support Titrate to maintain sats 90% or above Continue antibiotics F/u cultures Bronchodilators Monitor renal function Monitor electrolytes Supplement as needed Pressors as needed for hemodynamic support To maintain a mean arterial pressure of 65 mmHg DVT prophylaxis DNR prognosis v poor Critical care time 35 minutes Dietary Evaluation Review Comments: 1. TPN to meet at least 75% estimated needs 2. Monitor CMP and triglycerides, TPN tolerance, wt trend, I/O Expected Outcomes/Goals: To meet >75% estimated needs within 7 days Fu 2-3 days Protein Calorie Malnutrition: Severe Plan discussed with: Other (rn) TRISTIN STOUT MD Nov 09, 2024 11:59
[2024-11-09] MEDS ORDERED: CLINIMIX PER PHARMACY 0 ML IV SCH (12:00)
--- NOTE | 2024-11-09 12:18 | DVHPN2 ---
Progress Note Date Seen: Nov 09, 2024 Medical Necessity Reason Pt with a Central, PICC or Fol: Yes The following are medically ne: Central Line, Cosby Catheter Reason for cosby catheter: Strict I&O Objective vital signs Vital Sign Date Time Temp Pulse Resp B/P (MAP) Pulse Ox O2 Delivery O2 Flow Rate FiO2 11/09/24 11:24 125 20 154/55 (88) 100 11/09/24 10:15 99.5 81 211.1 11/09/24 08:00 Mechanical Ventilator+ Total Intake and Output 11/08/24 11/08/24 11/09/24 15:00 23:00 07:00 Intake Total 1634 ml 1268.854 ml 1951.368 ml Output Total 2115 ml 1200 ml Balance 1634 ml -846.146 ml 751.368 ml medications Current Medications Medications Dose Ordered Sig/Shellie Route Start Time Stop Time Status Last Admin Dose Admin Acetaminophen/ Hydrocodone Bitart 1 tab Q4HP PRN PO 10/31/24 11:45 11/02/24 04:40 1 TAB Acetaminophen 650 mg Q6HP PRN PO 10/31/24 11:45 11/02/24 03:46 650 MG Ondansetron HCl 4 mg Q4HPRN PRN IV 11/01/24 14:15 UNV Morphine Sulfate 2 mg Q4HPRN PRN IV 11/02/24 08:30 11/02/24 08:35 2 MG Hydromorphone HCl 1 mg Q2HPRN PRN IV 11/02/24 14:45 Ondansetron HCl 4 mg Q4HPRN PRN IV 11/02/24 14:45 Midazolam HCl 50 ml @ 1 mls/hr Q24H IV 11/02/24 14:45 Propofol 100 ml @ 2.079 mls/ hr Q24H IV 11/02/24 15:30 Cancel Propofol 100 ml @ 2.079 mls/ hr Q24H IV 11/02/24 17:15 11/08/24 14:24 4.158 MLS/HR Diagnostic Test (Pha) 1 strip Q6HR 11/03/24 18:00 11/09/24 11:35 1 STRIP Insulin Human Regular FOLLOW SLIDING SCALE Q6HR SC 11/03/24 18:00 11/09/24 05:38 2 UNITS Dextrose 50 ml UD IV 11/03/24 18:00 11/03/24 18:02 50 ML Albuterol 2.5 mg Q6HR NEB 11/04/24 12:00 11/09/24 11:23 2.5 MG Ipratropium [place] 0.5 mg Q6HR NEB 11/04/24 12:00 11/09/24 11:23 0.5 MG Pantoprazole Sodium 40 mg BID IV 11/04/24 10:00 11/09/24 09:25 40 MG Fentanyl Citrate 250 ml @ 0 mls/hr Q0M IV 11/05/24 15:00 11/05/24 17:01 2.5 MLS/HR Vasopressin 20 units/Sodium Chloride 100 ml @ 9 mls/hr Q11H7M IV 11/05/24 15:00 11/09/24 09:17 9 MLS/HR Phenylephrine HCl 80 mg/Sodium Chloride 250 ml @ 7.5 mls/hr Q24H IV 11/06/24 08:30 11/09/24 09:18 33.75 MLS/HR Norepinephrine Bitartrate 32 mg/ Sodium Chloride 250 ml @ 0.938 mls/ hr Q24H IV 11/06/24 08:30 11/09/24 09:17 14.063 MLS/HR Linezolid 300 ml @ 150 mls/hr Q12HR IV 11/06/24 10:00 11/09/24 10:29 150 MLS/HR Albumin Human 100 ml @ 100 mls/hr Q4HR IV 11/07/24 14:00 11/09/24 11:09 100 MLS/HR Micafungin Sodium 100 mg/Sodium Chloride 100 ml @ 100 mls/hr DAILY IV 11/08/24 10:00 11/09/24 09:26 100 MLS/HR Sodium Acetate 60 meq/Calcium Gluconate 9.3 meq/ Magnesium Sulfate 12 meq/ Multivitamins 10 ml/Insulin Human Regular 22 units/ Amino Acids/ Dextrose/Purified Water 1,263.22 ml @ 53 mls/hr [id number] IV 11/08/24 22:00 11/09/24 21:59 11/08/24 21:06 53 MLS/HR Epinephrine HCl 250 ml @ 7.5 mls/hr Q24H IV 11/08/24 22:45 11/09/24 03:18 37.5 MLS/HR Dopamine HCl/ Dextrose 250 ml @ 14.831 mls/ hr [id number] IV 11/09/24 01:15 11/09/24 09:31 59.325 MLS/HR Fat Emulsion Intravenous 100 ml/Sodium Chloride 40 meq/ Calcium Gluconate 9.3 meq/Magnesium Sulfate 6 meq/ Multivitamins 10 ml/Chromium/ Copper/Manganese/ Zinc 1 ml/Insulin Human Regular 22 units/Amino Acids/ Dextrose/Purified Water 1,292.72 ml @ 54 mls/hr [id number] IV 11/09/24 22:00 11/10/24 21:59 Amino Acids 0 ml @ 0 mls/hr PER PHARMACY IV 11/09/24 12:00 UNV laboratory and microbiology Laboratory Tests 11/09/24 01:10 Test 11/09/24 01:10 Range/Units Serum Glucose 133 H 74-106 mg/dL Problem List/Assessment/Plan Problem List/Assessment/Plan 11/05/24 essentially unchanged, wound clean and well approximated, voluminous ascitic drainage, ( serous,clear), abdomen non distended. 11/06/24 REMAINS INTUBATED AND SEDARED, HEMODYNAMICALLY STABLE, ABDOMEN NON DISTENDED, DRAINAGE CLEAR, ASCITES 11/09/24 INTUBATED, UNCONSCIOUS, ACCORDING TO NURSE PATIENT'S FAMILY WISHE TO PROCEED WITH DNR, I AGREE WITH THAT DECISION, SHOULD CONSIDER TERMINAL WEAN. N O FURTHER SURGICAL INTERVENTIONS NEEDED ,WOUND CLEAN AND WELL APPROXIMATED, VOLUMINOUS ASCITES BEING DRAINED Plan discussed with: Other Dietary Evaluation Review Comments: 1. TPN to meet at least 75% estimated needs 2. Monitor CMP and triglycerides, TPN tolerance, wt trend, I/O Expected Outcomes/Goals: To meet >75% estimated needs within 7 days Fu 2-3 days Protein Calorie Malnutrition: Severe STEPAN SAENZ MD Nov 09, 2024 12:18
--- NOTE | 2024-11-09 13:54 | MEDREC ---
[facility] ASP Intervention Section I [facility] ASP Intervention: Review courses of therapy (PLEASE CONSIDER REVIEWING COURSE OF THERAPY BASED ON CULTURE RESULTS IF CLINICALLY APPROPRIATE - 4 DAYS ON LINEZOLID PLATELET COUNT DROPPING - PLEASE CONSIDER SWITCHING TO ANOTHER ANTIBIOTIC IF CLINICALLY RELEVANT) SURY BARR PHARMACIST Nov 09, 2024 13:54
[2024-11-09] MEDS: ALBUMIN 25% 100 ML IV SCH (18:41)
[2024-11-09] MEDS ORDERED: TPN PER PHARMACY IV NR (22:00)
[2024-11-09] MEDS: AMINO ACID INFUSION IN D10W 1,000 ML IV SCH (22:27)
[2024-11-10] VITALS (108 sets, daily range): BP systolic 46–134; BP diastolic 27–49; PULSE 107–141; RESP 19–21; TEMP 96.6–100.2; O2SAT 71–88
[2024-11-10 03:45] LABS: Hematocrit 26.6 % (36.0-46.0); Mean Corpuscular Volume 97.2 fL (80.0-100.0); Platelet Count (auto) 26 10^3/uL (140-450); Red Blood Cells 2.73 10^6/uL (4.0-5.20); Red Cell Distribution Width 24.3 % (11.8-14.3); White Blood Cell 17.8 10^3/uL (4.4-10.8)
[2024-11-10 03:59] LABS: Anion Gap 18 (5-15); Basophils % (manual) 0 (0.0-2.0); Blast Cells 0; Chloride 98 mmol/L (98-107); Magnesium 2.3 mg/dL (1.6-2.6); Metamyelocytes % 0; Myelocytes % 0; Promyelocytes % 0; Reactive Lymphocytes 0
[2024-11-10 04:05] LABS: BUN/Creatinine Ratio 18.8 (10.0-20.0)
[2024-11-10 04:08] LABS: Alanine Aminotransferase 117 U/L (7-40); Alkaline Phosphatase 244 U/L (46-116); Aspartate Aminotransferase 771 U/L (13-40); Bilirubin, Total 14.8 mg/dL (0.2-1.0); Blood Urea Nitrogen 51 mg/dL (9-23); Calcium 7.8 mg/dL (8.7-10.4); Carbon Dioxide 16 mmol/L (20-31); Glucose 121 mg/dL (74-106); Phosphorus 5.4 mg/dL (2.4-5.1); Potassium 3.5 mmol/L (3.5-5.1); Sodium 132 mmol/L (136-145); Total Protein 4.5 g/dL (5.7-8.2)
[2024-11-10 05:33] LABS: Band Neutrophils % (manual) 7; Eosinophils % (manual) 2 (0-7); Lymphocytes % (manual) 7 (10.0-50.0); Monocytes % (manual) 8 (0-12); Smudge Cells 1 /100 WBC
[2024-11-10 05:35] LABS: Large Platelets FEW; Platelet Estimate Decrea
--- NOTE | 2024-11-10 10:02 | DVHPN2 ---
Subjective Patient chemically sedated Reviewed: Care Plan, H&P, Labs, Medications, Previous Orders, Radiology Changes from previous H/P or p: No Changes General: Per HPI Objective Vitals Vital Signs Date Time Temp Pulse Resp B/P (MAP) Pulse Ox O2 Delivery O2 Flow Rate FiO2 11/10/24 09:45 123 20 72/39 (50) 83 100 11/10/24 08:15 98.4 209.1 11/10/24 08:00 Mechanical Ventilator+ Intake/Output Intake and Output 11/10/24 07:00 Intake Total 6181.062 ml Output Total 5945 ml Balance 236.062 ml Intake Oral 0 ml IV Total 6181.062 ml Tube Feeding 0 ml Output Urine Total 95 ml Stool Total 0 ml Gastric Drainage Total 950 ml Drainage Total 4900 ml General Appearance: severe distress, Other (Some distress with the abdominal pain) HEENT: Atraumatic, PERRLA, Mucous membr. moist/pink Lungs: Clear to auscultation Cardiovascular: Regular rate, Normal S1, Normal S2 Abdomen: Normal bowel sounds, Soft, No tenderness, Other (Hypoactive bowel sounds. Dressing dry and intact.) Neuro: Other (Unable to assess) Skin: Dry, Intact, Wounds (See nurse notes and pictures) Psych/Mental Status: Other (Unable to assess) Medications Current Medications Medications Dose Ordered Sig/Shellie Route Start Time Stop Time Status Last Admin Dose Admin Acetaminophen/ Hydrocodone Bitart 1 tab Q4HP PRN PO 10/31/24 11:45 11/02/24 04:40 1 TAB Acetaminophen 650 mg Q6HP PRN PO 10/31/24 11:45 11/02/24 03:46 650 MG Ondansetron HCl 4 mg Q4HPRN PRN IV 11/01/24 14:15 UNV Morphine Sulfate 2 mg Q4HPRN PRN IV 11/02/24 08:30 11/02/24 08:35 2 MG Hydromorphone HCl 1 mg Q2HPRN PRN IV 11/02/24 14:45 Ondansetron HCl 4 mg Q4HPRN PRN IV 11/02/24 14:45 Midazolam HCl 50 ml @ 1 mls/hr Q24H IV 11/02/24 14:45 11/09/24 23:41 1 MLS/HR Propofol 100 ml @ 2.079 mls/ hr Q24H IV 11/02/24 15:30 Cancel Propofol 100 ml @ 2.079 mls/ hr Q24H IV 11/02/24 17:15 11/08/24 14:24 4.158 MLS/HR Diagnostic Test (Pha) 1 strip Q6HR 11/03/24 18:00 11/10/24 06:16 1 STRIP Insulin Human Regular FOLLOW SLIDING SCALE Q6HR SC 11/03/24 18:00 11/09/24 05:38 2 UNITS Dextrose 50 ml UD IV 11/03/24 18:00 11/10/24 00:35 50 ML Albuterol 2.5 mg Q6HR NEB 11/04/24 12:00 11/10/24 05:56 2.5 MG Ipratropium [place] 0.5 mg Q6HR NEB 11/04/24 12:00 11/10/24 05:56 0.5 MG Pantoprazole Sodium 40 mg BID IV 11/04/24 10:00 11/10/24 09:32 40 MG Fentanyl Citrate 250 ml @ 0 mls/hr Q0M IV 11/05/24 15:00 11/10/24 00:29 22.5 MLS/HR Vasopressin 20 units/Sodium Chloride 100 ml @ 9 mls/hr Q11H7M IV 11/05/24 15:00 11/10/24 07:53 9 MLS/HR Phenylephrine HCl 80 mg/Sodium Chloride 250 ml @ 7.5 mls/hr Q24H IV 11/06/24 08:30 11/10/24 07:54 33.75 MLS/HR Norepinephrine Bitartrate 32 mg/ Sodium Chloride 250 ml @ 0.938 mls/ hr Q24H IV 11/06/24 08:30 11/10/24 02:54 14.063 MLS/HR Micafungin Sodium 100 mg/Sodium Chloride 100 ml @ 100 mls/hr DAILY IV 11/08/24 10:00 11/10/24 09:32 100 MLS/HR Epinephrine HCl 250 ml @ 7.5 mls/hr Q24H IV 11/08/24 22:45 11/10/24 04:28 37.5 MLS/HR Dopamine HCl/ Dextrose 250 ml @ 14.831 mls/ hr [id number] IV 11/09/24 01:15 6/2/25 07:55 59.325 MLS/HR Fat Emulsion Intravenous 100 ml/Sodium Chloride 40 meq/ Calcium Gluconate 9.3 meq/Magnesium Sulfate 6 meq/ Multivitamins 10 ml/Chromium/ Copper/Manganese/ Zinc 1 ml/Insulin Human Regular 22 units/Amino Acids/ Dextrose/Purified Water 1,292.72 ml @ 54 mls/hr [id number] IV 11/09/24 22:00 11/10/24 21:59 Cancel Amino Acids 0 ml @ 0 mls/hr PER PHARMACY IV 11/09/24 12:00 Amino Acids/ Electrolytes/ Dextrose 1,000 ml @ 41 mls/hr DAILY@2200 IV 11/09/24 22:00 11/09/24 22:27 41 MLS/HR Albumin Human 100 ml @ 100 mls/hr Q4HR IV 11/09/24 18:15 11/10/24 09:33 100 MLS/HR Laboratory Results Laboratory Tests 11/10/24 03:07 Chemistry Test 11/10/24 03:07 Albumin 4.0 g/dL (3.2-4.8) Calcium Level 7.8 mg/dL (8.7-10.4) L Magnesium Level 2.3 mg/dL (1.6-2.6) Phosphorus Level 5.4 mg/dL (2.4-5.1) H Total Protein 4.5 g/dL (5.7-8.2) L LFT Test 11/10/24 03:07 Alanine Aminotransferase (ALT) 117 U/L (7-40) H Alkaline Phosphatase 244 U/L (46-116) H Aspartate Amino Transferase (AST) 771 U/L (13-40) H Total Bilirubin 14.8 mg/dL (0.2-1.0) H Urinalysis Test 10/31/24 16:09 Urine Color Dark-yellow (Yellow) Urine Clarity Turbid (Clear) H Urine pH 5.5 (5.0-9.0) Urine Specific [place] 1.020 (1.001-1.035) Urine Protein Negative (Negative) Urine Ketones 1+ (Negative) H Urine Blood Trace /uL (Negative) H Urine Nitrite Negative (Negative) Urine Bilirubin 1+ (Negative) H Urine Urobilinogen 4 mg/dL (Negative) H Urine Leukocyte Esterase 1+ /uL (Negative) Urine RBC 2 /hpf (0 - 4) Urine Microscopic WBC 16 /HPF (0-5) H Urine Squamous Epithelial Cells Few /hpf (<5) Urine Calcium Oxalate Crystals Few (None Seen) Urine Bacteria Few /hpf (None Seen) H Urine Hyaline Casts Few /lpf (0 - 2) Urine Mucus Few (None Seen) Urine Glucose Normal mg/dL (Normal) Microbiology Microbiology Date/Time Source Procedure Growth Status 11/02/24 15:27 Sputum Gram Stain - Final Complete 11/02/24 15:27 Sputum Respiratory Culture - Final Complete 11/02/24 14:49 Peritoneal Fluid Gram Stain - Final Complete 11/02/24 14:49 Peritoneal Fluid Anaerobic Culture - Final Complete 11/02/24 14:49 Aerobic Culture - Final Streptococcus anginosus Complete Labs and/or images reviewed: Labs reviewed by me, Image(s) reviewed by me Assessment/Plan Assessment/Plan Impression: -syncope with collapse -perforated gastric ulcer -acute hypoxic respiratory failure -hyperkalemia -metastatic breast cancer -sirs secondary to gastric ulcer -Septic Shock -Hypoglycemia -ALEXIA, VMN, ATN -SVT Plan: Events: Continues to be in shock secondary to sepsis with five vasopressors. Minimal urine output with worsening renal function. Noted bleeding from oral cavity and tremendous amount of FREDRICK output, serous/brown in color. -deescalate antibiotics, stop Zyvox given recent culture -nephrology consultation -continue PPI -check D-dimer, fibrinogen, fibrinogen split product, PT/PTT Continue current ventilator settings -repeat labs, chest x-ray, ABG in a.m. -overall poor prognosis given patient has metastatic cancer prior to acute/emergent abdominal surgery. Long discussion made with the patient's daughter yesterday morning. Continue DNR status at this time Critical care time spent with patient discussing and formulating plan of care: 40 minutes. This does not include time spent performing procedures. This medical document was created using an electronic medical record system with [employer] system. Although this document has been carefully reviewed, there may still be some phonetic and typographical errors. These areas are purely typographical due to imperfections of the software programs, and do not reflect any compromise in the patient's medical care. Plan discussed with: Patient, Other (RN) My Orders Orders - KINGSTON GARCIA PHONE REPRESENTATIVE Procedure Category Date Status Time Clinimix Per Pharmacy LEILANI 11/09/24 In Process 11:03 Clinimix Per Pharmacy PHA 11/09/24 In Process 12:00 Amino Acid Infusion PHA 11/09/24 In Process In D10w (Clinimix 4. 22:00 Clinimix Per Pharmacy LEILANI 11/09/24 In Process 22:00 DNR LEILANI 11/09/24 In Process 15:33 Code Status CODE 11/09/24 Transmitted 15:42 Chest Portable XY 11/11/24 Logged 04:00 PTPTT LAB 11/10/24 Transmitted 09:56 Fibrin Degredation LAB 11/10/24 Transmitted Products 09:56 Fibrinogen LAB 11/10/24 Transmitted 09:56 Parathyroid Hormone LAB 11/10/24 Logged Intact 09:58 Date of Service: Nov 10, 2024 Billing Provider: KINGSTON GARCIA PHONE REPRESENTATIVE Common Visit Codes: [id number] CARE 30-74 MIN KINGSTON GARCIA NP Nov 10, 2024 10:02
--- NOTE | 2024-11-10 11:22 | DVHPN2 ---
Progress Note Date Seen: Nov 10, 2024 Medical Necessity Reason Pt with a Central, PICC or Fol: Yes The following are medically ne: Central Line, Cosby Catheter Reason for cosby catheter: Strict I&O Subjective Review of Systems: RESPIRATORY:Abnormal Other Systems: Patient seen and examined by myself today in follow-up, patient remained intubated on ventilator Objective vital signs Vital Sign Date Time Temp Pulse Resp B/P (MAP) Pulse Ox O2 Delivery O2 Flow Rate FiO2 11/10/24 11:17 74/39 11/10/24 10:00 124 11/10/24 10:00 100 11/10/24 09:45 20 83 11/10/24 08:15 98.4 209.1 11/10/24 08:00 Mechanical Ventilator+ Total Intake and Output 11/09/24 11/09/24 11/10/24 15:00 23:00 07:00 Intake Total 2359 ml 1541.690 ml 2280.372 ml Output Total 1645 ml 4300 ml Balance 2359 ml -103.310 ml -2019.628 ml medications Current Medications Medications Dose Ordered Sig/Shellie Route Start Time Stop Time Status Last Admin Dose Admin Acetaminophen 650 mg Q6HP PRN PO 10/31/24 11:45 11/02/24 03:46 650 MG Ondansetron HCl 4 mg Q4HPRN PRN IV 11/01/24 14:15 UNV Ondansetron HCl 4 mg Q4HPRN PRN IV 11/02/24 14:45 Midazolam HCl 50 ml @ 1 mls/hr Q24H IV 11/02/24 14:45 11/09/24 23:41 1 MLS/HR Propofol 100 ml @ 2.079 mls/ hr Q24H IV 11/02/24 15:30 Cancel Propofol 100 ml @ 2.079 mls/ hr Q24H IV 11/02/24 17:15 11/08/24 14:24 4.158 MLS/HR Diagnostic Test (Pha) 1 strip Q6HR 11/03/24 18:00 11/10/24 06:16 1 STRIP Insulin Human Regular FOLLOW SLIDING SCALE Q6HR SC 11/03/24 18:00 11/09/24 05:38 2 UNITS Dextrose 50 ml UD IV 11/03/24 18:00 11/10/24 00:35 50 ML Albuterol 2.5 mg Q6HR NEB 11/04/24 12:00 11/10/24 05:56 2.5 MG Ipratropium [place] 0.5 mg Q6HR NEB 11/04/24 12:00 11/10/24 05:56 0.5 MG Pantoprazole Sodium 40 mg BID IV 11/04/24 10:00 11/10/24 09:32 40 MG Fentanyl Citrate 250 ml @ 0 mls/hr Q0M IV 11/05/24 15:00 11/10/24 10:41 22.5 MLS/HR Vasopressin 20 units/Sodium Chloride 100 ml @ 9 mls/hr Q11H7M IV 11/05/24 15:00 11/10/24 07:53 9 MLS/HR Phenylephrine HCl 80 mg/Sodium Chloride 250 ml @ 7.5 mls/hr Q24H IV 11/06/24 08:30 11/10/24 07:54 33.75 MLS/HR Norepinephrine Bitartrate 32 mg/ Sodium Chloride 250 ml @ 0.938 mls/ hr Q24H IV 11/06/24 08:30 11/10/24 02:54 14.063 MLS/HR Micafungin Sodium 100 mg/Sodium Chloride 100 ml @ 100 mls/hr DAILY IV 11/08/24 10:00 11/10/24 09:32 100 MLS/HR Epinephrine HCl 250 ml @ 7.5 mls/hr Q24H IV 11/08/24 22:45 11/10/24 10:40 37.5 MLS/HR Dopamine HCl/ Dextrose 250 ml @ 14.831 mls/ hr [id number] IV 11/09/24 01:15 11/10/24 11:17 59.325 MLS/HR Fat Emulsion Intravenous 100 ml/Sodium Chloride 40 meq/ Calcium Gluconate 9.3 meq/Magnesium Sulfate 6 meq/ Multivitamins 10 ml/Chromium/ Copper/Manganese/ Zinc 1 ml/Insulin Human Regular 22 units/Amino Acids/ Dextrose/Purified Water 1,292.72 ml @ 54 mls/hr [id number] IV 11/09/24 22:00 11/10/24 21:59 Cancel Amino Acids 0 ml @ 0 mls/hr PER PHARMACY IV 11/09/24 12:00 Amino Acids/ Electrolytes/ Dextrose 1,000 ml @ 41 mls/hr DAILY@2200 IV 11/09/24 22:00 11/09/24 22:27 41 MLS/HR Albumin Human 100 ml @ 100 mls/hr Q4HR IV 11/09/24 18:15 11/10/24 09:33 100 MLS/HR Examination: LUNGS:Normal, CVS:Normal, MSK:Normal laboratory and microbiology Laboratory Tests 11/10/24 03:07 Test 11/10/24 03:07 Range/Units Serum Glucose 121 H 74-106 mg/dL Microbiology Date/Time Source Procedure Growth Status 11/02/24 15:27 Sputum Gram Stain - Final Complete 11/02/24 15:27 Sputum Respiratory Culture - Final Complete 11/02/24 14:49 Peritoneal Fluid Gram Stain - Final Complete 11/02/24 14:49 Peritoneal Fluid Anaerobic Culture - Final Complete 11/02/24 14:49 Aerobic Culture - Final Streptococcus anginosus Complete Problem List/Assessment/Plan Problem List/Assessment/Plan Acute kidney injury likely prerenal in the setting of significant volume loss , hemodynamics and third-spacing No previous history of kidney disease Metastatic cancer Acute pneumoperitoneum status post surgery Acute respiratory failure , intubated on ventilator Severe hypoalbuminemia , severe anasarca Hyperkalemia , resolved Metabolic acidosis Septic shock Transaminitis Recommendations Kidney function is worsening Decreased urine output Cosby catheter Strict I&Os IV pressor for blood pressure support I agree with diuresis Albumin 25% IV piggyback IV antibiotics Poor prognosis Plan discussed with: Other My Orders My Orders Orders - SHMUEL MOTT MD Procedure Category Date Status Time Urine Sodium LAB 11/10/24 Logged 09:55 Vitamin D, 25-Hydroxy LAB 11/10/24 In Process 09:55 Urine LAB 11/10/24 Logged Protein/Creatinine Urine Creatinine LAB 11/10/24 Logged 09:55 Urinalysis LAB 11/10/24 Logged 09:55 Hepatitis C Antibody LAB 11/10/24 In Process 09:55 Hepatitis B Surface LAB 11/10/24 In Process Antigen 09:55 Dietary Evaluation Review Comments: 1. TPN to meet at least 75% estimated needs 2. Monitor CMP and triglycerides, TPN tolerance, wt trend, I/O Expected Outcomes/Goals: To meet >75% estimated needs within 7 days Fu 2-3 days Protein Calorie Malnutrition: Severe SHMUEL MOTT MD Nov 10, 2024 11:22
[2024-11-10 12:18] LABS: Hepatitis B Surface Antigen Negative (Negative); Hepatitis C Antibody Negative (Negative)
--- NOTE | 2024-11-10 12:43 | DVHPN2 ---
Progress Note Date Seen: Nov 10, 2024 Medical Necessity Reason Pt with a Central, PICC or Fol: Yes The following are medically ne: Central Line, Cosby Catheter Reason for cosby catheter: Strict I&O Objective vital signs Vital Sign Date Time Temp Pulse Resp B/P (MAP) Pulse Ox O2 Delivery O2 Flow Rate FiO2 11/10/24 12:00 97.4 110 20 72/36 (48) 78 97.4 105/47 (66) 11/10/24 12:00 100 11/10/24 08:00 Mechanical Ventilator+ Total Intake and Output 11/09/24 11/09/24 11/10/24 15:00 23:00 07:00 Intake Total 2359 ml 1541.690 ml 2280.372 ml Output Total 1645 ml 4300 ml Balance 2359 ml -103.310 ml -2019.628 ml medications Current Medications Medications Dose Ordered Sig/Shellie Route Start Time Stop Time Status Last Admin Dose Admin Acetaminophen 650 mg Q6HP PRN PO 10/31/24 11:45 11/02/24 03:46 650 MG Ondansetron HCl 4 mg Q4HPRN PRN IV 11/01/24 14:15 UNV Ondansetron HCl 4 mg Q4HPRN PRN IV 11/02/24 14:45 Midazolam HCl 50 ml @ 1 mls/hr Q24H IV 11/02/24 14:45 11/09/24 23:41 1 MLS/HR Propofol 100 ml @ 2.079 mls/ hr Q24H IV 11/02/24 15:30 Cancel Propofol 100 ml @ 2.079 mls/ hr Q24H IV 11/02/24 17:15 11/08/24 14:24 4.158 MLS/HR Diagnostic Test (Pha) 1 strip Q6HR 11/03/24 18:00 11/10/24 11:43 1 STRIP Insulin Human Regular FOLLOW SLIDING SCALE Q6HR SC 11/03/24 18:00 11/09/24 05:38 2 UNITS Dextrose 50 ml UD IV 11/03/24 18:00 11/10/24 00:35 50 ML Albuterol 2.5 mg Q6HR NEB 11/04/24 12:00 11/10/24 11:20 2.5 MG Ipratropium [place] 0.5 mg Q6HR NEB 11/04/24 12:00 11/10/24 11:20 0.5 MG Pantoprazole Sodium 40 mg BID IV 11/04/24 10:00 11/10/24 09:32 40 MG Fentanyl Citrate 250 ml @ 0 mls/hr Q0M IV 11/05/24 15:00 11/10/24 10:41 22.5 MLS/HR Vasopressin 20 units/Sodium Chloride 100 ml @ 9 mls/hr Q11H7M IV 11/05/24 15:00 11/10/24 07:53 9 MLS/HR Phenylephrine HCl 80 mg/Sodium Chloride 250 ml @ 7.5 mls/hr Q24H IV 11/06/24 08:30 11/10/24 07:54 33.75 MLS/HR Norepinephrine Bitartrate 32 mg/ Sodium Chloride 250 ml @ 0.938 mls/ hr Q24H IV 11/06/24 08:30 11/10/24 02:54 14.063 MLS/HR Micafungin Sodium 100 mg/Sodium Chloride 100 ml @ 100 mls/hr DAILY IV 11/08/24 10:00 11/10/24 09:32 100 MLS/HR Epinephrine HCl 250 ml @ 7.5 mls/hr Q24H IV 11/08/24 22:45 11/10/24 10:40 37.5 MLS/HR Dopamine HCl/ Dextrose 250 ml @ 14.831 mls/ hr [id number] IV 11/09/24 01:15 11/10/24 11:17 59.325 MLS/HR Fat Emulsion Intravenous 100 ml/Sodium Chloride 40 meq/ Calcium Gluconate 9.3 meq/Magnesium Sulfate 6 meq/ Multivitamins 10 ml/Chromium/ Copper/Manganese/ Zinc 1 ml/Insulin Human Regular 22 units/Amino Acids/ Dextrose/Purified Water 1,292.72 ml @ 54 mls/hr [id number] IV 11/09/24 22:00 11/10/24 21:59 Cancel Amino Acids 0 ml @ 0 mls/hr PER PHARMACY IV 11/09/24 12:00 Amino Acids/ Electrolytes/ Dextrose 1,000 ml @ 41 mls/hr DAILY@2200 IV 11/09/24 22:00 11/09/24 22:27 41 MLS/HR Albumin Human 100 ml @ 100 mls/hr Q4HR IV 11/09/24 18:15 11/10/24 09:33 100 MLS/HR Calcium Gluconate/ Sodium Chloride 50 ml @ 100 mls/hr Q30M IV 11/10/24 12:45 11/10/24 13:44 laboratory and microbiology Laboratory Tests 11/10/24 03:07 Test 11/10/24 03:07 Range/Units Serum Glucose 121 H 74-106 mg/dL Problem List/Assessment/Plan Problem List/Assessment/Plan 11/05/24 essentially unchanged, wound clean and well approximated, voluminous ascitic drainage, ( serous,clear), abdomen non distended. 11/06/24 REMAINS INTUBATED AND SEDARED, HEMODYNAMICALLY STABLE, ABDOMEN NON DISTENDED, DRAINAGE CLEAR, ASCITES 11/09/24 INTUBATED, UNCONSCIOUS, ACCORDING TO NURSE PATIENT'S FAMILY WISHE TO PROCEED WITH DNR, I AGREE WITH THAT DECISION, SHOULD CONSIDER TERMINAL WEAN. N O FURTHER SURGICAL INTERVENTIONS NEEDED ,WOUND CLEAN AND WELL APPROXIMATED, VOLUMINOUS ASCITES BEING DRAINED 11/10/24 sepsis, patient is "{unsalvageable" , according to nurse, daughter which was estranged from patient prior to this hospitalization is demanding that "everything be done" despite thorough explanation to her of the nature of the patient's problem (liver is completely replaced with metastatic cancer) patientg was DNR priromto this hospitalization. I believe she is suitable candidate for a terminal wean. Plan discussed with: Other Dietary Evaluation Review Comments: 1. TPN to meet at least 75% estimated needs 2. Monitor CMP and triglycerides, TPN tolerance, wt trend, I/O Expected Outcomes/Goals: To meet >75% estimated needs within 7 days Fu 2-3 days Protein Calorie Malnutrition: Severe STEPAN SAENZ MD Nov 10, 2024 12:43
[2024-11-10] MEDS: CALCIUM GLUC 1,000mg/50ml-NS 50 ML IV SCH (12:47)
[2024-11-10 13:33] LABS: Prothrombin Time 41.5 sec (9.3-11.8)
[2024-11-10 13:35] LABS: Fibrinogen 53 mg/dL (177-375); INR 4.49 (0.9-1.15); Partial Thromboplastin Time > 139.0 SEC (24.5-34.5)
--- NOTE | 2024-11-10 16:20 | DVHPN2 ---
Progress Note - Dictate Date Seen: Nov 10, 2024 Medical Necessity Reason Pt with a Central, PICC or Fol: Yes The following are medically ne: Central Line, Cosby Catheter Reason for cosby catheter: Strict I&O Subjective [facility] Patient seen and examined at bedside. Sedated, intubated on mechanical ventilator. Overnight events reviewed. vital signs Vital Sign Date Time Temp Pulse Resp B/P (MAP) Pulse Ox O2 Delivery O2 Flow Rate FiO2 11/10/24 16:00 99.5 118 20 54/33 (40) 79 211.1 110/35 (60) 11/10/24 16:00 100 11/10/24 08:00 Mechanical Ventilator+ Total Intake and Output 11/09/24 11/09/24 11/10/24 15:00 23:00 07:00 Intake Total 2359 ml 1541.690 ml 2280.372 ml Output Total 1645 ml 4300 ml Balance 2359 ml -103.310 ml -2019.628 ml medications Current Medications Medications Dose Ordered Sig/Shellie Route Start Time Stop Time Status Last Admin Dose Admin Acetaminophen 650 mg Q6HP PRN PO 10/31/24 11:45 11/02/24 03:46 650 MG Ondansetron HCl 4 mg Q4HPRN PRN IV 11/01/24 14:15 UNV Ondansetron HCl 4 mg Q4HPRN PRN IV 11/02/24 14:45 Midazolam HCl 50 ml @ 1 mls/hr Q24H IV 11/02/24 14:45 11/09/24 23:41 1 MLS/HR Propofol 100 ml @ 2.079 mls/ hr Q24H IV 11/02/24 15:30 Cancel Propofol 100 ml @ 2.079 mls/ hr Q24H IV 11/02/24 17:15 11/08/24 14:24 4.158 MLS/HR Diagnostic Test (Pha) 1 strip Q6HR 11/03/24 18:00 11/10/24 11:43 1 STRIP Insulin Human Regular FOLLOW SLIDING SCALE Q6HR SC 11/03/24 18:00 11/09/24 05:38 2 UNITS Dextrose 50 ml UD IV 11/03/24 18:00 11/10/24 00:35 50 ML Albuterol 2.5 mg Q6HR NEB 11/04/24 12:00 11/10/24 11:20 2.5 MG Ipratropium [place] 0.5 mg Q6HR NEB 11/04/24 12:00 11/10/24 11:20 0.5 MG Pantoprazole Sodium 40 mg BID IV 11/04/24 10:00 11/10/24 09:32 40 MG Fentanyl Citrate 250 ml @ 0 mls/hr Q0M IV 11/05/24 15:00 11/10/24 10:41 22.5 MLS/HR Vasopressin 20 units/Sodium Chloride 100 ml @ 9 mls/hr Q11H7M IV 11/05/24 15:00 11/10/24 07:53 9 MLS/HR Phenylephrine HCl 80 mg/Sodium Chloride 250 ml @ 7.5 mls/hr Q24H IV 11/06/24 08:30 11/10/24 14:47 33.75 MLS/HR Norepinephrine Bitartrate 32 mg/ Sodium Chloride 250 ml @ 0.938 mls/ hr Q24H IV 11/06/24 08:30 11/10/24 02:54 14.063 MLS/HR Micafungin Sodium 100 mg/Sodium Chloride 100 ml @ 100 mls/hr DAILY IV 11/08/24 10:00 11/10/24 09:32 100 MLS/HR Epinephrine HCl 250 ml @ 7.5 mls/hr Q24H IV 11/08/24 22:45 11/10/24 10:40 37.5 MLS/HR Dopamine HCl/ Dextrose 250 ml @ 14.831 mls/ hr [id number] IV 11/09/24 01:15 11/10/24 14:47 59.325 MLS/HR Fat Emulsion Intravenous 100 ml/Sodium Chloride 40 meq/ Calcium Gluconate 9.3 meq/Magnesium Sulfate 6 meq/ Multivitamins 10 ml/Chromium/ Copper/Manganese/ Zinc 1 ml/Insulin Human Regular 22 units/Amino Acids/ Dextrose/Purified Water 1,292.72 ml @ 54 mls/hr [id number] IV 11/09/24 22:00 11/10/24 21:59 Cancel Amino Acids 0 ml @ 0 mls/hr PER PHARMACY IV 11/09/24 12:00 Amino Acids/ Electrolytes/ Dextrose 1,000 ml @ 41 mls/hr DAILY@2200 IV 11/09/24 22:00 11/09/24 22:27 41 MLS/HR objective Gen.: Patient lying in bed in medical ICU. Sedated, intubated on mechanical ventilator. Head: Normocephalic, atraumatic. Eyes: PERRLA. Ears: Normal external anatomy. Throat: Endotracheal tube and orogastric tube in place. Neck: Supple, trachea midline. Chest: Transmitted breath sounds bilaterally. Decreased air entry bilaterally. No wheezing. Bibasilar crackles. Cardiovascular: Positive S1, positive S2. Regular rate and rhythm. Abdomen: Positive bowel sounds in all 4 quadrants. Soft, nontender, nondistended. : Cosby in place. Normal external genitalia. Rectal: Deferred. Skin: Warm, dry. Intact. Extremities: 2+ radial pulses bilaterally. No lower extremity edema. Neuro: Sedated. laboratory and microbiology Laboratory Tests 11/10/24 03:07 Test 11/10/24 03:07 Range/Units Serum Glucose 121 H 74-106 mg/dL Assessment/Plan Impression: Acute hypoxemic respiratory failure On mechanical ventilator Perforated gastric ulcer Breast cancer with mets Septic shock Multiorgan failure Fall S/p gastric ulcer repair Events: Patient seen and examined in ICU Pt declining Remains on mechanical ventilation S/p intubation AC mode with RR 20, VT 500, PEEP 5, FiO2 100% Maxed on 5 pressors for hemodynamics Levophed 30 mcg/min, Dopamine 20 mcg/min, epinephrine 10 mcg/min, Jeremy-Synephrine 180 mcg/min and vasopressin 0.03 units/min Titrate to keep MAP above 65 mmHg/SBP above 90 mmHg. Sedated on Versed, Fentanyl Clinimix for nutritional support Platelets/hemoglobin trending down. Overall poor prognosis with high likelihood of demise. worsening metabolic acidosis ALEXIA labs multi-organ failure DIC Labs and imaging reviewed Rest of plan as noted below Plan: Vent support Titrate to maintain sats 90% or above Maxed on 5 pressors for hemodynamics Levophed 30 mcg/min, Dopamine 20 mcg/min, epinephrine 10 mcg/min, Jeremy-Synephrine 180 mcg/min and vasopressin 0.03 units/min Titrate to keep MAP above 65 mmHg/SBP above 90 mmHg. Continue antibiotics F/u cultures Bronchodilators Clinimix for nutritional support Monitor renal function Monitor electrolytes Supplement as needed Pressors as needed for hemodynamic support To maintain a mean arterial pressure of 65 mmHg DVT prophylaxis DNR Overall poor prognosis with high likelihood of demise. Prognosis: Poor given patient's multiple co-morbidities. Condition: Critical Rest of plan per hospitalist and other consultants. A total of 35 minutes of critical care time was spent reviewing the patient record, examining the patient, making a diagnostic and therapeutic plan, discussing this plan with the medical personnel, following up on diagnostic studies and following the patient for clinical stability excluding any and all procedures. At least 50% of this time was spent in direct, [id number] contact. Thank you, GLORIA Williamson, for allowing me to participate in this patient's care. Further recommendations will depend on the patient's clinical course. Please do not hesitate to contact me if you have any questions or concerns. This medical document was created using an electronic medical record system with [employer] dictation system. Although these documentations are being carefully reviewed, there may still be some phonetic and typographical changes. The errors are purely typographical, due to imperfection on the software program, and do not reflect any compromise in the patient's medical care. Dietary Evaluation Review Comments: 1. TPN to meet at least 75% estimated needs 2. Monitor CMP and triglycerides, TPN tolerance, wt trend, I/O Expected Outcomes/Goals: To meet >75% estimated needs within 7 days Fu 2-3 days Protein Calorie Malnutrition: Severe Plan discussed with: Other (REYNALDO Weaver) Critical Care Time(min): 35 SAMREEN CLARK MD Nov 10, 2024 16:20
[2024-11-11] VITALS (104 sets, daily range): BP systolic 29–101; BP diastolic 16–38; PULSE 38–130; RESP 18–31; TEMP 95.9–99.3; O2SAT 5–87
[2024-11-11 04:06] LABS: Hemoglobin 8.1 g/dL (12.2-16.2); Platelet Count (auto) 29 10^3/uL (140-450)
[2024-11-11 04:09] LABS: Mean Corpuscular Hemoglobin 32.6 pg (28.0-32.0); Mean Corpuscular Hgb Conc. 32.5 g/dL (32.0-36.0); Mean Corpuscular Volume 100.1 fL (80.0-100.0); Red Cell Distribution Width 24.5 % (11.8-14.3); White Blood Cell 15.2 10^3/uL (4.4-10.8)
[2024-11-11 04:18] LABS: Albumin 3.3 g/dL (3.2-4.8); Anion Gap 19 (5-15); Glucose 100 mg/dL (74-106); Magnesium 2.1 mg/dL (1.6-2.6); Potassium 3.9 mmol/L (3.5-5.1)
[2024-11-11 04:22] LABS: BUN/Creatinine Ratio 16.3 (10.0-20.0)
[2024-11-11 04:25] LABS: Alanine Aminotransferase 78 U/L (7-40); Alkaline Phosphatase 183 U/L (46-116); Aspartate Aminotransferase 505 U/L (13-40); Bilirubin, Total 14.3 mg/dL (0.2-1.0); Blood Urea Nitrogen 50 mg/dL (9-23); Calcium 7.6 mg/dL (8.7-10.4); Carbon Dioxide 12 mmol/L (20-31); Chloride 97 mmol/L (98-107); Sodium 128 mmol/L (136-145); Total Protein 3.7 g/dL (5.7-8.2)
[2024-11-11 04:32] LABS: Basophils % (manual) 0 (0.0-2.0); Blast Cells 0; Eosinophils % (manual) 0 (0-7); Metamyelocytes % 0; Myelocytes % 0; Promyelocytes % 0; Reactive Lymphocytes 0
[2024-11-11 05:20] LABS: Band Neutrophils % (manual) 4; Lymphocytes % (manual) 5 (10.0-50.0); Monocytes % (manual) 3 (0-12)
[2024-11-11 05:21] LABS: Large Platelets FEW; Platelet Estimate Decreased
--- NOTE | 2024-11-11 05:22 | DVH ---
EXAM: XR Chest, 1 View CLINICAL INDICATION: pna TECHNIQUE: Frontal view of the chest. COMPARISON: XY CHEST PORTABLE on DOS: 11/09/24, XY CHEST PORTABLE on DOS: 11/08/24, XY CHEST PORTABLE on DOS: 11/07/24, XY CHEST PORTABLE on DOS: 11/06/24, XY CHEST PORTABLE on DOS: 11/05/24 FINDINGS: LUNGS AND PLEURAL SPACES: Patchy airspace disease, likely multifocal pneumonia, increased since the prior exam. No pneumothorax. HEART: Unremarkable. No cardiomegaly. MEDIASTINUM: Unremarkable. Normal mediastinal contour. BONES/JOINTS: Unremarkable. No acute fracture. TUBES, LINES AND DEVICES: Right internal jugular central venous catheter tip in the superior vena c abel. The endotracheal tube (ETT) is in satisfactory position. Enteric tube tip in the stomach. OTHER FINDINGS: . . . . IMPRESSION: Patchy airspace disease, likely multifocal pneumonia, increased since the prior exam.
--- NOTE | 2024-11-11 08:52 | DVHPN2 ---
Subjective Patient chemically sedated Reviewed: Care Plan, H&P, Labs, Medications, Previous Orders, Radiology Changes from previous H/P or p: No Changes General: Per HPI Objective Vitals Vital Signs Date Time Temp Pulse Resp B/P (MAP) Pulse Ox O2 Delivery O2 Flow Rate FiO2 11/11/24 08:27 39/30 11/11/24 08:18 109 20 77 100 11/11/24 07:00 98.4 209.1 11/11/24 04:00 Mechanical Ventilator+ Intake/Output Intake and Output 11/11/24 07:00 Intake Total 5352.0 ml Output Total 3305 ml Balance 2047.0 ml Intake Oral 0 ml IV Total 5352.0 ml Tube Feeding 0 ml Output Urine Total 55 ml Stool Total 0 ml Gastric Drainage Total 600 ml Drainage Total 2650 ml General Appearance: severe distress, Other (Some distress with the abdominal pain) HEENT: Atraumatic, PERRLA, Mucous membr. moist/pink Lungs: Clear to auscultation Cardiovascular: Regular rate, Normal S1, Normal S2 Abdomen: Normal bowel sounds, Soft, No tenderness, Other (Hypoactive bowel sounds. Dressing dry and intact.) Neuro: Other (Unable to assess) Skin: Dry, Intact, Wounds (See nurse notes and pictures) Psych/Mental Status: Other (Unable to assess) Medications Current Medications Medications Dose Ordered Sig/Shellie Route Start Time Stop Time Status Last Admin Dose Admin Acetaminophen 650 mg Q6HP PRN PO 10/31/24 11:45 11/02/24 03:46 650 MG Ondansetron HCl 4 mg Q4HPRN PRN IV 11/01/24 14:15 UNV Ondansetron HCl 4 mg Q4HPRN PRN IV 11/02/24 14:45 Midazolam HCl 50 ml @ 1 mls/hr Q24H IV 11/02/24 14:45 11/10/24 20:05 1 MLS/HR Propofol 100 ml @ 2.079 mls/ hr Q24H IV 11/02/24 15:30 Cancel Propofol 100 ml @ 2.079 mls/ hr Q24H IV 11/02/24 17:15 11/08/24 14:24 4.158 MLS/HR Diagnostic Test (Pha) 1 strip Q6HR 11/03/24 18:00 11/11/24 06:00 1 STRIP Insulin Human Regular FOLLOW SLIDING SCALE Q6HR SC 11/03/24 18:00 11/09/24 05:38 2 UNITS Dextrose 50 ml UD IV 11/03/24 18:00 11/11/24 06:23 50 ML Albuterol 2.5 mg Q6HR NEB 11/04/24 12:00 11/11/24 05:46 2.5 MG Ipratropium [place] 0.5 mg Q6HR NEB 11/04/24 12:00 11/11/24 05:46 0.5 MG Pantoprazole Sodium 40 mg BID IV 11/04/24 10:00 11/10/24 21:52 40 MG Fentanyl Citrate 250 ml @ 0 mls/hr Q0M IV 11/05/24 15:00 11/10/24 21:56 22.5 MLS/HR Vasopressin 20 units/Sodium Chloride 100 ml @ 9 mls/hr Q11H7M IV 11/05/24 15:00 11/11/24 06:57 9 MLS/HR Phenylephrine HCl 80 mg/Sodium Chloride 250 ml @ 7.5 mls/hr Q24H IV 11/06/24 08:30 11/11/24 06:58 33.75 MLS/HR Norepinephrine Bitartrate 32 mg/ Sodium Chloride 250 ml @ 0.938 mls/ hr Q24H IV 11/06/24 08:30 11/10/24 02:54 14.063 MLS/HR Micafungin Sodium 100 mg/Sodium Chloride 100 ml @ 100 mls/hr DAILY IV 11/08/24 10:00 11/10/24 09:32 100 MLS/HR Epinephrine HCl 250 ml @ 7.5 mls/hr Q24H IV 11/08/24 22:45 11/11/24 08:27 37.5 MLS/HR Dopamine HCl/ Dextrose 250 ml @ 14.831 mls/ hr [id number] IV 11/09/24 01:15 11/11/24 07:29 59.325 MLS/HR Fat Emulsion Intravenous 100 ml/Sodium Chloride 40 meq/ Calcium Gluconate 9.3 meq/Magnesium Sulfate 6 meq/ Multivitamins 10 ml/Chromium/ Copper/Manganese/ Zinc 1 ml/Insulin Human Regular 22 units/Amino Acids/ Dextrose/Purified Water 1,292.72 ml @ 54 mls/hr [id number] IV 11/09/24 22:00 11/10/24 21:59 Cancel Amino Acids 0 ml @ 0 mls/hr PER PHARMACY IV 11/09/24 12:00 Amino Acids/ Electrolytes/ Dextrose 1,000 ml @ 41 mls/hr DAILY@2200 IV 11/09/24 22:00 11/10/24 21:56 41 MLS/HR Laboratory Results Laboratory Tests 11/11/24 03:10 Chemistry Test 11/11/24 03:10 Albumin 3.3 g/dL (3.2-4.8) Calcium Level 7.6 mg/dL (8.7-10.4) L Magnesium Level 2.1 mg/dL (1.6-2.6) Phosphorus Level 6.0 mg/dL (2.4-5.1) H Total Protein 3.7 g/dL (5.7-8.2) L Coagulation Test 11/10/24 10:10 11/10/24 11:50 Fibrin Degradation Products Pending Prothrombin Time 41.5 sec (9.3-11.8) H Prothrombin Time INR 4.49 (0.9-1.15) *H Activated Partial Thromboplast Time > 139.0 SEC (24.5-34.5) *H Fibrinogen 53 mg/dL (177-375) *L LFT Test 11/11/24 03:10 Alanine Aminotransferase (ALT) 78 U/L (7-40) H Alkaline Phosphatase 183 U/L (46-116) H Aspartate Amino Transferase (AST) 505 U/L (13-40) H Total Bilirubin 14.3 mg/dL (0.2-1.0) H Urinalysis Test 10/31/24 16:09 Urine Color Dark-yellow (Yellow) Urine Clarity Turbid (Clear) H Urine pH 5.5 (5.0-9.0) Urine Specific [place] 1.020 (1.001-1.035) Urine Protein Negative (Negative) Urine Ketones 1+ (Negative) H Urine Blood Trace /uL (Negative) H Urine Nitrite Negative (Negative) Urine Bilirubin 1+ (Negative) H Urine Urobilinogen 4 mg/dL (Negative) H Urine Leukocyte Esterase 1+ /uL (Negative) Urine RBC 2 /hpf (0 - 4) Urine Microscopic WBC 16 /HPF (0-5) H Urine Squamous Epithelial Cells Few /hpf (<5) Urine Calcium Oxalate Crystals Few (None Seen) Urine Bacteria Few /hpf (None Seen) H Urine Hyaline Casts Few /lpf (0 - 2) Urine Mucus Few (None Seen) Urine Glucose Normal mg/dL (Normal) Microbiology Microbiology Date/Time Source Procedure Growth Status 11/02/24 15:27 Sputum Gram Stain - Final Complete 11/02/24 15:27 Sputum Respiratory Culture - Final Complete 11/02/24 14:49 Peritoneal Fluid Gram Stain - Final Complete 11/02/24 14:49 Peritoneal Fluid Anaerobic Culture - Final Complete 11/02/24 14:49 Aerobic Culture - Final Streptococcus anginosus Complete Labs and/or images reviewed: Labs reviewed by me, Image(s) reviewed by me Assessment/Plan Assessment/Plan Impression: -syncope with collapse -perforated gastric ulcer -acute hypoxic respiratory failure -hyperkalemia -metastatic breast cancer -sirs secondary to gastric ulcer -Septic Shock -Hypoglycemia -ALEXIA, VMN, ATN -SVT Plan: Events: Patient continues to have grim prognosis. Discussion made with surgeon yesterday regarding possible compassionate extubation. Attempted to contact patient's daughter, Anayeli yesterday, which was unsuccessful. I did speak with her this a.m. regarding her overall worsening clinical condition. At this time she states she will speak to her family and contact me regarding their decision for removing current medical modalities proceed with comfort care. -deescalate antibiotics, stop Zyvox given recent culture -nephrology consultation -continue PPI -check D-dimer, fibrinogen, fibrinogen split product, PT/PTT Continue current ventilator settings -repeat labs, chest x-ray, ABG in a.m. -overall poor prognosis given patient has metastatic cancer prior to acute/emergent abdominal surgery. Long discussion made with the patient's daughter yesterday morning. Continue DNR status at this time Critical care time spent with patient discussing and formulating plan of care: 40 minutes. This does not include time spent performing procedures. This medical document was created using an electronic medical record system with [employer] system. Although this document has been carefully reviewed, there may still be some phonetic and typographical errors. These areas are purely typographical due to imperfections of the software programs, and do not reflect any compromise in the patient's medical care. Plan discussed with: Patient, Other (RN) My Orders Orders - KINGSTON GARCIA NP Procedure Category Date Status Time Chest Portable XY 11/11/24 Resulted 04:00 Fibrin Degredation LAB 11/10/24 In Process Products 09:56 Clinimix Per Pharmacy [facility] 11/10/24 In Process 22:00 Date of Service: Nov 11, 2024 Billing Provider: KINGSTON GARCIA NP Common Visit Codes: 82165-FCSWOKHE CARE 30-74 MIN, 18027-OYTXONOR CARE-EACH +30MIN KINGSTON GARCIA NP Nov 11, 2024 08:52
--- NOTE | 2024-11-11 09:39 | DVHPN2 ---
Progress Note Date Seen: Nov 11, 2024 Medical Necessity Reason Pt with a Central, PICC or Fol: Yes The following are medically ne: Central Line, Cosby Catheter Reason for cosby catheter: Strict I&O Subjective Other Systems: Patient seen and examined by myself today in follow-up, patient remained intubated on ventilator Objective vital signs Vital Sign Date Time Temp Pulse Resp B/P (MAP) Pulse Ox O2 Delivery O2 Flow Rate FiO2 11/11/24 08:27 39/30 11/11/24 08:18 109 20 77 100 11/11/24 08:00 Mechanical Ventilator+ 11/11/24 07:00 98.4 209.1 Total Intake and Output 11/10/24 11/10/24 11/11/24 15:00 23:00 07:00 Intake Total 2152 ml 1674.0 ml 1744.05 ml Output Total 2005 ml 1300 ml Balance 2152 ml -331.0 ml 444.05 ml medications Current Medications Medications Dose Ordered Sig/Shellie Route Start Time Stop Time Status Last Admin Dose Admin Acetaminophen 650 mg Q6HP PRN PO 10/31/24 11:45 11/02/24 03:46 650 MG Ondansetron HCl 4 mg Q4HPRN PRN IV 11/01/24 14:15 UNV Ondansetron HCl 4 mg Q4HPRN PRN IV 11/02/24 14:45 Midazolam HCl 50 ml @ 1 mls/hr Q24H IV 11/02/24 14:45 11/10/24 20:05 1 MLS/HR Propofol 100 ml @ 2.079 mls/ hr Q24H IV 11/02/24 15:30 Cancel Propofol 100 ml @ 2.079 mls/ hr Q24H IV 11/02/24 17:15 11/08/24 14:24 4.158 MLS/HR Diagnostic Test (Pha) 1 strip Q6HR 11/03/24 18:00 11/11/24 06:00 1 STRIP Insulin Human Regular FOLLOW SLIDING SCALE Q6HR SC 11/03/24 18:00 11/09/24 05:38 2 UNITS Dextrose 50 ml UD IV 11/03/24 18:00 11/11/24 06:23 50 ML Albuterol 2.5 mg Q6HR NEB 11/04/24 12:00 11/11/24 05:46 2.5 MG Ipratropium [place] 0.5 mg Q6HR NEB 11/04/24 12:00 11/11/24 05:46 0.5 MG Pantoprazole Sodium 40 mg BID IV 11/04/24 10:00 11/10/24 21:52 40 MG Fentanyl Citrate 250 ml @ 0 mls/hr Q0M IV 11/05/24 15:00 11/10/24 21:56 22.5 MLS/HR Vasopressin 20 units/Sodium Chloride 100 ml @ 9 mls/hr Q11H7M IV 11/05/24 15:00 11/11/24 06:57 9 MLS/HR Phenylephrine HCl 80 mg/Sodium Chloride 250 ml @ 7.5 mls/hr Q24H IV 11/06/24 08:30 11/11/24 06:58 33.75 MLS/HR Norepinephrine Bitartrate 32 mg/ Sodium Chloride 250 ml @ 0.938 mls/ hr Q24H IV 11/06/24 08:30 11/10/24 02:54 14.063 MLS/HR Micafungin Sodium 100 mg/Sodium Chloride 100 ml @ 100 mls/hr DAILY IV 11/08/24 10:00 11/10/24 09:32 100 MLS/HR Epinephrine HCl 250 ml @ 7.5 mls/hr Q24H IV 11/08/24 22:45 11/11/24 08:27 37.5 MLS/HR Dopamine HCl/ Dextrose 250 ml @ 14.831 mls/ hr [id number] IV 11/09/24 01:15 11/11/24 07:29 59.325 MLS/HR Fat Emulsion Intravenous 100 ml/Sodium Chloride 40 meq/ Calcium Gluconate 9.3 meq/Magnesium Sulfate 6 meq/ Multivitamins 10 ml/Chromium/ Copper/Manganese/ Zinc 1 ml/Insulin Human Regular 22 units/Amino Acids/ Dextrose/Purified Water 1,292.72 ml @ 54 mls/hr [id number] IV 11/09/24 22:00 11/10/24 21:59 Cancel Amino Acids 0 ml @ 0 mls/hr PER PHARMACY IV 11/09/24 12:00 Amino Acids/ Electrolytes/ Dextrose 1,000 ml @ 41 mls/hr DAILY@2200 IV 11/09/24 22:00 11/10/24 21:56 41 MLS/HR Examination: LUNGS:Normal, CVS:Normal, MSK:Normal laboratory and microbiology Laboratory Tests 11/11/24 03:10 Test 11/11/24 03:10 Range/Units Serum Glucose 100 74-106 mg/dL Microbiology Date/Time Source Procedure Growth Status 11/02/24 15:27 Sputum Gram Stain - Final Complete 11/02/24 15:27 Sputum Respiratory Culture - Final Complete 11/02/24 14:49 Peritoneal Fluid Gram Stain - Final Complete 11/02/24 14:49 Peritoneal Fluid Anaerobic Culture - Final Complete 11/02/24 14:49 Aerobic Culture - Final Streptococcus anginosus Complete Problem List/Assessment/Plan Problem List/Assessment/Plan Acute kidney injury likely prerenal in the setting of significant volume loss , hemodynamics and third-spacing No previous history of kidney disease Metastatic cancer Acute pneumoperitoneum status post surgery Acute respiratory failure , intubated on ventilator Severe hypoalbuminemia , severe anasarca Hyperkalemia , resolved Metabolic acidosis Hypoglycemia Septic shock Transaminitis Recommendations Kidney function is worsening Decreased urine output Cosby catheter Strict I&Os On max IV pressor for blood pressure support IV D10 Albumin 25% IV piggyback IV antibiotics Poor prognosis Plan discussed with: Other (Nurse) My Orders My Orders Orders - SHMUEL MOTT MD Procedure Category Date Status Time Urine Sodium LAB 11/10/24 Logged 09:55 Urine LAB 11/10/24 Logged Protein/Creatinine Urine Creatinine LAB 11/10/24 Logged 09:55 Urinalysis LAB 11/10/24 Logged 09:55 Dietary Evaluation Review Comments: 1. TPN to meet at least 75% estimated needs 2. Monitor CMP and triglycerides, TPN tolerance, wt trend, I/O Expected Outcomes/Goals: To meet >75% estimated needs within 7 days Fu 2-3 days Protein Calorie Malnutrition: Severe SHMUEL MOTT MD Nov 11, 2024 09:39
--- NOTE | 2024-11-11 23:11 | DVHPN2 ---
Progress Note - Dictate Date Seen: Nov 11, 2024 Medical Necessity Reason Pt with a Central, PICC or Fol: Yes The following are medically ne: Central Line, Cosby Catheter Reason for cosby catheter: Strict I&O Subjective [facility] Patient seen and examined at bedside. Sedated, intubated on mechanical ventilator. Overnight events reviewed. vital signs Vital Sign Date Time Temp Pulse Resp B/P (MAP) Pulse Ox O2 Delivery O2 Flow Rate FiO2 11/11/24 22:18 47 20 () 25 100 11/11/24 20:00 Mechanical Ventilator+ 11/11/24 18:30 96.4 205.5 Total Intake and Output 11/10/24 11/10/24 11/11/24 15:00 23:00 07:00 Intake Total 2152 ml 1674.0 ml 1744.05 ml Output Total 2005 ml 1300 ml Balance 2152 ml -331.0 ml 444.05 ml medications Current Medications Medications Dose Ordered Sig/Shellie Route Start Time Stop Time Status Last Admin Dose Admin Acetaminophen 650 mg Q6HP PRN PO 10/31/24 11:45 11/02/24 03:46 650 MG Ondansetron HCl 4 mg Q4HPRN PRN IV 11/01/24 14:15 UNV Ondansetron HCl 4 mg Q4HPRN PRN IV 11/02/24 14:45 Midazolam HCl 50 ml @ 1 mls/hr Q24H IV 11/02/24 14:45 11/10/24 20:05 1 MLS/HR Propofol 100 ml @ 2.079 mls/ hr Q24H IV 11/02/24 15:30 Cancel Propofol 100 ml @ 2.079 mls/ hr Q24H IV 11/02/24 17:15 11/08/24 14:24 4.158 MLS/HR Diagnostic Test (Pha) 1 strip Q6HR 11/03/24 18:00 11/11/24 17:28 1 STRIP Insulin Human Regular FOLLOW SLIDING SCALE Q6HR SC 11/03/24 18:00 11/09/24 05:38 2 UNITS Dextrose 50 ml UD IV 11/03/24 18:00 11/11/24 17:28 50 ML Albuterol 2.5 mg Q6HR NEB 11/04/24 12:00 11/11/24 18:13 2.5 MG Ipratropium [place] 0.5 mg Q6HR NEB 11/04/24 12:00 11/11/24 18:13 0.5 MG Pantoprazole Sodium 40 mg BID IV 11/04/24 10:00 11/11/24 22:11 40 MG Fentanyl Citrate 250 ml @ 0 mls/hr Q0M IV 11/05/24 15:00 11/11/24 19:30 22.5 MLS/HR Vasopressin 20 units/Sodium Chloride 100 ml @ 9 mls/hr Q11H7M IV 11/05/24 15:00 11/11/24 17:57 9 MLS/HR Phenylephrine HCl 80 mg/Sodium Chloride 250 ml @ 7.5 mls/hr Q24H IV 11/06/24 08:30 11/11/24 21:24 33.75 MLS/HR Norepinephrine Bitartrate 32 mg/ Sodium Chloride 250 ml @ 0.938 mls/ hr Q24H IV 11/06/24 08:30 11/11/24 18:25 14.063 MLS/HR Micafungin Sodium 100 mg/Sodium Chloride 100 ml @ 100 mls/hr DAILY IV 11/08/24 10:00 11/11/24 09:50 100 MLS/HR Epinephrine HCl 250 ml @ 7.5 mls/hr Q24H IV 11/08/24 22:45 11/11/24 21:24 37.5 MLS/HR Dopamine HCl/ Dextrose 250 ml @ 14.831 mls/ hr [id number] IV 11/09/24 01:15 11/11/24 20:39 59.325 MLS/HR Fat Emulsion Intravenous 100 ml/Sodium Chloride 40 meq/ Calcium Gluconate 9.3 meq/Magnesium Sulfate 6 meq/ Multivitamins 10 ml/Chromium/ Copper/Manganese/ Zinc 1 ml/Insulin Human Regular 22 units/Amino Acids/ Dextrose/Purified Water 1,292.72 ml @ 54 mls/hr [id number] IV 11/09/24 22:00 11/10/24 21:59 Cancel Amino Acids 0 ml @ 0 mls/hr PER PHARMACY IV 11/09/24 12:00 Amino Acids/ Electrolytes/ Dextrose 1,000 ml @ 41 mls/hr DAILY@2200 IV 11/09/24 22:00 11/11/24 22:12 41 MLS/HR objective Gen.: Patient lying in bed in medical ICU. Sedated, intubated on mechanical ventilator. Head: Normocephalic, atraumatic. Eyes: PERRLA. Ears: Normal external anatomy. Throat: Endotracheal tube and orogastric tube in place. Neck: Supple, trachea midline. Chest: Transmitted breath sounds bilaterally. Decreased air entry bilaterally. No wheezing. Bibasilar crackles. Cardiovascular: Positive S1, positive S2. Regular rate and rhythm. Abdomen: Positive bowel sounds in all 4 quadrants. Soft, nontender, nondistended. : Cosby in place. Normal external genitalia. Rectal: Deferred. Skin: Warm, dry. Intact. Extremities: 2+ radial pulses bilaterally. No lower extremity edema. Neuro: Sedated. laboratory and microbiology Laboratory Tests 11/11/24 03:10 Test 11/11/24 03:10 Range/Units Serum Glucose 100 74-106 mg/dL Assessment/Plan Impression: Acute hypoxemic respiratory failure On mechanical ventilator Perforated gastric ulcer Breast cancer with mets Septic shock Multiorgan failure Fall S/p gastric ulcer repair Events: Patient seen and examined in ICU Remains on mechanical ventilation S/p intubation AC mode with RR 20, VT 500, PEEP 5, FiO2 100% Maxed on 5 pressors for hemodynamics Levophed 30 mcg/min, Dopamine 20 mcg/min, epinephrine 10 mcg/min, Jeremy-Synephrine 180 mcg/min and vasopressin 0.03 units/min Titrate to keep MAP above 65 mmHg/SBP above 90 mmHg. Sedated on Versed, Fentanyl Clinimix for nutritional support Platelets up from 26 to 29. Hemoglobin trending down. Overall poor prognosis with high likelihood of demise. worsening metabolic acidosis ALEXIA labs multi-organ failure DIC Labs and imaging reviewed Rest of plan as noted below Plan: Vent support Titrate to maintain sats 90% or above Maxed on 5 pressors for hemodynamics Levophed 30 mcg/min, Dopamine 20 mcg/min, epinephrine 10 mcg/min, Jeremy-Synephrine 180 mcg/min and vasopressin 0.03 units/min Titrate to keep MAP above 65 mmHg/SBP above 90 mmHg. Continue antibiotics F/u cultures Bronchodilators Clinimix for nutritional support Monitor renal function Monitor electrolytes Supplement as needed Pressors as needed for hemodynamic support To maintain a mean arterial pressure of 65 mmHg DVT prophylaxis DNR Overall poor prognosis with high likelihood of demise. Prognosis: Poor given patient's multiple co-morbidities. Condition: Critical Rest of plan per hospitalist and other consultants. A total of 35 minutes of critical care time was spent reviewing the patient record, examining the patient, making a diagnostic and therapeutic plan, discussing this plan with the medical personnel, following up on diagnostic studies and following the patient for clinical stability excluding any and all procedures. At least 50% of this time was spent in direct, [id number] contact. Thank you, GLORIA Williamson, for allowing me to participate in this patient's care. Further recommendations will depend on the patient's clinical course. Please do not hesitate to contact me if you have any questions or concerns. This medical document was created using an electronic medical record system with [email or web address] dictation system. Although these documentations are being carefully reviewed, there may still be some phonetic and typographical changes. The errors are purely typographical, due to imperfection on the software program, and do not reflect any compromise in the patient's medical care. Dietary Evaluation Review Comments: 1. TPN to meet at least 75% estimated needs 2. Monitor CMP and triglycerides, TPN tolerance, wt trend, I/O Expected Outcomes/Goals: To meet >75% estimated needs within 7 days Fu 2-3 days Protein Calorie Malnutrition: Severe Plan discussed with: Other (REYNALDO George/REYNALDO Carranza) Critical Care Time(min): 35 SAMRENE CLARK MD Nov 11, 2024 23:11
--- NOTE | 2024-11-12 07:56 | DVHDS2 ---
Discharge Summary Date of Admission October 31, 2024 at 11:43 Date of Discharge: Nov 12, 2024 Admitting Diagnosis Syncope with collapse Labs/Diagnostic Data: Laboratory Results Test 11/11/24 17:50 11/11/24 03:10 11/10/24 11:50 11/10/24 10:10 POC Glucose 128 mg/dl (70-106) White Blood Count 15.2 10^3/uL (4.4-10.8) Red Blood Count 2.50 10^6/uL (4.0-5.20) Hemoglobin 8.1 g/dL (12.2-16.2) Hematocrit 25.0 % (36.0-46.0) Mean Corpuscular Volume 100.1 fL (80.0-100.0) Mean Corpuscular Hemoglobin 32.6 pg (28.0-32.0) Mean Corpuscular Hemoglobin Concent 32.5 g/dL (32.0-36.0) Red Cell Distribution Width 24.5 % (11.8-14.3) Platelet Count 29 10^3/uL (140-450) Mean Platelet Volume 9.2 fL (6.9-10.8) Neutrophils (%) (Auto) % (37.0-80.0) Lymphocytes (%) (Auto) % (10.0-50.0) Monocytes (%) (Auto) % (0.0-12.0) Basophils (%) (Auto) % (0.0-2.0) Neutrophils # (Auto) 10 ^3/uL (1.6-8.6) Lymphocytes # (Auto) 10 ^3/uL (0.4-5.4) Monocytes # (Auto) 10 ^3/uL (0-1.3) Differential Total Cells Counted 100.0 (100) Neutrophils % (Manual) 88 (37.0-80.0) Band Neutrophils % (Manual) 4 Lymphocytes % (Manual) 5 (10.0-50.0) Monocytes % (Manual) 3 (0-12) Eosinophils % (Manual) 0 (0-7) Basophils % (Manual) 0 (0.0-2.0) Metamyelocytes % (manual) 0 Myelocytes % (Manual) 0 Promyelocytes % (Manual) 0 Blast Cells % (Manual) 0 Nucleated Red Blood Cells 4.0 % Reactive Lymphocytes 0 Platelet Estimate Decreased Large Platelets Few Sodium Level 128 mmol/L (136-145) Potassium Level 3.9 mmol/L (3.5-5.1) Chloride Level 97 mmol/L (98-107) Carbon Dioxide Level 12 mmol/L (20-31) Anion Gap 19 (5-15) Blood Urea Nitrogen 50 mg/dL (9-23) Creatinine 3.06 mg/dL (0.550-1.02) Glomerular Filtration Rate Calc 15 mL/min (>90) BUN/Creatinine Ratio 16.3 (10.0-20.0) Serum Glucose 100 mg/dL (74-106) Calcium Level 7.6 mg/dL (8.7-10.4) Phosphorus Level 6.0 mg/dL (2.4-5.1) Magnesium Level 2.1 mg/dL (1.6-2.6) Total Bilirubin 14.3 mg/dL (0.2-1.0) Aspartate Amino Transferase (AST) 505 U/L (13-40) Alanine Aminotransferase (ALT) 78 U/L (7-40) Alkaline Phosphatase 183 U/L (46-116) Total Protein 3.7 g/dL (5.7-8.2) Albumin 3.3 g/dL (3.2-4.8) Prothrombin Time 41.5 sec (9.3-11.8) Prothrombin Time INR 4.49 (0.9-1.15) Activated Partial Thromboplast Time > 139.0 SEC (24.5-34.5) Fibrinogen 53 mg/dL (177-375) Vitamin D 25-Hydroxy 18.9 ng/mL (30.0-100) Hepatitis B Surface Antigen Negative (Negative) Hepatitis C Antibody Negative (Negative) Test 11/10/24 03:07 11/09/24 07:00 11/09/24 01:10 11/08/24 05:52 Smudge Cells 1 /100 WBC B-Type Natriuretic Peptide 3283.80 pg/mL (0-100) Parathyroid Hormone (Intact) 1216.6 pg/mL (18.4-80.1) Blood Gas Specimen Type Arterial Blood Gas Sample Site Arterial line Blood Gas Patient Temperature 37.0 Arterial Blood Date Drawn [id number] Arterial Blood pH 7.256 (7.350-7.450) Arterial Blood Partial Pressure CO2 42.0 mmHg (32.0-45.0) Arterial Blood Partial Pressure O2 141.2 mmHg (83.0-108.0) Arterial Blood HCO3 18.3 mmol/L (21.0-28.0) Arterial Blood Oxygen Saturation 98.3 % (94.0-98.0) Arterial Blood Base Excess -8.3 mmol/L (-2.0-3.0) Arterial Blood Oxyhemoglobin 96.2 % (94.0-98.0) Arterial Blood Carboxyhemoglobin 1.1 % (0.5-1.5) Arterial Blood Methemoglobin 1.0 % (0.0-1.5) Eric Test N/a Blood Gas Total Hemoglobin 9.70 g/dL (12.0-16.0) Blood Gas Set Respiration Rate 20.0 Blood Gas Modality Vent - ac FiO2 % 100.0 Blood Gas Tidal Volume 500.0 Blood Gas PEEP or CPAP 5.0 Hypochromasia (manual) Slight Anisocytosis (manual) Slight Target Cells Few Giant Platelets Few Test 11/07/24 03:12 11/06/24 07:58 11/04/24 03:45 11/02/24 16:40 Eosinophils (%) (Auto) 0.6 % (0.0-7.0) Eosinophils # (Auto) 0.1 10 ^3/uL (0-0.8) Basophils # (Auto) 0.2 10 ^3/uL (0-0.2) Blood Gas Critical Value Read Back yes Blood Gas Notified Whom press maintainer inez Blood Gas Notified Time [id number] Blood Gas Notified By international marketing manager kaila Triglycerides Level 150 mg/dL (< 150) Blood Gas Spontaneous Rate 12 Test 10/31/24 16:09 10/31/24 11:45 10/31/24 08:49 Urine Color Dark-yellow (Yellow) Urine Clarity Turbid (Clear) Urine pH 5.5 (5.0-9.0) Urine Specific Wells 1.020 (1.001-1.035) Urine Protein Negative (Negative) Urine Ketones 1+ (Negative) Urine Blood Trace /uL (Negative) Urine Nitrite Negative (Negative) Urine Bilirubin 1+ (Negative) Urine Urobilinogen 4 mg/dL (Negative) Urine Leukocyte Esterase 1+ /uL (Negative) Urine RBC 2 /hpf (0 - 4) Urine Microscopic WBC 16 /HPF (0-5) Urine Squamous Epithelial Cells Few /hpf (<5) Urine Calcium Oxalate Crystals Few (None Seen) Urine Bacteria Few /hpf (None Seen) Urine Hyaline Casts Few /lpf (0 - 2) Urine Mucus Few (None Seen) Urine Glucose Normal mg/dL (Normal) Troponin I High Sensitivity 12 ng/L (</=34) Creatine Kinase 71 U/L (34-145) Other Laboratory Tests 11/11/24 03:10 Brief Hx & Hospital Course: History of Present Illness Jaylin Ellington is an 83-year-old female with past medical history of cancer, who came in S/P fall. Patient lives alone, is on hospice. Patient states she was trying to walk to the bathroom when she felt dizzy and fell. She states this happened around 1700 last night. EMS was called this morning by a neighbor who was concerned about the patient and called for a well check. Patient was found on the ground in her room. Patient was recently admitted to the hospital for a similar event. Course of hospitalization: Patient developed abdominal pain, with CT findings of perforated gastric ulcer. Patient went to surgery under emergent circumstances. Postoperatively, the patient remained on mechanical ventilation with worsening renal and liver function. Patient also developed severe shock, with use of multiple vasopressors. On multiple occasions, discussions were made with the patient's daughter, Lou regarding the patient's grave condition. The patient was made a full DNR. While the daughter was contemplating over a span of two days regarding compassionate extubation due to the poor prognosis of the patient, the patient with time of being noted at 11:53 p.m., 11/11/2024. This medical document was created using an electronic medical record system with [employer] dictation system. Although this document has been carefully reviewed, there may still be some phonetic and typographical errors. These areas are purely typographical due to imperfections of the software programs, and do not reflect any compromise in the patient's medical care. Condition at Discharge: Poor Final Diagnosis/Problems List peritonitis perforated gastric ulcer Secondary diagnosis: -syncope with collapse -perforated gastric ulcer -acute hypoxic respiratory failure -hyperkalemia -metastatic breast cancer -sirs secondary to gastric ulcer -Septic Shock -Hypoglycemia -ALEXIA, VMN, ATN -SVT -DIC Discharge Disposition: at Hospital Discharge Statement: "Patient was advised to return to the ER or call 911 if any headaches, dizziness, shortness of breath, chest pain, abdominal pain, bleeding, fevers, or worsening of medical condition. Patient was counseled about treatment plan, medications, possible side effects, patientverbalized understanding. All questions were answered to the best of my ability. This discharge took greater then 30 minutes in planning, reviewing documentation, counseling the patient, and discussing with other team members." ASSESSMENT ASSESSMENT Assessment peritonitisperforated gastric ulcer Date of Service: Nov 12, 2024 Billing Provider: KINGSTON GARCIA NP Common Visit Codes: 94044-[id number] CARE 30-74 MIN KINGSTON GARCIA NP Nov 12, 2024 07:56
== END 2024-11-11 23:53 | DRG 853 ==
LOC: ER 08:26 → EDBD 08:26 → EDUNIT# 08:26 → OVERFLOW 11:43 → CENTRAL 12:50 → CATH ICU 11-02 17:01 → ICU WEST 11-06 04:59
PROVIDERS: ADMIT Nurse Practitioner Acute Care; ATTEND Nurse Practitioner Acute Care
PROC: 0BH17EZ Insertion of Endotracheal Airway into Trachea, Via Natural or Artificial Opening (ICD-10-PCS; 2024-11-02)
PROC: 5A1955Z Respiratory Ventilation, Greater than 96 Consecutive Hours (ICD-10-PCS; 2024-11-02)
PROC: 0DQ60ZZ Repair Stomach, Open Approach (ICD-10-PCS; principal; 2024-11-02 13:53)
PROC: 02HV33Z Insertion of Infusion Device into Superior Vena Cava, Percutaneous Approach (ICD-10-PCS; 2024-11-03)
DX: A41.9 Sepsis, unspecified organism (principal); D65 Disseminated intravascular coagulation [defibrination syndrome]; E43 Unspecified severe protein-calorie malnutrition; J96.01 Acute respiratory failure with hypoxia; K25.5 Chronic or unspecified gastric ulcer with perforation; N17.0 Acute kidney failure with tubular necrosis; K65.1 Peritoneal abscess; K76.7 Hepatorenal syndrome; R65.21 Severe sepsis with septic shock; C78.7 Secondary malignant neoplasm of liver and intrahepatic bile duct; C79.51 Secondary malignant neoplasm of bone; N39.0 Urinary tract infection, site not specified; I47.10 Supraventricular tachycardia, unspecified; R18.8 Other ascites; E87.20 Acidosis, unspecified; Z66 Do not resuscitate; C50.919 Malignant neoplasm of unspecified site of unspecified female breast; K57.30 Diverticulosis of large intestine without perforation or abscess without bleeding; E87.5 Hyperkalemia; E86.1 Hypovolemia; E88.09 Other disorders of plasma-protein metabolism, not elsewhere classified; K74.60 Unspecified cirrhosis of liver; E16.2 Hypoglycemia, unspecified; R74.01 Elevation of levels of liver transaminase levels; Z88.0 Allergy status to penicillin; Z79.899 Other long term (current) drug therapy; Z80.8 Family history of malignant neoplasm of other organs or systems; Z82.61 Family history of arthritis; Z90.710 Acquired absence of both cervix and uterus; Z68.25 Body mass index [BMI] 25.0-25.9, adult
CPT/HCPCS: 36415; 36556; 36600; 70450; 71045; 74176; 76705; 80048; 80053; 81001; 82306; 82550; 82805; 82962; 83735; 83880; 83970; 84100; 84478; 84484; 85007; 85025; 85027; 85362; 85384; 85610; 85730; 86803; 86850; 86900; 86901; 86920; 87070; 87075; 87077; 87186; 87205; 87340; 93005; 93306; 94002; 94003; 94640; 96360; 97163; 99291; G0378; J0131; J0153; J0171; J0690; J1100; J1815; J1885; J1956; J2003; J2185; J2248; J2405; J2470; J2704; J3490; J7131; P9047